=== PATIENT | female | born 1965 | race Caucasian/White ===

== ENCOUNTER 2018-10-29 07:52 | Emergency (ER) | payer MEDICARE, MEDICAID ==
[~2018-10-29] VITALS: Ht 170.2 cm; Wt 127.0 kg
[~2018-10-29 07:52] MED LIST: ACHD5005 PO; ALPR1TAB72 PO; BUTA1TAB46 PO; CYCL10TA9 PO; EXEN10PE4 SQ; FLUT1DIS28 IH; LISI1TAB10 PO; NAPR-243 PO; NF-ESOM40C PO; NF-XOP-HFA INH; PIOG45TA PO; SERT100T PO; ZOLP10TA5 PO
--- OUTSIDE RECORDS SUMMARY | 2018-10-29 07:59 | XMS REPORT ---
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 Phone YOON LARRY Unavailable PROBLEMS Type Condition ICD9-CM Code [id number] Code Onset Dates Condition Status SNOMED Code Problem Osteoarthritis of left knee M17.12 Apr, 0 206357759 Problem Type 2 diabetes mellitus without complication E11.9 May, 0 150319118 Problem Diffuse abdominal pain R10.84 Jan, 0 977772433 Problem Morbid obesity with BMI of 40.0-44.9, adult E66.01 Sep, 0 892622370 Problem RUBY (obstructive sleep apnea) G47.33 November, 0 92667075 Problem Chest pain R07.9 Jun, 0 79724530 Problem Fever R50.9 Jan, 0 185827605 Problem HTN (hypertension), benign 401.1 Mar, 0 62021610 Problem Nonspecific mesenteric adenitis 289.2 Jan, 0 955180059 Problem Morbid obesity with BMI of 40.0-44.9, adult 278.01 Sep, 0 956698221 Problem Difficult bowel movements 564.00 Dec, 0 75344500 Problem Rheumatoid arthritis involving multiple sites with positive rheumatoid factor 714.0 Oct, 0 58047428 Problem Nonspecific mesenteric adenitis I88.0 Jan, 0 497805769 Problem Lumbago M54.5 May, 0 321045822 Problem Anxiety F41.9 Jun, 0 69178275 Problem Adnexal mass 625.8 Jan, 0 559351886 Problem Adnexal mass N94.9 Jan, 0 311071920 Problem Urinary incontinence R32 Oct, 0 385156284 Problem Osteoarthritis of left knee 715.96 Apr, 0 021524123 Problem Rheumatoid arthritis involving multiple sites with positive rheumatoid factor M05.79 16 Oct, 2017 0 53849112 Problem RUBY (obstructive sleep apnea) 327.23 11 Nov, 2015 0 11578824 Problem Difficult bowel movements K59.00 Dec, 0 30024236 Problem Diffuse abdominal pain 789.00 Jan, 0 94042420 Problem Osteoarthrosis, unspecified whether generalized or localized, lower leg M17.10 15 May, 2007 0 565048515 Problem Urinary incontinence 788.30 15 Oct, 2013 0 517921163 Problem Type 2 diabetes mellitus without complication 250.00 15 May, 2007 0 930089984 Problem Chest pain 786.50 Jun, 0 62439261 Problem Anxiety 300.00 Jun, 0 54962913 Problem Fever 780.60 Jan, 0 529020966 Problem Exacerbation of asthma, unspecified asthma severity, unspecified whether persistent J45.901 Active 404746147 Problem Anxiety state, unspecified F41.1 0 997583481 Problem Urinary, incontinence, stress female N39.3 Active 12019351 Problem Esophageal reflux K21.9 0 160770000 Problem HTN (hypertension), benign I10 Mar, 0 17623456 Problem Osteoarthrosis, unspecified whether generalized or localized, lower leg 715.96 15 May, 2007 0 249551192 Problem Lumbago 724.2 15 May, 2007 0 918381504 Problem Esophageal reflux 530.81 0 167838756 Problem Anxiety state, unspecified 300.00 0 455497680 ALLERGIES Substance Reaction Event Type Date Status Penicillin V Potassium rash Drug Allergy Sep, Active Keflex rash Drug Allergy Sep, Active ceclor rash Non Drug Allergy Sep, Active Tetracycline HCl rash Drug Allergy Sep, Active Sulfacetamide Sodium rash Drug Allergy Sep, Active Singulair rash Drug Allergy Sep, Active ENCOUNTERS Encounter Location Date Diagnosis [address] [address] Sep, [address] [address] Sep, Urinary, incontinence, stress female N39.3 and Morbid obesity E66.[address] [address] Sep, Upper respiratory tract infection, unspecified type J06.9 ; Exacerbation of asthma, unspecified asthma severity, unspecified whether persistent J45.901 and Morbid obesity E66.01 [facility] [address], [place] [address] Aug, Fever, unspecified fever cause R50.9 ; Nausea R11.0 and Viral illness B34.[address] [address] Aug, [facility] [id number], [place] [address] Jul, Contusion of right knee, initial encounter S80.01XA ; Right anterior knee pain M25.561 and BMI 40.0-44.9, adult Z68.41 [facility] [id number] [place] [address] Jun, [place] [id number] [place] [phone] Jun, [place] [id number] [place] [address] Jun, [place] [address] [address] Jun, [place] [id number] [place] [address] Jun, [place] [id number] [place] [phone] May, [facility] [id number] [place] [address] Apr, [place] [id number] [place] [phone] Apr, [place] [id number] [place] [address] Apr, Anxiety state, unspecified F41.1 and 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 IMMUNIZATIONS No Known Immunizations SOCIAL HISTORY Never Assessed REASON FOR VISIT Nasal and chest congestion, runny nose, dry cough.[facility]cox PLAN OF CARE Activity Details Follow Up as needed or reg fu with pcp Reason: VITAL SIGNS Height 67 in 2018-09-09 Weight 278 lbs 2018-09-09 Temperature 97.8 degrees Fahrenheit 2018-09-09 Heart Rate 100 bpm 2018-09-09 Respiratory Rate 18 2018-09-09 BMI 43.54 kg/m2 2018-09-09 Blood pressure systolic 120 mmHg 2018-09-09 Blood pressure diastolic 70 mmHg 2018-09-09 MEDICATIONS Medication Instructions Dosage Frequency Start Date End Date Duration Status Spironolactone 25 MG Take 1 Tablet (25 mg) by mouth daily. 30 Active Ondansetron 4 MG Orally every 4 hrs 1 tablet on the tongue and allow to dissolve as needed 4h Aug, 5 days Active Hydrochlorothiazide 25 MG Orally Once a day 1 tablet in the morning 24h 30 day(s) Active PredniSONE 20 MG Orally 1 times a day 1 tablet Sep, 5 days Active Protonix 40 MG Orally Once a day 1 tablet 24h 30 day(s) Active Tramadol HCl 50 MG as directed Active Fluticasone Propionate 50 MCG/ACT Administer 2 Sprays in each nostril daily. 30 Active Estradiol 1 MG Orally Daily for Three Weeks, 1 Week off 1 tablet 30 day(s) Active Simvastatin 20 MG Orally Once a day 1 tablet in the evening 24h 30 day(s) Active Bydureon 2 MG as directed Active Xanax 0.5 MG Orally 3 times a day 1 tablet as needed. 8h Active Azithromycin 250 MG Orally Once a day 2 tablets on the first day, then 1 tablet daily for 4 days 24h Sep, 5 day(s) Active RESULTS No Results PROCEDURES Procedure Date Ordered Result Body Site [facility] VISIT ESTABLISHED PATIENT September 09, 2018 INSTRUCTIONS MEDICATIONS ADMINISTERED No Known Medications MEDICAL (GENERAL) HISTORY Type Description Date Medical History HTN Medical History GERD Medical History Diabetes Medical History Anxiety Medical History RA Medical History Fibromyalgia Medical History Primary insomnia Medical History Anxiety state, unspecified Medical History Nightmare disorder Surgical History EGD Surgical History cyst removed from abdomen 01/22 Surgical History Left knee scope X 2 Surgical History Gallbladder Surgical History right ankle surgery Surgical History TVH with BSO with [facility] Hospitalization History post surgery
--- OUTSIDE RECORDS SUMMARY | 2018-10-29 07:59 | XMS REPORT ---
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 PLAN OF CARE VITAL SIGNS MEDICATIONS Medication Instructions Dosage Frequency Start Date End Date Duration Status Estradiol Active Hydrochlorothiazide Active Potassium Active Protonix Active Bydureon Active Ibuprofen Active Tramadol HCl Active Xanax Active RESULTS No Results PROCEDURES Procedure Date Ordered Result Body Site [facility]IS[facility] NEW PT May 02, 2017 Psych diagnostic evaluation, new patient May 02, 2017 INSTRUCTIONS MEDICATIONS ADMINISTERED No Known Medications
--- OUTSIDE RECORDS SUMMARY | 2018-10-29 07:59 | XMS REPORT | Clinical Summary ---
Author Author Admin, AMANDA Organization [facility] Address Unknown Phone Unavailable Allergies, Adverse Reactions, Alerts Allergy Name Reaction Description Start Date Severity Status Provider WALNUTS Mild Active Rod Way MD SINGULAIR Moderate Active Rod Way MD SULFA Moderate Active Rod Way MD KEFLEX Severe Active Rod Way MD PCN Severe Active Rod Way MD Conditions or Problems Problem Name Problem Code Onset Date Status Entry Date Provider Comment Standard Description Annotate Incontinence Female Stress Active Rod Way MD Stress incontinence, female Medication List Medication Instructions Start Date Stop Date Generic Name NDC Status Provider Patient Instruction TRAMADOL HCL 50 MG ORAL TABLET once daily TRAMADOL HCL 28068147482 Active Rod Way MD Active PROTONIX 20 MG ORAL TABLET DELAYED RELEASE once daily PANTOPRAZOLE SODIUM 59355988596 Active Rod Way MD Active ESTRACE TABLET ESTRADIOL TABS 84508045861 Active Rod Way MD Active SIMVASTATIN 20 MG ORAL TABLET once daily SIMVASTATIN 71856281579 Active Rod Way MD Active HYDROCHLOROTHIAZIDE 25 MG ORAL TABLET once daily HYDROCHLOROTHIAZIDE 45390470918 Active Rod Way MD Active Vital Signs Date Name Value Unit Range Description blood pressure, diastolic 78 mm[Hg] BP browning blood pressure, systolic 143 mm[Hg] BP sys height E&M 65 [in_us] Bdy height pulse rate E&M 93 /min Heart rate temperature E&M 98.1 [degF] Body temperature weight E&M 287 [lb_av] Weight Measured Diagnostic Results Date Name Value Unit Range Description Office Visit: CN-bladder sling - Chemistry RBC, urine, dipstick negative protein, total urine random negative mg/dL Office Visit: CN-bladder sling - Urinalysis ketones, urine, by test strip negative bilirubin, urine negative glucose, urine, semiquantitative negative pH, urine, semiquantitative 6 specific gravity, urine 1.015 urine color yellow appearance, urine clear leukocyte esterase, urine, by dipstick negative nitrite, urine, semiquantitative negative urobilinogen, urine, semiquantitative (dipstick) negative protein, urine, semiquantitative (dipstick) negative Encounters Code Encounter Date Provider Facility CPT-95725 Level 3 New Patient 13:15:[address] MD [facility]
--- OUTSIDE RECORDS SUMMARY | 2018-10-29 07:59 | XMS REPORT | Clinical Summary ---
Author Author Admin, AMANDA Organization [employer] Address Unknown Phone Unavailable Allergies, Adverse Reactions, [...] MG ORAL TABLET once daily TRAMADOL HCL 02250316102 Active Rod Way MD Active PROTONIX 20 MG ORAL TABLET DELAYED RELEASE once daily PANTOPRAZOLE SODIUM 79953347905 Active Rod Way MD Active ESTRACE TABLET ESTRADIOL TABS 60632346424 Active Rod Way MD Active SIMVASTATIN 20 MG ORAL TABLET once daily SIMVASTATIN 70860473336 Active Rod Way MD Active HYDROCHLOROTHIAZIDE 25 MG ORAL TABLET once daily HYDROCHLOROTHIAZIDE 07451258888 Active Rod Way MD Active Vital Signs Date Name Value Unit Range Description blood pressure, diastolic, repeated by physician 92 BP browning blood pressure, diastolic 92 mm[Hg] BP browning blood pressure, systolic, repeated by physician 132 BP sys blood pressure, systolic 132 mm[Hg] BP sys height E&M 65 [in_us] Bdy height pulse rate E&M 100 /min Heart rate temperature E&M 98.3 [degF] Body temperature weight E&M 291 [lb_av] Weight Measured blood pressure, diastolic 78 mm[Hg] BP browning [...] negative Encounters Code Encounter Date Provider Facility CPT-45567 Level 3 New Patient 13:15:[address] MD [facility] Procedures Code Procedure Name Date Entry Date Standard Description CPT-00039 Postop F/U Visit 11:00:53 CDT
--- OUTSIDE RECORDS SUMMARY | 2018-10-29 07:59 | XMS REPORT | Clinical Summary ---
Author Author Admin, AMANDA Organization [employer] Address Unknown Phone Unavailable Allergies, Adverse Reactions, [...] MG ORAL TABLET once daily TRAMADOL HCL 33362869989 Active Rod Way MD Active PROTONIX 20 MG ORAL TABLET DELAYED RELEASE once daily PANTOPRAZOLE SODIUM 91319849440 Active Rod Way MD Active ESTRACE TABLET ESTRADIOL TABS 14631076958 Active Rod Way MD Active SIMVASTATIN 20 MG ORAL TABLET once daily SIMVASTATIN 28273694492 Active Rod Way MD Active HYDROCHLOROTHIAZIDE 25 MG ORAL TABLET once daily HYDROCHLOROTHIAZIDE 27734834189 Active Rod Way MD Active Vital Signs [...] negative Encounters Code Encounter Date Provider Facility CPT-50058 Level 3 New Patient 13:15:[address] MD [facility] Procedures Code Procedure Name Date Entry Date Standard Description CPT-11997 Postop F/U Visit 11:00:53 CDT
--- OUTSIDE RECORDS SUMMARY | 2018-10-29 07:59 | XMS REPORT | Clinical Summary ---
Author Author Admin, AMANDA Organization [facility] Address Unknown Phone Unavailable Allergies, Adverse Reactions, [...] MG ORAL TABLET once daily TRAMADOL HCL 05514044341 Active Rod Way MD Active PROTONIX 20 MG ORAL TABLET DELAYED RELEASE once daily PANTOPRAZOLE SODIUM 49104924856 Active Rod Way MD Active ESTRACE TABLET ESTRADIOL TABS 70385045809 Active Rod Way MD Active SIMVASTATIN 20 MG ORAL TABLET once daily SIMVASTATIN 02158898556 Active Rod Way MD Active HYDROCHLOROTHIAZIDE 25 MG ORAL TABLET once daily HYDROCHLOROTHIAZIDE 86997647800 Active Rod Way MD Active Vital Signs [...] negative Encounters Code Encounter Date Provider Facility CPT-29348 Level 3 New Patient 13:15:[address] MD [facility]
--- OUTSIDE RECORDS SUMMARY | 2018-10-29 08:00 | XMS REPORT | Continuity of Care Document ---
Author Organization Unknown Address Unknown Allergies There is no data. Medications There is no data. Problems There is no data. Procedures There is no data. Results Test Result Range [facility] - 10/09/18 16:06 GLUCOSE 272 mg/dL 65-99 UREA NITROGEN (BUN) 12 mg/dL 7-25 CREATININE 0.69 mg/dL 0.50-1.05 eGFR NON-AFR. COMORAN 101 mL/min/1.73m2 > OR=60 eGFR 117 mL/min/1.73m2 > OR=60 BUN/CREATININE RATIO NOT APPLICABLE (calc) 6-22 SODIUM 138 mmol/L 135-146 POTASSIUM 4.5 mmol/L 3.5-5.3 CHLORIDE 100 mmol/L 98-110 CARBON DIOXIDE 25 mmol/L 20-32 CALCIUM 8.9 mg/dL 8.6-10.4 PROTEIN, TOTAL 6.2 g/dL 6.1-8.1 ALBUMIN 3.7 g/dL 3.6-5.1 GLOBULIN 2.5 g/dL (calc) 1.9-3.7 ALBUMIN/GLOBULIN RATIO 1.5 (calc) 1.0-2.5 BILIRUBIN, TOTAL 0.4 mg/dL 0.2-1.2 ALKALINE PHOSPHATASE 53 U/L 33-130 AST 28 U/L 10-35 ALT 26 U/L 6-29 CULTURE, THROAT - 10/09/18 16:06 CULTURE, THROAT NRG Encounters ACCT No. Visit Date/Time Discharge Status Pt. Type Provider Facility Loc./Unit Complaint [id number] 09/11/2018 13:45:00 09/11/2018 23:59:59 [id number] 10/09/2018 15:40:00 Document Registration [id number] 07/03/2017 12:55:24 07/03/2017 23: 59:59 CLS Outpatient [id number] 07/03/2017 12:55:10 07/03/2017 23: 59:59 CLS Outpatient [id number] 05/21/2017 09:39:44 05/21/2017 09: 39:44 DIS Outpatient [id number] 05/21/2017 09:39:30 05/21/2017 09: 39:30 DIS Outpatient [id number] 05/20/2017 10:48:23 05/20/2017 10: 48:23 DIS Outpatient [id number] 05/16/2017 07:50:26 05/16/2017 23: 59:59 CLS Outpatient [id number] 05/16/2017 07:50:25 05/16/2017 23: 59:59 CLS Outpatient [id number] 05/16/2017 07:50:10 05/16/2017 07: 50:11 DIS Outpatient [id number] 10/21/2018 14:48:02 ACT Unknown
--- OUTSIDE RECORDS SUMMARY | 2018-10-29 08:00 | XMS REPORT | Clinical Summary ---
Author Author Admin, AMANDA Organization [employer] Address Unknown Phone Unavailable Allergies, Adverse Reactions, [...] MG ORAL TABLET once daily TRAMADOL HCL 36060056637 Active Rod Way MD Active PROTONIX 20 MG ORAL TABLET DELAYED RELEASE once daily PANTOPRAZOLE SODIUM 81290213826 Active Rod Way MD Active ESTRACE TABLET ESTRADIOL TABS 77891364608 Active Rod Way MD Active SIMVASTATIN 20 MG ORAL TABLET once daily SIMVASTATIN 32669908240 Active Rod Way MD Active HYDROCHLOROTHIAZIDE 25 MG ORAL TABLET once daily HYDROCHLOROTHIAZIDE 55793135671 Active Rod Way MD Active Vital Signs [...] negative Encounters Code Encounter Date Provider Facility CPT-91418 Level 3 New Patient 13:15:[address] MD [facility]
--- NOTE | 2018-10-29 08:25 | ED Fall/Injury ---
General Chief Complaint: Trauma-Non Activation Stated Complaint: FALL History of Present Illness Date Seen by Provider: Oct 29, 2018 Time Seen by Provider: 08:10 This is a 52-year-old female with a history arthritis, hypertension, here for a fall down 3 stairs. She says that she hurts "all over", worst in left anterior shoulder and right buttock. She does remember falling, she did not have abrupt onset of a headache, chest pain, shortness of breath, abdominal pain, palpitations prior to falling. No antiplatelet or anticoagulant medications. Allergies and Home Medications Allergies Coded Allergies: Cephalexin Monohydrate (Unverified Allergy, Intermediate, BLISTERS AROUND LIPS, 08/10/11) Penicillins (Unverified Allergy, Intermediate, BLISTERS AROUND LIPS, ) cefaclor (Unverified Allergy, Intermediate, BLISTERS AROUND LIPS, 08/10/11) tetracycline (Unverified Allergy, Intermediate, BLISTERS AROUND LIPS, ) Sulfa (Sulfonamide Antibiotics) (Verified Allergy, Unknown, 10/29/18) montelukast (Verified Allergy, Unknown, 10/29/18) Uncoded Allergies: CLEAR PLASTIC TAPE (Allergy, Intermediate, HIVES, 08/10/11) Home Medications Acetamin/Butalbital/Caffeine 1 Each Tablet, 1-2 EACH PO Q4HR PRN FOR HEADACHE Prescribed by: NADIYA GO on 08/10/11 1655 Alprazolam 1 Mg Tab.rapdis, 1 MG PO TID PRN, (Reported) Cyclobenzaprine Hcl 10 Mg Tablet, 1 EACH PO TID PRN, (Reported) Esomeprazole Mag Trihydrate 40 Mg Capsule.dr, 1 CAP PO DAILY, (Reported) Fluticasone/Salmeterol 1 Disk Inhp, 1 PUFF IH BID, (Reported) 1 PUFF Hctz/Lisinopril 1 Tab Tablet, 1 EACH PO DAILY, (Reported) Hydrocodone Bit/Acetaminophen 1 Each Tablet, 1 EACH PO QID PRN, (Reported) Naproxen 500 Mg Tablet, 1 EACH PO BID, (Reported) Pioglitazone Hcl 45 Mg Tablet, 45 MG PO DAILY, (Reported) Sertraline Hcl 100 Mg Tablet, 100 MG PO HS, (Reported) Zolpidem Tartrate 10 Mg Tablet, 10 MG PO HS, (Reported) Patient Home Medication List Home Medication List Reviewed: Yes Review of Systems Review of Systems Constitutional: no symptoms reported Eyes: No Symptoms Reported Ears, Nose, Mouth, Throat: no symptoms reported Respiratory: no symptoms reported Cardiovascular: no symptoms reported Gastrointestinal: no symptoms reported Genitourinary: no symptoms reported Musculoskeletal: see HPI Skin: no symptoms reported Psychiatric/Neurological: No Symptoms Reported Past Prohsze-Kjmndu-Djaibu Hx Past Med/Social Hx: Reviewed Nursing Past Med/Soc Hx Immunizations Up To Date Date of Influenza Vaccine: Apr 07, 2011 Physical Exam Vital Signs Vital Signs - First Documented 10/29/18 08:00 Temp 97.7 Pulse 94 Resp 18 B/P (MAP) 128/89 (102) Pulse Ox 97 Capillary Refill : Height, Weight, BMI Height: '" Weight: lbs. oz. kg; BMI Method: General Appearance: no apparent distress HEENT: other (no tenderness or other palpatory abnormalities on the head, no acute dental fractures or loose or missing teeth) Neck: other (mild diffuse posterior tenderness across the neck) Cardiovascular: normal peripheral pulses, regular rate, rhythm Respiratory: lungs clear Gastrointestinal: non tender, soft Back: normal inspection, other (there is diffuse tenderness along the entire back, no focal midline tenderness however, no step-offs) Extremities: other (there is some mild tenderness diffusely in all 4 extremities however there is tenderness that patient feels it is more severe along the anterior left deltoid and in soft tissue of right buttock) Neurologic/Psychiatric: electronic gluer II-XII nml as tested, no motor/sensory deficits, alert, normal mood/affect, oriented x 3; No abnormal cerebellar tests Skin: warm/dry Progress/Results/Core Measures Results/Orders My Orders Orders - NADIRA HELLER DO Ct Chest/Abdomen/Pelvis Wo (10/29/18 ) Ct Head/Cervical Spine Wo (10/29/18 08:22) Hydromorphone Injection (Dilaudid Inject (10/29/18 08:49) Shoulder 2 View Left (10/29/18 08:49) Vital Signs/I&O 10/29/18 10/29/18 08:00 10:04 Temp 97.7 Pulse 94 90 Resp 18 18 B/P (MAP) 128/89 (102) 128/60 (82) Pulse Ox 97 97 Progress Progress Note : Progress Note I spoke to patient about her results, she apparently has had the left adnexal cyst drained within the past year, she will follow-up with her doctor for repeat evaluation. She will also ask her doctor about obtaining a repeat chest CT in 6 months because of the pulmonary nodule. We will give a sling for her shoulder pain to be removed for range of motion as tolerated. Departure Impression Primary Impression: Fall Additional Impressions: Cervical strain Back contusion Contusion of left shoulder Lung nodule Adnexal mass Disposition: 01 HOME, SELF-CARE Condition: Stable Departure-Patient Inst. Referrals: YURI BALDERAS MD (PCP/Family) Primary Care Physician Patient Instructions: Contusion (DC), Pulmonary Nodule NADIRA HELLER DO Oct 29, 2018 08:25
[2018-10-29] MEDS ORDERED: HYDROmorphone 2 MG/ML VIAL (DILAUDID) IM STA (08:49)
--- NOTE | 2018-10-29 09:52 | Diagnostic Imaging Report ---
PROCEDURE: CT head and CT cervical spine without contrast. TECHNIQUE: Multiple contiguous axial images were obtained through the brain and cervical spine without the use of intravenous contrast. Sagittal and coronal reformations through the cervical spine were then performed. Auto Exposure Controls were utilized during the CT exam to meet ALARA standards for radiation dose reduction. INDICATION: Head and neck pain after fall downstairs. FINDINGS: The ventricles and sulci are within normal limits. There is no hydrocephalus. There is no midline shift. No intracranial mass, hemorrhage or extra-axial fluid collection. The calvarium is intact. Sinuses and mastoid air cells are clear There is straightening of the normal cervical lordosis. The vertebral body heights are well-maintained. No fracture or traumatic subluxation. The odontoid is intact and lateral masses are well aligned. Prevertebral soft tissues are within normal limits. The lung apices are clear IMPRESSION: No acute intracranial abnormality. No acute fracture or traumatic subluxation of cervical spine. Dictated by: Dictated on workstation # [id number]
--- NOTE | 2018-10-29 09:55 | Diagnostic Imaging Report ---
PROCEDURE: CT chest, abdomen, and pelvis without contrast. TECHNIQUE: Multiple contiguous axial images were obtained through the chest, abdomen, and pelvis without the use of intravenous contrast. Auto Exposure Controls were utilized during the CT exam to meet ALARA standards for radiation dose reduction. INDICATION: Fall down flight of stairs. FINDINGS: There is a 5 mm subpleural nodule in the right upper lobe. There are no other discrete pulmonary nodules, masses, or infiltrates. There is no pleural or pericardial fluid. There is no pneumothorax. The heart size is normal. There is no pathologically enlarged adenopathy in the chest. There is mild thoracic spondylosis. There are no displaced rib fractures. The liver is normal in size without focal lesions. The gallbladder is surgically absent. There is no biliary dilatation. The spleen is normal. The pancreas and adrenal glands are unremarkable. There are several tiny nonobstructing stones in the right kidney, all measuring less than 3 mm. The left kidney is normal in appearance. The aorta is nonaneurysmal. The bowel gas pattern is nonspecific. The bladder is normal. There is a 7.6 x 6 cm cystic mass in the left hemipelvis. There is no ascites. There are no focal inflammatory changes. There is no fracture or traumatic subluxation in the lumbar spine. IMPRESSION: No acute abnormality in the chest, abdomen, or pelvis. There is a 5 mm subpleural nodule in the right upper lobe. A 6-month followup is recommended to ensure stability. Several tiny nonobstructing stones in the right kidney. Cystic mass in left hemipelvis measuring up to 7.6 x 5.9 cm. This is presumably of ovarian origin. This is most suspect for epithelial neoplasm such as ovarian cystadenoma although this could simply reflect a simple cyst. This could be better evaluated with a pelvic ultrasound. Dictated by: Dictated on workstation # [id number]
[2018-10-29 10:04] VITALS: BP 128/60
--- NOTE | 2018-10-29 10:09 | Diagnostic Imaging Report ---
INDICATION: Pain. Two views were obtained. FINDINGS: The alignment is normal. There is arthrosis of the acromioclavicular joint. There is no fracture or dislocation. Left lung is clear. Soft tissues are unremarkable. IMPRESSION: Arthrosis of the acromioclavicular joint, otherwise unremarkable. Dictated by: Dictated on workstation # [id number]
[2018-10-29 10:30] VITALS: BP 121/69
== END 2018-10-29 10:34 | disposition home or self-care (01) ==
LOC: EDUNIT# 07:52 → ER FS 07:55
DX: S16.1XXA Strain of muscle, fascia and tendon at neck level, initial encounter (principal); S30.0XXA Contusion of lower back and pelvis, initial encounter; S40.012A Contusion of left shoulder, initial encounter; R19.09 Other intra-abdominal and pelvic swelling, mass and lump; R91.1 Solitary pulmonary nodule; I10 Essential (primary) hypertension; Z88.1 Allergy status to other antibiotic agents; Z88.0 Allergy status to penicillin; Z88.2 Allergy status to sulfonamides; Z88.8 Allergy status to other drugs, medicaments and biological substances; Z79.51 Long term (current) use of inhaled steroids; W10.8XXA Fall (on) (from) other stairs and steps, initial encounter
CPT/HCPCS: 70450; 71250; 72125; 73030; 74176; 96372

== ENCOUNTER → 2018-11-04 | Outpatient (CLI) | payer MEDICARE, MEDICAID ==
--- NOTE | 2018-11-04 13:44 | Diagnostic Imaging Report ---
INDICATION: Knee pain status post recent fall. COMPARISON: None. FINDINGS: Three views of the left knee joint demonstrate no acute fracture or dislocation. No focal osseous lesions are seen. Moderate tricompartmental osteoarthritic changes are noted. No significant joint effusion is seen. The surrounding soft tissue structures are unremarkable. There are no radiopaque foreign bodies. IMPRESSION: 1. No acute fractures or dislocations of the left knee joint. 2. Moderate tricompartmental osteoarthritic changes. Dictated by: Dictated on workstation # [id number]
== END ==
LOC: RAD FS 13:25
PROVIDERS: ATTEND Nurse Practitioner
DX: M17.12 Unilateral primary osteoarthritis, left knee (principal)
CPT/HCPCS: 73562

== ENCOUNTER 2018-11-13 20:38 | Outpatient (CLI) | payer MEDICARE, MEDICAID | END 2018-11-14 06:10 | disposition home or self-care (01) | LOC: SLEEP 20:38 | PROVIDERS: ATTEND Surgery | DX: G47.33 Obstructive sleep apnea (adult) (pediatric) (principal); E66.9 Obesity, unspecified | CPT/HCPCS: 95810 ==

== ENCOUNTER 2019-05-15 13:02 | Observation (INO) | payer MEDICARE, MEDICAID ==
[~2019-05-15] VITALS: Ht 165.1 cm; Wt 117.4 kg
[2019-05-15] MEDS ORDERED: NS IV 1000 ML 1,000 ML IV SCH (13:30)
[2019-05-15] MEDS ORDERED: KETOROLAC 15 MG/ML VIAL IVP ONE (13:30)
[2019-05-15] MEDS ORDERED: ASPIRIN 81 MG CHEW (CHILDREN'S ASA) PO ONE (13:30)
[2019-05-15] MEDS ORDERED: LORazepam INJ 2 MG/ML (ATIVAN) VIAL IVP ONE (13:30)
[2019-05-15 13:43] LABS: HEMATOCRIT 41 % (35-52); MEAN CORPUSCULAR HEMOGLOBIN 30 PG (25-34); MEAN CORPUSCULAR HGB CONC 34 G/DL (32-36); MEAN CORPUSCULAR VOLUME 87 FL (80-99); PLATELET COUNT 247 10^3/uL (130-400); RED CELL DISTRIBUTION WIDTH 12.7 % (10.0-14.5); WHITE BLOOD COUNT 8.3 10^3/uL (4.3-11.0)
[2019-05-15 13:44] LABS: BASOPHILS # (AUTO) 0.1 10^3/uL (0.0-0.1); BASOPHILS % (AUTO) 1 % (0-10); EOSINOPHILS # (AUTO) 0.3 10^3/uL (0.0-0.3); EOSINOPHILS % (AUTO) 3 % (0-10); LYMPHOCYTES # (AUTO) 3.1 X 10^3 (1.0-4.0); LYMPHOCYTES % (AUTO) 38 % (12-44); MEAN PLATELET VOLUME 9.5 FL (7.4-10.4); MONOCYTES # (AUTO) 0.5 X 10^3 (0.0-1.0); MONOCYTES % (AUTO) 6 % (0-12); NEUTROPHILS # (AUTO) 4.3 X 10^3 (1.8-7.8); NEUTROPHILS % (AUTO) 52 % (42-75)
--- NOTE | 2019-05-15 13:45 | Diagnostic Imaging Report ---
INDICATION: Chest pain and shortness of breath. Frontal chest obtained at 01:12 p.m. Heart and mediastinal silhouette are normal in appearance. The lungs are clear. There is no pneumothorax or pleural fluid. IMPRESSION: Negative chest. Dictated by: Dictated on workstation # [id number]
--- NOTE | 2019-05-15 13:46 | ED General ---
General Chief Complaint: Chest Pain Stated Complaint: CHEST PAIN History of Present Illness Date Seen by Provider: May 15, 2019 Time Seen by Provider: 13:42 Initial Comments Patient presenting to emergency department for evaluation of chest pain that has been going on since Saturday which is 5 days ago. She says it started while she was in an argument and feels like there is a vice on the left side of her chest and it radiates towards her left jaw and left arm and associated with shortness of breath but no nausea vomiting or diaphoresis. She says that stress makes the pain worse and that the exertion can make her pain worsens well. She has a history of hypertension and diabetes as well as family history of father having a stroke in his 50s and a mother with an brain aneurysm. She says she has had no prior cardiac risk stratification such as stress test or heart catheterization. She was seen in the primary care doctor's office and they sent her here for further evaluation. Allergies and Home Medications Allergies Coded Allergies: Cephalexin Monohydrate (Unverified Allergy, Intermediate, BLISTERS AROUND LIPS, 08/10/11) Penicillins (Unverified Allergy, Intermediate, BLISTERS AROUND LIPS, 08/10/11) cefaclor (Unverified Allergy, Intermediate, BLISTERS AROUND LIPS, 08/10/11) tetracycline (Unverified Allergy, Intermediate, BLISTERS AROUND LIPS, 08/10/11) Sulfa (Sulfonamide Antibiotics) (Verified Allergy, Unknown, 10/29/18) montelukast (Verified Allergy, Unknown, 10/29/18) walnut (Unverified Adverse Reaction, Intermediate, SOA, hives, 05/15/19) acetaminophen (Unverified Adverse Reaction, Mild, Itching, 05/15/19) meloxicam (Unverified Adverse Reaction, Mild, rash, 05/15/19) metformin (Unverified Adverse Reaction, Mild, diarrhea, 05/15/19) oxycodone (Unverified Adverse Reaction, Mild, Itching, 05/15/19) pregabalin (Unverified Adverse Reaction, Unknown, 05/15/19) Uncoded Allergies: CLEAR PLASTIC TAPE (Allergy, Intermediate, HIVES, 08/10/11) Hymenoptera Allergenic Extract (Adverse Reaction, Mild, hives, 05/15/19) Home Medications Acetamin/Butalbital/Caffeine 1 Each Tablet, 1-2 EACH PO Q4HR PRN FOR HEADACHE Prescribed by: NAIDYA GO on 08/10/11 4125 Cyclobenzaprine Hcl 10 Mg Tablet, 1 EACH PO TID PRN, (Reported) Fluticasone/Salmeterol 1 Disk Inhp, 1 PUFF IH BID, (Reported) 1 PUFF Sertraline Hcl 100 Mg Tablet, 100 MG PO HS, (Reported) Patient Home Medication List Home Medication List Reviewed: Yes Review of Systems Review of Systems Constitutional: no symptoms reported EENTM: no symptoms reported Respiratory: cough, dyspnea on exertion, short of breath Cardiovascular: chest pain Gastrointestinal: no symptoms reported Genitourinary: no symptoms reported Musculoskeletal: no symptoms reported Skin: no symptoms reported Psychiatric/Neurological: No Symptoms Reported All Other Systems Reviewed Negative Unless Noted: Yes Past Mzjvlgd-Avyydr-Cfpjta Hx Patient Social History 2nd Hand Smoke Exposure: No Recent Foreign Travel: No Contact w/Someone Who Travel: No Recent Hopitalizations: No Immunizations Up To Date Date of Influenza Vaccine: Apr 07, 2011 Seasonal Allergies Seasonal Allergies: No Past Medical History Surgeries: Yes (bilat knee; EGD; Septum surgery) Bladder Surgery, Gallbladder, Orthopedic Respiratory: No Cardiac: Yes Hypertension Neurological: No Gastrointestinal: Yes Gastroesophageal Reflux, Hiatal Hernia, Gall Bladder Disease Musculoskeletal: Yes Arthritis Endocrine: Yes Diabetes, Non-Insulin dep HEENT: No Cancer: No Psychosocial: Yes Anxiety Integumentary: No Physical Exam Vital Signs Vital Signs - First Documented 05/15/19 13:10 Temp 36.4 Pulse 105 Resp 15 B/P (MAP) 130/71 (90) Pulse Ox 96 O2 Delivery Room Air Capillary Refill : Height, Weight, BMI Height: 5'7.00" Weight: 280lbs. oz. 127.485096fs; BMI Method:Stated General Appearance: No Apparent Distress, WD/WN HEENT: PERRL/EOMI Neck: Supple Respiratory: Lungs Clear, No Respiratory Distress Cardiovascular: No Edema, Normal Peripheral Pulses, Tachycardia Gastrointestinal: Non Tender, Soft Back: Normal Inspection Extremity: Normal Capillary Refill Neurologic/Psychiatric: Alert, Oriented x3 Skin: Warm/Dry Progress/Results/Core Measures Suspected Sepsis SIRS Temperature: Pulse: Respiratory Rate: Laboratory Tests 05/15/19 13:20: White Blood Count 8.3 Blood Pressure / Mean: Laboratory Tests 05/15/19 13:20: Creatinine 0.65, Platelet Count 247, Total Bilirubin 0.3 Results/Orders Lab Results Laboratory Tests Test 05/15/19 13:20 Range/Units White Blood Count 8.3 4.3-11.0 10^3/uL Red Blood Count 4.68 4.35-5.85 10^6/uL Hemoglobin 14.0 11.5-16.0 G/DL Hematocrit 41 35-52 % Mean Corpuscular Volume 87 80-99 FL Mean Corpuscular Hemoglobin 30 25-34 PG Mean Corpuscular Hemoglobin Concent 34 32-36 G/DL Red Cell Distribution Width 12.7 10.0-14.5 % Platelet Count 247 130-400 10^3/uL Mean Platelet Volume 9.5 7.4-10.4 FL Neutrophils (%) (Auto) 52 42-75 % Lymphocytes (%) (Auto) 38 12-44 % Monocytes (%) (Auto) 6 0-12 % Eosinophils (%) (Auto) 3 0-10 % Basophils (%) (Auto) 1 0-10 % Neutrophils # (Auto) 4.3 1.8-7.8 X 10^3 Lymphocytes # (Auto) 3.1 1.0-4.0 X 10^3 Monocytes # (Auto) 0.5 0.0-1.0 X 10^3 Eosinophils # (Auto) 0.3 0.0-0.3 10^3/uL Basophils # (Auto) 0.1 0.0-0.1 10^3/uL D-Dimer 0.49 0.00-0.49 UG/ML Sodium Level 140 135-145 MMOL/L Potassium Level 3.9 3.6-5.0 MMOL/L Chloride Level 101 98-107 MMOL/L Carbon Dioxide Level 26 21-32 MMOL/L Anion Gap 13 5-14 MMOL/L Blood Urea Nitrogen 15 7-18 MG/DL Creatinine 0.65 0.60-1.30 MG/DL Estimat Glomerular Filtration Rate > 60 BUN/Creatinine Ratio 23 Glucose Level 217 H 70-105 MG/DL Calcium Level 9.7 8.5-10.1 MG/DL Corrected Calcium 9.7 8.5-10.1 MG/DL Magnesium Level 1.8 1.6-2.4 MG/DL Total Bilirubin 0.3 0.1-1.0 MG/DL Aspartate Amino Transf (AST/SGOT) 21 5-34 U/L Alanine Aminotransferase (ALT/SGPT) 27 0-55 U/L Alkaline Phosphatase 61 40-136 U/L Troponin I < 0.30 <0.30 NG/ML Pro-B-Type Natriuretic Peptide < 5.0 <75.0 PG/ML Total Protein 7.3 6.4-8.2 GM/DL Albumin 4.0 3.2-4.5 GM/DL My Orders Orders - DIANNA MARINELLI DO Cbc With Automated Diff (05/15/19 13:22) Comprehensive Metabolic Panel (05/15/19 13:22) Chest 1 View Ap/Pa Only (05/15/19 13:22) Troponin I Fs (05/15/19 13:22) Magnesium (05/15/19 13:22) Probnp Fs (05/15/19 13:22) Lipase (05/15/19 13:22) Ns Iv 1000 Ml (Sodium Chloride 0.9%) (05/15/19 13:30) Ketorolac Injection (Toradol Injection) (05/15/19 13:30) Lorazepam Injection (Ativan Injection) (05/15/19 13:30) Aspirin Chewable Tablet (Baby Aspirin Ch (05/15/19 13:30) Fibrin Degradation Products (05/15/19 13:51) Ekg Tracing (05/15/19 13:11) Metoprolol Succinate (Xl) Tab (Toprol Xl (05/15/19 15:30) Enoxaparin Injection (Lovenox Injection) (05/15/19 15:30) Medications Given in ED Current Medications Medications Dose Ordered Sig/Ariadna Route Start Time Stop Time Status Last Admin Dose Admin Aspirin 324 mg ONCE ONCE PO 05/15/19 13:30 05/15/19 13:31 DC 05/15/19 13:38 324 MG Ketorolac Tromethamine 15 mg ONCE ONCE IVP 05/15/19 13:30 05/15/19 13:31 DC 05/15/19 13:38 15 MG Lorazepam 1 mg ONCE ONCE IVP 05/15/19 13:30 05/15/19 13:31 DC 05/15/19 13:37 1 MG Vital Signs/I&O 11/8/19 11/8/19 13:10 13:10 Temp 36.4 Pulse 105 Resp 15 B/P (MAP) 130/71 (90) Pulse Ox 96 O2 Delivery Room Air Room Air Capillary Refill : Progress Note : Progress Note Patient with chest pain that has some typical features. Her EKG shows Q waves in inferior leads and she has sinus tachycardia but no other obvious ischemic changes. Will check labs treat symptoms with Toradol and Ativan aspirin IV fluids and reassess. Troponin is negative. I gave her Ativan and Toradol for her pain which she said transiently helped within her chest felt like a vice again. Her heart score is 4. I talked to patient about lower likelihood of this being cardiac pain but I cannot be 100% sure. She is not ok with risk of going home. Given her heart score and continued chest pain she will be transferred to [facility]. I spoke to Dr. Gregorio and he recommended toprol 25mg and lovenox 40. Will transfer in stable condition. Departure Impression Primary Impression: Chest pain on exertion Additional Impression: Dyspnea Disposition: ADMITTED INPATIENT Condition: Stable Transfer Transfer Reason: Exceeds level of care Time Spoke to Accepting Phy: 15:48 Transfer Time: 15:48 Transfer Facility: [facility] Method of Transfer: EMS Departure-Patient Inst. Referrals: YURI BALDERAS MD (PCP/Family) Primary Care Physician DIANNA MARINELLI DO May 15, 2019 13:46 POS
[2019-05-15 14:09] LABS: BUN/CREATININE RATIO 23; CARBON DIOXIDE 26 MMOL/L (21-32); CHLORIDE 101 MMOL/L (98-107); CREATININE SERUM 0.65 MG/DL (0.60-1.30); GFR ESTIMATED > 60; POTASSIUM 3.9 MMOL/L (3.6-5.0); SODIUM 140 MMOL/L (135-145)
[2019-05-15 14:10] LABS: ALANINE AMINOTRANSFERASE 27 U/L (0-55); ALKALINE PHOSPHATASE 61 U/L (40-136); BILIRUBIN,TOTAL 0.3 MG/DL (0.1-1.0); CALCIUM 9.7 MG/DL (8.5-10.1); GLUCOSE 217 MG/DL (70-105); MAGNESIUM 1.8 MG/DL (1.6-2.4); TOTAL PROTEIN 7.3 GM/DL (6.4-8.2)
[2019-05-15] MEDS ORDERED: SEMA1PEN SC (14:46)
[2019-05-15] MEDS ORDERED: ESTR1TAB24 PO (14:46)
[2019-05-15] MEDS ORDERED: TRAM50TA2 PO (14:46)
[2019-05-15] MEDS ORDERED: PANT40TA3 PO (14:46)
[2019-05-15] MEDS ORDERED: ALPR0.5T7 PO (14:46)
[2019-05-15] MEDS ORDERED: HYDR25TA4 PO (14:46)
[2019-05-15] MEDS ORDERED: ENOXAPARIN 40 MG/0.4 ML (LOVENOX) SYR SQ SCH (15:30)
--- NOTE | 2019-05-15 15:35 | NUR ---
Called church supervisor for bed assignment Medical Telemetry. Admit OBS Dr Christianson.
--- NOTE | 2019-05-15 16:08 | NUR ---
Called to hospital medical floor to ask if a room number is assigned. Patient, family, and Dr requesting update.
--- NOTE | 2019-05-15 16:12 | NUR ---
Received call from travel information center supervisor explaining the delay to bed assignment. Room number rec'd. Pt updated. updated.
--- NOTE | 2019-05-15 16:25 | NUR ---
Called dispatch for transfer to [facility].
--- NOTE | 2019-05-15 16:28 | NUR ---
EMS was paged to [facility] [employer] for transfer.
--- NOTE | 2019-05-15 16:40 | NUR ---
[facility] here.
[2019-05-15 16:42] LABS: LIPASE 19 U/L (8-78)
--- NOTE | 2019-05-15 16:51 | NUR ---
Departing ER at this time for [place] via [facility].
[2019-05-15 17:44] VITALS: BP 130/86
[2019-05-15] MEDS ORDERED: CATHETER FLUSH 10 ML SYR IV PRN (17:45)
[2019-05-15 19:27] VITALS: BP 123/68
[2019-05-15] MEDS: CATHETER FLUSH 10 ML SYR IV SCH (22:38)
[2019-05-15] MEDS ORDERED: ALPRAZolam 1 MG (XANAX) TAB PO PRN (23:15)
[2019-05-15] MEDS ORDERED: NITROGLYCERIN 0.4 MG SL TABS BTL 25'S SL PRN (23:15)
[2019-05-15 23:25] VITALS: BP 125/75
[2019-05-15] MEDS ORDERED: NITROGLYCERIN 0.4 MG SL TABS BTL 25'S SL ONE (23:33)
--- NOTE | 2019-05-15 23:50 | NUR ---
23:08 - Pt complained of active chest pain and numbness to her left arms and shoulder. Pt stated that pain is at 7. 23:10 - Notified Dr. Christianson about chest pain complain and received orders for Chest Pain order set; Nitroglycerin 0.4 mg tab sublingual; 0.5 Alprazolam once. 23:39 - Gave 1 dose Nitroglycerin. 23:45 - Pt stated that she no longer has chest pains. Pt stated that there is no numbness on left arms and shoulders. 23:49 - EKG was done. Normal results. 23:50 - Continue to monitor and follow Chest Pain Vital Signs protocol.
[2019-05-15 23:53] VITALS: BP 122/79
[2019-05-16] VITALS (13 sets, daily range): BP systolic 91–122; BP diastolic 57–83
[2019-05-16] MEDS: CATHETER FLUSH 10 ML SYR IV SCH ×3 (05:40→20:08)
[2019-05-16 06:02] LABS: BASOPHILS # (AUTO) 0.1 10^3/uL (0.0-0.1); BASOPHILS % (AUTO) 1 % (0-10); EOSINOPHILS # (AUTO) 0.3 10^3/uL (0.0-0.3); EOSINOPHILS % (AUTO) 5 % (0-10); HEMATOCRIT 35 % (35-52); HEMOGLOBIN 12.1 G/DL (11.5-16.0); LYMPHOCYTES # (AUTO) 2.8 X 10^3 (1.0-4.0); LYMPHOCYTES % (AUTO) 46 % (12-44); MEAN CORPUSCULAR HEMOGLOBIN 30 PG (25-34); MEAN CORPUSCULAR HGB CONC 34 G/DL (32-36); MEAN CORPUSCULAR VOLUME 87 FL (80-99); MEAN PLATELET VOLUME 9.2 FL (7.4-10.4); MONOCYTES # (AUTO) 0.4 X 10^3 (0.0-1.0); MONOCYTES % (AUTO) 7 % (0-12); NEUTROPHILS # (AUTO) 2.5 X 10^3 (1.8-7.8); NEUTROPHILS % (AUTO) 42 % (42-75); PLATELET COUNT 198 10^3/uL (130-400)
[2019-05-16 06:21] LABS: ALANINE AMINOTRANSFERASE 30 U/L (0-55); ALBUMIN 3.2 GM/DL (3.2-4.5); ALKALINE PHOSPHATASE 47 U/L (40-136); BILIRUBIN,TOTAL 0.3 MG/DL (0.1-1.0); BUN/CREATININE RATIO 22; CALCIUM 8.8 MG/DL (8.5-10.1); CARBON DIOXIDE 23 MMOL/L (21-32); CHLORIDE 105 MMOL/L (98-107); CREATININE SERUM 0.67 MG/DL (0.60-1.30); GFR ESTIMATED > 60; GLUCOSE 154 MG/DL (70-105); POTASSIUM 3.8 MMOL/L (3.6-5.0); SODIUM 138 MMOL/L (135-145); TOTAL PROTEIN 5.7 GM/DL (6.4-8.2)
[2019-05-16 06:30] LABS: CARDIAC PROFILE 2 < 0.028 NG/ML (<0.028)
[2019-05-16] MEDS: ALPRAZolam 0.5 MG (XANAX) TAB PO PRN (08:16)
--- NOTE | 2019-05-16 11:15 | NUR ---
DR. RODGERS NOTIFIED OF NEED FOR DVT PROPHYLAXIS AND NEED FOR HOME MEDS.
[2019-05-16] MEDS: ACETAMINOPHEN 325 MG TABLET PO PRN ×2 (11:50→18:30)
--- NOTE | 2019-05-16 11:50 | NUR ---
TYLENOL PO PER REQUEST FOR GENERAL DISCOMFORT.
--- NOTE | 2019-05-16 12:13 | History & Physical-Hospitalist ---
History of Present Illness HPI/Chief Complaint This is a 53-year-old white female who presented to the [facility] emergency room with complaints of a 5 day history of chest discomfort and left arm numbness. She has a history of hypertension diabetes and a strong family history of heart disease. She feels like her heart races and turns sideways and she gets very short of breath when she ambulates or gets up from sitting. She has a history of fibromyalgia. She's had a lot of stress in her life and had gotten an eye argument with her granddaughter with whom she lives. At the time my interview this morning she says she's continuing to have pain and feels like her heart is racing although she is been in sinus rhythm with a maximum heart rate of 81 on telemetry overnight. Her pulse ox with ambulation stays around 96 percent. Source: patient Exam Limitations: no limitations Date Seen 05/16/19 Time Seen by a Provider: 11:30 Attending Physician Estela Christianson MD PCP Yuri Balderas MD Referring Physician Date of Admission May 15, 2019 at 16:18 Home Medications & Allergies Home Medications Reviewed patient Home Medication Reconciliation performed by pharmacy medication reconciliations air and hydronic balancing technician and/or nursing. Patients Allergies have been reviewed. Allergies Allergies Coded Allergies Cephalexin Monohydrate (Unverified Allergy, Intermediate, BLISTERS AROUND LIPS, 08/10/11) Penicillins (Unverified Allergy, Intermediate, BLISTERS AROUND LIPS, 08/10/11) cefaclor (Unverified Allergy, Intermediate, BLISTERS AROUND LIPS, 08/10/11) tetracycline (Unverified Allergy, Intermediate, BLISTERS AROUND LIPS, 08/10/11) Sulfa (Sulfonamide Antibiotics) (Verified Allergy, Unknown, 10/29/18) montelukast (Verified Allergy, Unknown, 10/29/18) walnut (Unverified Adverse Reaction, Intermediate, SOA, hives, 05/15/19) acetaminophen (Unverified Adverse Reaction, Mild, Itching, 05/15/19) meloxicam (Unverified Adverse Reaction, Mild, rash, 05/15/19) metformin (Unverified Adverse Reaction, Mild, diarrhea, 05/15/19) oxycodone (Unverified Adverse Reaction, Mild, Itching, 05/15/19) pregabalin (Unverified Adverse Reaction, Unknown, 05/15/19) Uncoded Allergies CLEAR PLASTIC TAPE ( Allergy, Intermediate, HIVES, 08/10/11) Hymenoptera Allergenic Extract ( Adverse Reaction, Mild, hives, 05/15/19) Past Wmoevtd-Gbiapd-Iedisy Hx Past Med/Social Hx: Reviewed Nursing Past Med/Soc Hx Patient Social History Marrital Status: single Employed/Student: unemployed Alcohol Use: Occasionally Uses Recreational Drug Use: No Smoking Status: Never a Smoker 2nd Hand Smoke Exposure: No Recent Foreign Travel: No Contact w/other who traveled: No Recent Hopitalizations: No Recent Infectious Disease Expo: No Immunizations Up To Date Date of Pneumonia Vaccine: Jul 17, 2016 Date of Influenza Vaccine: Apr 17, 2019 Seasonal Allergies Seasonal Allergies: No Past Medical History Surgeries: Bladder Surgery, Gallbladder, Hysterectomy, Oophorectomy, Orthopedic Cardiac: Hypertension Female Reproductive Disorders: Ovarian Cyst Hysterectomy Genitourinary: Kidney Stones Gastrointestinal: Gastroesophageal Reflux, Hiatal Hernia, Gall Bladder Disease Musculoskeletal: Arthritis, Fibromyalgia, Rheumatoid Arthritis Endocrine: Diabetes, Non-Insulin dep Psychosocial: Anxiety History of Blood Disorders: No Family History Completed stroke 19 FATHER Diabetes mellitus 19 FATHER 19 MOTHER G8 SISTER FH: aneurysm 19 MOTHER Hypertension 19 FATHER 19 MOTHER G8 SISTER Review of Systems Constitutional: see HPI EENTM: no symptoms reported Respiratory: dyspnea on exertion, short of breath Cardiovascular: chest pain, palpitations Gastrointestinal: nausea Genitourinary: no symptoms reported Musculoskeletal: muscle pain Skin: no symptoms reported Psychiatric/Neurological: Anxiety Physical Exam Physical Exam Vital Signs Vital Signs - First Documented 05/15/19 05/15/19 13:10 16:51 Temp 36.4 Pulse 105 Resp 15 B/P (MAP) 130/71 (90) Pulse Ox 96 O2 Delivery Room Air O2 Flow Rate 2.00 Capillary Refill : Less Than 3 SecondsLess Than 3 Seconds Height, Weight, BMI Height: 5'7.00" Weight: 280lbs. oz. 127.318206vu; 42.92 BMI Method:Stated General Appearance: No Apparent Distress, WD/WN, Obese HEENT: PERRL/EOMI, TMs Normal, Normal ENT Inspection, Pharynx Normal Neck: Full Range of Motion, Normal Inspection, Non Tender, Supple Respiratory: Chest Non Tender, Lungs Clear, Normal Breath Sounds, No Accessory Muscle Use, No Respiratory Distress Cardiovascular: Regular Rate, Rhythm, No Edema, No Gallop, No JVD, No Murmur, Normal Peripheral Pulses Gastrointestinal: Soft, Tenderness Rectal: Deferred Back: Normal Inspection Extremity: Normal Capillary Refill, Normal Inspection, Normal Range of Motion, Non Tender, No Calf Tenderness Neurologic/Psychiatric: Alert, Oriented x3, No Motor/Sensory Deficits, Depressed Affect Skin: Normal Color, Warm/Dry Results Results/Procedures Labs Laboratory Tests 05/15/19 13:20 05/16/19 05:44 Patient resulted labs reviewed. Imaging: Reviewed Imaging Report Assessment/Plan Admission Diagnosis Chest pain with risk factors of family history hypertension and diabetes. Patient's cardiac enzymes have been negative EKG just shows a small Q in lead 3. We'll consult cardiology and defer to the option of outpatient stress testing. Palpitations with a normal telemetry. Shortness of breath with oxygen saturations that are above 95 percent possibly secondary to deconditioning. Obesity Fibromyalgia Type II diabetes Hypertension Further workup and discharge planning based on recommendations from cardiology Admission Status: Observation Clinical Quality Measures AMI/AHF: ASA po Prior to arrival: No DVT/VTE Risk/Contraindication: Risk Factor Score Per Nursin RFS Level Per Nursing on Admit: 4+=Very High Copy Copies To 1: YURI BALDERAS MD, KATHLEEN M MD May 16, 2019 12:13 POS
[2019-05-16] MEDS: ENOXAPARIN 40 MG/0.4 ML (LOVENOX) SYR SC SCH (13:20)
--- NOTE | 2019-05-16 14:13 | Consultation-Cardiology ---
HPI-Cardiology Cardiology Consultation: Date of Consultation 05/16/19 Time Seen by a Provider: 13:30 Date of Admission Attending Physician Estela Christianson MD Admitting Physician Billie Mcghee MD Consulting Physician OSMEL AVALOS MD, MA, FACP, FACC, FSCAI, CCDS HPI: Chief Complaint: CC: Chest discomfort HPI 53 yo woman with chest discomfort: onset 6 days ago, continuous, waxes and wanes, worse with deep insp, worse with exertion, associated with a feeling of shortness of breath, radiating to shoulders, varying from mild to moderately severe, not associated with palp or syncope, not experienced before. Notes chronic palpitations, nearly daily, consisting of a feeling of flip-flop, or a hard heart beat or suddenly a rapid heart beat that resolves gradually. She has chronic, slowly progressive, exertional shortness of breath. She does not report fever or chills. Has had a cough, mostly dry, for a week, intermittently. Notes gen malaise. Review of Systems-Cardiology Review of Systems Constitutional: As described under HPI Eyes: No vision change Ears/Nose/Throat: No ear discharge, No nasal drainage, No recent hearing loss Respiratory: As described under HPI Cardiovascular: As described under HPI Gastrointestinal: No diarrhea, No nausea, No vomiting Genitourinary: No dysuria, No hematuria, No urine frequency changes Musculoskeletal: back pain (chronic), joint pain (chronic, intermittent) Skin: No rash, No ulcerations Psychiatric/Neurological: No focal weakness, No syncope Hematologic: No bleeding abnormalities All Other Systems Reviewed Negative Unless Noted: Yes QBN-Tssbti-Evyeca Hx Patient Social History Marrital Status: single Employed/Student: unemployed Alcohol Use: Occasionally Uses Recreational Drug Use: No Smoking Status: Never a Smoker 2nd Hand Smoke Exposure: No Recent Foreign Travel: No Recent Infectious Disease Expo: No Hospitalization with Isolation: Denies Immunizations Up To Date Date of Pneumonia Vaccine: Jul 17, 2016 Date of Influenza Vaccine: Apr 17, 2019 Past Medical History PMH As described under Assessment. Family Medical History Family History: Completed stroke 19 FATHER Diabetes mellitus 19 FATHER 19 MOTHER G8 SISTER FH: aneurysm 19 MOTHER Hypertension 19 FATHER 19 MOTHER G8 SISTER Allergies and Home Medications Allergies Coded Allergies: Cephalexin Monohydrate (Unverified Allergy, Intermediate, BLISTERS AROUND LIPS, 08/10/11) Penicillins (Unverified Allergy, Intermediate, BLISTERS AROUND LIPS, 08/10/11) cefaclor (Unverified Allergy, Intermediate, BLISTERS AROUND LIPS, 08/10/11) tetracycline (Unverified Allergy, Intermediate, BLISTERS AROUND LIPS, 08/10/11) Sulfa (Sulfonamide Antibiotics) (Verified Allergy, Unknown, 10/29/18) montelukast (Verified Allergy, Unknown, 10/29/18) walnut (Unverified Adverse Reaction, Intermediate, SOA, hives, 05/15/19) acetaminophen (Unverified Adverse Reaction, Mild, Itching, 05/15/19) meloxicam (Unverified Adverse Reaction, Mild, rash, 05/15/19) metformin (Unverified Adverse Reaction, Mild, diarrhea, 05/15/19) oxycodone (Unverified Adverse Reaction, Mild, Itching, 05/15/19) pregabalin (Unverified Adverse Reaction, Unknown, 05/15/19) Uncoded Allergies: CLEAR PLASTIC TAPE (Allergy, Intermediate, HIVES, 08/10/11) Hymenoptera Allergenic Extract (Adverse Reaction, Mild, hives, 05/15/19) Home Medications Acetamin/Butalbital/Caffeine 1 Each Tablet, 1-2 EACH PO Q4HR PRN FOR HEADACHE Prescribed by: NADIYA GO on 08/10/11 1655 Cyclobenzaprine Hcl 10 Mg Tablet, 1 EACH PO TID PRN, (Reported) Fluticasone/Salmeterol 1 Disk Inhp, 1 PUFF IH BID, (Reported) 1 PUFF Sertraline Hcl 100 Mg Tablet, 100 MG PO HS, (Reported) Patient Home Medication List Home Medication List Reviewed: Yes Physical Exam-Cardiology Physical Exam Vital Signs/I&O 05/16/19 05/16/19 05/16/19 05/16/19 02:53 03:53 04:55 07:00 Temp 36.6 36.7 36.6 Pulse 80 78 89 80 Resp 16 16 16 B/P (MAP) 99/65 (76) 99/69 (79) 107/57 (74) Pulse Ox 90 92 96 O2 Delivery Room Air Room Air Room Air 05/16/19 05/16/19 05/16/19 05/16/19 07:59 08:00 12:00 13:00 Temp 36.8 36.8 Pulse 87 84 82 Resp 16 18 B/P (MAP) 113/74 (87) 117/72 (87) Pulse Ox 96 97 O2 Delivery Room Air Room Air Room Air 05/16/19 00:00 Intake Total 1720 ml Balance 1720 ml Capillary Refill : Less Than 3 SecondsLess Than 3 Seconds Constitutional: AAO x 3, well-developed, well-nourished, other (obese) HEENT: PERRL, EOMI; No xanthelasmas are seen Neck: carotid pulses are 2 + bilaterally, with good upstrokes Respiratory: No accessory muscle use; other (fair to good air entry, somewhat diminished at the bases) Cardiovascular: regular rate-rhythm, S1 and S2, systolic murmur (soft PADILLA at card base) Gastrointestinal: No tender; soft; No guarding, No rebound; audible bowel lawrence nds Extremities: swelling (mild, bilateral leg swelling); No clubbing, No cyanosis Neurologic/Psychiatric: oriented x 3, other (moves all limbs equally) Skin: No rash on exposed areas, No ulcerations on exposed areas Data Review Labs Laboratory Tests 05/15/19 17:55: Troponin I < 0.028 05/15/19 23:34: Troponin I < 0.028 05/16/19 05:44: Troponin I < 0.028, White Blood Count 6.0, Red Blood Count 4.05L, Hemoglobin 12.1, Hematocrit 35, Mean Corpuscular Volume 87, Mean Corpuscular Hemoglobin 30, Mean Corpuscular Hemoglobin Concent 34, Red Cell Distribution Width 13.0, Platelet Count 198, Mean Platelet Volume 9.2, Neutrophils (%) (Auto) 42, Lymphocytes (%) (Auto) 46H, Monocytes (%) (Auto) 7, Eosinophils (%) (Auto) 5, Basophils (%) (Auto) 1, Neutrophils # (Auto) 2.5, Lymphocytes # (Auto) 2.8, Monocytes # (Auto) 0.4, Eosinophils # (Auto) 0.3, Basophils # (Auto) 0.1, Sodium Level 138, Potassium Level 3.8, Chloride Level 105, Carbon Dioxide Level 23, Anion Gap 10, Blood Urea Nitrogen 15, Creatinine 0.67, Estimat Glomerular Filtration Rate > 60, BUN/Creatinine Ratio 22, Glucose Level 154H, Calcium Level 8.8, Corrected Calcium 9.4, Total Bilirubin 0.3, Aspartate Amino Transf (AST/ SGOT) 28, Alanine Aminotransferase (ALT/SGPT) 30, Alkaline Phosphatase 47, Total Protein 5.7L, Albumin 3.2 Laboratory Tests 05/15/19 13:20 05/16/19 05:44 A/P-Cardiology Assessment/Admission Diagnosis Non-specific chest discomfort w/o any evidence of ACS DM II Hypertension, by history Hyperlipidemia, by history Obesity Anxiety Fibromyalgia, by history Discussion and Recomendations * Echo to eval for structural heart disease / pericarditis * MPI to eval for cor ischemia, given nonspecific symptoms in the setting of multiple cor risk factors * Check lipids and TSH Clinical Quality Measures AMI/AHF: ASA po Prior to arrival: No DVT/VTE Risk/Contraindication: Risk Factor Score Per Nursin RFS Level Per Nursing on Admit: 4+=Very High OSMEL AVALOS MD FACP FAC CCDS May 16, 2019 14:13 POS
--- NOTE | 2019-05-16 18:31 | NUR ---
TYLENOL 2 PO PER REQUEST FOR GENERAL DISCOMFORT.
--- NOTE | 2019-05-16 20:50 | NUR ---
1999-pt states tylenol was not helpful for the generalized arthritis & fibromyalgia pain, pt states 02/14. pt requesting to have ultram 100mg BID restarted. 2019-this rn contacted dr. ace in regards to pt request to ultram. this rn received new order for ultram 50mg BID this rn discussed this order with the pt, she is agreeable to this order, states "something in better than this Tylenol"
[2019-05-17] MEDS: ENOXAPARIN 40 MG/0.4 ML (LOVENOX) SYR SC SCH ×2 (01:18→13:33)
[2019-05-17 04:56] VITALS: BP 108/74
[2019-05-17] MEDS: CATHETER FLUSH 10 ML SYR IV SCH ×3 (04:59→22:22)
[2019-05-17 08:00] VITALS: BP 105/74
--- NOTE | 2019-05-17 11:15 | NUR ---
XANAX 0.5MG PO FOR ANXIETY AND BENADRYL 25MG PO FOR ITCHING.
[2019-05-17] MEDS ORDERED: diphenhydrAMINE 25 MG TAB (BENADRYL) PO ONE ×2 (11:19→11:30)
[2019-05-17] MEDS: ALPRAZolam 0.5 MG (XANAX) TAB PO PRN ×2 (11:24→19:59)
[2019-05-17 11:54] VITALS: BP 124/84
--- NOTE | 2019-05-17 13:30 | NUR ---
ULTRAM 50MG PO FOR GENERALIZED PAIN.
--- NOTE | 2019-05-17 13:52 | Progress Note - Hospitalist ---
Subjective HPI/CC On Admission Date Seen by Provider: May 17, 2019 Time Seen by Provider: 13:00 This is a 53-year-old white female who presented to the [facility] emergency room with complaints of a 5 day history of chest discomfort and left arm numbness. She has a history of hypertension diabetes and a strong family history of heart disease. She feels like her heart races and turns sideways and she gets very short of breath when she ambulates or gets up from sitting. She has a history of fibromyalgia. She's had a lot of stress in her life and had gotten an eye argument with her granddaughter with whom she lives. At the time my interview this morning she says she's continuing to have pain and feels like her heart is racing although she is been in sinus rhythm with a maximum heart rate of 81 on telemetry overnight. Her pulse ox with ambulation stays around 96 percent. Subjective/Events-last exam Patient is lying down on her side eating. Denies having any chest pain. was wondering with the echocardiogram showed. Said that Dr. Hussein wanted to do a stress test tomorrow. Objective Exam Vital Signs Vital Signs Date Time Temp Pulse Resp B/P (MAP) Pulse Ox O2 Delivery O2 Flow Rate FiO2 05/17/19 13:00 91 05/17/19 11:54 37.0 16 124/84 (97) 95 Room Air 05/15/19 17:44 2.00 Capillary Refill : Less Than 3 SecondsLess Than 3 Seconds General Appearance: No Apparent Distress, WD/WN HEENT: Normal ENT Inspection Neck: Full Range of Motion, Non Tender, Supple Respiratory: Lungs Clear, Normal Breath Sounds, No Accessory Muscle Use, No Respiratory Distress Cardiovascular: Regular Rate, Rhythm, No Gallop, No Murmur, Normal Peripheral Pulses Gastrointestinal: Normal Bowel Sounds, Non Tender, Soft Rectal: Deferred Extremity: Normal Capillary Refill, Normal Inspection, Normal Range of Motion, Non Tender, No Calf Tenderness Neurologic/Psychiatric: Alert, Oriented x3, No Motor/Sensory Deficits, Normal Mood/Affect, ed physicians II-XII Norm as Tested Skin: Normal Color, Warm/Dry Results/Procedures Lab Patient resulted labs reviewed. Imaging: Reviewed Imaging Report Assessment/Plan Assessment and Plan Assess & Plan/Chief Complaint Chest pain with risk factors of family history hypertension and diabetes. Patient's cardiac enzymes have been negative EKG just shows a small Q in lead 3. Cardiology to read echo and schedule stress test Palpitations with a normal telemetry. Shortness of breath with oxygen saturations that are above 95 percent possibly secondary to deconditioning. Obesity Fibromyalgia Type II diabetes Hypertension Clinical Quality Measures AMI/AHF: ASA po Prior to arrival: No DVT/VTE Risk/Contraindication: Risk Factor Score Per Nursin RFS Level Per Nursing on Admit: 4+=Very High GEMA RODGERS MD May 17, 2019 13:52 POS
[2019-05-17] MEDS ORDERED: ALPRAZolam 0.5 MG (XANAX) TAB PO PRN (14:00)
[2019-05-17] MEDS ORDERED: ACET/BUTAL/CAFF (FIORICET) TAB PO PRN (14:00)
[2019-05-17 16:50] VITALS: BP_SYST 105; BP_SYST 111; BP_DIAS 70; BP_DIAS 71
--- NOTE | 2019-05-17 16:53 | Progress Note - Cardiology ---
Cardiology SOAP Progress Note Subjective: Same cp persists No palp or syncope Short of breath with exertion Objective: I&O/Vital Signs 05/17/19 05/17/19 05/17/19 05/17/19 04:56 07:00 08:00 08:40 Temp 36.6 36.2 Pulse 85 84 89 Resp 16 18 B/P (MAP) 108/74 (85) 105/74 (84) Pulse Ox 95 96 O2 Delivery Room Air Room Air Room Air 05/17/19 05/17/19 11:54 13:00 Temp 37.0 Pulse 84 91 Resp 16 B/P (MAP) 124/84 (97) Pulse Ox 95 O2 Delivery Room Air 05/17/19 00:00 Intake Total 1940 ml Balance 1940 ml Weight (Pounds): 280 Weight (Calculated Kilograms): 127.774205 Constitutional: AAO x 3, well-developed, well-nourished, other (reports pain but appear comfortable) Respiratory: No accessory muscle use; other (fair to good air entry, somewhat diminished at the bases) Cardiovascular: regular rate-rhythm, S1 and S2, systolic murmur (soft PADILLA at card base) Gastrointestional: No tender; soft; No guarding, No rebound; audible bowel sounds Extremities: swelling (mild, bilateral leg swelling); No clubbing, No cyanosis Neurologic/Psychiatric: oriented x 3, other (moves all limbs equally) Skin: No rash on exposed areas, No ulcerations on exposed areas Results/Procedures: Labs Laboratory Tests 05/17/19 05:33: Triglycerides Level 258H, Cholesterol Level 149, LDL Cholesterol Direct 109, VLDL Cholesterol 52H, HDL Cholesterol 30L, Thyroid Stimulating Hormone (TSH) 3.56 Laboratory Tests 05/16/19 05:44 A/P: Assessment: Non-specific chest discomfort w/o any evidence of ACS Echo of 05/17/19: LVEF 60-65%, no RWMA, mild MR, RVSP 20 mmHg DM II Hypertension, by history Hyperlipidemia: LDL-C 109, Trig 258 on 05/17/19 Obesity Anxiety Fibromyalgia, by history Plan: * I explained the results of echo to her * MPI to eval for cor ischemia, given nonspecific symptoms in the setting of multiple cor risk factors * Check lipids and TSH Clinical Quality Measures AMI/AHF: ASA po Prior to arrival: OSMEL Duran MD FACP FAC CCDS May 17, 2019 16:53 POS
[2019-05-17] MEDS ORDERED: REGADENOSON 0.4 MG/5 ML SYR (LEXISCAN) IV ONE (17:00)
--- NOTE | 2019-05-17 17:04 | NUR ---
DEEDEE FOR TOMORROW SCHEDULED WITH RAIN MOON AND FAXED TO CATH DEPT.
[2019-05-17 19:45] VITALS: BP 115/76
[2019-05-17] MEDS: SERTRALINE 100 MG (ZOLOFT) TAB PO SCH (20:17)
[2019-05-18] VITALS (7 sets, daily range): BP systolic 106–148; BP diastolic 76–94
[2019-05-18] MEDS: ENOXAPARIN 40 MG/0.4 ML (LOVENOX) SYR SC SCH ×2 (01:49→13:04)
[2019-05-18] MEDS: CATHETER FLUSH 10 ML SYR IV SCH ×2 (06:23→13:06)
[2019-05-18] MEDS ORDERED: REGADENOSON 0.4 MG/5 ML SYR (LEXISCAN) IV ONE (08:03)
[2019-05-18] MEDS ORDERED: PANTOPRAZOLE 40 MG (PROTONIX) TAB PO SCH (09:00)
[2019-05-18] MEDS ORDERED: TRIAMTERENE/HCTZ 75-50 (MAXZIDE,DYAZIDE) TABLET PO SCH (09:00)
--- NOTE | 2019-05-18 09:36 | Progress Note - Cardiology ---
Cardiology SOAP Progress Note Subjective: Continues to c/o chest discomfort, unchanged. No c/o dyspnea, palpitations, syncope or near syncope. Objective: I&O/Vital Signs 05/18/19 05/18/19 05/18/19 05/18/19 04:17 07:00 08:00 08:00 Temp 36.7 36.6 Pulse 91 114 87 Resp 16 20 B/P (MAP) 115/76 (89) 122/82 (95) Pulse Ox 95 97 O2 Delivery Room Air Room Air Room Air 05/18/19 05/18/19 08:09 08:12 Pulse 94 123 B/P (MAP) 124/87 (99) 148/94 (112) Pulse Ox 97 97 05/18/19 00:00 Intake Total 2990 ml Balance 2990 ml Weight (Pounds): 280 Weight (Calculated Kilograms): 127.491003 Constitutional: AAO x 3, well-developed, well-nourished, other (reports pain but appear comfortable) Respiratory: No accessory muscle use; other (fair to good air entry, somewhat diminished at the bases) Cardiovascular: regular rate-rhythm, S1 and S2, systolic murmur (soft PADILLA at card base) Gastrointestional: No tender; soft; No guarding, No rebound; audible bowel sounds Extremities: swelling (mild, bilateral leg swelling); No clubbing, No cyanosis Neurologic/Psychiatric: oriented x 3, other (moves all limbs equally) Skin: No rash on exposed areas, No ulcerations on exposed areas A/P: Assessment: Non-specific chest discomfort, non-cardiac (based on normal card enzymes and on lab work described below), etiology undetermined Echo of 05/17/19: LVEF 60-65%, no RWMA, mild MR, RVSP 20 mmHg MPI of 05/18/19: No ischemia or infarction. LVEF 62% DM II Hypertension, by history Hyperlipidemia: LDL-C 109, Trig 258 on 05/17/19 Obesity Anxiety Fibromyalgia, by history TSH WNL Plan: * MPI to eval for cor ischemia, given nonspecific symptoms in the setting of multiple cor risk factors - MPI results pending * Continue current medication regimen * Further recs will be based on results of MPI Physician Assessment Physician Assessment Chest pain same as it was at time of presentation 3 days ago. Has been going on continuously for over a week. Gets short of breath with mild to mod exertion Denies palp or syncope Lungs: fair to good air entry Cor: reg Ext: no c/c/e A&R * As documented in our note above that I updated (italics) and as noted below * Risk factor modification reviewed * Outpt cardiac f/u advised Clinical Quality Measures AMI/AHF: ASA po Prior to arrival: CARLOS White CLINICAL TECH May 18, 2019 09:36 OSMEL GARZA MD [facility] 13:19 POS
[2019-05-18] MEDS ORDERED: FEXO-46 PO (09:46)
[2019-05-18] MEDS ORDERED: IBUP-1780 PO (09:46)
[2019-05-18] MEDS ORDERED: SPIR25TA5 PO (09:47)
[2019-05-18] MEDS ORDERED: NF-XOP-HFA INH (09:50)
[2019-05-18] MEDS ORDERED: FLUT9.9S NS (09:52)
[2019-05-18] MEDS ORDERED: DIPH25TA31 PO (09:52)
--- NOTE | 2019-05-18 09:53 | NUR ---
SPOKE WITH PT AND WENT THRU THE EXT MED HISTORY TO COMPLETE THE MED REC. PT WAS ABLE TO TELL ME ALL HER MEDICATIONS WELL HOW/ WHEN SHE TAKES THEM. EVERYTHING MATCHED THE EXT MED HISTORY. ESTRACE 1MG: PT SAYS SHE ONLY TAKES 1 MG DAILY BUT THE RX SAYS " 1.5 MG ONCE DAILY". SHE TOLD ME HER DR IS AWARE SHE ONLY TAKES 1MG. PT INDICATES SHE USES XOPENEX HFA A RESCUE INHALER BUT SHE RECEIVED IT A SAMPLE FROM A HOSPITAL IN [place] AND DOES NOT HAVE A SCRIPT FOR IT. OTC MEDS: MILENA FONTENOT
--- NOTE | 2019-05-18 10:47 | STRESS TEST ---
DATE OF SERVICE: 05/18/2019 RESTING AND POST REGADENOSON TECHNETIUM-99M TETROFOSMIN SPECT CT IMAGING ORDERING PHYSICIAN: Dr. Gregorio. PRIMARY PHYSICIAN: Dr. Billie Mcghee. ATTENDING PHYSICIAN: Estela Christianson MD CLINICAL DIAGNOSIS: Chest discomfort. Baseline images were carried out after injection of 10.59 mCi of technetium-99m Tetrofosmin. This was followed by 0.4 mg regadenoson and 31.3 mCi of technetium-99m Tetrofosmin for stress imaging. The electrocardiogram showed sinus rhythm at baseline. It did not change significantly with the regadenoson infusion. The patient noted shortness of breath and nausea with the regadenoson infusion. She also had some coughing. The symptom resolved in a few minutes after the regadenoson injection. Review of images at rest and following stress does not indicate any significant perfusion defects consistent with significant myocardial ischemia or infarction. Gated images show normal global left ventricular systolic function with normal regional wall motion. Left ventricular ejection fraction is calculated to be 62%. CONCLUSIONS: 1. No evidence of any significant myocardial ischemia or infarction on this study. 2. Normal regional wall motion. 3. Normal global left ventricular systolic function with a calculated ejection fraction of 62%. Job ID: [id number] DocumentID: [id number] Dictated Date: 05/18/2019 09:40:43 Manager English Date: 05/18/2019 10:47:15 Dictated By: OSMEL GREGORIO MD, MA, FACP, FACC,
[2019-05-18] MEDS: SERTRALINE 100 MG (ZOLOFT) TAB PO SCH (12:57)
[2019-05-18] MEDS ORDERED: SERT100T8 PO (13:23)
--- NOTE | 2019-05-18 13:25 | Discharge Summary ---
Discharge Summary Hospital Course Hospital Course Date of Admission: May 15, 2019 at 16:18 Admission Diagnosis : Family Physician/Provider: Yuri Balderas MD Date of Discharge: 05/18/19 Discharge Diagnosis: Chest pain- negative troponin and normal stress test Hospital Course: Pt admitted with chest pain, Cardiology consulted, stress test negative for ischemia. Labs and Pending Lab Test: Home Meds Active Sertraline HCl 100 Mg Tablet 100 Mg PO HS Reported Diphenhydramine HCl 25 Mg Tablet 25-50 Mg PO Q6H PRN Flonase Allergy Relief (Fluticasone Propionate) 9.9 Ml [place].susp 2 [place] NS DAILY 2 SPRAYS PER NOSTRIL DAILY X 2 DAYS THEN 1 SPRAY DAILY Xopenex Hfa (Levalbuterol Tartrate) 15 Gm Hfa.aer.ad 1-2 Puff INH PRN PRN THIS IS A SAMPLE SHE RECIEVED AND DOES NOT HAVE A PRESCRIPTION. Spironolactone 25 Mg Tablet 25 Mg PO DAILY Ibuprofen 800 Mg Tablet 800 Mg PO TID Fexofenadine HCl 180 Mg Tablet 180 Mg PO DAILY Hydrochlorothiazide 25 Mg Tablet 25 Mg PO DAILY Estradiol Tablet (Estradiol) 1 Mg Tablet 1 Mg PO DAILY Tramadol HCl 50 Mg Tablet 100 Mg PO Q12H Pantoprazole Sodium 40 Mg Tablet.dr 40 Mg PO DAILY Alprazolam 0.5 Mg Tablet 0.5 Mg PO Q8H Ozempic (Semaglutide) 1 Mg/0.75 Ml Pen.injctr 1 Mg SC SATURDAY TAKES A ONCE WEEKLY INJECTION ON SATURDAY Assessment/Pt DC Instructions Follow up with Dr. Balderas on 05/21 at 11:20 am. Follow up with Cardiology as directed. Discharge Diet: ADA Diet Activity as Tolerated: Yes Consulations Consultations Cardiology Discharge Physical Examination Allergies: Coded Allergies: Cephalexin Monohydrate (Unverified Allergy, Intermediate, BLISTERS AROUND LIPS, 08/10/11) Penicillins (Unverified Allergy, Intermediate, BLISTERS AROUND LIPS, 08/10/11) cefaclor (Unverified Allergy, Intermediate, BLISTERS AROUND LIPS, 08/10/11) tetracycline (Unverified Allergy, Intermediate, BLISTERS AROUND LIPS, 08/10/11) Sulfa (Sulfonamide Antibiotics) (Verified Allergy, Unknown, 10/29/18) montelukast (Verified Allergy, Unknown, 10/29/18) walnut (Unverified Adverse Reaction, Intermediate, SOA, hives, 05/15/19) acetaminophen (Unverified Adverse Reaction, Mild, Itching, 05/15/19) meloxicam (Unverified Adverse Reaction, Mild, rash, 05/15/19) metformin (Unverified Adverse Reaction, Mild, diarrhea, 05/15/19) oxycodone (Unverified Adverse Reaction, Mild, Itching, 05/15/19) pregabalin (Unverified Adverse Reaction, Unknown, 05/15/19) Uncoded Allergies: CLEAR PLASTIC TAPE (Allergy, Intermediate, HIVES, 08/10/11) Hymenoptera Allergenic Extract (Adverse Reaction, Mild, hives, 05/15/19) General Appearance: No Apparent Distress, WD/WN Respiratory: Lungs Clear, Normal Breath Sounds Cardiovascular: Regular Rate, Rhythm, No Murmur Gastrointestinal: Normal Bowel Sounds, Non Tender, Soft Skin: Normal Color, Warm/Dry Neurologic/Psychiatric: Alert, No Motor/Sensory Deficits Copy Copies To 1: YURI BALDERAS MD Discharge Summary Date of Admission May 15, 2019 at 16:18 Date of Discharge Admission Diagnosis Chest pain with risk factors of family history hypertension and diabetes. Patient's cardiac enzymes have been negative EKG just shows a small Q in lead 3. We'll consult cardiology and defer to the option of outpatient stress testing. Palpitations with a normal telemetry. Shortness of breath with oxygen saturations that are above 95 percent possibly secondary to deconditioning. Obesity Fibromyalgia Type II diabetes Hypertension Further workup and discharge planning based on recommendations from cardiology Clinical Quality Measures AMI/AHF: ASA po Prior to arrival: No DVT/VTE Risk/Contraindication: Risk Factor Score Per Nursin RFS Level Per Nursing on Admit: 4+=Very High BASHIR CHAVES MD May 18, 2019 13:25 POS
[2019-05-22] MEDS ORDERED: SERT100T8 PO (11:11)
[2019-05-22] MEDS ORDERED: ATOR40TA70 PO (17:01)
== END 2019-05-18 13:20 | disposition home or self-care (01) ==
LOC: EDUNIT# 13:02 → ER FS 13:04 → UNDOADMOB 16:18 → 4TH 16:18 → UNDODISOB 05-18 14:26
PROVIDERS: ADMIT Internal Medicine; ATTEND Family Medicine
DX: R07.9 Chest pain, unspecified (principal); I08.1 Rheumatic disorders of both mitral and tricuspid valves; E11.9 Type 2 diabetes mellitus without complications; I10 Essential (primary) hypertension; K21.9 Gastro-esophageal reflux disease without esophagitis; M79.7 Fibromyalgia; F41.9 Anxiety disorder, unspecified; M06.9 Rheumatoid arthritis, unspecified; E78.5 Hyperlipidemia, unspecified; E66.9 Obesity, unspecified; Z68.41 Body mass index [BMI] 40.0-44.9, adult; Z79.1 Long term (current) use of non-steroidal anti-inflammatories (NSAID); Z79.52 Long term (current) use of systemic steroids; Z79.899 Other long term (current) drug therapy; Z88.1 Allergy status to other antibiotic agents; Z88.0 Allergy status to penicillin; Z88.2 Allergy status to sulfonamides; Z88.8 Allergy status to other drugs, medicaments and biological substances; Z88.6 Allergy status to analgesic agent; Z91.018 Allergy to other foods; Z91.048 Other nonmedicinal substance allergy status; Z83.3 Family history of diabetes mellitus; Z82.49 Family history of ischemic heart disease and other diseases of the circulatory system; Z90.721 Acquired absence of ovaries, unilateral; Z90.710 Acquired absence of both cervix and uterus
CPT/HCPCS: 36415; 71045; 78452; 80053; 80061; 83690; 83735; 83880; 84443; 84484; 85025; 85379; 93005; 93017; 93306; 96372; 96374; 96375

== ENCOUNTER → 2019-05-20 | Outpatient (CLI) | payer MEDICARE, MEDICAID ==
[~2019-05-20] MED LIST changes: +ALPR0.5T7 PO; +ATOR40TA70 PO; +DIPH25TA31 PO; +ESTR1TAB24 PO; +FEXO-46 PO; +FLUT9.9S NS; +HYDR25TA4 PO; +IBUP-1780 PO; +PANT40TA3 PO; +SEMA1PEN SC; +SERT100T8 PO; +SPIR25TA5 PO; +TRAM50TA2 PO
--- NOTE | 2019-05-20 14:33 | Diagnostic Imaging Report ---
INDICATION: Pain in the left shoulder. COMPARISON: 10/29/2018. FINDINGS: Two views of the left shoulder were obtained. There is no fracture, dislocation, or other acute bony abnormality identified. The soft tissues appear unremarkable. No radiopaque foreign bodies identified. The visualized portions of the left lung are clear. IMPRESSION: No acute fractures or dislocations of the left shoulder. Dictated by: Dictated on workstation # [id number]
== END ==
LOC: RAD FS 14:17
PROVIDERS: ATTEND Family Medicine
DX: M25.512 Pain in left shoulder (principal)
CPT/HCPCS: 73030

== ENCOUNTER → 2019-07-27 | Outpatient (CLI) | payer MEDICARE, OTHER, MEDICAID ==
[~2019-07-27] MED LIST changes: -TRAM50TA2 PO; +TRM50T PO
[2019-07-27 13:00] LABS: ALKALINE PHOSPHATASE 74 U/L (40-136); BILIRUBIN,TOTAL 0.3 MG/DL (0.1-1.0); BUN/CREATININE RATIO 14; CALCIUM 9.5 MG/DL (8.5-10.1); CARBON DIOXIDE 26 MMOL/L (21-32); CHLORIDE 100 MMOL/L (98-107); GFR ESTIMATED > 60; GLUCOSE 197 MG/DL (70-105); SODIUM 138 MMOL/L (135-145)
[2019-07-27 13:01] LABS: ALANINE AMINOTRANSFERASE 23 U/L (0-55); ALBUMIN 3.8 GM/DL (3.2-4.5); TOTAL PROTEIN 7.3 GM/DL (6.4-8.2)
--- NOTE | 2019-07-27 13:09 | Diagnostic Imaging Report ---
INDICATION: Pain in the left thumb. TIME OF EXAMINATION: 12:01 PM. TECHNIQUE: Multiple views of the left thumb were obtained. FINDINGS: The alignment is normal. The 1st metacarpal as well as the proximal distal phalanges of the thumb appear to be intact; however, a well-corticated osseous density is identified at the interphalangeal joint of the thumb on the volar side, only seen on the lateral view. This could represent an old avulsion. No new abnormality is seen. The soft tissues are unremarkable. IMPRESSION: No acute bony abnormality is detected. Dictated by: Dictated on workstation # [id number]
== END ==
LOC: RAD FS 11:54
PROVIDERS: ATTEND Family Medicine
DX: E11.9 Type 2 diabetes mellitus without complications (principal); R22.32 Localized swelling, mass and lump, left upper limb
CPT/HCPCS: 36415; 73140; 80053; 83036

== ENCOUNTER 2019-09-11 21:06 | Emergency (ER) | payer MEDICARE, OTHER, MEDICAID ==
[~2019-09-11] VITALS: Ht 170.1 cm; Wt 111.5 kg
[2019-09-11] MEDS ORDERED: ASPIRIN 81 MG CHEW (CHILDREN'S ASA) PO ONE (21:15)
--- NOTE | 2019-09-11 21:24 | ED Chest Pain ---
General Stated Complaint: CHEST PAIN Source: patient Exam Limitations: no limitations History of Present Illness Date Seen by Provider: Sep 11, 2019 Time Seen by Provider: 21:19 Initial Comments To ER per EMS from home with reports of left upper chest pain. No a few hours ago. She started yesterday with a cough, nasal congestion, mild sore throat. Today she developed some shortness of breath and chest pain. The chest pain is left upper, much worse with deep breathing or coughing. No fevers. She was admitted in May 2019 for similar presentation, had negative stress test. Timing/Duration: 1-3 hours Severity/Quality: moderate Location: other (left upper) Radiation: no radiation ASA po FORESTRY LABORER: No NTG SL FORESTRY LABORER: No Associated Symptoms: shortness of breath Allergies and Home Medications Allergies Coded Allergies: Cephalexin Monohydrate (Unverified Allergy, Intermediate, BLISTERS AROUND LIPS, 08/10/11) Penicillins (Unverified Allergy, Intermediate, BLISTERS AROUND LIPS, 08/10/11) cefaclor (Unverified Allergy, Intermediate, BLISTERS AROUND LIPS, 08/10/11) tetracycline (Unverified Allergy, Intermediate, BLISTERS AROUND LIPS, 08/10/11) Sulfa (Sulfonamide Antibiotics) (Verified Allergy, Unknown, 10/29/18) montelukast (Verified Allergy, Unknown, 10/29/18) walnut (Unverified Adverse Reaction, Intermediate, SOA, hives, 05/15/19) acetaminophen (Unverified Adverse Reaction, Mild, Itching, 05/15/19) meloxicam (Unverified Adverse Reaction, Mild, rash, 05/15/19) metformin (Unverified Adverse Reaction, Mild, diarrhea, 05/15/19) oxycodone (Unverified Adverse Reaction, Mild, Itching, 05/15/19) pregabalin (Unverified Adverse Reaction, Unknown, 05/15/19) Uncoded Allergies: CLEAR PLASTIC TAPE (Allergy, Intermediate, HIVES, 08/10/11) Hymenoptera Allergenic Extract (Adverse Reaction, Mild, hives, 05/15/19) Home Medications Alprazolam 0.5 Mg Tablet, 0.5 MG PO Q8H, (Reported) Atorvastatin Calcium 40 Mg Tablet, 40 MG PO DAILY Prescribed by: BASHIR CHAVES on 05/22/19 1701 Diphenhydramine HCl 25 Mg Tablet, 25-50 MG PO Q6H PRN for HIVES, (Reported) Estradiol 1 Mg Tablet, 1 MG PO DAILY, (Reported) Fexofenadine HCl 180 Mg Tablet, 180 MG PO DAILY, (Reported) Fluticasone Propionate 9.9 Ml [place].susp, 2 SPRAYS NS DAILY, (Reported) Hydrochlorothiazide 25 Mg Tablet, 25 MG PO DAILY, (Reported) Ibuprofen 800 Mg Tablet, 800 MG PO TID PRN for PAIN-MILD (1-4), (Reported) Levalbuterol Tartrate 15 Gm Hfa.aer.ad, 1-2 PUFF INH Q4H PRN for SHORTNESS OF BREATH, (Reported) THIS IS A SAMPLE SHE RECIEVED AND DOES NOT HAVE A PRESCRIPTION. Pantoprazole Sodium 40 Mg Tablet.dr, 40 MG PO DAILY, (Reported) Semaglutide 1 Mg/0.75 Ml Pen.injctr, 1 MG SC Fr, (Reported) Sertraline HCl 100 Mg Tablet, 100 MG PO HS, (Reported) Spironolactone 25 Mg Tablet, 25 MG PO DAILY, (Reported) Tramadol HCl 50 Mg Tablet, 100 MG PO Q12H, (Reported) TAKES 2 (50MG) TABLETS Patient Home Medication List Home Medication List Reviewed: Yes Review of Systems Review of Systems Constitutional: see HPI, chills; No fever EENTM: No Symptoms Reported, Throat Pain Respiratory: See HPI, Cough Cardiovascular: See HPI, Chest Pain Gastrointestinal: No Symptoms Reported Genitourinary: No Symptoms Reported Musculoskeletal: no symptoms reported Skin: no symptoms reported Psychiatric/Neurological: No Symptoms Reported Endocrine: No Symptoms Reported Past [id number]-[id number] Hx Patient Social History 2nd Hand Smoke Exposure: No Recent Foreign Travel: No Contact w/Someone Who Travel: No Recent Hopitalizations: No Immunizations Up To Date Date of Pneumonia Vaccine: Jul 17, 2016 Date of Influenza Vaccine: Apr 17, 2019 Seasonal Allergies Seasonal Allergies: No Past Medical History Surgeries: Yes (bilat knee arthroscopy; EGD; Septum surgery; Diag Lap; R ankle fx) Bladder Surgery, Gallbladder, Hysterectomy, Oophorectomy, Orthopedic Respiratory: Yes (RUBY) Asthma, Sleep Apnea Cardiac: Yes (Hx palpitations, Hx malignant hyperthermia) Hypertension Neurological: No Female Reproductive Disorders: Ovarian Cyst [employer] History: Hysterectomy Genitourinary: Yes (bladder tie up surgery x 2) Kidney Stones Gastrointestinal: Yes (diffuse abd pain hx) Gastroesophageal Reflux, Hiatal Hernia, Gall Bladder Disease Musculoskeletal: Yes (Osteoarthritis L knee, Lumbago, R.A. multiple sites, Hx TMJ) Arthritis, Fibromyalgia, Rheumatoid Arthritis Endocrine: Yes (DM Type II) Diabetes, Non-Insulin dep HEENT: No Cancer: No Psychosocial: Yes Anxiety Integumentary: No Blood Disorders: No Family Medical History Completed stroke 19 FATHER Diabetes mellitus 19 FATHER 19 MOTHER G8 SISTER FH: aneurysm 19 MOTHER Hypertension 19 FATHER 19 MOTHER G8 SISTER Physical Exam Vital Signs Vital Signs - First Documented 09/11/19 21:07 Temp 36.7 Pulse 91 Resp 20 B/P (MAP) 144/93 (110) Pulse Ox 97 O2 Delivery Room Air Capillary Refill : Height, Weight, BMI Height: 5'7.00" Weight: 280lbs. oz. 127.776576ph; 40.57 BMI Method:Stated General Appearance: No Apparent Distress, WD/WN HEENT: PERRL/EOMI, TMs Normal Neck: Full Range of Motion, Normal Inspection Respiratory: No Accessory Muscle Use, No Respiratory Distress Cardiovascular: Regular Rate, Rhythm Gastrointestinal: Non Tender, Soft Neurologic/Psychiatric: Alert, Oriented x3 Skin: Normal Color, Warm/Dry Progress/Results/Core Measures Results/Orders Lab Results Laboratory Tests Test 09/11/19 21:51 Range/Units White Blood Count 5.2 4.3-11.0 10^3/uL Red Blood Count 4.67 4.35-5.85 10^6/uL Hemoglobin 13.9 11.5-16.0 G/DL Hematocrit 40 35-52 % Mean Corpuscular Volume 86 80-99 FL Mean Corpuscular Hemoglobin 30 25-34 PG Mean Corpuscular Hemoglobin Concent 35 32-36 G/DL Red Cell Distribution Width 12.8 10.0-14.5 % Platelet Count 231 130-400 10^3/uL Mean Platelet Volume 9.8 7.4-10.4 FL Neutrophils (%) (Auto) 46 42-75 % Lymphocytes (%) (Auto) 40 12-44 % Monocytes (%) (Auto) 10 0-12 % Eosinophils (%) (Auto) 3 0-10 % Basophils (%) (Auto) 1 0-10 % Neutrophils # (Auto) 2.4 1.8-7.8 X 10^3 Lymphocytes # (Auto) 2.1 1.0-4.0 X 10^3 Monocytes # (Auto) 0.5 0.0-1.0 X 10^3 Eosinophils # (Auto) 0.2 0.0-0.3 10^3/uL Basophils # (Auto) 0.1 0.0-0.1 10^3/uL Prothrombin Time 13.6 12.2-14.7 SEC INR Comment 1.0 0.8-1.4 Activated Partial Thromboplast Time 29 24-35 SEC D-Dimer 0.43 0.00-0.49 UG/ML Sodium Level 138 135-145 MMOL/L Potassium Level 3.4 L 3.6-5.0 MMOL/L Chloride Level 104 98-107 MMOL/L Carbon Dioxide Level 22 21-32 MMOL/L Anion Gap 12 5-14 MMOL/L Blood Urea Nitrogen 11 7-18 MG/DL Creatinine 0.81 0.60-1.30 MG/DL Estimat Glomerular Filtration Rate > 60 BUN/Creatinine Ratio 14 Glucose Level 161 H 70-105 MG/DL Calcium Level 9.1 8.5-10.1 MG/DL Corrected Calcium 9.4 8.5-10.1 MG/DL Magnesium Level 1.5 L 1.6-2.4 MG/DL Total Bilirubin 0.4 0.1-1.0 MG/DL Aspartate Amino Transf (AST/SGOT) 25 5-34 U/L Alanine Aminotransferase (ALT/SGPT) 23 0-55 U/L Alkaline Phosphatase 65 40-136 U/L Myoglobin 30.6 10.0-92.0 NG/ML Troponin I < 0.028 <0.028 NG/ML B-Type Natriuretic Peptide < 10.0 <100.0 PG/ML Total Protein 6.6 6.4-8.2 GM/DL Albumin 3.6 3.2-4.5 GM/DL Micro Results Microbiology 09/11/19 Influenza Types A,B Antigen (LISANDRA) - Final, Complete My Orders Orders - DORIS XAVIER APRN Cbc With Automated Diff (09/11/19 21:14) Magnesium (09/11/19 21:14) Chest 1 View, Ap/Pa Only (09/11/19 21:14) Ekg Tracing (09/11/19 21:14) Comprehensive Metabolic Panel (09/11/19 21:14) Myoglobin Serum (09/11/19 21:14) Protime With Inr (09/11/19 21:14) Partial Thromboplastin Time (09/11/19 21:14) O2 (09/11/19 21:14) Monitor-Rhythm Ecg Trace Only (09/11/19 21:14) Lipid Panel (09/12/19 06:00) Ed Iv/Invasive Line Start (09/11/19 21:14) BNP (09/11/19 21:14) Aspirin Chewable Tablet (Baby Aspirin Ch (09/11/19 21:15) Ketorolac Injection (Toradol Injection) (09/11/19 21:30) Influenza A And B Antigens (09/11/19 21:26) Fibrin Degradation Products (09/11/19 21:51) Troponin I (09/11/19 21:51) Promethazine/ Codeine Syrup (Phenergan W (09/11/19 22:15) Ondansetron Injection (Zofran Injectio (09/11/19 22:30) Rx-Albuterol Inhaler (Rx-Proair) (09/11/19 22:32) Rx-Ondansetron Po (Rx-Zofran Po) (09/11/19 22:33) Medications Given in ED Current Medications Medications Dose Ordered Sig/Ariadna Route Start Time Stop Time Status Last Admin Dose Admin Ketorolac Tromethamine 15 mg ONCE ONCE IVP 09/11/19 21:30 09/11/19 21:31 DC 09/11/19 21:39 15 MG Promethazine HCl/ Codeine 5 ml ONCE ONCE PO 09/11/19 22:15 09/11/19 22:16 DC 09/11/19 22:29 5 ML Vital Signs/I&O 09/11/19 21:07 Temp 36.7 Pulse 91 Resp 20 B/P (MAP) 144/93 (110) Pulse Ox 97 O2 Delivery Room Air Departure Impression Primary Impression: Pleuritic chest pain Disposition: HOME, SELF-CARE Condition: Stable Departure-Patient Inst. Decision time for Depature: 21:24 Referrals: YURI BALDERAS MD (PCP/Family) Primary Care Physician Patient Instructions: Pleuritic Chest Pain (DC) Add. Discharge Instructions: 1. Return to ER for any concerns 2 . Follow up with your doctor next week. DORIS XAVIER APRN Sep 11, 2019 21:24
[2019-09-11] MEDS ORDERED: KETOROLAC 30 MG/ML VIAL IVP ONE (21:30)
--- NOTE | 2019-09-11 21:44 | Diagnostic Imaging Report ---
INDICATION: Shortness of breath COMPARISON STUDY: Chest from May the . FINDINGS: Frontal view of the chest demonstrates the lungs to be clear. The heart, mediastinum, pulmonary vascularity and visualized bony thorax are normal. IMPRESSION: Normal chest. Dictated by: Dictated on workstation # [id number]
[2019-09-11 22:04] LABS: BASOPHILS # (AUTO) 0.1 10^3/uL (0.0-0.1); BASOPHILS % (AUTO) 1 % (0-10); EOSINOPHILS # (AUTO) 0.2 10^3/uL (0.0-0.3); EOSINOPHILS % (AUTO) 3 % (0-10); HEMATOCRIT 40 % (35-52); HEMOGLOBIN 13.9 G/DL (11.5-16.0); LYMPHOCYTES # (AUTO) 2.1 X 10^3 (1.0-4.0); LYMPHOCYTES % (AUTO) 40 % (12-44); MEAN CORPUSCULAR HEMOGLOBIN 30 PG (25-34); MEAN CORPUSCULAR HGB CONC 35 G/DL (32-36); MEAN CORPUSCULAR VOLUME 86 FL (80-99); MEAN PLATELET VOLUME 9.8 FL (7.4-10.4); MONOCYTES # (AUTO) 0.5 X 10^3 (0.0-1.0); MONOCYTES % (AUTO) 10 % (0-12); NEUTROPHILS # (AUTO) 2.4 X 10^3 (1.8-7.8); NEUTROPHILS % (AUTO) 46 % (42-75); PLATELET COUNT 231 10^3/uL (130-400); RED CELL DISTRIBUTION WIDTH 12.8 % (10.0-14.5); WHITE BLOOD COUNT 5.2 10^3/uL (4.3-11.0)
[2019-09-11 22:15] LABS: FIBRIN DEGRADATION PRODUCTS 0.43 UG/ML (0.00-0.49); PROTHROMBIN TIME PATIENT 13.6 SEC (12.2-14.7)
[2019-09-11] MEDS ORDERED: PROMETHAZINE/ CODEINE SYRUP 5 ML UDC PO ONE (22:15)
[2019-09-11 22:21] LABS: ALANINE AMINOTRANSFERASE 23 U/L (0-55); ALBUMIN 3.6 GM/DL (3.2-4.5); ALKALINE PHOSPHATASE 65 U/L (40-136); BILIRUBIN,TOTAL 0.4 MG/DL (0.1-1.0); BUN/CREATININE RATIO 14; CALCIUM 9.1 MG/DL (8.5-10.1); CARBON DIOXIDE 22 MMOL/L (21-32); CHLORIDE 104 MMOL/L (98-107); CREATININE SERUM 0.81 MG/DL (0.60-1.30); GFR ESTIMATED > 60; GLUCOSE 161 MG/DL (70-105); MAGNESIUM 1.5 MG/DL (1.6-2.4); POTASSIUM 3.4 MMOL/L (3.6-5.0); SODIUM 138 MMOL/L (135-145); TOTAL PROTEIN 6.6 GM/DL (6.4-8.2)
[2019-09-11] MEDS ORDERED: ONDANSETRON 4 MG/2 ML (SDV) Z0FRAN IVP ONE (22:30)
[2019-09-11] MEDS ORDERED: RX-ALBUTEROL INHALER (PROAIR) 8.5 GM IH STA (22:32)
[2019-09-11] MEDS ORDERED: RX-ONDANSETRON 4 MG ODT (ZOFRAN) PPK #4 PO STA (22:33)
[2019-09-11 22:51] VITALS: BP 102/65
--- OUTSIDE RECORDS SUMMARY | 2019-09-15 19:52 | XMS REPORT | Continuity of Care Document ---
Author Organization Unknown Address Unknown Phone Unavailable Allergies Active Description Code Type Severity Reaction Onset Reported/Identified Relationship to Patient Clinical Status Yes Ceclor Drug Moderate [id number] Yes Keflex Drug Moderate [id number]~[id number] Yes penicillin Drug Mode rate [id number] Yes Singulair Drug Moderate 2242887108~[id number] Yes sulfa drug 16 Drug Mode rate [id number] Yes Tape Drug N/A [id number] Yes tetracycline Drug Mo derate [id number] Yes cefaclor [id number] Drug Allergy Moderate BLISTERS AROUND 08/10/2011 Yes Cephalexin Monohydrate [id number] Drug Allergy Moderate BLISTERS AROUND 09/2011 Yes CLEAR PLASTIC TAPE CLEAR PLASTIC TAPE Moderate HIVES 08/10/2011 Yes Penicillins [id number] Drug Aller gy Moderate BLISTERS AROUND 08/10/2011 Yes tetracycline [id number] Drug Allergy Moderate BLISTERS AROUND 2 Yes montelukast [id number] Drug Aller gy Unknown N/A 10/29/2018 Yes Sulfa (Sulfonamide Antibiotics) [id number] 0491 Drug Allergy Unknown N/A 019 Yes walnut [id number] Drug Allergy Moderate SOA, hives 05/15/2019 Yes acetaminophen [id number] Donny g Allergy Mild Itching 05/15/2019 Yes Hymenoptera Allergenic Extract Hymenoptera Allergenic Extract Mild hives 05/15/2019 Yes meloxicam [id number] Drug Allergy Mild rash 05/15/2019 Yes metformin [id number] Drug Allergy Mild diarrhea 05/15/2019 Yes oxycodone [id number] Drug Allergy Mild Itching 05/15/2019 Yes pregabalin [id number] Drug Allerg y Unknown N/A 05/15/2019 Medications There is no data. Problems Date Dx Coded Attending Type Code Diagnosis Diagnosed By 09/11/2018 DANIEL DO, CHANDROUTIE Ot G47.33 OBSTRUCTIVE SLEEP APNEA (ADULT) (PEDIATR 10/29/2018 DANIEL ISAI OHARA Ot G47.33 OBSTRUCTIVE SLEEP APNEA (ADULT) (PEDIATR 10/29/2018 NADIRA HELLER DO Ot I10 ESSENTIAL (PRIMARY) HYPERTENSION 10/29/2018 NADIRA HELLER DO T Ot M25.512 PAIN IN LEFT SHOULDER 10/29/2018 NADIRA HELLER DO T Ot R19. 09 OTHER INTRA-ABDOMINAL AND PELVIC SWELLIN 10/29/2018 NADIRA HELLER DO T Ot R91. 1 SOLITARY PULMONARY NODULE 10/29/2018 NADIRA HELLER DO T Ot S16.1XXA STRAIN OF MUSCLE, FASCIA AND TENDON AT N 10/29/2018 NADIRA HELLER DO Ot S30.0XXA CONTUSION OF LOWER BACK AND PELVIS, INIT 10/29/2018 NADIRA HELLER DO T Ot S40.012A CONTUSION OF LEFT SHOULDER, INITIAL ENCO 10/29/2018 NADIRA HELLER DO Ot W10.8XXA FALL (ON) (FROM) OTHER STAIRS AND STEPS, 10/29/2018 NADIRA HELLER DO T Ot Z79. 51 MCC (CURRENT) USE OF INHALED STERO 10/29/2018 NADIRA HELLER DO T Ot Z88. 0 ALLERGY STATUS TO PENICILLIN 10/29/2018 NADIRA HELLER DO T Ot Z88. 1 ALLERGY STATUS TO OTHER ANTIBIOTIC AGENT 10/29/2018 NADIRA HELLER DO T Ot Z88. 2 ALLERGY STATUS TO SULFONAMIDES STATUS 10/29/2018 NADIRA HELLER DO Ot Z88. 8 ALLERGY STATUS TO OTH DRUG/MEDS/BIOL SUB 10/31/2018 NADIRA HELLER DO T Ot I10 ESSENTIAL (PRIMARY) HYPERTENSION 10/31/2018 NADIRA HELLER DO Ot M25.512 PAIN IN LEFT SHOULDER 10/31/2018 NADIRA HELLER DO Ot R19. 09 OTHER INTRA-ABDOMINAL AND PELVIC SWELLIN 10/31/2018 NADIRA HELLER DO Ot R91. 1 SOLITARY PULMONARY NODULE 10/31/2018 NADIRA HELLER DO T Ot S16.1XXA STRAIN OF MUSCLE, FASCIA AND TENDON AT N 10/31/2018 NADIRA HELLER DO Ot S30.0XXA CONTUSION OF LOWER BACK AND PELVIS, INIT 10/31/2018 NADIRA HELLER DO T Ot S40.012A CONTUSION OF LEFT SHOULDER, INITIAL ENCO 10/31/2018 NADIRA HELLER DO Ot W10.8XXA FALL (ON) (FROM) OTHER STAIRS AND STEPS, 10/31/2018 NADIRA HELLER DO Ot Z79. 51 PAINTER ROUGH (CURRENT) USE OF INHALED STERO 10/31/2018 NADIRA HELLER DO Ot Z88. 0 ALLERGY STATUS TO PENICILLIN 10/31/2018 NADIRA HELLER DO T Ot Z88. 1 ALLERGY STATUS TO OTHER ANTIBIOTIC AGENT 10/31/2018 NADIRA HELLER DO T Ot Z88. 2 ALLERGY STATUS TO SULFONAMIDES STATUS 10/31/2018 NADIRA HELLER DO Ot Z88. 8 ALLERGY STATUS TO OTH DRUG/MEDS/BIOL SUB 11/05/2018 ROSANNA HOLLIDAY Ot M17.12 UNILATERAL PRIMARY OSTEOARTHRITIS, LEFT 11/13/2018 ISAI SANCHEZ DO Ot G47.33 OBSTRUCTIVE SLEEP APNEA (ADULT) (PEDIATR 11/14/2018 DANIEL ISAI OHARA Ot E66.9 OBESITY, UNSPECIFIED 11/14/2018 DANIEL ISAI OHARA Ot G47.33 OBSTRUCTIVE SLEEP APNEA (ADULT) (PEDIATR 11/14/2018 Rod Fisher MD N8 1.6 Rectocele 11/14/2018 ISAI SANCHEZ DO Ot E66.9 OBESITY, UNSPECIFIED 11/14/2018 [facility] ISAI OHARA Ot G47.33 OBSTRUCTIVE SLEEP APNEA (ADULT) (PEDIATR 11/14/2018 Rod Fisher MD E66.01 Obesity Class III (BMI >=40) 11/14/2018 Rod Fisher MD Z68.42 BMI 45-49.9 11/25/2018 ROSANNA HOLLIDAY Ot M17.12 UNILATERAL PRIMARY OSTEOARTHRITIS, LEFT 05/18/2019 BASHIR CHAVES MD Ot E11 .9 TYPE 2 DIABETES MELLITUS WITHOUT COMPLIC 05/18/2019 BASHIR CHAVES MD Ot E66 .9 OBESITY, UNSPECIFIED 05/18/2019 BASHIR CHAVES MD Ot E78 .5 HYPERLIPIDEMIA, UNSPECIFIED 05/18/2019 BASHIR CHAVES MD Ot F41 .9 ANXIETY DISORDER, UNSPECIFIED 05/18/2019 BASHIR CHAVES MD Ot 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899 OTHER PAINTER ROUGH (CURRENT) DRUG THERAPY 05/18/2019 BASHIR CHAVES MD, Ot Z82.49 FAMILY HX OF ISCHEM HEART DIS AND OTH DI 05/18/2019 BASHIR CHAVES MD, Ot Z83 .3 FAMILY HISTORY OF DIABETES MELLITUS 05/18/2019 BASHIR CHAVES MD, Ot Z88 .0 ALLERGY STATUS TO PENICILLIN 05/18/2019 BASHIR CHAVES MD, Ot Z88 .1 ALLERGY STATUS TO OTHER ANTIBIOTIC AGENT 05/18/2019 BASHIR CHAVES MD, Ot Z88 .2 ALLERGY STATUS TO SULFONAMIDES STATUS 05/18/2019 BASHIR CHAVES MD, Ot Z88 .6 ALLERGY STATUS TO ANALGESIC AGENT STATUS 05/18/2019 BASHIR CHAVES MD, Ot Z88 .8 ALLERGY STATUS TO OT DRUG/MEDS/BIOL SUB 05/18/2019 BASHIR CHAVES MD, Ot Z90.710 ACQUIRED ABSENCE OF BOTH CERVIX AND UTER 05/18/2019 BASHIR CHAVES MD, Ot Z90.721 ACQUIRED ABSENCE OF OVARIES, UNILATERAL 05/18/2019 BASHIR CHAVES MD, Ot Z91.018 ALLERGY TO OTHER FOODS 05/18/2019 ANDIE MD, BASHIR N Ot Z91.048 OTHER NONMEDICINAL SUBSTANCE ALLERGY STA 05/22/2019 ROSANNA HOLLIDAY CONOR Ot M17.12 UNILATERAL PRIMARY OSTEOARTHRITIS, LEFT 05/22/2019 ANDREY GAINES, UYRI Moore Ot M25.512 PAIN IN LEFT SHOULDER 05/22/2019 BASHIR CHAVES MD Ot I25.10 ATHSCL HEART DISEASE OF [place] CORONARY 05/22/2019 BASHIR CHAVES MD Ot Z79.899 OTHER MCC (CURRENT) DRUG THERAPY 05/22/2019 BASHIR CHAVES MD Ot Z82 .3 FAMILY HISTORY OF STROKE 05/22/2019 BASHIR CHAVES MD Ot Z82.49 FAMILY HX OF ISCHEM HEART DIS AND OTH DI 05/22/2019 BASHIR CHAVES MD Ot Z88 .0 ALLERGY STATUS TO PENICILLIN 05/22/2019 BASHIR CHAVES MD Ot Z88 .1 ALLERGY STATUS TO OTHER ANTIBIOTIC AGENT 05/22/2019 BASHIR CHAVES MD Ot Z88 .2 ALLERGY STATUS TO SULFONAMIDES STATUS 05/22/2019 BASHIR CHAVES MD Ot Z88 .8 ALLERGY STATUS TO OTH DRUG/MEDS/BIOL SUB 05/22/2019 BASHIR CHAVES MD Ot Z91.018 ALLERGY TO OTHER FOODS 05/27/2019 BASHIR CHAVES MD Ot I25.10 ATHSCL HEART DISEASE OF [place] CORONARY 05/27/2019 BASHIR CHAVES MD Ot Z79.899 OTHER MCC (CURRENT) DRUG THERAPY 05/27/2019 BASHIR CHAVES MD Ot Z82 .3 FAMILY HISTORY OF STROKE 05/27/2019 BASHIR CHAVES MD Ot Z82.49 FAMILY HX OF ISCHEM HEART DIS AND OTH DI 05/27/2019 BASHIR CHAVES MD Ot Z88 .0 ALLERGY STATUS TO PENICILLIN 05/27/2019 BASHIR CHAVES MD Ot Z88 .1 ALLERGY STATUS TO OTHER ANTIBIOTIC AGENT 05/27/2019 BASHIR CHAVES MD Ot Z88 .2 ALLERGY STATUS TO SULFONAMIDES STATUS 05/27/2019 BASHIR CHAVES MD Ot Z88 .8 ALLERGY STATUS TO OTH DRUG/MEDS/BIOL SUB 05/27/2019 BASHIR CHAVES MD Ot Z91.018 ALLERGY TO OTHER FOODS 06/03/2019 BASHIR CHAVES MD Ot I25.10 ATHSCL HEART DISEASE OF [place] CORONARY 06/03/2019 BASHIR CHAVES MD Ot Z79.899 OTHER MCC (CURRENT) DRUG THERAPY 06/03/2019 BASHIR CHAVES MD Ot Z82 .3 FAMILY HISTORY OF STROKE 06/03/2019 BASHIR CHAVES MD Ot Z82.49 FAMILY HX OF ISCHEM HEART DIS AND OTH DI 06/03/2019 BASHIR CHAVES MD Ot Z88 .0 ALLERGY STATUS TO PENICILLIN 06/03/2019 BASHIR CHAVES MD Ot Z88 .1 ALLERGY STATUS TO OTHER ANTIBIOTIC AGENT 06/03/2019 BASHIR CHAVES MD Ot Z88 .2 ALLERGY STATUS TO SULFONAMIDES STATUS 06/03/2019 BASHIR CHAVES MD Ot Z88 .8 ALLERGY STATUS TO OTH DRUG/MEDS/BIOL SUB 06/03/2019 BASHIR CHAVES MD Ot Z91.018 ALLERGY TO OTHER FOODS 06/10/2019 BASHIR CHAVES MD Ot I25.10 ATHSCL HEART DISEASE OF [place] CORONARY 06/10/2019 BASHIR CHAVES MD Ot Z79.899 OTHER MCC (CURRENT) DRUG THERAPY 06/10/2019 BASHIR CHAVES MD Ot Z82 .3 FAMILY HISTORY OF STROKE 06/10/2019 BASHIR CHAVES MD Ot Z82.49 FAMILY HX OF ISCHEM HEART DIS AND OTH DI 06/10/2019 BASHIR CHAVES MD Ot Z88 .0 ALLERGY STATUS TO PENICILLIN 06/10/2019 BASHIR CHAVES MD Ot Z88 .1 ALLERGY STATUS TO OTHER ANTIBIOTIC AGENT 06/10/2019 BASHIR CHAVES MD Ot Z88 .2 ALLERGY STATUS TO SULFONAMIDES STATUS 06/10/2019 BASHIR CHAVES MD Ot Z88 .8 ALLERGY STATUS TO OTH DRUG/MEDS/BIOL SUB 06/10/2019 BASHIR CHAVES MD Ot Z91.018 ALLERGY TO OTHER FOODS 06/17/2019 YURI BALDERAS MD Ot M25.512 PAIN IN LEFT SHOULDER 07/30/2019 YURI BALDERAS MD Ot E11 .9 TYPE 2 DIABETES MELLITUS WITHOUT COMPLIC 07/30/2019 ANDREY GAINES, YURI Moore Ot R22.32 LOCALIZED SWELLING, MASS AND LUMP, LEFT 08/14/2019 ANDREY GAINES, YURI Moore Ot E11 .9 TYPE 2 DIABETES MELLITUS WITHOUT COMPLIC 08/14/2019 ANDREY GAINES, YURI Moore Ot R22.32 LOCALIZED SWELLING, MASS AND LUMP, LEFT Procedures There is no data. Results Test Result Range [facility] - 10/09/18 16:06 GLUCOSE 272 mg/dL 65-99 UREA NITROGEN (BUN) 12 mg/dL 7-25 CREATININE 0.69 mg/dL 0.50-1.05 eGFR NON-AFR. [place] 101 mL/min/1.73m2 > OR = 60 eGFR 117 mL/min/1.73m2 > OR = 60 BUN/CREATININE RATIO NOT APPLICABLE (calc) 6-22 SODIUM 138 mmol/L 135-146 POTASSIUM 4.5 mmol/L 3.5-5.3 CHLORIDE 100 mmol/L 98-110 CARBON DIOXIDE 25 mmol/L 20-32 CALCIUM 8.9 mg/dL 8.6-10.4 PROTEIN, TOTAL 6.2 g/dL 6.1-8.1 ALBUMIN 3.7 g/dL 3.6-5.1 GLOBULIN 2.5 g/dL (calc) 1.9-3.7 ALBUMIN/GLOBULIN RATIO 1.5 (calc) 1.0-2. 5 BILIRUBIN, TOTAL 0.4 mg/dL 0.2-1.2 ALKALINE PHOSPHATASE 53 U/L 33-130 AST 28 U/L 10-35 ALT 26 U/L 6-29 CULTURE, THROAT - 10/09/18 16:06 CULTURE, THROAT NRG BNP - 11/14/18 14:39 B TYPE NATRIURETIC PEPTIDE (BNP) 9 pg/mL <100 [facility] - 01/05/19 16:40 GLUCOSE 243 mg/dL 65-99 UREA NITROGEN (BUN) 11 mg/dL 7-25 CREATININE 0.78 mg/dL 0.50-1.05 eGFR NON-AFR. [place] 87 mL/min/1.73m2 > OR = 60 eGFR 101 mL/min/1.73m2 > OR = 60 BUN/CREATININE RATIO NOT APPLICABLE (calc) 6-22 SODIUM 137 mmol/L 135-146 POTASSIUM 3.7 mmol/L 3.5-5.3 CHLORIDE 99 mmol/L 98-110 CARBON DIOXIDE 23 mmol/L 20-32 CALCIUM 9.2 mg/dL 8.6-10.4 PROTEIN, TOTAL 6.7 g/dL 6.1-8.1 ALBUMIN 3.9 g/dL 3.6-5.1 GLOBULIN 2.8 g/dL (calc) 1.9-3.7 ALBUMIN/GLOBULIN RATIO 1.4 (calc) 1.0-2. 5 BILIRUBIN, TOTAL 0.7 mg/dL 0.2-1.2 ALKALINE PHOSPHATASE 59 U/L 33-130 AST 45 U/L 10-35 ALT 35 U/L 6-29 VITAMIN B12 - 01/05/19 16:40 VITAMIN B12 >2000 pg/mL 200-1100 CBC - 04/16/19 10:32 WHITE BLOOD CELL COUNT 7.8 Thousand/uL 3 .8-10.8 RED BLOOD CELL COUNT 5.16 Million/uL 3.8 0-5.10 HEMOGLOBIN 15.3 g/dL 11.7-15.5 HEMATOCRIT 45.7 % 35.0-45.0 MCV 88.6 fL 80.0-100.0 MCH 29.7 pg 27.0-33.0 MCHC 33.5 g/dL 32.0-36.0 RDW 13.0 % 11.0-15.0 PLATELET COUNT 234 Thousand/uL 140-400 MPV 9.9 fL 7.5-12.5 ABSOLUTE NEUTROPHILS 4118 cells/uL 1500- 7800 ABSOLUTE LYMPHOCYTES 2995 cells/uL 850-3 900 ABSOLUTE MONOCYTES 421 cells/uL 200-950 ABSOLUTE EOSINOPHILS 203 cells/uL 15-500 ABSOLUTE BASOPHILS 62 cells/uL 0-200 NEUTROPHILS 52.8 % NRG LYMPHOCYTES 38.4 % NRG MONOCYTES 5.4 % NRG EOSINOPHILS 2.6 % NRG BASOPHILS 0.8 % NRG A1C - 04/16/19 10:32 HEMOGLOBIN A1c 7.8 % of total Hgb <5.7 Complete blood count (CBC) with automate d white blood cell (WBC) differential - 05/15/19 13:20 Blood leukocytes automated count (number/volume) 8.3 10*3/uL 4.3-11.0 Blood erythrocytes automated count (number/volume) 4.68 10*6/uL 4.35-5.85 Venous blood hemoglobin measurement (mass/volume) 14.0 g/dL 11.5-16.0 Blood hematocrit (volume fraction) 41 % 35-52 Automated erythrocyte mean corpuscular volume 87 [ foz_us] 80-99 Automated erythrocyte mean corpuscular h emoglobin (mass per erythrocyte) 30 pg 25-34 Automated erythrocyte mean corpuscular h emoglobin concentration measurement (mass/volume) 34 g/dL 32-36 Automated erythrocyte distribution width ratio 12. 7 % 10.0- 14.5 Automated blood platelet count (count/volume) 247 10*3/uL 130-400 Automated blood platelet mean volume measurement 9.5 [foz_us] 7.4-10.4 Automated blood neutrophils/100 leukocytes 52 % 42-75 Automated blood lymphocytes/100 leukocytes 38 % 12-44 Blood monocytes/100 leukocytes 6 % 0-12 Automated blood eosinophils/100 leukocytes 3 % 0-10 Automated blood basophils/100 leukocytes 1 % 0-10 Blood neutrophils automated count (number/volume) 4.3 10*3 1.8-7.8 Blood lymphocytes automated count (number/volume) 3.1 10*3 1.0-4.0 Blood monocytes automated count (number/volume) 0. 5 10*3 0.0-1.0 Automated eosinophil count 0.3 10*3/uL 0 .0-0.3 Automated blood basophil count (count/volume) 0.1 10*3/uL 0.0-0.1 Comprehensive metabolic panel - 05/15/19 13:20 Serum or plasma sodium measurement (moles/volume) 140 mmol/L 135-145 Serum or plasma potassium measurement (moles/volume) 3.9 mmol/L 3.6-5.0 Serum or plasma chloride measurement (moles/volume) 101 mmol/L 98-107 Carbon dioxide 26 mmol/L 21-32 Serum or plasma anion gap determination (moles/volume) 13 mmol/L 5-14 Serum or plasma urea nitrogen measurement (mass/volume ) 15 mg/dL 7-18 Serum or plasma creatinine measurement (mass/volume) 0.65 mg/dL 0.60-1.30 Serum or plasma urea nitrogen/creatinine mass ratio 23 NRG Serum or plasma creatinine measurement w ith calculation of estimated glomerular filtration rate > NRG Serum or plasma glucose measurement (mass/volume) 217 mg/dL 70-105 Serum or plasma calcium measurement (mass/volume) 9.7 mg/dL 8.5-10.1 Serum or plasma total bilirubin measurement (mass/volu me) 0.3 mg/dL 0.1-1.0 Serum or plasma alkaline phosphatase donta surement (enzymatic activity/volume) 61 U/L 40-136 Serum or plasma aspartate aminotransfera se measurement (enzymatic activity/volume) 21 U/L 5-34 Serum or plasma alanine aminotransferase measurement (enzymatic activity/volume) 27 U/L 0-55 Serum or plasma protein measurement (mass/volume) 7.3 g/dL 6.4-8.2 Serum or plasma albumin measurement (mass/volume) 4.0 g/dL 3.2-4.5 CALCIUM CORRECTED 9.7 mg/dL 8.5-10.1 Magnesium - 05/15/19 13:20 Magnesium 1.8 mg/dL 1.6-2.4 TROPONIN I FS - 05/15/19 13:20 TROPONIN I FS < 0.30 <0.30 PROBNP FS - 05/15/19 13:20 PROBNP FS < 5.0 <75.0 Fibrin D-dimer FEU measurement in platel et poor plasma (mass/volume) - 05/15/19 13:20 Fibrin D-dimer FEU measurement in platelet poor plasma (mass/volume) 0.49 ug/mL 0.00-0.49 Lipase - 05/15/19 13:20 Lipase 19 U/L 8-78 Serum or plasma troponin i.cardiac measu rement (mass/volume) - 05/15/19 17:55 Serum or plasma troponin i.cardiac measurement (mass/v olume) < ng/mL <0.028 Serum or plasma troponin i.cardiac measu rement (mass/volume) - 05/15/19 23:34 Serum or plasma troponin i.cardiac measurement (mass/v olume) < ng/mL <0.028 Complete blood count (CBC) with automate d white blood cell (WBC) differential - 05/16/19 05:44 Blood leukocytes automated count (number/volume) 6.0 10*3/uL 4.3-11.0 Blood erythrocytes automated count (number/volume) 4.05 10*6/uL 4.35-5.85 Venous blood hemoglobin measurement (mass/volume) 12.1 g/dL 11.5-16.0 Blood hematocrit (volume fraction) 35 % 35-52 Automated erythrocyte mean corpuscular volume 87 [ foz_us] 80-99 Automated erythrocyte mean corpuscular h emoglobin (mass per erythrocyte) 30 pg 25-34 Automated erythrocyte mean corpuscular h emoglobin concentration measurement (mass/volume) 34 g/dL 32-36 Automated erythrocyte distribution width ratio 13. 0 % 10.0- 14.5 Automated blood platelet count (count/volume) 198 10*3/uL 130-400 Automated blood platelet mean volume measurement 9.2 [foz_us] 7.4-10.4 Automated blood neutrophils/100 leukocytes 42 % 42-75 Automated blood lymphocytes/100 leukocytes 46 % 12-44 Blood monocytes/100 leukocytes 7 % 0-12 Automated blood eosinophils/100 leukocytes 5 % 0-10 Automated blood basophils/100 leukocytes 1 % 0-10 Blood neutrophils automated count (number/volume) 2.5 10*3 1.8-7.8 Blood lymphocytes automated count (number/volume) 2.8 10*3 1.0-4.0 Blood monocytes automated count (number/volume) 0. 4 10*3 0.0-1.0 Automated eosinophil count 0.3 10*3/uL 0 .0-0.3 Automated blood basophil count (count/volume) 0.1 10*3/uL 0.0-0.1 Comprehensive metabolic panel - 05/16/19 05:44 Serum or plasma sodium measurement (moles/volume) 138 mmol/L 135-145 Serum or plasma potassium measurement (moles/volume) 3.8 mmol/L 3.6-5.0 Serum or plasma chloride measurement (moles/volume) 105 mmol/L 98-107 Carbon dioxide 23 mmol/L 21-32 Serum or plasma anion gap determination (moles/volume) 10 mmol/L 5-14 Serum or plasma urea nitrogen measurement (mass/volume ) 15 mg/dL 7-18 Serum or plasma creatinine measurement (mass/volume) 0.67 mg/dL 0.60-1.30 Serum or plasma urea nitrogen/creatinine mass ratio 22 NRG Serum or plasma creatinine measurement w ith calculation of estimated glomerular filtration rate > NRG Serum or plasma glucose measurement (mass/volume) 154 mg/dL 70-105 Serum or plasma calcium measurement (mass/volume) 8.8 mg/dL 8.5-10.1 Serum or plasma total bilirubin measurement (mass/volu me) 0.3 mg/dL 0.1-1.0 Serum or plasma alkaline phosphatase donta surement (enzymatic activity/volume) 47 U/L 40-136 Serum or plasma aspartate aminotransfera se measurement (enzymatic activity/volume) 28 U/L 5-34 Serum or plasma alanine aminotransferase measurement (enzymatic activity/volume) 30 U/L 0-55 Serum or plasma protein measurement (mass/volume) 5.7 g/dL 6.4-8.2 Serum or plasma albumin measurement (mass/volume) 3.2 g/dL 3.2-4.5 CALCIUM CORRECTED 9.4 mg/dL 8.5-10.1 Serum or plasma troponin i.cardiac measu rement (mass/volume) - 05/16/19 05:44 Serum or plasma troponin i.cardiac measurement (mass/v olume) < ng/mL <0.028 Lipid 1996 panel - 05/17/19 05:33 Serum or plasma triglyceride measurement (mass/volume) 258 mg/dL <150 Serum or plasma cholesterol measurement (mass/volume) 149 mg/dL < 200 Serum or plasma cholesterol in HDL measurement (mass/v olume) 30 mg/dL 40-60 Cholesterol in LDL [mass/volume] in serum or plasma by direct assay 109 mg/dL 1-129 Serum or plasma cholesterol in VLDL measurement (mass/ volume) 52 mg/dL 5-40 THYROID STIMULATING HORMONE - 05/17/19 0 5:33 THYROID STIMULATING HORMONE 3.56 u[iU]/mL 0.35-4.94 Complete blood count (CBC) with automate d white blood cell (WBC) differential - 05/22/19 06:37 Blood leukocytes automated count (number/volume) 8.3 10*3/uL 4.3-11.0 Blood erythrocytes automated count (number/volume) 4.60 10*6/uL 4.35-5.85 Venous blood hemoglobin measurement (mass/volume) 13.8 g/dL 11.5-16.0 Blood hematocrit (volume fraction) 40 % 35-52 Automated erythrocyte mean corpuscular volume 87 [ foz_us] 80-99 Automated erythrocyte mean corpuscular h emoglobin (mass per erythrocyte) 30 pg 25-34 Automated erythrocyte mean corpuscular h emoglobin concentration measurement (mass/volume) 35 g/dL 32-36 Automated erythrocyte distribution width ratio 13. 1 % 10.0- 14.5 Automated blood platelet count (count/volume) 252 10*3/uL 130-400 Automated blood platelet mean volume measurement 9.6 [foz_us] 7.4-10.4 Automated blood neutrophils/100 leukocytes 47 % 42-75 Automated blood lymphocytes/100 leukocytes 42 % 12-44 Blood monocytes/100 leukocytes 6 % 0-12 Automated blood eosinophils/100 leukocytes 5 % 0-10 Automated blood basophils/100 leukocytes 1 % 0-10 Blood neutrophils automated count (number/volume) 3.9 10*3 1.8-7.8 Blood lymphocytes automated count (number/volume) 3.5 10*3 1.0-4.0 Blood monocytes automated count (number/volume) 0. 5 10*3 0.0-1.0 Automated eosinophil count 0.4 10*3/uL 0 .0-0.3 Automated blood basophil count (count/volume) 0.1 10*3/uL 0.0-0.1 PT panel in platelet poor plasma by coag ulation assay - 05/22/19 06:37 Prothrombin time (PT) in platelet poor plasma by coagu lation assay 13.5 s 12.2-14.7 INR in platelet poor plasma or blood by coagulation as say 1.0 0.8-1.4 Activated partial thromboplastin time (a PTT) in platelet poor plasma bycoagulation assay - 05/22/19 06:37 Activated partial thromboplastin time (a PTT) in platelet poor plasma bycoagulation assay 25 s 24-35 Comprehensive metabolic panel - 05/22/19 06:37 Serum or plasma sodium measurement (moles/volume) 138 mmol/L 135-145 Serum or plasma potassium measurement (moles/volume) 3.8 mmol/L 3.6-5.0 Serum or plasma chloride measurement (moles/volume) 103 mmol/L 98-107 Carbon dioxide 20 mmol/L 21-32 Serum or plasma anion gap determination (moles/volume) 15 mmol/L 5-14 Serum or plasma urea nitrogen measurement (mass/volume ) 12 mg/dL 7-18 Serum or plasma creatinine measurement (mass/volume) 0.93 mg/dL 0.60-1.30 Serum or plasma urea nitrogen/creatinine mass ratio 13 NRG Serum or plasma creatinine measurement w ith calculation of estimated glomerular filtration rate > NRG Serum or plasma glucose measurement (mass/volume) 192 mg/dL 70-105 Serum or plasma calcium measurement (mass/volume) 9.0 mg/dL 8.5-10.1 Serum or plasma total bilirubin measurement (mass/volu me) 0.5 mg/dL 0.1-1.0 Serum or plasma alkaline phosphatase donta surement (enzymatic activity/volume) 64 U/L 40-136 Serum or plasma aspartate aminotransfera se measurement (enzymatic activity/volume) 29 U/L 5-34 Serum or plasma alanine aminotransferase measurement (enzymatic activity/volume) 40 U/L 0-55 Serum or plasma protein measurement (mass/volume) 6.8 g/dL 6.4-8.2 Serum or plasma albumin measurement (mass/volume) 3.7 g/dL 3.2-4.5 CALCIUM CORRECTED 9.2 mg/dL 8.5-10.1 Magnesium - 05/22/19 06:37 Magnesium 1.7 mg/dL 1.6-2.4 Serum or plasma creatine kinase measurem ent (enzymatic activity/volume) - 05/22/19 06:37 Serum or plasma creatine kinase measurem ent (enzymatic activity/volume) 28 U/L 29-168 Serum or plasma creatine kinase MB measu rement (enzymatic activity/volume) - 05/22/19 06:37 Serum or plasma creatine kinase MB measu rement (enzymatic activity/volume) 0.5 ng/mL <6.6 Serum or plasma troponin i.cardiac measu rement (mass/volume) - 05/22/19 06:37 Serum or plasma troponin i.cardiac measurement (mass/v olume) < ng/mL <0.028 Myoglobin, serum - 05/22/19 06:37 Myoglobin, serum 23.6 ng/mL 10.0-92.0 Serum or plasma amylase measurement (enz ymatic activity/volume) - 05/22/19 06:37 Serum or plasma amylase measurement (enzymatic activit y/volume) 17 U/L 25-125 Lipase - 05/22/19 06:37 Lipase 7 U/L 8-78 Serum or plasma lithium measurement (mol es/volume) - 05/22/19 06:37 BNP PT < 10.0 <100.0 Fibrin D-dimer FEU measurement in platel et poor plasma (mass/volume) - 05/22/19 06:37 Fibrin D-dimer FEU measurement in platelet poor plasma (mass/volume) 0.48 ug/mL 0.00-0.49 Serum or plasma troponin i.cardiac measu rement (mass/volume) - 05/22/19 08:27 Serum or plasma troponin i.cardiac measurement (mass/v olume) < ng/mL <0.028 Capillary blood glucose measurement by g lucometer (mass/volume) - 05/22/19 11:10 Capillary blood glucose measurement by glucometer (mas s/volume) 171 mg/dL 70-110 Serum or plasma troponin i.cardiac measu rement (mass/volume) - 05/22/19 12:30 Serum or plasma troponin i.cardiac measurement (mass/v olume) < ng/mL <0.028 Capillary blood glucose measurement by g lucometer (mass/volume) - 05/22/19 16:10 Capillary blood glucose measurement by glucometer (mas s/volume) 142 mg/dL 70-110 Serum or plasma troponin i.cardiac measu rement (mass/volume) - 05/22/19 18:36 Serum or plasma troponin i.cardiac measurement (mass/v olume) < ng/mL <0.028 Influenza virus A and B antigen detectio n - 09/11/19 21:11 FLU RESULT NEGATIVE FOR INFLUENZA A AND B ANTIGENS BY [facility] Complete blood count (CBC) with automate d white blood cell (WBC) differential - 09/11/19 21:51 Blood leukocytes automated count (number/volume) 5.2 10*3/uL 4.3-11.0 Blood erythrocytes automated count (number/volume) 4.67 10*6/uL 4.35-5.85 Venous blood hemoglobin measurement (mass/volume) 13.9 g/dL 11.5-16.0 Blood hematocrit (volume fraction) 40 % 35-52 Automated erythrocyte mean corpuscular volume 86 [ foz_us] 80-99 Automated erythrocyte mean corpuscular h emoglobin (mass per erythrocyte) 30 pg 25-34 Automated erythrocyte mean corpuscular h emoglobin concentration measurement (mass/volume) 35 g/dL 32-36 Automated erythrocyte distribution width ratio 12. 8 % 10.0- 14.5 Automated blood platelet count (count/volume) 231 10*3/uL 130-400 Automated blood platelet mean volume measurement 9.8 [foz_us] 7.4-10.4 Automated blood neutrophils/100 leukocytes 46 % 42-75 Automated blood lymphocytes/100 leukocytes 40 % 12-44 Blood monocytes/100 leukocytes 10 % 0-12 Automated blood eosinophils/100 leukocytes 3 % 0-10 Automated blood basophils/100 leukocytes 1 % 0-10 Blood neutrophils automated count (number/volume) 2.4 10*3 1.8-7.8 Blood lymphocytes automated count (number/volume) 2.1 10*3 1.0-4.0 Blood monocytes automated count (number/volume) 0. 5 10*3 0.0-1.0 Automated eosinophil count 0.2 10*3/uL 0 .0-0.3 Automated blood basophil count (count/volume) 0.1 10*3/uL 0.0-0.1 Comprehensive metabolic panel - 09/11/19 21:51 Serum or plasma sodium measurement (moles/volume) 138 mmol/L 135-145 Serum or plasma potassium measurement (moles/volume) 3.4 mmol/L 3.6-5.0 Serum or plasma chloride measurement (moles/volume) 104 mmol/L 98-107 Carbon dioxide 22 mmol/L 21-32 Serum or plasma anion gap determination (moles/volume) 12 mmol/L 5-14 Serum or plasma urea nitrogen measurement (mass/volume ) 11 mg/dL 7-18 Serum or plasma creatinine measurement (mass/volume) 0.81 mg/dL 0.60-1.30 Serum or plasma urea nitrogen/creatinine mass ratio 14 NRG Serum or plasma creatinine measurement w ith calculation of estimated glomerular filtration rate > NRG Serum or plasma glucose measurement (mass/volume) 161 mg/dL 70-105 Serum or plasma calcium measurement (mass/volume) 9.1 mg/dL 8.5-10.1 Serum or plasma total bilirubin measurement (mass/volu me) 0.4 mg/dL 0.1-1.0 Serum or plasma alkaline phosphatase donta surement (enzymatic activity/volume) 65 U/L 40-136 Serum or plasma aspartate aminotransfera se measurement (enzymatic activity/volume) 25 U/L 5-34 Serum or plasma alanine aminotransferase measurement (enzymatic activity/volume) 23 U/L 0-55 Serum or plasma protein measurement (mass/volume) 6.6 g/dL 6.4-8.2 Serum or plasma albumin measurement (mass/volume) 3.6 g/dL 3.2-4.5 CALCIUM CORRECTED 9.4 mg/dL 8.5-10.1 Magnesium - 09/11/19 21:51 Magnesium 1.5 mg/dL 1.6-2.4 PT panel in platelet poor plasma by coag ulation assay - 09/11/19 21:51 Prothrombin time (PT) in platelet poor plasma by coagu lation assay 13.6 s 12.2-14.7 INR in platelet poor plasma or blood by coagulation as say 1.0 0.8-1.4 Activated partial thromboplastin time (a PTT) in platelet poor plasma bycoagulation assay - 09/11/19 21:51 Activated partial thromboplastin time (a PTT) in platelet poor plasma bycoagulation assay 29 s 24-35 Fibrin D-dimer FEU measurement in platel et poor plasma (mass/volume) - 09/11/19 21:51 Fibrin D-dimer FEU measurement in platelet poor plasma (mass/volume) 0.43 ug/mL 0.00-0.49 Serum or plasma troponin i.cardiac measu rement (mass/volume) - 09/11/19 21:51 Serum or plasma troponin i.cardiac measurement (mass/v olume) < ng/mL <0.028 Myoglobin, serum - 09/11/19 21:51 Myoglobin, serum 30.6 ng/mL 10.0-92.0 Serum or plasma lithium measurement (mol es/volume) - 09/11/19 21:51 BNP PT < 10.0 <100.0 Encounters ACCT No. Visit Date/Time Discharge Status Pt. Type Provider Facility Loc./Unit Complaint [id number] 05/20/2019 13:40:00 05/20/2019 23:59: 59 [facility] Outpatient YURI BALDERAS [facility] [id number] 04/16/2019 09:20:00 Document Registration [id number] 01/05/2019 15:45:00 Document Registration [id number] 11/14/2018 14:40:00 Document Registration [id number] 10/09/2018 15:40:00 Document Registration [email or web address] 12/20/2018 09:08:59 ACT Document Registration [id number] 09/23/2018 10:44:50 9 23:59:59 CLS Preadmit ADRY FISHER [facility] SAMIR Surgery ops [id number] 09/11/2019 21:07:00 22:57:00 DIS Emergency XAVIERDORIS APRN [facility] ER CHEST PAIN [id number] 07/27/2019 11:54:00 23:59:59 CLS Outpatient YURI BALDERAS MD [facility] RAD FS R22.32 E11.9 [id number] 05/22/2019 08:40:00 20:30:00 DIS Outpatient BASHIR CHAVES MD [facility] CP R/O ACS [id number] 05/20/2019 14:17:00 23:59:59 CLS Outpatient YURI BALDERAS MD [facility] RAD FS M25.512 [id number] 05/15/2019 16:18:00 14:26:00 DIS Inpatient BASHIR CHAVES MD [facility] 4TH INTRACTABLE CHEST PAIN [id number] 11/13/2018 20:38:00 06:10:00 DIS Outpatient DANIEL DOISAI [facility] SLEEP G47.33 RUBY [id number] 11/04/2018 13:25:00 23:59:59 CLS Outpatient ROSANNA HOLLIDAY [facility] RAD FS M25.562 [id number] 10/29/2018 07:55:00 23:59:59 CLS Emergency ARRON NADIRA [facility] ER FS FALL [id number] 07/03/2017 12:55:24 07/03/2017 23:59:59 CLS Outpatient [id number] 07/03/2017 12:55:10 07/03/2017 23:59:59 CLS Outpatient [id number] 05/21/2017 09:39:44 05/21/2017 09:39:44 DIS Outpatient [id number] 05/21/2017 09:39:30 05/21/2017 09:39:30 DIS Outpatient [id number] 05/20/2017 10:48:23 05/20/2017 10:48:23 DIS Outpatient [id number] 05/16/2017 07:50:26 05/16/2017 23:59:59 CLS Outpatient [id number] 05/16/2017 07:50:25 05/16/2017 23:59:59 CLS Outpatient [id number] 05/16/2017 07:50:10 05/16/2017 07:50:11 DIS Outpatient [id number] 12/19/2018 20:05:18 ACT Unknown Rod Fisher MD
== END 2019-09-11 22:57 | disposition home or self-care (01) ==
LOC: EDUNIT# 21:06 → ER 21:07
DX: R07.81 Pleurodynia (principal); J45.909 Unspecified asthma, uncomplicated; I10 Essential (primary) hypertension; E11.9 Type 2 diabetes mellitus without complications; F41.9 Anxiety disorder, unspecified; K21.9 Gastro-esophageal reflux disease without esophagitis; Z88.1 Allergy status to other antibiotic agents; Z88.0 Allergy status to penicillin; Z88.2 Allergy status to sulfonamides; Z88.6 Allergy status to analgesic agent; Z88.5 Allergy status to narcotic agent; Z79.52 Long term (current) use of systemic steroids; Z79.51 Long term (current) use of inhaled steroids
CPT/HCPCS: 36415; 71045; 80053; 83735; 83874; 83880; 84484; 85025; 85379; 85610; 85730; 87804; 93005; 93041

== ENCOUNTER 2019-10-16 15:06 | Emergency (ER) | payer MEDICARE, OTHER, MEDICAID ==
[~2019-10-16] VITALS: Ht 170.1 cm; Wt 110.5 kg
--- OUTSIDE RECORDS SUMMARY | 2019-10-16 15:13 | XMS REPORT | Continuity of Care Document ---
Author Organization Unknown Address Unknown Phone Unavailable Allergies Active Description Code Type Severity Reaction Onset Reported/Identified Relationship to Patient Clinical Status Yes Ceclor Drug Moderate 2306978188~716683773 Yes Keflex Drug Moderate 3028307694~509099998 Yes penicillin Drug Mode rate 0594053204~133383659 Yes Singulair Drug Moderate 8518242396~854767550 Yes sulfa drug 16 Drug Mode rate 2457425378~694268822 Yes Tape Drug N/A 1228299350 Yes tetracycline Drug Mo derate 1244240855~530268102 Yes cefaclor [id number] Drug Allergy Moderate BLISTERS AROUND 08/10/2011 Yes Cephalexin Monohydrate [id number] Drug Allergy Moderate BLISTERS AROUND 09/2011 Yes CLEAR PLASTIC TAPE CLEAR PLASTIC TAPE Moderate HIVES 08/10/2011 Yes Penicillins Z582712950 Drug Aller gy Moderate BLISTERS AROUND 08/10/2011 Yes tetracycline K994057336 Drug Allergy Moderate BLISTERS AROUND 2 Yes montelukast [id number] Drug Aller gy Unknown N/A 10/29/2018 Yes Sulfa (Sulfonamide Antibiotics) [id number] 0491 Drug Allergy Unknown N/A 019 Yes walnut [id number] Drug Allergy Moderate SOA, hives 05/15/2019 Yes acetaminophen [id number] Donny g Allergy Mild Itching 05/15/2019 Yes Hymenoptera Allergenic Extract Hymenoptera Allergenic Extract Mild hives 05/15/2019 Yes meloxicam H886765764 Drug Allergy Mild rash 05/15/2019 Yes metformin L764363701 Drug Allergy Mild diarrhea 05/15/2019 Yes oxycodone Q638516578 Drug Allergy Mild Itching 05/15/2019 Yes pregabalin [id number] Drug Allerg y Unknown N/A 05/15/2019 Medications [...] NADIRA HELLER DO T Ot Z79. 51 PRISON (CURRENT) USE OF INHALED STERO 10/29/2018 NADIRA [...] 10/31/2018 NADIRA HELLER DO Ot Z79. 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) DRUG THERAPY 05/18/2019 BASHIR CHAVES MD, [...] UNILATERAL PRIMARY OSTEOARTHRITIS, LEFT 05/22/2019 ANDREY GAINES, YURI Moore Ot M25.512 PAIN IN LEFT SHOULDER 05/22/2019 BASHIR CHAVES MD Ot I25.10 ATHSCL HEART DISEASE OF [place] CORONARY 05/22/2019 BASHIR CHAVES MD Ot Z79.899 OTHER PRISON (CURRENT) DRUG THERAPY 05/22/2019 BASHIR CHAVES MD [...] MD Ot I25.10 ATHSCL HEART DISEASE OF [place] CORONARY 05/27/2019 BASHIR CHAVES MD Ot Z79.899 OTHER PRISON (CURRENT) DRUG THERAPY 05/27/2019 BASHIR CHAVES MD [...] MD Ot I25.10 ATHSCL HEART DISEASE OF [place] CORONARY 06/03/2019 BASHIR CHAVES MD Ot Z79.899 OTHER PRISON (CURRENT) DRUG THERAPY 06/03/2019 BASHIR CHAVES MD [...] MD Ot I25.10 ATHSCL HEART DISEASE OF [place] CORONARY 06/10/2019 BASHIR CHAVES MD Ot Z79.899 OTHER PRISON (CURRENT) DRUG THERAPY 06/10/2019 BASHIR CHAVES MD [...] R22.32 LOCALIZED SWELLING, MASS AND LUMP, LEFT 09/11/2019 DORIS XAVIER APRN Ot E11 .9 TYPE 2 DIABETES MELLITUS WITHOUT COMPLIC 09/11/2019 DORIS XAVIER APRN Ot F41 .9 ANXIETY DISORDER, UNSPECIFIED 09/11/2019 DORIS XAVIER APRN Ot I10 ESSENTIAL (PRIMARY) HYPERTENSION 09/11/2019 DORIS XAVIER APRN Ot J45.909 UNSPECIFIED ASTHMA, UNCOMPLICATED 09/11/2019 DORIS XAVIER APRN Ot K21 .9 GASTRO-ESOPHAGEAL REFLUX DISEASE WITHOUT 09/11/2019 DORIS XAVIER APRN Ot R07.81 PLEURODYNIA 09/11/2019 DORIS XAVIER APRN Ot R07 .9 CHEST PAIN, UNSPECIFIED 09/11/2019 DORIS XAVIER APRN Ot Z79.51 GUN 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 (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) USE OF INHALED STERO 09/11/2019 DORIS XAVIER APRN Ot Z79.52 GUN STOCK MAKER (CURRENT) USE OF SYSTEMIC STER 09/11/2019 DORIS XAVIER APRN Ot Z88 .0 ALLERGY STATUS TO PENICILLIN 09/11/2019 DORIS XAVIER APRN Ot Z88 .1 ALLERGY STATUS TO OTHER ANTIBIOTIC AGENT 09/11/2019 DORIS XAVIER APRN Ot Z88 .2 ALLERGY STATUS TO SULFONAMIDES STATUS 09/11/2019 DORIS XAVIER APRN Ot Z88 .5 ALLERGY STATUS TO NARCOTIC AGENT STATUS 09/11/2019 DORIS XAVIER APRN Ot Z88 .6 ALLERGY STATUS TO ANALGESIC AGENT STATUS 09/17/2019 DORIS XAVIER APRN Ot E11 .9 TYPE 2 DIABETES MELLITUS WITHOUT COMPLIC 09/17/2019 DORIS XAVIER APRN Ot F41 .9 ANXIETY DISORDER, UNSPECIFIED 09/17/2019 DORIS XAVIER APRN Ot I10 ESSENTIAL (PRIMARY) HYPERTENSION 09/17/2019 DORIS XAVIER APRN Ot J45.909 UNSPECIFIED ASTHMA, UNCOMPLICATED 09/17/2019 DORIS XAVIER APRN Ot K21 .9 GASTRO-ESOPHAGEAL REFLUX DISEASE WITHOUT 09/17/2019 DORIS XAVIER APRN Ot R07.81 PLEURODYNIA 09/17/2019 DORIS XAVIER APRN Ot R07 .9 CHEST PAIN, UNSPECIFIED 09/17/2019 DORIS XAVIER APRN Ot Z79.51 GUN STOCK MAKER (CURRENT) USE OF INHALED STERO 09/17/2019 DORIS XAVIER APRN Ot Z79.52 GUN STOCK MAKER (CURRENT) USE OF SYSTEMIC STER 09/17/2019 DORIS XAVIER APRN Ot Z88 .0 ALLERGY STATUS TO PENICILLIN 09/17/2019 DORIS XAVIER APRN Ot Z88 .1 ALLERGY STATUS TO OTHER ANTIBIOTIC AGENT 09/17/2019 DORIS XAVIER APRN Ot Z88 .2 ALLERGY STATUS TO SULFONAMIDES STATUS 09/17/2019 DORIS XAVIER APRN Ot Z88 .5 ALLERGY STATUS TO NARCOTIC AGENT STATUS 09/17/2019 DORIS XAVIER APRN Ot Z88 .6 ALLERGY STATUS TO ANALGESIC AGENT STATUS 09/23/2019 DORIS XAVIER APRN Ot E11 .9 TYPE 2 DIABETES MELLITUS WITHOUT COMPLIC 09/23/2019 DORIS XAVIER APRN Ot F41 .9 ANXIETY DISORDER, UNSPECIFIED 09/23/2019 DORIS XAVIER APRN Ot I10 ESSENTIAL (PRIMARY) HYPERTENSION 09/23/2019 DORIS XAVIER APRN Ot J45.909 UNSPECIFIED ASTHMA, UNCOMPLICATED 09/23/2019 DORIS XAVIER APRN Ot K21 .9 GASTRO-ESOPHAGEAL REFLUX DISEASE WITHOUT 09/23/2019 DORIS XAVIER APRN Ot R07.81 PLEURODYNIA 09/23/2019 DORIS XAVIER APRN Ot R07 .9 CHEST PAIN, UNSPECIFIED 09/23/2019 DORIS XAVIER APRN Ot Z79.51 PRISON (CURRENT) USE OF INHALED STERO 09/23/2019 DORIS XAVIER APRN Ot Z79.52 GUN STOCK MAKER (CURRENT) USE OF SYSTEMIC STER 09/23/2019 DORIS XAVIER APRN Ot Z88 .0 ALLERGY STATUS TO PENICILLIN 09/23/2019 DORIS XAVIER APRN Ot Z88 .1 ALLERGY STATUS TO OTHER ANTIBIOTIC AGENT 09/23/2019 DORIS XAVIER APRN Ot Z88 .2 ALLERGY STATUS TO SULFONAMIDES STATUS 09/23/2019 DORIS XAVIER SCHEDULING ASSISTANT Ot Z88 .5 ALLERGY STATUS TO NARCOTIC AGENT STATUS 09/23/2019 DORIS XAVIER APRN Ot Z88 .6 ALLERGY STATUS TO ANALGESIC AGENT STATUS Procedures There is no data. Results Test Result Range [facility] - 10/09/18 16:06 GLUCOSE 272 mg/dL 65-99 UREA NITROGEN (BUN) 12 mg/dL 7-25 CREATININE 0.69 mg/dL 0.50-1.05 eGFR NON-AFR. SPANISH 101 mL/min/1.73m2 > OR = 60 eGFR [...] TYPE NATRIURETIC PEPTIDE (BNP) 9 pg/mL <100 [facility] - 01/05/19 16:40 GLUCOSE 243 mg/dL 65-99 UREA NITROGEN (BUN) 11 mg/dL 7-25 CREATININE 0.78 mg/dL 0.50-1.05 eGFR NON-AFR. SPANISH 87 mL/min/1.73m2 > OR = 60 eGFR [...] FOR INFLUENZA A AND B ANTIGENS BY [facility] Complete blood count (CBC) with [...] mg/dL 0.1-1.0 Serum or plasma alkaline phosphatase donat surement (enzymatic activity/volume) 65 U/L 40-136 Serum [...] Status Pt. Type Provider Facility Loc./Unit Complaint [id number] 09/17/2019 11:00:00 09/17/2019 23:59: 59 CLS Outpatient BALDERAS YURI [facility] [id number] 04/16/2019 09:20:00 Document Registration [id number] 01/05/2019 15:45:00 Document Registration [id number] 11/14/2018 14:40:00 Document Registration [id number] 10/09/2018 15:40:00 Document Registration [email or web address] 12/20/2018 09:08:59 ACT Document Registration [id number] 09/23/2018 10:44:50 9 23:59:59 CLS Preadmit ADRY FISHER [facility] SAMIR Surgery ops [id number] 09/11/2019 21:07:00 22:57:00 DIS Emergency DORIS XAVIER APRN [facility] ER CHEST PAIN [id number] 07/27/2019 11:54:00 23:59:59 CLS Outpatient YURI BALDERAS MD [facility] RAD FS R22.32 E11.9 [id number] 05/22/2019 08:40:00 20:30:00 DIS Outpatient BASHIR CHAVES MD [facility] CATH CP R/O ACS [id number] 05/20/2019 14:17:00 23:59:59 CLS Outpatient YURI BALDERAS MD [facility] RAD FS M25.512 [id number] 05/15/2019 16:18:00 14:26:00 DIS Inpatient BASHIR CHAVES MD [facility] 4TH INTRACTABLE CHEST PAIN [id number] 11/13/2018 20:38:00 06:10:00 DIS Outpatient ISAI SANCHEZ DO [facility] SLEEP G47.33 RUBY [id number] 11/04/2018 13:25:00 23:59:59 CLS Outpatient ROSANNA HOLLIDAY [facility] RAD FS M25.562 [id number] 10/29/2018 07:55:00 23:59:59 CLS Emergency NADIRA HELLER DO [facility] ER FS FALL [id number] 10/16/2019 15:08:[address] Emergency DIANNA MARINELLI DO [facility] ER FS FINGER LACERATION [id number] 07/03/2017 12:55:24 07/03/2017 23:59:59 CLS Outpatient [id number] 07/03/2017 12:55:10 07/03/2017 23:59:59 CLS Outpatient [id number] 05/21/2017 09:39:44 05/21/2017 09:39:44 DIS Outpatient [id number] 05/21/2017 09:39:30 05/21/2017 09:39:30 DIS Outpatient [id number] 05/20/2017 10:48:23 05/20/2017 10:48:23 DIS Outpatient [id number] 05/16/2017 07:50:26 05/16/2017 23:59:59 CLS Outpatient [id number] 05/16/2017 07:50:25 05/16/2017 23:59:59 CLS Outpatient [id number] 05/16/2017 07:50:10 05/16/2017 07:50:11 DIS Outpatient [id number] 12/19/2018 20:05:18 ACT Unknown Rod Fisher MD
--- NOTE | 2019-10-16 15:17 | ED General ---
General Stated Complaint: FINGER LACERATION History of Present Illness Date Seen by Provider: Oct 16, 2019 Time Seen by Provider: 15:16 Initial Comments Patient presenting to emergency department for evaluation of right middle finger puncture wound sustained his there was a nail sticking out of her wall and she ran into it. His on the lateral aspect of her DIP joint and she says she felt it went down to the bone. She has intact flexion and extension with intact sensation and cap refill. She says she is a diabetic. Her last tetanus was 2 years ago. Allergies and Home Medications Allergies Coded Allergies: Cephalexin Monohydrate (Unverified Allergy, Intermediate, BLISTERS AROUND LIPS, 08/10/11) Penicillins (Unverified Allergy, Intermediate, BLISTERS AROUND LIPS, 08/10/11) cefaclor (Unverified Allergy, Intermediate, BLISTERS AROUND LIPS, 08/10/11) tetracycline (Unverified Allergy, Intermediate, BLISTERS AROUND LIPS, 08/10/11) Sulfa (Sulfonamide Antibiotics) (Verified Allergy, Unknown, 10/29/18) montelukast (Verified Allergy, Unknown, 10/29/18) walnut (Unverified Adverse Reaction, Intermediate, SOA, hives, 05/15/19) acetaminophen (Unverified Adverse Reaction, Mild, Itching, 05/15/19) meloxicam (Unverified Adverse Reaction, Mild, rash, 05/15/19) metformin (Unverified Adverse Reaction, Mild, diarrhea, 05/15/19) oxycodone (Unverified Adverse Reaction, Mild, Itching, 05/15/19) pregabalin (Unverified Adverse Reaction, Unknown, 05/15/19) Uncoded Allergies: CLEAR PLASTIC TAPE (Allergy, Intermediate, HIVES, 08/10/11) Hymenoptera Allergenic Extract (Adverse Reaction, Mild, hives, 05/15/19) Home Medications Alprazolam 0.5 Mg Tablet, 0.5 MG PO Q8H, (Reported) Atorvastatin Calcium 40 Mg Tablet, 40 MG PO DAILY Prescribed by: BASHIR CHAVES on 05/22/19 1709 Diphenhydramine HCl 25 Mg Tablet, 25-50 MG PO Q6H PRN for HIVES, (Reported) Estradiol 1 Mg Tablet, 1 MG PO DAILY, (Reported) Fexofenadine HCl 180 Mg Tablet, 180 MG PO DAILY, (Reported) Fluticasone Propionate 9.9 Ml Ryde.susp, 2 SPRAYS NS DAILY, (Reported) Hydrochlorothiazide 25 Mg Tablet, 25 MG PO DAILY, (Reported) Ibuprofen 800 Mg Tablet, 800 MG PO TID PRN for PAIN-MILD (1-4), (Reported) Levalbuterol Tartrate 15 Gm Hfa.aer.ad, 1-2 PUFF INH Q4H PRN for SHORTNESS OF BREATH, (Reported) THIS IS A SAMPLE SHE RECIEVED AND DOES NOT HAVE A PRESCRIPTION. Pantoprazole Sodium 40 Mg Tablet.dr, 40 MG PO DAILY, (Reported) Semaglutide 1 Mg/0.75 Ml Pen.injctr, 1 MG SC Fr, (Reported) Sertraline HCl 100 Mg Tablet, 100 MG PO HS, (Reported) Spironolactone 25 Mg Tablet, 25 MG PO DAILY, (Reported) Tramadol HCl 50 Mg Tablet, 100 MG PO Q12H, (Reported) TAKES 2 (50MG) TABLETS Patient Home Medication List Home Medication List Reviewed: Yes Review of Systems Review of Systems Constitutional: no symptoms reported Musculoskeletal: joint pain Skin: see HPI Psychiatric/Neurological: No Symptoms Reported Past Fqxoubr-Muksro-Kpbwcs Hx Patient Social History 2nd Hand Smoke Exposure: No Recent Foreign Travel: No Contact w/Someone Who Travel: No Recent Hopitalizations: No Immunizations Up To Date Date of Pneumonia Vaccine: Jul 17, 2016 Date of Influenza Vaccine: Apr 17, 2019 Seasonal Allergies Seasonal Allergies: No Past Medical History Surgeries: Yes (bilat knee arthroscopy; EGD; Septum surgery; Diag Lap; R ankle fx) Bladder Surgery, Gallbladder, Hysterectomy, Oophorectomy, Orthopedic Respiratory: Yes (RUBY) Asthma, Sleep Apnea Cardiac: Yes (Hx palpitations, Hx malignant hyperthermia) Hypertension Neurological: No Female 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 multiple sites, Hx TMJ) Arthritis, Fibromyalgia, Rheumatoid Arthritis Endocrine: Yes (DM Type II) Diabetes, Non-Insulin dep HEENT: No Cancer: No Psychosocial: Yes Anxiety Integumentary: No Blood Disorders: No Family Medical History Completed stroke 19 FATHER Diabetes mellitus 19 FATHER 19 MOTHER G8 SISTER FH: aneurysm 19 MOTHER Hypertension 19 FATHER 19 MOTHER G8 SISTER Physical Exam Vital Signs Capillary Refill : Height, Weight, BMI Height: 5'7.00" Weight: 280lbs. oz. 127.908215xf; 38.00 BMI Method:Stated General Appearance: No Apparent Distress, WD/WN Respiratory: No Respiratory Distress Cardiovascular: Regular Rate, Rhythm Extremity: Normal Capillary Refill, Normal Range of Motion Neurologic/Psychiatric: No Motor/Sensory Deficits Skin: Other (puncture wound of lateral middle right finger. No active bleeding in no obvious foreign body or tendon visualized.) Progress/Results/Core Measures Suspected Sepsis SIRS Temperature: Pulse: Respiratory Rate: Blood Pressure / Mean: Results/Orders My Orders Orders - DIANNA MARINELLI DO Finger(S) (10/16/19 15:21) Hydrocodone/Apap 5/325 Tablet (Lortab 5 (10/16/19 15:30) Medications Given in ED Current Medications Medications Dose Ordered Sig/Ariadna Route Start Time Stop Time Status Last Admin Dose Admin Acetaminophen/ Hydrocodone Bitart 2 tab ONCE ONCE PO 10/16/19 15:30 10/16/19 15:31 DC 10/16/19 15:30 2 TAB Vital Signs/I&O Capillary Refill : Progress Note : Progress Note I advised patient that I do not attempt to close a puncture wound like this and she is a diabetic and leg closure allowing the wound to drain would be the best for her. She is allergic to multiple antibiotics however it appears that she does not have a clindamycin allergy. X-ray negative for foreign body and I thought that there may be a chip to her distal phalanges at the joint aspect that the radiologist read it as negative. Either way the patient will be treated conservatively with open wound drainage told to keep the wound as clean as possible and follow with primary care provider as soon as possible. She said she is falling with a hand surgeon for a separate issue on her left thumb in one week so I told her to keep this follow- up and come back to the ED sooner with worsening redness pain swelling fevers or other general concerns. Patient aware and agreeable with plan and verbalized understanding of the above instructions. Departure Impression Primary Impression: Puncture wound of finger of right hand Qualified Codes: S61.239A - Puncture wound without foreign body of u nspecified finger without damage to nail, initial encounter Disposition: HOME, SELF-CARE Condition: Stable Departure-Patient Inst. Referrals: YURI BALDERAS MD (PCP/Family) Primary Care Physician Patient Instructions: Wound Care (DC) Scripts Clindamycin HCl (Clindamycin HCl) 150 Mg Capsule 450 MG PO TID for 7 Days, #63 CAP Prov: DIANNA MARINELLI DO 10/16/19 DIANNA MARINELLI DO Oct 16, 2019 15:17
[2019-10-16] MEDS ORDERED: HYDROcodone/APAP 5 MG/325 MG (LORTAB) TAB PO ONE (15:30)
--- NOTE | 2019-10-16 15:48 | Diagnostic Imaging Report ---
INDICATION: Hand injury COMPARISON: None. FINDINGS: 3 views of the right hand were obtained and show no fractures, dislocations, or other acute bony abnormalities. Joint spaces are well maintained throughout. The soft tissues appear unremarkable. No radiopaque foreign bodies are identified. IMPRESSION: Unremarkable radiographic exam of the right hand. Dictated by: Dictated on workstation # [id number]
[2019-10-16] MEDS ORDERED: CLIN150C17 PO (15:53)
[2019-10-16 15:56] VITALS: BP 132/94
== END 2019-10-16 15:56 | disposition home or self-care (01) ==
LOC: EDUNIT# 15:06 → ER FS 15:08
DX: S61.232A Puncture wound without foreign body of right middle finger without damage to nail, initial encounter (principal); E11.9 Type 2 diabetes mellitus without complications; I10 Essential (primary) hypertension; J45.909 Unspecified asthma, uncomplicated; K21.9 Gastro-esophageal reflux disease without esophagitis; F41.9 Anxiety disorder, unspecified; Z88.1 Allergy status to other antibiotic agents; Z88.0 Allergy status to penicillin; Z88.2 Allergy status to sulfonamides; Z88.6 Allergy status to analgesic agent; Z88.8 Allergy status to other drugs, medicaments and biological substances; Z88.5 Allergy status to narcotic agent; Z79.52 Long term (current) use of systemic steroids; Z79.51 Long term (current) use of inhaled steroids; W45.0XXA Nail entering through skin, initial encounter
CPT/HCPCS: 73140

== ENCOUNTER → 2019-12-18 | Outpatient (CLI) | payer MEDICARE, MEDICAID ==
[~2019-12-18] MED LIST changes: +BARIUM for suspension 96% w/w (Vanilla Silq Medium Density) PO ONE; +BARIUM for suspension 98% w/w (Vanilla Silq High Density) PO ONE; +CLIN150C17 PO; +FAMO-119 PO
--- NOTE | 2019-12-18 12:52 | Diagnostic Imaging Report ---
INDICATION: Dysphasia. Patient ingested effervescent crystals as well as thin and thick barium and imaging of the esophagus was performed. A barium tablet was also administered. 1 minute and 27 seconds of fluoroscopic time was utilized. Preliminary radiograph of the chest is unremarkable. Esophagram images demonstrate the esophagus to be widely patent. No stricture is identified. No mass is identified. The esophagus has a smooth contour. The barium tablet passed into the stomach without difficulty. No gastroesophageal reflux was demonstrated. There is a very small sliding-type hiatal hernia. IMPRESSION: Unremarkable esophagram apart from small sliding-type hiatal hernia. No reflux, mass or stricture is detected. Dictated by: Dictated on workstation # [id number]
== END ==
LOC: RAD 10:38
PROVIDERS: ATTEND Surgery
DX: K44.9 Diaphragmatic hernia without obstruction or gangrene (principal); R47.02 Dysphasia
CPT/HCPCS: 74220

== ENCOUNTER 2019-12-21 05:36 | Outpatient (RCR) | payer MEDICARE, OTHER, MEDICAID ==
[~2019-12-21] VITALS: Ht 170 cm; Wt 109.0 kg
[~2019-12-21 05:36] MED LIST changes: -BARIUM for suspension 96% w/w (Vanilla Silq Medium Density) PO ONE; -BARIUM for suspension 98% w/w (Vanilla Silq High Density) PO ONE
== END 2019-12-21 15:10 | disposition home or self-care (01) ==
LOC: PREOP 05:36
PROVIDERS: ATTEND Surgery
DX: Z01.818 Encounter for other preprocedural examination (principal); Z11.59 Encounter for screening for other viral diseases
CPT/HCPCS: 87635

== ENCOUNTER 2019-12-23 11:43 | Day surgery (SDC) | payer MEDICARE, OTHER, MEDICAID ==
--- NOTE | 2019-12-18 11:46 | HISTORY AND PHYSICAL ---
DATE OF SERVICE: ATTENDING PHYSICIAN: Dr. Mcghee. PROCEDURE DATE: 12/23/2019. HISTORY OF PRESENT ILLNESS: The patient is a 54-year-old female who is known to us. She was seen approximately 6 weeks ago for dysphagia and reflux. She reports she has had gastroesophageal reflux disease for many years and has also had dysphagia for which she believes has been in the past two years; however, this has become progressively worse more recently. She does report that she has had issues with a constant sore throat and does have difficulty swallowing solids as well as sometimes liquids. She states that she has had issues with reflux for greater than 25 years and has been on multiple different acid reducers and is currently on Protonix. She does not report any hematemesis or any coffee ground emesis. On 11/04/2019, she did undergo an EGD with biopsy and balloon dilatation. Findings were reflux esophagitis stage II, mild distal esophageal stricture, small hiatal hernia approximately 2 cm in size, mild to moderate gastritis with no distal obstructions. Biopsies were negative for H. pylori as well as negative for Pizarro's esophagus and negative for eosinophilic esophagitis. She was seen back and continues to have episodes of heartburn and reflux as well as some dysphagia despite maximal medical therapy. It was decided that this was most likely related to her hiatal hernia and did proceed with esophageal manometry study to rule out any esophageal dysmotility. She was seen by Dr. Jara and did undergo esophageal manometry study, which did show lower esophageal sphincter length normal at 3.9 cm with no hiatal hernia seen. There was lower esophageal resting pressure hypertensive and a mean of 89.4 mmHg. In addition to the lower esophageal sphincter not relaxing properly with wet swallows as well as an elevated IRP at 2 and 4 seconds. There was esophageal body motility. There was also abnormal with 60% of wet swallows normal peristalsis and the remainder 40% had failed. This was classified as esophageal gastric junction outflow obstruction in conjunction with a mild to moderate peristaltic dysfunction. It was recommended to proceed with a barium swallow with a 12 mm tablet as well as EGD with endoscopic ultrasound to assess for GE junction intramural extramarital tumor followed by a large caliber dilatation. This was potentially representing an achalasia variant or evolving achalasia. PAST MEDICAL HISTORY: Anxiety, asthma, diabetes, fibromyalgia, gastroesophageal reflux disease, history of hiatal hernia, hypertension, insomnia, degenerative joint disease, history of nephrolithiasis and TMJ. PAST SURGICAL HISTORY: Cardiac arrhythmia in 2019, which did not show any occlusion. Hysterectomy, knee arthroscopy, laparoscopic cholecystectomy, bladder repair and repair of rectal fistula. MEDICATIONS: Dicyclomine 10 mg q.i.d., estradiol 1 mg daily, fexofenadine 60 mg daily, fluticasone 50 mcg daily, hydrochlorothiazide 25 mg daily, levalbuterol 25 mcg 2 puffs q.4 hours p.r.n., Lipitor 40 mg daily, Zofran 8 mg t.i.d. p.r.n., Ozempic 2 mg daily, Protonix 40 mg daily, spironolactone 25 mg daily, tramadol 100 mg b.i.d. and alprazolam 0.5 mg t.i.d. SOCIAL HISTORY: Negative for smoking, negative for alcohol. FAMILY HISTORY: Father, stroke at age 50. REVIEW OF SYSTEMS: Well-nourished female, in no acute distress. She is not experiencing any shortness of breath or difficulty breathing. No chest pain, palpitations or diaphoresis. No nausea, vomiting, but does report epigastric pressure sensation as well as regurgitation. No hematemesis. No coffee ground emesis. No red blood per rectum. No dark tarry stools. No fever or chills. No recent inadvertent weight loss. All other review of systems negative. PHYSICAL EXAMINATION: VITAL SIGNS: Stable. Current weight is 250 pounds, height 5 feet 7 inches. CHEST: Clear. Good breath sounds bilaterally. HEART: Regular, no murmurs. EXTREMITIES: No lower extremity edema. Negative Homans sign. HEENT: No scleral icterus. NECK: No cervical lymphadenopathy. ABDOMEN: Soft, nontender, nondistended. SKIN: Warm, dry and pink. NEUROLOGIC: Awake, alert and oriented x3. ASSESSMENT AND PLAN: A 54-year-old female with a history of gastroesophageal reflux disease with recurrent dysphagia which may be related to an achalasia. At this time, it was recommended to proceed with a barium swallow with a 12 mm tablet, which will proceed with scheduling. She was also recommended to proceed with an EGD with endoscopic ultrasound as well as a large caliber dilatation; however, at this time, the patient would like to proceed with the dilatation due to the recurrent dysphagia. We will at this time proceed with the barium swallow as well as the EGD with balloon dilatation. Job ID: [id number] DocumentID: [id number] Dictated Date: 12/18/2019 08:41:16 [employer] Date: 12/18/2019 09:37:30 Dictated By: CORINA NAIR APRN
[2019-12-23] VITALS (10 sets, daily range): BP systolic 131–180; BP diastolic 67–89
--- NOTE | 2019-12-23 12:05 | Progress Note-Pre Operative ---
Pre-Operative Progress Note H&P Reviewed The H&P was reviewed, patient examined and no changes noted. Date Seen by Provider: Dec 23, 2019 Time Seen by Provider: 12:00 Date H&P Reviewed: Dec 23, 2019 Time H&P Reviewed: 12:00 Pre-Operative Diagnosis: achalasia MYRIAM MURILLO MD Dec 23, 2019 12:05
--- NOTE | 2019-12-23 12:05 | Conscious Sedation/ASA ---
Conscious Sedation Pre-Proced Time 12:00 ASA Score 2 For ASA 3 and 4: Consider anesthesia and medical clearance. Also, for patients with a history of failed moderate sedation consider anesthesia. Airway Lungs Heart ASA score ASA 1: a normal healthy patient ASA 2: a patient with a mild systemic disease (mid diabetes, controlled hypertension, obesity ASA 3: a patient with a severe systemic disease that limits activity (angina, COPD, prior Myocardial infarction) ASA 4: a patient with an incapacitating disease that is a constant threat to life (CHF, renal failure) ASA 5: a moribund patient not expected to survive 24 hrs. (ruptured aneurysm) ASA 6: a declared brain- patient whose organs are being harvested. For emergent operations, add the letter E after the classification Mallampati Classification Grade 2 Sedation Plan Analgesia, Amnesia, Plan communicated to team members, Discussed options with patient/fam, Discussed risks with patient/fam The patient is an appropriate candidate to undergo the planned procedure, sedation, and anesthesia. The patient immediately re-assessed prior to indication. MYRIAM MURILLO MD Dec 23, 2019 12:05
[2019-12-23] MEDS ORDERED: NS IV 500 ML 500 ML ONE ×2 (12:06→15:38)
--- NOTE | 2019-12-23 12:07 | Discharge Inst-Surgical ---
D/C Lap Instructions-LIDIA Follow Up Activity as tolerated High Fiber Diet 25g or more per day Avoid Alcohol, Caffeine, Spicy [place] and Acid foods. Drink 64 fluid oz or more of fluids per day. Symptoms to Report: Fever over 101 degree F, Nausea/Vomiting If any problems/questions: Contact your physician or go to Emergency Room MYRIAM MURILLO MD Dec 23, 2019 12:07
[2019-12-23] MEDS ORDERED: HYDROcodone/APAP 5 MG/325 MG (LORTAB) TAB PO PRN (12:15)
[2019-12-23] MEDS ORDERED: ACETAMINOPHEN 325 MG TABLET PO PRN (12:15)
[2019-12-23] MEDS ORDERED: ONDANSETRON 4 MG/2 ML (SDV) Z0FRAN IVP PRN (12:15)
[2019-12-23] MEDS ORDERED: fentaNYL INJECTION 100 MCG/2 ML AMP IVP ONE (12:15)
[2019-12-23] MEDS ORDERED: morphine INJ 10 MG/ML 1ML (SYR OR VIAL) IVP PRN ×2 (12:15)
[2019-12-23] MEDS ORDERED: HURRICAINE EXT TUBE (BENZOCAINE) XX PRN (12:15)
[2019-12-23] MEDS: NS IV 500 ML 500 ML IV PRN ×2 (12:25→15:30)
--- OUTSIDE RECORDS SUMMARY | 2019-12-23 14:53 | XMS REPORT | Continuity of Care Document ---
Author Organization Unknown Address Unknown Phone Unavailable Allergies Active Description Code Type Severity Reaction Onset Reported/Identified Relationship to Patient Clinical Status Yes Ceclor Drug Moderate [id number] Yes Keflex Drug Moderate [id number] Yes penicillin Drug Mode rate [id number] Yes Singulair Drug Moderate [id number] Yes sulfa drug 16 Drug Mode rate [id number] Yes Tape Drug N/A [id number] Yes tetracycline Drug Mo derate [id number] Yes CECLOR UNKNOWN OTHER Yes CECLOR UNKNOWN UNKNOWN Yes GLUCOPHAGE SEVERE GI PROBLEMS - DIARRH Yes GLUCOPHAGE SEVERE SEVERE Yes KEFLEX MODERATE DERMATOLOGICAL - VISHNU Yes KEFLEX MODERATE MODERATE Yes NO KNOWN DRUG ALLERGIES UNKNOWN NO KNOWN DRUG ALLERG Yes PENICILLINS UNKNOWN OTHER Yes PENICILLINS UNKNOWN UNKNOWN Yes SINGULAIR MODERATE DERMATOLOGICAL - VISHNU Yes SINGULAIR MODERATE MODERATE Yes SULFA (SULFONAMIDE ANTIBIOTICS) SEVERE DERMATOLOGICAL - VISHNU Yes SULFA (SULFONAMIDE ANTIBIOTICS) SEVERE SEVERE Yes SULFA (SULFONAMIDE ANTIBIOTICS) MODERATE DERMATOLOGICAL - VISHNU Yes TAPE SEVERE OTHER Yes TAPE SEVERE SEVERE Yes TAPE MILD O THER Yes TETRACYCLINE MODERATE DERMATOLOGICAL - VISHNU Yes TETRACYCLINE MODERATE MODERATE Yes cefaclor [id number] Drug Allergy Moderate BLISTERS AROUND 08/10/2011 Yes Cephalexin Monohydrate [id number] Drug Allergy Moderate BLISTERS AROUND 09/2011 Yes CLEAR PLASTIC TAPE CLEAR PLASTIC TAPE Moderate HIVES 08/10/2011 Yes Penicillins [id number] Drug Aller gy Moderate BLISTERS AROUND 08/10/2011 Yes tetracycline [id number] Drug Allergy Moderate BLISTERS AROUND 2 Yes montelukast [id number] Drug Aller gy Unknown N/A 10/29/2018 Yes Sulfa (Sulfonamide Antibiotics) [id number] Drug Allergy Unknown N/A 019 Yes walnut [id number] Drug Allergy Moderate SOA, hives 05/15/2019 Yes acetaminophen [id number] Donny g Allergy Mild Itching 05/15/2019 Yes Hymenoptera Allergenic Extract Hymenoptera Allergenic Extract Mild hives 05/15/2019 Yes meloxicam [id number] Drug Allergy Mild rash 05/15/2019 Yes metformin [id number] Drug Allergy Mild diarrhea 05/15/2019 Yes oxycodone [id number] Drug Allergy Mild Itching 05/15/2019 Yes pregabalin [id number] Drug Allerg y Unknown N/A 05/15/2019 Yes oxycodone [id number] Drug Allergy Mild Itching, pt has 11/04/2019 Medications Medication Packaging Start Date St op Date Route Dosage Sig LACTATED RINGERS 1000CC IV BAG INJ ml 03/25/2017 03/25/2017 ONCE&1732 ONDANSETRON VIAL INJ 4 MG/2CC (ZOFRAN 2CC VIAL) MG 04/18/2017 04/18/2017 ONCE&1620 NORMAL SALINE 1000CC IV BAG INJ 0.9 % (NS 1000CC IV BAG) ml 04/18/2017 04/18/2017 ONCE&1621 NORMAL SALINE 1000CC IV BAG INJ 0.9 % (NS 1000CC IV BAG) ml 05/22/2017 06/06/2017 CONTINUOUSEVERY 0 Hour DIAZEPAM SYRINGE INJ 5 MG/CC (VALIUM SYRIN GE) MG 05/22/2017 05/29/2017 PRN Q6H MORPHINE SYRINGE INJ 2 MG/CC MG 05/23/2017 05/24/2017 PRN Daily LACTATED RINGERS 1000CC IV BAG INJ ml 02/11/2018 02/18/2018 CONTINUOUSEVERY 0 Hour METHYLPREDNISOLONE VIAL INJ 125 MG/2CC (SOLU-MEDROL VIAL) MG 06/11/2018 06/11/2018 ONCE&2127 DIPHENHYDRAMINE CAP 25 MG (BENADRYL) MG 06/11/2018 06/11/2018 PRN ONCE METHYLPREDNISOLONE VIAL INJ 125 MG/2CC (SOLU-MEDROL VIAL) MG 06/11/2018 06/11/2018 ONCE&2129 FAMOTIDINE TAB 20 MG (PEPCID) MG 06/11/2018 06/11/2018 ONCE&2130 GI COCKTAIL SINGLE DOSE LIQ (GRASSHOPPER) ML 07/17/2018 07/17/2018 ONCE&1517 Hyoscyamine oral disintegrating 0.125mg(Le vsin) MG 07/17/2018 07/17/2018 PRN ONCE NORMAL SALINE 1000CC IV BAG INJ 0.9 % (NS 1000CC IV BAG) ml 07/17/2018 07/17/2018 ONCE&1550 Problems Date Dx Coded Attending Type Code Diagnosis Diagnosed By 06/06/1509 MYRIAM MURILLO MD, Ot Z01.81 8 ENCOUNTER FOR OTHER PREPROCEDURAL EXAMIN 06/06/1509 MYRIAM MURILLO MD, Ot Z11.59 ENCOUNTER FOR SCREENING FOR OTHER VIRAL 03/15/2017 Doris Xavier 923.21 CONTUSION OF WRIST 03/15/2017 Doris Xavier S60.212A CONTUSION OF LEFT WRIST, INITIAL ENCOUNTER 03/25/2017 Jayy Bob 250.00 DIABETES MELLITUS WITHOUT MENTION OF COMPLICATION, TYPE II OR UNSPECIFIED TYPE, NOT STATED UNCONTROLLED 03/25/2017 Jayy Bob 401.9 UNSPECIFIED ESSENTIAL HYPERTENSION 03/25/2017 Jayy Bob 780.2 SYNCOPE AND COLLAPSE 03/25/2017 Jayy Bob 786.09 OTHER DYSPNEA AND RESPIRATORY ABNORMALITY 03/25/2017 Jayy Bob E11.9 TYPE 2 DIABETES MELLITUS WITHOUT COMPLICATIONS 03/25/2017 Jayy Bob I10 ESSENTIAL (PRIMARY) HYPERTENSION 03/25/2017 Jayy Bob R06.09 OTHER FORMS OF DYSPNEA 03/25/2017 Jayy Bob R55 SYNCOPE AND COLLAPSE 04/18/2017 Nat Grijalva 558.9 OTHER AND UNSPECIFIED NONINFECTIOUS GASTROENTERITIS AND COLITIS 04/18/2017 Nat Grijalva K52.9 NONINFECTIVE GASTROENTERITIS AND COLITIS, UNSPECIFIED 05/22/2017 Star Toussaint A 530.81 ESOPHAGEAL REFLUX 05/22/2017 Star Toussaint 535.50 UNSPECIFIED GASTRITIS AND GASTRODUODENIT IS, WITHOUT MENTION OF HEMORRHAGE 05/22/2017 Star Toussaint A K21.9 GASTRO-ESOPHAGEAL REFLUX DISEASE WITHOUT ESOPHAGITIS 05/22/2017 Star Toussaint W K29.60 OTHER GASTRITIS WITHOUT BLEEDING 02/12/2018 Star Toussaint A 530.81 ESOPHAGEAL REFLUX 02/12/2018 Star Toussaint W 535.50 UNSPECIFIED GASTRITIS AND GASTRODUODENIT IS, WITHOUT MENTION OF HEMORRHAGE 02/12/2018 Star Toussaint W 552.3 DIAPHRAGMATIC HERNIA WITH OBSTRUCTION 02/12/2018 Star Toussaint A K21.9 GASTRO-ESOPHAGEAL REFLUX DISEASE WITHOUT ESOPHAGITIS 02/12/2018 Star Toussaint W K29.60 OTHER GASTRITIS WITHOUT BLEEDING 02/12/2018 Star Toussaint K44.9 DIAPHRAGMATIC HERNIA WITHOUT OBSTRUCTION OR GANGRENE 06/11/2018 SUPA PERALTA 698.9 UNSPECIFIED PRURITIC DISORDER 06/11/2018 SUPA PERALTA 988.9 TOXIC EFFECT OF UNSPECIFIED NOXIOUS SUBSTANCE EATEN FOOD 06/11/2018 SUPA PERALTA L29.9 PRURITUS, UNSPECIFIED 06/11/2018 SUPA PERALTA T78.1 XXA OTH ADVERSE FOOD REACTIONS, NOT ELSEWHERE CLASSIFIED, INIT 07/17/2018 Doris Xavier 530.81 ESOPHAGEAL REFLUX 07/17/2018 Doris Xavier 558.9 OTHER AND UNSPECIFIED NONINFECTIOUS GASTROENTERITIS AND COLITIS 07/17/2018 Doris Xavier K21.9 GASTRO- ESOPHAGEAL REFLUX DISEASE WITHOUT ESOPHAGITIS 07/17/2018 Doris Xavier K52.9 NONINFECTIVE GASTROENTERITIS AND COLITIS, UNSPECIFIED 09/11/2018 STAR TOUSSAINT DO Ot G47.33 OBSTRUCTIVE SLEEP APNEA (ADULT) (PEDIATR 10/29/2018 STAR TOUSSAINT DO, Ot G47.33 OBSTRUCTIVE SLEEP APNEA (ADULT) (PEDIATR 10/29/2018 NADIRA HELLER DO Ot I10 ESSENTIAL (PRIMARY) HYPERTENSION 10/29/2018 NADIRA HELLER DO Ot M25.512 PAIN IN LEFT SHOULDER 10/29/2018 NADIRA HELLER DO Ot R19. 09 OTHER INTRA-ABDOMINAL AND PELVIC SWELLIN 10/29/2018 ARRON DO, NADIRA T Ot R91. 1 SOLITARY PULMONARY NODULE 10/29/2018 ARRON OHARA, NADIRA T Ot S16.1XXA STRAIN OF MUSCLE, FASCIA AND TENDON AT N 10/29/2018 RICHI HELLER DOED T Ot S30.0XXA CONTUSION OF LOWER BACK AND PELVIS, INIT 10/29/2018 RICHI HELLER DOED T Ot S40.012A CONTUSION OF LEFT SHOULDER, INITIAL ENCO 10/29/2018 ARRON OHARARICHIED T Ot W10.8XXA FALL (ON) (FROM) OTHER STAIRS AND STEPS, 10/29/2018 ARRON OHARARICHIED T Ot Z79. 51 BINDING BENCH WORKER (CURRENT) USE OF INHALED STERO 10/29/2018 RICHI HELLER DOED T Ot Z88. 0 ALLERGY STATUS TO PENICILLIN 10/29/2018 ARRON OHARA NADIRA T Ot Z88. 1 ALLERGY STATUS TO OTHER ANTIBIOTIC AGENT 10/29/2018 RICHI HELLER DOED T Ot Z88. 2 ALLERGY STATUS TO SULFONAMIDES STATUS 10/29/2018 RICHI HELLER DOED T Ot Z88. 8 ALLERGY STATUS TO OTH DRUG/MEDS/BIOL SUB 10/31/2018 ARRON OHARA NADIRA T Ot I10 ESSENTIAL (PRIMARY) HYPERTENSION 10/31/2018 ARRON OHARA NADIRA T Ot M25.512 PAIN IN LEFT SHOULDER 10/31/2018 ARRON NADIRA T Ot R19. 09 OTHER INTRA-ABDOMINAL AND PELVIC SWELLIN 10/31/2018 ARRON RICHIED T Ot R91. 1 SOLITARY PULMONARY NODULE 10/31/2018 ARRON OHARA NADIRA T Ot S16.1XXA STRAIN OF MUSCLE, FASCIA AND TENDON AT N 10/31/2018 ARRON RICHIED T Ot S30.0XXA CONTUSION OF LOWER BACK AND PELVIS, INIT 10/31/2018 ARRON NADIRA T Ot S40.012A CONTUSION OF LEFT SHOULDER, INITIAL ENCO 10/31/2018 ARRON RICHIED T Ot W10.8XXA FALL (ON) (FROM) OTHER STAIRS AND STEPS, 10/31/2018 ARRON OHARA NADIRA T Ot Z79. 51 BINDING BENCH WORKER (CURRENT) USE OF INHALED STERO 10/31/2018 ARRON OHARA NADIRA T Ot Z88. 0 ALLERGY STATUS TO PENICILLIN 10/31/2018 ARRON OHARA NADIRA T Ot Z88. 1 ALLERGY STATUS TO OTHER ANTIBIOTIC AGENT 10/31/2018 NADIRA HELLER DO T Ot Z88. 2 ALLERGY STATUS TO SULFONAMIDES STATUS 10/31/2018 RICHI HELLER DOED T Ot Z88. 8 ALLERGY STATUS TO OTH DRUG/MEDS/BIOL SUB 11/05/2018 ROSANNA HOLLIDAY Ot M17.12 UNILATERAL PRIMARY OSTEOARTHRITIS, LEFT 11/13/2018 [facility] [place] Ot G47.33 OBSTRUCTIVE SLEEP APNEA (ADULT) (PEDIATR 11/14/2018 [facility], [place] Ot E66.9 OBESITY, UNSPECIFIED 11/14/2018 [facility] [place] Ot G47.33 OBSTRUCTIVE SLEEP APNEA (ADULT) (PEDIATR 11/14/2018 Seamus GAINES, Rod Hargrove N8 1.6 Rectocele 11/14[facility] E66.9 OBESITY, UNSPECIFIED 11/14/2018 [facility] [place] Ot G47.33 OBSTRUCTIVE SLEEP APNEA (ADULT) (PEDIATR 11/14/[address] MD E66.01 Obesity Class III (BMI >=40) 11/14/[address] MD Z68.42 BMI 45-49.9 11/25/2018 ROSANNA HOLLIDAY Ot M17.12 UNILATERAL PRIMARY OSTEOARTHRITIS, LEFT 02/16/2019 Jayy Bob 466.0 ACUTE BRONCHITIS 02/16/2019 Jayy Bob E11.9 TYPE 2 DIABETES MELLITUS WITHOUT COMPLICATIONS 02/16/2019 Jayy Bob I10 ESSENTIAL (PRIMARY) HYPERTENSION 02/16/2019 Jayy Bob J20.9 ACUTE BRONCHITIS, UNSPECIFIED 02/16/2019 Jayy Bob K21.9 GASTRO-ESOPHAGEAL REFLUX DISEASE WITHOUT ESOPHAGITIS 02/16/2019 Jayy Bob K29.60 OTHER GASTRITIS WITHOUT BLEEDING 02/16/2019 Jayy Bob K44.9 DIAPHRAGMATIC HERNIA WITHOUT OBSTRUCTION OR GANGRENE 02/16/2019 Jayy Bob K52.9 NONINFECTIVE GASTROENTERITIS AND COLITIS, UNSPECIFIED 02/16/2019 Jayy Bob L29.9 PRURITUS, UNSPECIFIED 02/16/2019 Jayy Bob R06.09 OTHER FORMS OF DYSPNEA 02/16/2019 Jayy Bob R55 SYNCOPE AND COLLAPSE 02/16/2019 CariJayy kincaid W S60.212A CONTUSION OF LEFT WRIST, INITIAL ENCOUNTER 02/16/2019 Jayy Bob W T78.1XXA OTH ADVERSE FOOD REACTIONS, NOT ELSEWHERE CLASSIFIED, INIT 05/18/2019 BASHIR CHAVES MD, Ot E11 .9 TYPE 2 DIABETES MELLITUS WITHOUT COMPLIC 05/18/2019 BASHIR CHAVES MD, Ot E66 .9 OBESITY, UNSPECIFIED 05/18/2019 BASHIR CHAVES MD, Ot E78 .5 HYPERLIPIDEMIA, UNSPECIFIED 05/18/2019 BASHIR CHAVES MD, Ot F41 .9 ANXIETY DISORDER, UNSPECIFIED 05/18/2019 BASHIR CHAVES MD, Ot 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 05/18/2019 BASHIR CHAVES MD Ot I10 ESSENTIAL (PRIMARY) HYPERTENSION 05/18/2019 BASHIR CHAVES MD, Ot K21 .9 GASTRO-ESOPHAGEAL REFLUX DISEASE WITHOUT 05/18/2019 BASHIR CHAVES MD, Ot M06 .9 RHEUMATOID ARTHRITIS, UNSPECIFIED 05/18/2019 BASHIR CHAVES MD Ot M79 .7 FIBROMYALGIA 05/18/2019 BASHIR CHAVES MD Ot R07 .9 CHEST PAIN, UNSPECIFIED 05/18/2019 BASHIR CHAVES MD, Ot Z68.41 BODY MASS INDEX (BMI) 40.0-44.9, ADULT 05/18/2019 BASHIR CHAVES MD, Ot Z79 .1 RESIDENTIAL (CURRENT) USE OF NON-STEROIDAL 05/18/2019 BASHIR CHAVES MD Ot Z79.52 RESIDENTIAL (CURRENT) USE OF SYSTEMIC STER 05/18/2019 BASHIR CHAVES MD, Ot Z79.899 OTHER BINDING BENCH WORKER (CURRENT) DRUG THERAPY 05/18/2019 BASHIR CHAVES MD, [...] STATUS TO SULFONAMIDES STATUS 05/18/2019 BASHIR CHAVES MD Ot Z88 .6 ALLERGY STATUS TO ANALGESIC AGENT STATUS 05/18/2019 BASHIR CHAVES MD, Ot Z88 .8 ALLERGY STATUS TO OTH DRUG/MEDS/BIOL SUB 05/18/2019 BASHIR CHAVES MD Ot Z90.710 ACQUIRED ABSENCE OF BOTH CERVIX AND UTER 05/18/2019 BASHIR CHAVES MD Ot Z90.721 ACQUIRED ABSENCE OF OVARIES, UNILATERAL 05/18/2019 BASHIR CHAVES MD Ot Z91.018 ALLERGY TO OTHER FOODS 05/18/2019 BASHIR CHAVES MD Ot Z91.048 OTHER NONMEDICINAL SUBSTANCE ALLERGY STA 05/22/2019 ROSANNA HOLLIDAY Ot M17.12 UNILATERAL PRIMARY OSTEOARTHRITIS, LEFT 05/22/2019 ANDREY GAINES, YURI Moore Ot M25.512 PAIN IN LEFT SHOULDER 05/22/2019 BASHIR CHAVES MD Ot I25.10 ATHSCL HEART DISEASE OF [place] CORONARY 05/22/2019 BASHIR CHAVES MD Ot Z79.899 OTHER RESIDENTIAL (CURRENT) DRUG THERAPY 05/22/2019 BASHIR CHAVES MD [...] MD Ot I25.10 ATHSCL HEART DISEASE OF [place] CORONARY 05/27/2019 BASHIR CHAVES MD Ot Z79.899 OTHER BINDING BENCH WORKER (CURRENT) DRUG THERAPY 05/27/2019 BASHIR CHAVES MD [...] MD Ot I25.10 ATHSCL HEART DISEASE OF [place] CORONARY 06/03/2019 BASHIR CHAVES MD Ot Z79.899 OTHER RESIDENTIAL (CURRENT) DRUG THERAPY 06/03/2019 BASHIR CHAVES MD Ot Z82 .3 FAMILY HISTORY OF STROKE 06/03/2019 BASHIR CHAVES MD Ot Z82.49 FAMILY HX OF ISCHEM HEART DIS AND OTH DI 06/03/2019 BASHIR CHAVES MD Ot Z88 .0 ALLERGY STATUS TO PENICILLIN 06/03/2019 BASHIR CHAVES MD N Ot Z88 .1 ALLERGY STATUS TO OTHER ANTIBIOTIC AGENT 06/03/2019 BASHIR CHAVES MD Ot Z88 .2 ALLERGY STATUS TO SULFONAMIDES STATUS 06/03/2019 BASHIR CHAVES MD Ot Z88 .8 ALLERGY STATUS TO OTH DRUG/MEDS/BIOL SUB 06/03/2019 BASHIR CHAVES MD Ot Z91.018 ALLERGY TO OTHER FOODS 06/10/2019 BASHIR CHAVES MD Ot I25.10 ATHSCL HEART DISEASE OF [place] CORONARY 06/10/2019 BASHIR CHAVES MD Ot Z79.899 OTHER BINDING BENCH WORKER (CURRENT) DRUG THERAPY 06/10/2019 BASHIR CHAVES MD Ot Z82 .3 FAMILY HISTORY OF STROKE 06/10/2019 BASHIR CHAVES MD Ot Z82.49 FAMILY HX OF ISCHEM HEART DIS AND OTH DI 06/10/2019 BASHIR CHAVES MD, Ot Z88 .0 ALLERGY STATUS TO PENICILLIN 06/10/2019 BASHIR CHAVES MD, Ot Z88 .1 ALLERGY STATUS TO OTHER ANTIBIOTIC AGENT 06/10/2019 BASHIR CHAVES MD, Ot Z88 .2 ALLERGY STATUS TO SULFONAMIDES STATUS 06/10/2019 BASHIR CHAVES MD, Ot Z88 .8 ALLERGY STATUS TO OTH DRUG/MEDS/BIOL SUB 06/10/2019 BASHIR CHAVES MD, Ot Z91.018 ALLERGY TO OTHER FOODS 06/17/2019 YURI BALDERAS MD, Ot M25.512 PAIN IN LEFT SHOULDER 07/30/2019 YURI BALDERAS MD Ot E11 .9 TYPE 2 DIABETES MELLITUS WITHOUT COMPLIC 07/30/2019 YURI BALDERAS MD Ot R22.32 LOCALIZED SWELLING, MASS AND LUMP, LEFT 08/14/2019 YURI BALDERAS MD, Ot E11 .9 TYPE 2 DIABETES MELLITUS WITHOUT COMPLIC 08/14/2019 YURI BALDERAS MD, Ot R22.32 LOCALIZED SWELLING, MASS AND LUMP, LEFT 09/11/2019 DORIS XAVIER APRN Ot E11 .9 TYPE 2 DIABETES MELLITUS WITHOUT COMPLIC 09/11/2019 DORIS XAVIER APRN Ot F41 .9 ANXIETY DISORDER, UNSPECIFIED 09/11/2019 DORIS XAVIER APRN Ot I10 ESSENTIAL (PRIMARY) HYPERTENSION 09/11/2019 ODRIS XAVIER APRN Ot J45.909 UNSPECIFIED ASTHMA, UNCOMPLICATED 09/11/2019 DORIS XAVIER APRN Ot K21 .9 GASTRO-ESOPHAGEAL REFLUX DISEASE WITHOUT 09/11/2019 DORIS XAVIER APRN Ot R07.81 PLEURODYNIA 09/11/2019 DORIS XAVIER APRN Ot R07 .9 CHEST PAIN, UNSPECIFIED 09/11/2019 DORIS XAVIER APRN Ot Z79.51 BINDING BENCH WORKER (CURRENT) USE OF INHALED STERO 09/11/2019 DORIS XAVIER APRN Ot Z79.52 RESIDENTIAL (CURRENT) USE OF SYSTEMIC STER 09/11/2019 DORIS XAVIER APRN Ot Z88 .0 ALLERGY STATUS TO PENICILLIN 09/11/2019 DORIS XAVIER APRN Ot Z88 .1 ALLERGY STATUS TO OTHER ANTIBIOTIC AGENT 09/11/2019 XAVIER, PETER J TAB CARD PRESS OPERATOR Ot Z88 .2 ALLERGY STATUS TO SULFONAMIDES STATUS 09/11/2019 DORIS XAVIER TAB CARD PRESS OPERATOR Ot Z88 .5 ALLERGY STATUS TO NARCOTIC AGENT STATUS 09/11/2019 DUC, DORIS Velasco TAB CARD PRESS OPERATOR Ot Z88 .6 ALLERGY STATUS TO ANALGESIC AGENT STATUS 09/17/2019 DUC, DORIS Velasco APRN Ot E11 .9 TYPE 2 DIABETES MELLITUS WITHOUT COMPLIC 09/17/2019 DORIS XAVIER APRN Ot F41 .9 ANXIETY DISORDER, UNSPECIFIED 09/17/2019 DORIS XAVIER TAB CARD PRESS OPERATOR Ot I10 ESSENTIAL (PRIMARY) HYPERTENSION 09/17/2019 DORIS XAVIER APRN Ot J45.909 UNSPECIFIED ASTHMA, UNCOMPLICATED 09/17/2019 DORIS XAVIER APRN Ot K21 .9 GASTRO-ESOPHAGEAL REFLUX DISEASE WITHOUT 09/17/2019 DORIS XAVIER APRN Ot R07.81 PLEURODYNIA 09/17/2019 DORIS XAVIER APRN Ot R07 .9 CHEST PAIN, UNSPECIFIED 09/17/2019 DORIS XAVIER APRN Ot Z79.51 BINDING BENCH WORKER (CURRENT) USE OF INHALED STERO 09/17/2019 DORIS XAVIER APRN Ot Z79.52 RESIDENTIAL (CURRENT) USE OF SYSTEMIC STER 09/17/2019 DUC, DORIS Velsaco APRN Ot Z88 .0 ALLERGY STATUS TO PENICILLIN 09/17/2019 DORIS XAVIER APRN Ot Z88 .1 ALLERGY STATUS TO OTHER ANTIBIOTIC AGENT 09/17/2019 DORIS XAVIER APRN Ot Z88 .2 ALLERGY STATUS TO SULFONAMIDES STATUS 09/17/2019 DORIS XAVIER APRN Ot Z88 .5 ALLERGY STATUS TO NARCOTIC AGENT STATUS 09/17/2019 DORIS XAVIER TAB CARD PRESS OPERATOR Ot Z88 .6 ALLERGY STATUS TO ANALGESIC AGENT STATUS 09/23/2019 DUC, DORIS Velasco APRN Ot E11 .9 TYPE 2 DIABETES MELLITUS WITHOUT COMPLIC 09/23/2019 DORIS XAVIER APRN Ot F41 .9 ANXIETY DISORDER, UNSPECIFIED 09/23/2019 DORIS XAVIER TAB CARD PRESS OPERATOR Ot I10 ESSENTIAL (PRIMARY) HYPERTENSION 09/23/2019 DUC, DORIS Velasco APRN Ot J45.909 UNSPECIFIED ASTHMA, UNCOMPLICATED 09/23/2019 DORIS XAVIER APRN Ot K21 .9 GASTRO-ESOPHAGEAL REFLUX DISEASE WITHOUT 09/23/2019 DORIS XAVIER APRN Ot R07.81 PLEURODYNIA 09/23/2019 DORIS XAVIER APRN Ot R07 .9 CHEST PAIN, UNSPECIFIED 09/23/2019 DORIS XAVIER APRN Ot Z79.51 RESIDENTIAL (CURRENT) USE OF INHALED STERO 09/23/2019 DORIS XAVIER APRN Ot Z79.52 BINDING BENCH WORKER (CURRENT) USE OF SYSTEMIC STER 09/23/2019 DORIS XAVIER APRN Ot Z88 .0 ALLERGY STATUS TO PENICILLIN 09/23/2019 DORIS XAVIER APRN Ot Z88 .1 ALLERGY STATUS TO OTHER ANTIBIOTIC AGENT 09/23/2019 DORIS XAVIER APRN Ot Z88 .2 ALLERGY STATUS TO SULFONAMIDES STATUS 09/23/2019 DORIS XAVIER APRN Ot Z88 .5 ALLERGY STATUS TO NARCOTIC AGENT STATUS 09/23/2019 DORIS XAVIER APRN Ot Z88 .6 ALLERGY STATUS TO ANALGESIC AGENT STATUS 10/16/2019 DIANNA MARINELLI DO Ot E11 .9 TYPE 2 DIABETES MELLITUS WITHOUT COMPLIC 10/16/2019 DIANNA MARINELLI DO, Ot F41 .9 ANXIETY DISORDER, UNSPECIFIED 10/16/2019 DIANNA MARINELLI DO, Ot I10 ESSENTIAL (PRIMARY) HYPERTENSION 10/16/2019 DIANNA MARINELLI DO, Ot J45.909 UNSPECIFIED ASTHMA, UNCOMPLICATED 10/16/2019 DIANNA MARINELLI DO, Ot K21 .9 GASTRO-ESOPHAGEAL REFLUX DISEASE WITHOUT 10/16/2019 DIANNA MARINELLI DO, Ot 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 10/16/2019 DIANNA MARINELLI DO, Ot W45.0XXA NAIL ENTERING THROUGH SKIN, INITIAL ENCO 10/16/2019 DINANA MARINELLI DO, Ot Z79.51 BINDING BENCH WORKER (CURRENT) USE OF INHALED STERO 10/16/2019 DIANNA MARINELLI DO Ot Z79.52 BINDING BENCH WORKER (CURRENT) USE OF SYSTEMIC STER 10/16/2019 DIANNA MARINELLI DO, Ot Z88 .0 ALLERGY STATUS TO PENICILLIN 10/16/2019 DIANNA MARINELLI DO, Ot Z88 .1 ALLERGY STATUS TO OTHER ANTIBIOTIC AGENT 10/16/2019 DIANNA MARINELLI DO Ot Z88 .2 ALLERGY STATUS TO SULFONAMIDES STATUS 10/16/2019 DIANNA MARINELLI DO, Ot Z88 .5 ALLERGY STATUS TO NARCOTIC AGENT STATUS 10/16/2019 DIANNA MARINELLI DO Ot Z88 .6 ALLERGY STATUS TO ANALGESIC AGENT STATUS 10/16/2019 DIANNA MARINELLI DO Ot Z88 .8 ALLERGY STATUS TO OTH DRUG/MEDS/BIOL SUB 10/20/2019 DIANNA MARINELLI DO Ot E11 .9 TYPE 2 DIABETES MELLITUS WITHOUT COMPLIC 10/20/2019 DIANNA MARINELLI DO, Ot F41 .9 ANXIETY DISORDER, UNSPECIFIED 10/20/2019 DIANNA MARINELLI DO, Ot I10 ESSENTIAL (PRIMARY) HYPERTENSION 10/20/2019 DIANNA MARINELLI DO, Ot J45.909 UNSPECIFIED ASTHMA, UNCOMPLICATED 10/20/2019 DIANNA MARINELLI DO, Ot K21 .9 GASTRO-ESOPHAGEAL REFLUX DISEASE WITHOUT 10/20/2019 DIANNA MARINELLI DO, Ot 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 10/20/2019 DIANNA MARINELLI DO, Ot W45.0XXA NAIL ENTERING THROUGH SKIN, INITIAL ENCO 10/20/2019 DIANNA MARINELLI DO Ot Z79.51 RESIDENTIAL (CURRENT) USE OF INHALED STERO 10/20/2019 DIANNA MARINELLI DO, Ot Z79.52 RESIDENTIAL (CURRENT) USE OF SYSTEMIC STER 10/20/2019 DIANNA MARINELLI DO Ot Z88 .0 ALLERGY STATUS TO PENICILLIN 10/20/2019 DIANNA MARINELLI DO, Ot Z88 .1 ALLERGY STATUS TO OTHER ANTIBIOTIC AGENT 10/20/2019 DIANNA MARINELLI DO Ot Z88 .2 ALLERGY STATUS TO SULFONAMIDES STATUS 10/20/2019 DIANNA MARINELLI DO Ot Z88 .5 ALLERGY STATUS TO NARCOTIC AGENT STATUS 10/20/2019 DIANNA MARINELLI DO, Ot Z88 .6 ALLERGY STATUS TO ANALGESIC AGENT STATUS 10/20/2019 DIANNA MARINELLI DO Ot Z88 .8 ALLERGY STATUS TO OTH DRUG/MEDS/BIOL SUB 10/22/2019 DIANNA MARINELLI DO Ot E11 .9 TYPE 2 DIABETES MELLITUS WITHOUT COMPLIC 10/22/2019 DIANNA MARINELLI DO, Ot F41 .9 ANXIETY DISORDER, UNSPECIFIED 10/22/2019 DIANNA MARINELLI DO Ot I10 ESSENTIAL (PRIMARY) HYPERTENSION 10/22/2019 DIANNA MARINELLI DO, Ot J45.909 UNSPECIFIED ASTHMA, UNCOMPLICATED 10/22/2019 DIANNA MARINELLI DO, Ot K21 .9 GASTRO-ESOPHAGEAL REFLUX DISEASE WITHOUT 10/22/2019 DIANNA MARINELLI DO, Ot 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 10/22/2019 DIANNA MARINELLI DO, Ot W45.0XXA NAIL ENTERING THROUGH SKIN, INITIAL ENCO 10/22/2019 DIANNA MARINELLI DO, Ot Z79.51 BINDING BENCH WORKER (CURRENT) USE OF INHALED STERO 10/22/2019 DIANNA MARINELLI DO, Ot Z79.52 BINDING BENCH WORKER (CURRENT) USE OF SYSTEMIC STER 10/22/2019 DIANNA MARINELLI DO, Ot Z88 .0 ALLERGY STATUS TO PENICILLIN 10/22/2019 DIANNA MARINELLI DO, Ot Z88 .1 ALLERGY STATUS TO OTHER ANTIBIOTIC AGENT 10/22/2019 DIANNA MARINELLI DO, Ot Z88 .2 ALLERGY STATUS TO SULFONAMIDES STATUS 10/22/2019 DIANNA MARINELLI DO Ot Z88 .5 ALLERGY STATUS TO NARCOTIC AGENT STATUS 10/22/2019 DIANNA MARINELLI DO, Ot Z88 .6 ALLERGY STATUS TO ANALGESIC AGENT STATUS 10/22/2019 DIANNA MARINELLI DO, Ot Z88 .8 ALLERGY STATUS TO OTH DRUG/MEDS/BIOL SUB 11/04/2019 MYRIAM MURILLO MD Ot E11.9 TYPE 2 DIABETES MELLITUS WITHOUT COMPLIC 11/04/2019 MYRIAM MURILLO MD, Ot F41.9 ANXIETY DISORDER, UNSPECIFIED 11/04/2019 MYRIAM MURILLO MD, Ot G47.00 INSOMNIA, UNSPECIFIED 11/04/2019 MYRIAM MURILLO MD Ot I10 ESSENTIAL (PRIMARY) HYPERTENSION 11/04/2019 MYRIAM MURILLO MD, Ot J02.9 ACUTE PHARYNGITIS, UNSPECIFIED 11/04/2019 MYRIAM MURILLO MD, Ot J45.90 9 UNSPECIFIED ASTHMA, UNCOMPLICATED 11/04/2019 MYRIAM MURILLO MD, Ot K21.0 GASTRO-ESOPHAGEAL REFLUX DISEASE WITH ES 11/04/2019 MYRIAM MURILLO MD, Ot K22.2 ESOPHAGEAL OBSTRUCTION 11/04/2019 MYRIAM MURILLO MD, Ot K29.50 UNSPECIFIED CHRONIC GASTRITIS WITHOUT BL 11/04/2019 MYRIAM MURILLO MD, Ot K44.9 DIAPHRAGMATIC HERNIA WITHOUT OBSTRUCTION 11/04/2019 MYRIAM MURILLO MD, Ot M79.7 FIBROMYALGIA 11/04/2019 MYRIAM MURILLO MD, Ot Z79.84 B[employer]ING [employer]CH WORKER (CURRENT) USE OF ORAL HYPOGLYC 11/04/2019 MYRIAM MURILLO MD, Ot Z79.89 9 OTHER B[employer]ING B[employer]CH WORKER (CURRENT) DRUG THERAPY 11/04/2019 MYRIAM MURILLO MD, Ot Z82.3 FAMILY HISTORY OF STROKE 11/04/2019 MYRIAM MURILLO MD, Ot Z90.49 ACQUIRED ABSENCE OF OTHER SPECIFIED PART 11/04/2019 MYRIAM MURILLO MD, Ot Z90.71 0 ACQUIRED ABSENCE OF BOTH CERVIX AND UTER 11/09/2019 MYRIAM MURILLO MD, Ot E11.9 TYPE 2 DIABETES MELLITUS WITHOUT COMPLIC 11/09/2019 MYRIAM MURILLO MD, Ot F41.9 ANXIETY DISORDER, UNSPECIFIED 11/09/2019 MYRIAM MURILLO MD, Ot G47.00 INSOMNIA, UNSPECIFIED 11/09/2019 MYRIAM MURILLO MD, Ot I10 ESSENTIAL (PRIMARY) HYPERTENSION 11/09/2019 MYRIAM MURILLO MD, Ot J02.9 ACUTE PHARYNGITIS, UNSPECIFIED 11/09/2019 MYRIAM MURILLO MD, Ot J45.90 9 UNSPECIFIED ASTHMA, UNCOMPLICATED 11/09/2019 MYRIAM MURILLO MD, Ot K21.0 GASTRO-ESOPHAGEAL REFLUX DISEASE WITH ES 11/09/2019 MYRIAM MURILLO MD, Ot K22.2 ESOPHAGEAL OBSTRUCTION 11/09/2019 MYRIAM MURILLO MD, Ot K29.50 UNSPECIFIED CHRONIC GASTRITIS WITHOUT BL 11/09/2019 MYRIAM MURILLO MD, Ot K44.9 DIAPHRAGMATIC HERNIA WITHOUT OBSTRUCTION 11/09/2019 MYRIAM MURILLO MD, Ot M79.7 FIBROMYALGIA 11/09/2019 MYRIAM MURILLO MD, Ot Z79.84 RESIDENTIAL (CURRENT) USE OF ORAL HYPOGLYC 11/09/2019 MYRIAM MURILLO MD, Ot Z79.89 9 OTHER RESIDENTIAL (CURRENT) DRUG THERAPY 11/09/2019 MYRIAM MURILLO MD, Ot Z82.3 FAMILY HISTORY OF STROKE 11/09/2019 MYRIAM MURILLO MD, Ot Z90.49 ACQUIRED ABSENCE OF OTHER SPECIFIED PART 11/09/2019 MYRIAM MURILLO MD, Ot Z90.71 0 ACQUIRED ABSENCE OF BOTH CERVIX AND UTER 12/21/2019 MYRIAM MURILLO MD, Ot Z01.81 8 ENCOUNTER FOR OTHER PREPROCEDURAL EXAMIN 12/21/2019 MYRIAM MURILLO MD Ot Z11.59 ENCOUNTER FOR SCREENING FOR OTHER VIRAL 12/22/2019 ROSANNA HOLLIDAY Ot M17.12 UNILATERAL PRIMARY OSTEOARTHRITIS, LEFT 12/22/2019 YURI BALDERAS MD Ot M25.512 PAIN IN LEFT SHOULDER 12/22/2019 YURI BALDERAS MD Ot E11 .9 TYPE 2 DIABETES MELLITUS WITHOUT COMPLIC 12/22/2019 YURI BALDERAS MD Ot R22.32 LOCALIZED SWELLING, MASS AND LUMP, LEFT 12/23/2019 MYRIAM MURILLO MD, Ot K44.9 DIAPHRAGMATIC HERNIA WITHOUT OBSTRUCTION 12/23/2019 MYRIAM MURILLO MD, Ot R47.02 DYSPHASIA 12/23/2019 ROSANNA HOLLIDAY Ot M17.12 UNILATERAL PRIMARY OSTEOARTHRITIS, LEFT 12/23/2019 YURI BALDERAS MD, Ot M25.512 PAIN IN LEFT SHOULDER 12/23/2019 YURI BALDERAS MD Ot E11 .9 TYPE 2 DIABETES MELLITUS WITHOUT COMPLIC 12/23/2019 YURI BALDERAS MD Ot R22.32 LOCALIZED SWELLING, MASS AND LUMP, LEFT 12/23/2019 MYRIAM MURILLO MD Ot K44.9 DIAPHRAGMATIC HERNIA WITHOUT OBSTRUCTION 12/23/2019 MYRIAM MURILLO MD, Ot R47.02 DYSPHASIA Procedures There is no data. Results Test Result Range Urinalysis - 03/25/17 17:50 Icotest N/A Negative Urine Volume Urine Volume Sufficient (10mL) Urine Yeast Yeast Present Urine-Appearance Clear Clear Urine-Bacteria Trace Urine-Bilirubin Negative Negative Urine-Blood Negative Negative Urine-Color Yellow Colorless-Lt. Bent ow Urine-Epithelial Cells 0-5/HPF Urine-Glucose 2+ Negative Urine-Ketones Negative Negative Urine-Leukocytes Negative Negative Urine-Nitrite Negative Negative Urine-Other Urine Saved if Culture Need ed (48hrs from time of collection) Urine-pH 6.0 5-8.5 Urine-Protein Negative Negative Urine-RBC 0-2/HPF Urine-Specific [place] 1.020 1.000-1 .030 Urine-WBC 0-2/HPF Urobilinogen 0.2 0.2-1.0 Comprehensive Metabolic Panel - 03/25/17 18:30 Albumin 3.5 g/dL 3.6-5.1 ALP 48 U/L 35-130 ALT 11 U/L 6-45 Anion Gap 13 6-14 AST 14 U/L 2-40 BUN 15 mg/dL 5-25 Calcium 9.8 mg/dL 8.3-10.4 Chloride 105 mmol/L 95-114 CO2 27 mEq/L 22-33 Creat 0.72 mg/dL 0.50-1.50 eGFR 86 mL/min/1.73m2 >59 Globulin 3.4 g/dL 2.3-3.5 Glucose 126 mg/dL 70-110 Osmo 293 280-295 Potassium 3.9 mmol/L 3.5-5.3 Sodium 141 mmol/L 134-148 TBil < 0.2 mg/dL TP 6.9 g/dL 6.0-8.3 BNP - 03/25/17 21:02 BNP <10.00 pg/ml 0.00-100.00 Cardiac Panel - 03/25/17 21:34 CK 29 U/L 26-174 CK-MB 0.5 ng/ml 0.0-9.2 Myoglobin 23.0 ng/ml 1.6-106.0 Troponin <0.020 ng/mL 0.0-0.4 Lipase - 04/18/17 16:00 Lipase 8 U/L 7-59 Urinalysis - 04/18/17 16:01 Icotest N/A Negative Urine Volume Urine Volume Sufficient (10mL) Urine Yeast No Yeast present Urine-Appearance Clear Clear Urine-Bacteria Trace Urine-Bilirubin Negative Negative Urine-Blood Negative Negative Urine-Color Yellow Colorless-Lt. Bent ow Urine-Epithelial Cells 0-5/HPF Urine-Glucose Negative Negative Urine-Ketones Negative Negative Urine-Leukocytes Negative Negative Urine-Nitrite Negative Negative Urine-Other Urine Saved if Culture Need ed (48hrs from time of collection) Urine-pH 5.5 5-8.5 Urine-Protein Negative Negative Urine-RBC Negative Urine-Specific [place] 1.025 1.000-1 .030 Urine-WBC Negative Urobilinogen 0.2 E.U./dL 0.2-1.0 Comprehensive Metabolic Panel - 05/16/17 11:22 Albumin 3.7 g/dL 3.6-5.1 ALP 61 U/L 35-130 ALT 12 U/L 6-45 Anion Gap 12 6-14 AST 9 U/L 2-40 BUN 20 mg/dL 5-25 Calcium 9.5 mg/dL 8.3-10.4 Chloride 104 mmol/L 95-114 CO2 29 mEq/L 22-33 Creat 0.72 mg/dL 0.50-1.50 eGFR 86 mL/min/1.73m2 >59 Globulin 3.0 g/dL 2.3-3.5 Glucose 137 mg/dL 70-110 Osmo 296 280-295 Potassium 3.9 mmol/L 3.5-5.3 Sodium 141 mmol/L 134-148 TBil 0.3 mg/dL 0.2-1.2 TP 6.7 g/dL 6.0-8.3 Surgical Pathology - 05/22/17 08:36 Surg Path Sent to [facility] EKG - 05/22/17 09:31 EKG Complete Protime - 02/06/18 14:35 INR 1.0 1.0-4.0 Protime 11.5 Sec 9.9-12.8 EKG - 02/06/18 14:36 EKG Complete Surgical Pathology - 02/12/18 08:24 Surg Path Sent to [facility] Lipase - 07/17/18 15:50 Lipase 20 U/L 7-59 Sed Rate - 07/24/18 14:33 Sed Rate 5 mm/hr 9-15 CMP - 10/09/18 16:06 GLUCOSE 272 mg/dL 65-99 UREA NITROGEN (BUN) 12 mg/dL 7-25 CREATININE 0.69 mg/dL 0.50-1.05 eGFR NON-AFR. [place] 101 mL/min/1.73m2 > OR = 60 eGFR [...] AST 28 U/L 10-35 ALT 26 U/L 01-03 CULTURE, THROAT - 10/09/18 16:06 CULTURE, THROAT NRG BNP - 11/14/18 14:39 B TYPE NATRIURETIC PEPTIDE (BNP) 9 pg/mL <100 CMP - 01/05/19 16:40 GLUCOSE 243 mg/dL 65-99 UREA NITROGEN (BUN) 11 mg/dL 7-25 CREATININE 0.78 mg/dL 0.50-1.05 eGFR NON-AFR. [place] 87 mL/min/1.73m2 > OR = 60 eGFR [...] AST 45 U/L 10-35 ALT 35 U/L 6- VITAMIN B12 - 01/05/19 16:40 VITAMIN B12 [...] FOR INFLUENZA A AND B ANTIGENS BY IA NRG Complete blood count (CBC) with automate d [...] 09/11/19 21:51 BNP PT < 10.0 <100.0 TESTOSTERONE, TOTAL (WOMEN, CHILDREN, HY POGONADAL MALES) - 12/03/19 10:30 TESTOSTERONE, TOTAL, LC/MS/MS 7 ng/dL 2-45 FREE TESTOSTERONE 0.4 pg/mL 0.1-6.4 Coronavirus SARS-CoV-2 SO 2018 - 0 08:25 Coronavirus Ab [Units/volume] in Serum Negative Negative Encounters ACCT No. Visit Date/Time Discharge Status Pt. Type Provider Facility Loc./Unit Complaint [id number] 12/03/2019 10:15:00 12/03/2019 23:59: 59 CLS Outpatient YURI BALDERAS [facility] [id number] 12/03/2019 10:15:00 Document Registration [id number] 04/16/2019 09:20:00 Document Registration [id number] 01/05/2019 15:45:00 Document Registration [id number] 11/14/2018 14:40:00 Document Registration [id number] 10/09/2018 15:40:00 Document Registration [id number] 12/20/2018 09:08:59 ACT Document Registration [id number] 09/23/2018 10:44:50 9 23:59:[address] [facility] SAMIR Surgery ops [id number] 12/21/2019 05:36:00 15:10:00 DIS Outpatient MYRIAM MURILLO MD [facility] PREOP EGD [id number] 12/18/2019 10:38:00 23:59:59 CLS Outpatient MYRIAM MURILLO MD [facility] RAD DYSPAHGIA [id number] 11/04/2019 10:18:00 13:45:00 DIS Outpatient MYRIAM MURILLO MD [facility] ENDO DYSPHAGIA [id number] 10/16/2019 15:08:00 15:56:00 DIS Emergency DIANNA MARINELLI DO [facility] ER FS FINGER LACERATION [id number] 09/11/2019 21:07:00 22:57:00 DIS Emergency XAVIERDORIS APRN [facility] ER CHEST PAIN [id number] 07/27/2019 11:54:00 23:59:59 CLS Outpatient YURI BALDERAS MD [facility] RAD FS R22.32 E11.9 [id number] 05/22/2019 08:40:00 20:30:00 DIS Outpatient BASHIR CHAVES MD [facility] CP R/O ACS [id number] 05/20/2019 14:17:00 23:59:59 CLS Outpatient YURI BALDERAS MD [facility] RAD FS M25.512 [id number] 05/15/2019 16:18:00 14:26:00 DIS Inpatient BASHIR CHAVES MD [facility] 4TH INTRACTABLE CHEST PAIN [id number] 11/13/2018 20:38:00 06:10:00 DIS Outpatient STAR TOUSSAINT DO [facility] SLEEP G47.33 RUBY [id number] 11/04/2018 13:25:00 23:59:59 CLS Outpatient ROSANNA HOLLIDAY [facility] RAD FS M25.562 [id number] 10/29/2018 07:55:00 23:59:59 CLS Emergency NADIRA HELLER DO [facility] ER FS FALL [id number] 12/23/2019 11:43:[address] Outpatient MYRIAM MURILLO MD [facility] [place] ENDO DYSPHAGIA [id number] 02/16/2019 14:18:00 02/16/2019 15:37: 00 DIS Outpatient Lisbeth [facility] ER [id number] 09/25/2018 10:27:00 09/25/2018 23:59: 00 DIS Outpatient Radadiya, Sandro B [id number] 07/24/2018 14:13:00 07/24/2018 23:59: 00 DIS Outpatient Sandro Fernández [id number] 07/24/2018 13:22:00 07/24/2018 23:59: 00 DIS Outpatient Sandro Fernández [id number] 07/17/2018 15:09:00 07/17/2018 16:45: 00 DIS Outpatient [facility] C enter ER [id number] 06/11/2018 20:43:00 06/11/2018 22:20: 00 DIS Outpatient SUPA PERALTA [facility] ER [id number] 02/12/2018 06:46:00 02/12/2018 09:15: 00 DIS Outpatient Star Toussaint [id number] 02/06/2018 15:19:00 02/06/2018 23:59: 00 DIS Outpatient UNLISTEDGUILLERMO [id number] 02/06/2018 13:17:00 02/06/2018 23:59: 00 DIS Outpatient Star Toussaint [id number] 05/22/2017 07:43:00 05/22/2017 10:23: 00 DIS Outpatient Star Toussaint [id number] 05/16/2017 10:58:00 05/16/2017 23:59: 00 DIS Outpatient Star Toussaint [id number] 05/07/2017 14:16:00 05/07/2017 23:59: 00 DIS Outpatient CHERRIE CEDENO [id number] 04/18/2017 15:29:00 04/18/2017 17:25: 00 DIS Outpatient Nat Grijalva [facility] ER [id number] 03/25/2017 16:09:00 03/25/2017 23:05: 00 DIS Outpatient Jayy Bob [facility] ER [id number] 03/15/2017 00:52:00 03/15/2017 01:30: 00 DIS Outpatient Doris [facility] [place] [id number] 03/25/2017 17:33:25 Document Registration [id number] 07/03/2017 12:55:24 07/03/2017 23:59:59 CLS Outpatient [id number] 07/03/2017 12:55:10 07/03/2017 23:59:59 CLS Outpatient [id number] 05/21/2017 09:39:44 05/21/2017 09:39:44 DIS Outpatient [id number] 05/21/2017 09:39:30 05/21/2017 09:39:30 DIS Outpatient [id number] 05/20/2017 10:48:23 05/20/2017 10:48:23 DIS Outpatient [id number] 05/16/2017 07:50:26 05/16/2017 23:59:59 CLS Outpatient [id number] 05/16/2017 07:50:25 05/16/2017 23:59:59 CLS Outpatient [id number] 05/16/2017 07:50:10 05/16/2017 07:50:11 DIS Outpatient [id number] 12/19/2018 20:05:[address] MD
[2019-12-23] MEDS ORDERED: LIDOCAINE JELLY 2% 6 ML SYRINGE ONE (15:49)
[2019-12-23] MEDS ORDERED: fentaNYL INJECTION 100 MCG/2 ML AMP ONE (15:50)
[2019-12-23] MEDS ORDERED: MIDAZOLAM 5 MG/5 ML (VERSED) VIAL ONE ×2 (15:50)
[2019-12-23] MEDS: MIDAZOLAM 5 MG/5 ML (VERSED) VIAL IV PRN ×2 (15:55→16:05)
--- NOTE | 2019-12-23 16:36 | Progress Note-Post Operative ---
Post-Operative Progess Note Surgeon (s)/Care Advocate (s) Surgeon MYRIAM MURILLO MD Care Advocate: none Pre-Operative Diagnosis achalasia Post-Operative Diagnosis same, small HH(2cm) Procedure & Operative Findings Date of Procedure 12/23/19 Procedure Performed/Findings EGD with bx and balloon dilatation. Anesthesia Type cs Estimated Blood Loss Estimated blood loss (mL): minimal Specimens/Packing Specimens Removed ge jxn MYRIAM MURILLO MD Dec 23, 2019 16:36
--- NOTE | 2019-12-23 20:56 | OPERATIVE REPORT ---
DATE OF SERVICE: 12/23/2019 ATTENDING PRIMARY CARE PHYSICIAN: Dr. Billie Mcghee. PREOPERATIVE DIAGNOSES: Achalasia, reflux esophagitis, history of hiatal hernia and dysphagia. POSTOPERATIVE DIAGNOSES: Achalasia, reflux esophagitis, history of hiatal hernia and dysphagia. PROCEDURE: EGD with biopsy and balloon dilatation. SURGEON: Myriam Murillo MD ANESTHESIA: Conscious sedation. ESTIMATED BLOOD LOSS: Minimal. FINDINGS: Achalasia, reflux esophagitis, history of hiatal hernia and dysphagia. DISPOSITION: The patient tolerated the procedure well. INDICATIONS: The patient is a 54-year-old female who we had seen 6 weeks ago for dysphagia and reflux. She states that she has dysphagia with solids as well as sometimes liquids and has had reflux issues for greater than 25 years as well. She underwent an EGD on 11/04/2019, as well as a balloon dilatation. Findings were reflux esophagitis stage II as well as a small hiatal hernia approximately 2 cm in size as well as a mild to moderate gastritis. Biopsies were negative for H. pylori as well as negative for Pizarro's esophagus. She was seen back and continued to have heartburn, and reflux as well as dysphagia despite maximal medical therapy. We referred her to gastroenterology for an esophageal manometry study, which showed a normal lower esophageal sphincter length of 3.9 cm. There is also a resting lower esophageal sphincter pressure of 89.4 mmHg and also would not relax properly with swallows. This was consistent with achalasia. DESCRIPTION OF PROCEDURE: The patient was brought to the endoscopy suite, laid in left lateral decubitus position with head slightly elevated. After adequate IV pain and stated medications and conscious sedation anesthesia, the mouthpiece was applied. The endoscope was placed in the mouth, visualizing the pharynx and hypopharyngeal region. Vocal cords, epiglottis and vallecula identified and appeared to be normal. The endoscope was then gently intubated, esophageal opening and esophagus insufflated. The endoscope was then advanced through the first, second and third portion of esophagus at the level of the GE junction, a reflux esophagitis stage II identified. There also did appear to be hypertonic lower esophageal sphincter. A biopsy was taken of the GE junction with forceps with visualization of good hemostasis. The endoscope was then advanced in the stomach and endoscope retroflexed, visualizing the same hiatal hernia approximately 2 cm in size. There was a mild gastritis with no ulcerations or any polyps. The endoscope was then advanced to the pylorus and the first and second portion of duodenum, which appeared normal with no distal obstructions. We then proceeded with dilatation of the lower esophageal sphincter. The balloon was placed in the stomach and pulled back to the area of the lower esophageal sphincter and dilated to 20 mm with moderate resistance and left this in place for approximately 60 seconds. The balloon was then desufflated and removed with visualization of good hemostasis as well as no mucosal tears. The endoscope was then slowly withdrawn while taking a second look and suctioning of residual air with no additional findings. The patient tolerated the procedure well. We will have her follow up in approximately 4 to 6 weeks for another dilatation with a larger balloon in hopes of breaking the hypertonic muscle sphincter fibers and allow for better ability for deglutition. We will also proceed with a trial of calcium channel tawanda. Job ID: [id number] DocumentID: [id number] Dictated Date: 12/23/2019 16:19:56 Fan Engine Engineer Date: 12/23/2019 20:55:39 Dictated By: MYRIAM MURILLO MD
== END 2019-12-23 17:00 | disposition home or self-care (01) ==
LOC: ENDO 11:43
PROVIDERS: ATTEND Surgery
DX: K21.0 Gastro-esophageal reflux disease with esophagitis (principal); K22.0 Achalasia of cardia; K29.50 Unspecified chronic gastritis without bleeding; K44.9 Diaphragmatic hernia without obstruction or gangrene; F41.9 Anxiety disorder, unspecified; J45.909 Unspecified asthma, uncomplicated; M79.10 Myalgia, unspecified site; I10 Essential (primary) hypertension; G47.00 Insomnia, unspecified; M19.90 Unspecified osteoarthritis, unspecified site; Z79.899 Other long term (current) drug therapy
CPT/HCPCS: 88305

== ENCOUNTER 2020-01-03 23:07 | Emergency (ER) | payer MEDICARE, OTHER, MEDICAID ==
[~2020-01-03] VITALS: Ht 170 cm; Wt 105.0 kg
[2020-01-03] MEDS ORDERED: NS IV 1000 ML 1,000 ML IV SCH (23:12)
--- OUTSIDE RECORDS SUMMARY | 2020-01-03 23:14 | XMS REPORT | Continuity of Care Document ---
Author Organization Unknown Address Unknown Phone Unavailable Allergies Active Description Code Type Severity Reaction Onset Reported/Identified Relationship to Patient Clinical Status Yes Ceclor Drug Moderate 0498274671~[id number] Yes Keflex Drug Moderate 1347760900~471361591 Yes penicillin Drug Mode rate 1015084977~217840610 Yes Singulair Drug Moderate 6231651522~144050946 Yes sulfa drug 16 Drug Mode rate 8508987625~031521820 Yes Tape Drug N/A 3445309923 Yes tetracycline Drug Mo derate 9486354039~350540149 Yes CECLOR UNKNOWN OTHER Yes CECLOR UNKNOWN [...] VISHNU Yes TETRACYCLINE MODERATE MODERATE Yes cefaclor [id number] Drug Allergy Moderate BLISTERS AROUND 08/10/2011 Yes Cephalexin Monohydrate [id number] Drug Allergy Moderate BLISTERS AROUND 09/2011 Yes CLEAR PLASTIC TAPE CLEAR PLASTIC TAPE Moderate HIVES 08/10/2011 Yes Penicillins [id number] Drug Aller gy Moderate BLISTERS AROUND 08/10/2011 Yes tetracycline [id number] Drug Allergy Moderate BLISTERS AROUND 2 Yes montelukast [id number] Drug Aller gy Unknown N/A 10/29/2018 Yes Sulfa (Sulfonamide Antibiotics) X45841 0491 Drug Allergy Unknown N/A 019 Yes walnut [id number] Drug Allergy Moderate SOA, hives 05/15/2019 Yes acetaminophen [id number] Donny g Allergy Mild Itching 05/15/2019 Yes Hymenoptera Allergenic Extract Hymenoptera Allergenic Extract Mild hives 05/15/2019 Yes meloxicam [id number] Drug Allergy Mild rash 05/15/2019 Yes metformin M951244541 Drug Allergy Mild diarrhea 05/15/2019 Yes oxycodone M481477236 Drug Allergy Mild Itching 05/15/2019 Yes pregabalin X052690298 Drug Allerg y Unknown N/A 05/15/2019 Yes oxycodone K230257844 Drug Allergy Mild Itching, pt has 11/04/2019 [...] Jayy Bob 780.2 SYNCOPE AND COLLAPSE 03/25/2017 aJyy Bob 786.09 OTHER DYSPNEA AND RESPIRATORY ABNORMALITY [...] 10/29/2018 ARRON OHARARICHIED T Ot Z79. 51 CHIEF II DISPATCHER (CURRENT) USE OF INHALED STERO 10/29/2018 RICHI [...] ARRON OHARA NADIRA T Ot Z79. 51 CHIEF II DISPATCHER (CURRENT) USE OF INHALED STERO 10/31/2018 ARRON [...] Ot M17.12 UNILATERAL PRIMARY OSTEOARTHRITIS, LEFT 11/13/2018 [facility] , [place] Ot G47.33 OBSTRUCTIVE SLEEP APNEA (ADULT) (PEDIATR 11/14/2018 [facility], [place] Ot E66.9 OBESITY, UNSPECIFIED 11/14/2018 [facility], [place] Ot G47.33 OBSTRUCTIVE SLEEP APNEA (ADULT) (PEDIATR 11/14/2018 Seamus GAINES, Rod Hargrove N8 1.6 Rectocele 11/14[facility] E66.9 OBESITY, UNSPECIFIED 11/14/2018 [facility], [place] Ot G47.33 OBSTRUCTIVE SLEEP APNEA (ADULT) [...] 05/18/2019 BASHIR CHAVES MD, Ot Z79 .1 HALFWAY (CURRENT) USE OF NON-STEROIDAL 05/18/2019 BASHIR CHAVES MD Ot Z79.52 HALFWAY (CURRENT) USE OF SYSTEMIC STER 05/18/2019 BASHIR CHAVES MD, Ot Z79.899 OTHER CHIEF II DISPATCHER (CURRENT) DRUG THERAPY 05/18/2019 BASHIR CHAVES MD, [...] MD Ot I25.10 ATHSCL HEART DISEASE OF [place] CORONARY 05/22/2019 BASHIR CHAVES MD Ot Z79.899 OTHER HALFWAY (CURRENT) DRUG THERAPY 05/22/2019 BASHIR CHAVES MD [...] MD Ot I25.10 ATHSCL HEART DISEASE OF [place] CORONARY 05/27/2019 BASHIR CHAVES MD Ot Z79.899 OTHER CHIEF II DISPATCHER (CURRENT) DRUG THERAPY 05/27/2019 BASHIR CHAVES MD [...] MD Ot I25.10 ATHSCL HEART DISEASE OF [place] CORONARY 06/03/2019 BASHIR CHAVES MD Ot Z79.899 OTHER HALFWAY (CURRENT) DRUG THERAPY 06/03/2019 BASHIR CHAVES MD [...] MD Ot I25.10 ATHSCL HEART DISEASE OF [place] CORONARY 06/10/2019 BASHIR CHAVES MD Ot Z79.899 OTHER CHIEF II DISPATCHER (CURRENT) DRUG THERAPY 06/10/2019 BASHIR CHAVES MD [...] UNSPECIFIED 09/11/2019 DORIS XAVIER APRN Ot Z79.51 CHIEF II DISPATCHER (CURRENT) USE OF INHALED STERO 09/11/2019 DORIS XAVIER APRN Ot Z79.52 HALFWAY (CURRENT) USE OF SYSTEMIC STER 09/11/2019 DORIS XAVIER APRN Ot Z88 .0 ALLERGY STATUS TO PENICILLIN 09/11/2019 DORIS XAVIER APRN Ot Z88 .1 ALLERGY STATUS TO OTHER ANTIBIOTIC AGENT 09/11/2019 XAVIER, PETER J BOOK SALESMAN Ot Z88 .2 ALLERGY STATUS TO SULFONAMIDES STATUS 09/11/2019 DORIS XAVIER BOOK SALESMAN Ot Z88 .5 ALLERGY STATUS TO NARCOTIC AGENT STATUS 09/11/2019 DUC, DORIS Velasco BOOK SALESMAN Ot Z88 .6 ALLERGY STATUS TO ANALGESIC AGENT STATUS 09/17/2019 DUC, DORIS Velasco APRN Ot E11 .9 TYPE 2 DIABETES MELLITUS WITHOUT COMPLIC 09/17/2019 DORIS XAVIER APRN Ot F41 .9 ANXIETY DISORDER, UNSPECIFIED 09/17/2019 DORIS XAVIER BOOK SALESMAN Ot I10 ESSENTIAL (PRIMARY) HYPERTENSION 09/17/2019 DORIS XAVIER APRN Ot J45.909 UNSPECIFIED ASTHMA, UNCOMPLICATED 09/17/2019 DORIS XAVIER APRN Ot K21 .9 GASTRO-ESOPHAGEAL REFLUX DISEASE WITHOUT 09/17/2019 DORIS XAVIER APRN Ot R07.81 PLEURODYNIA 09/17/2019 DORIS XAVIER APRN Ot R07 .9 CHEST PAIN, UNSPECIFIED 09/17/2019 DORIS XAVIER APRN Ot Z79.51 CHIEF II DISPATCHER (CURRENT) USE OF INHALED STERO 09/17/2019 DORIS XAVIER APRN Ot Z79.52 HALFWAY (CURRENT) USE OF SYSTEMIC STER 09/17/2019 DUC, DORIS Velasco APRN Ot Z88 .0 ALLERGY STATUS TO PENICILLIN 09/17/2019 DORIS XAVIER APRN Ot Z88 .1 ALLERGY STATUS TO OTHER ANTIBIOTIC AGENT 09/17/2019 DORIS XAVIER APRN Ot Z88 .2 ALLERGY STATUS TO SULFONAMIDES STATUS 09/17/2019 DORIS XAVEIR APRN Ot Z88 .5 ALLERGY STATUS TO NARCOTIC AGENT STATUS 09/17/2019 DORIS XAVIER BOOK SALESMAN Ot Z88 .6 ALLERGY STATUS TO ANALGESIC AGENT STATUS 09/23/2019 DUC, DORIS Velasco APRN Ot E11 .9 TYPE 2 DIABETES MELLITUS WITHOUT COMPLIC 09/23/2019 DORIS XAVIER APRN Ot F41 .9 ANXIETY DISORDER, UNSPECIFIED 09/23/2019 DORIS XAVIER BOOK SALESMAN Ot I10 ESSENTIAL (PRIMARY) HYPERTENSION 09/23/2019 DUC, DORIS Velasco APRN Ot J45.909 UNSPECIFIED ASTHMA, UNCOMPLICATED 09/23/2019 DORIS XAVIER APRN Ot K21 .9 GASTRO-ESOPHAGEAL REFLUX DISEASE WITHOUT 09/23/2019 DORIS XAVIER APRN Ot R07.81 PLEURODYNIA 09/23/2019 DORIS XAVIER APRN Ot R07 .9 CHEST PAIN, UNSPECIFIED 09/23/2019 DORIS XAVIER APRN Ot Z79.51 HALFWAY (CURRENT) USE OF INHALED STERO 09/23/2019 DORIS XAVIER APRN Ot Z79.52 CHIEF II DISPATCHER (CURRENT) USE OF SYSTEMIC STER 09/23/2019 DORIS [...] NAIL ENTERING THROUGH SKIN, INITIAL ENCO 10/16/2019 DIANNA MARINELLI DO, Ot Z79.51 CHIEF II DISPATCHER (CURRENT) USE OF INHALED STERO 10/16/2019 DIANNA MARINELLI DO Ot Z79.52 CHIEF II DISPATCHER (CURRENT) USE OF SYSTEMIC STER 10/16/2019 DIANNA [...] DO, Ot I10 ESSENTIAL (PRIMARY) HYPERTENSION 10/20/2019 DAINNA MARINELLI DO, Ot J45.909 UNSPECIFIED ASTHMA, UNCOMPLICATED 10/20/2019 DIANNA MARINELLI DO, Ot K21 .9 GASTRO-ESOPHAGEAL REFLUX DISEASE WITHOUT 10/20/2019 DIANNA MARINELLI DO, Ot 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 10/20/2019 DIANNA MARINELLI DO, Ot W45.0XXA NAIL ENTERING THROUGH SKIN, INITIAL ENCO 10/20/2019 DIANNA MARINELLI DO Ot Z79.51 HALFWAY (CURRENT) USE OF INHALED STERO 10/20/2019 DIANNA MARINELLI DO, Ot Z79.52 HALFWAY (CURRENT) USE OF SYSTEMIC STER 10/20/2019 DIANNA [...] ENCO 10/22/2019 DIANNA MARINELLI DO, Ot Z79.51 CHIEF II DISPATCHER (CURRENT) USE OF INHALED STERO 10/22/2019 DIANNA MARINELLI DO, Ot Z79.52 CHIEF II DISPATCHER (CURRENT) USE OF SYSTEMIC STER 10/22/2019 DIANNA [...] FIBROMYALGIA 11/04/2019 MYRIAM MURILLO MD, Ot Z79.84 CHIEF II DISPATCHER (CURRENT) USE OF ORAL HYPOGLYC 11/04/2019 MYRIAM MURILLO MD, Ot Z79.89 9 OTHER CHIEF II DISPATCHER (CURRENT) DRUG THERAPY 11/04/2019 MYRIAM MURILLO MD, [...] FIBROMYALGIA 11/09/2019 MYRIAM MURILLO MD, Ot Z79.84 HALFWAY (CURRENT) USE OF ORAL HYPOGLYC 11/09/2019 MYRIAM MURILLO MD, Ot Z79.89 9 OTHER HALFWAY (CURRENT) DRUG THERAPY 11/09/2019 MYRIAM MURILLO MD, Ot Z82.3 FAMILY HISTORY OF STROKE 11/09/2019 MYRIAM MURILLO MD, Ot Z90.49 ACQUIRED ABSENCE OF OTHER SPECIFIED PART 11/09/2019 MYRIAM MURILLO MD, Ot Z90.71 0 ACQUIRED ABSENCE OF BOTH CERVIX AND UTER 12/21/2019 MYRIAM MURILLO MD, Ot Z01.81 8 ENCOUNTER FOR OTHER PREPROCEDURAL EXAMIN 12/21/2019 MYRIAM MURILLO MD, Ot Z11.59 ENCOUNTER FOR SCREENING FOR OTHER VIRAL 12/22/2019 ROSANNA HOLLIDAY Ot M17.12 UNILATERAL PRIMARY OSTEOARTHRITIS, LEFT 12/22/2019 ANDREY GAINES, YURI Moore Ot M25.512 PAIN IN LEFT SHOULDER 12/22/2019 YURI BALDERAS MD Ot E11 .9 TYPE 2 DIABETES MELLITUS WITHOUT COMPLIC 12/22/2019 YURI BALDERAS MD Ot R22.32 LOCALIZED SWELLING, MASS AND LUMP, LEFT 12/23/2019 MYRIAM MURILLO MD, Ot K44.9 DIAPHRAGMATIC HERNIA WITHOUT OBSTRUCTION 12/23/2019 MYRIAM MURILLO MD, Ot R47.02 DYSPHASIA 12/23/2019 ROSANNA HOLLIDAY Ot M17.12 UNILATERAL PRIMARY OSTEOARTHRITIS, LEFT 12/23/2019 ANDREY GAINES, YURI Moore Ot M25.512 PAIN IN LEFT SHOULDER 12/23/2019 YURI BALDERAS MD Ot E11 .9 TYPE 2 DIABETES MELLITUS WITHOUT COMPLIC 12/23/2019 YURI BALDERAS MD Ot R22.32 LOCALIZED SWELLING, MASS AND LUMP, LEFT 12/23/2019 MYRIAM MURILLO MD, Ot K44.9 DIAPHRAGMATIC HERNIA WITHOUT OBSTRUCTION 12/23/2019 MYRIAM MURILLO MD, Ot R47.02 DYSPHASIA 12/23/2019 MYRIAM MURILLO MD Ot F41.9 ANXIETY DISORDER, UNSPECIFIED 12/23/2019 MYRIAM MURILLO MD Ot G47.00 INSOMNIA, UNSPECIFIED 12/23/2019 MYRIAM MURILLO MD Ot I10 ESSENTIAL (PRIMARY) HYPERTENSION 12/23/2019 MYRIAM MURILLO MD Ot J45.90 9 UNSPECIFIED ASTHMA, UNCOMPLICATED 12/23/2019 MYRIAM MURILLO MD Ot K21.0 GASTRO-ESOPHAGEAL REFLUX DISEASE WITH ES 12/23/2019 MYRIAM MURILLO MD, Ot K22.0 ACHALASIA OF CARDIA 12/23/2019 MYRIAM MURILLO MD Ot K29.50 UNSPECIFIED CHRONIC GASTRITIS WITHOUT BL 12/23/2019 MYRIAM MURILLO MD, Ot K44.9 DIAPHRAGMATIC HERNIA WITHOUT OBSTRUCTION 12/23/2019 MYRIAM MURILLO MD, Ot M19.90 UNSPECIFIED OSTEOARTHRITIS, UNSPECIFIED 12/23/2019 MYRIAM MURILLO MD, Ot M79.10 MYALGIA, UNSPECIFIED SITE 12/23/2019 MYRIAM MURILLO MD, Ot Z79.89 9 OTHER HALFWAY (CURRENT) DRUG THERAPY 12/29/2019 MYRIAM MURILLO MD Ot F41.9 ANXIETY DISORDER, UNSPECIFIED 12/29/2019 MYRIAM MURILLO MD Ot G47.00 INSOMNIA, UNSPECIFIED 12/29/2019 MYRIAM MURILLO MD Ot I10 ESSENTIAL (PRIMARY) HYPERTENSION 12/29/2019 MYRIAM MURILLO MD Ot J45.90 9 UNSPECIFIED ASTHMA, UNCOMPLICATED 12/29/2019 MYRIAM MURILLO MD Ot K21.0 GASTRO-ESOPHAGEAL REFLUX DISEASE WITH ES 12/29/2019 MYRIAM MURILLO MD, Ot K22.0 ACHALASIA OF CARDIA 12/29/2019 MYRIAM MURILLO MD, Ot K29.50 UNSPECIFIED CHRONIC GASTRITIS WITHOUT BL 12/29/2019 MYRIAM MURILLO MD, Ot K44.9 DIAPHRAGMATIC HERNIA WITHOUT OBSTRUCTION 12/29/2019 MYRIAM MURILLO MD Ot M19.90 UNSPECIFIED OSTEOARTHRITIS, UNSPECIFIED 12/29/2019 MYRIAM MURILLO MD, Ot M79.10 MYALGIA, UNSPECIFIED SITE 12/29/2019 MYRIAM MURILLO MD, Ot Z79.89 9 OTHER CHIEF II DISPATCHER (CURRENT) DRUG THERAPY 01/03/2020 ROSANNA HOLLIDAY Ot M17.12 UNILATERAL PRIMARY OSTEOARTHRITIS, LEFT 01/03/2020 YURI BALDERAS MD Ot M25.512 PAIN IN LEFT SHOULDER 01/03/2020 YURI BALDERAS MD Ot E11 .9 TYPE 2 DIABETES MELLITUS WITHOUT COMPLIC 01/03/2020 YURI BALDERAS MD Ot R22.32 LOCALIZED SWELLING, MASS AND LUMP, LEFT 01/03/2020 MYRIAM MURILLO MD, Ot K44.9 DIAPHRAGMATIC HERNIA WITHOUT OBSTRUCTION 01/03/2020 MYRIAM MURILLO MD, Ot R47.02 DYSPHASIA Procedures There is no data. Results Test Result Range Urinalysis - 03/25/17 17:50 Icotest N/A Negative Urine Volume Urine Volume Sufficient (10mL) Urine Yeast Yeast Present Urine-Appearance Clear Clear Urine-Bacteria Trace Urine-Bilirubin Negative Negative Urine-Blood Negative Negative Urine-Color Yellow Colorless-Lt. [place] ow Urine-Epithelial Cells 0-5/HPF Urine-Glucose 2+ Negative Urine-Ketones Negative Negative Urine-Leukocytes Negative Negative Urine-Nitrite Negative Negative Urine-Other Urine Saved if Culture Need ed (48hrs from time of collection) Urine-pH 6.0 5-8.5 Urine-Protein Negative Negative Urine-RBC 0-2/HPF Urine-Specific [place] 1.020 1.000-1 .030 Urine-WBC 0-2/HPF Urobilinogen 0.2 [...] Negative Urine-Blood Negative Negative Urine-Color Yellow Colorless-[place] ow Urine-Epithelial Cells 0-5/HPF Urine-Glucose Negative Negative Urine-Ketones Negative Negative Urine-Leukocytes Negative Negative Urine-Nitrite Negative Negative Urine-Other Urine Saved if Culture Need ed (48hrs from time of collection) Urine-pH 5.5 5-8.5 Urine-Protein Negative Negative Urine-RBC Negative Urine-Specific [place] 1.025 1.000-1 .030 Urine-WBC Negative Urobilinogen 0.2 [...] - 05/22/17 08:36 Surg Path Sent to [place] [facility] EKG - 05/22/17 09:31 EKG Complete Protime - 02/06/18 14:35 INR 1.0 1.0-4.0 Protime 11.5 Sec 9.9-12.8 EKG - 02/06/18 14:36 EKG Complete Surgical Pathology - 02/12/18 08:24 Surg Path Sent to [place] [facility] Lipase - 07/17/18 15:50 Lipase 20 U/L 7-59 Sed Rate - 07/24/18 14:33 Sed Rate 5 mm/hr 9-15 CMP - 10/09/18 16:06 GLUCOSE 272 mg/dL 65-99 UREA NITROGEN (BUN) 12 mg/dL 7-25 CREATININE 0.69 mg/dL 0.50-1.05 eGFR NON-AFR. ARGENTINE 101 mL/min/1.73m2 > OR = 60 eGFR [...] 7-25 CREATININE 0.78 mg/dL 0.50-1.05 eGFR NON-AFR. ARGENTINE 87 mL/min/1.73m2 > OR = 60 eGFR [...] FOR INFLUENZA A AND B ANTIGENS BY [facility] Complete blood count (CBC) [...] Status Pt. Type Provider Facility Loc./Unit Complaint [id number] 12/03/2019 10:15:00 12/03/2019 23:59: 59 CLS Outpatient BALDERAS [facility] [id number] 12/03/2019 10:15:00 Document Registration [id number] 04/16/2019 09:20:00 Document Registration [id number] 01/05/2019 15:45:00 Document Registration [id number] 11/14/2018 14:40:00 Document Registration [id number] 10/09/2018 15:40:00 Document Registration [id number] 12/20/2018 09:08:59 ACT Document Registration [id number] 09/23/2018 10:44:50 9 23:59:[address] [facility] SAMIR Surgery ops [id number] 12/23/2019 11:43:00 020 17:00:00 DIS Outpatient MYRIAM MURILLO MD [facility] ENDO DYSPHAGIA [id number] 12/21/2019 05:36:00 15:10:00 DIS Outpatient MYRIAM MURILLO MD [facility] PREOP EGD [id number] 12/18/2019 10:38:00 23:59:59 CLS Outpatient MYRIAM MURILLO MD [facility] RAD DYSPAHGIA [id number] 11/04/2019 10:18:00 13:45:00 DIS Outpatient MYRIAM MURILLO MD [facility] ENDO DYSPHAGIA [id number] 10/16/2019 15:08:00 15:56:00 DIS Emergency DIANNA MARINELLI DO [facility] ER FS FINGER LACERATION [id number] 09/11/2019 21:07:00 22:57:00 DIS Emergency DORIS XAVIER APRN [facility] ER CHEST PAIN [id number] 07/27/2019 11:54:00 23:59:59 CLS Outpatient YURI BALDERAS MD [facility] RAD FS R22.32 E11.9 [id number] 05/22/2019 08:40:00 20:30:00 DIS Outpatient BASHIR CHAVES MD [facility] CATH CP R/O ACS [id number] 05/20/2019 14:17:00 23:59:59 CLS Outpatient YURI BALDERAS MD [facility] RAD FS M25.512 [id number] 05/15/2019 16:18:00 14:26:00 DIS Inpatient BASHIR CHAVES MD [facility] 4TH INTRACTABLE CHEST PAIN [id number] 11/13/2018 20:38:00 06:10:00 DIS Outpatient STAR TOUSSAINT DO [facility] SLEEP G47.33 RUBY [id number] 11/04/2018 13:25:00 019 23:59:59 CLS Outpatient ROSANNA HOLLIDAY [facility] RAD FS M25.562 [id number] 10/29/2018 07:55:00 019 23:59:59 CLS Emergency NADIRA HELLER DO [facility] ER FS FALL [id number] 01/03/2020 23:08:[address] Emergency NADIYA GO DO [facility] ER DIZZINESS [id number] 02/16/2019 14:18:00 02/16/2019 15:37: 00 DIS Outpatient Lisbeth [facility] ER [id number] 09/25/2018 10:27:00 09/25/2018 23:59: 00 DIS Outpatient Sandro Fernández [id number] 07/24/2018 14:13:00 07/24/2018 23:59: 00 DIS Outpatient Sandro Fernández B [id number] 07/24/2018 13:22:00 07/24/2018 23:59: 00 DIS Outpatient Sandro Fernández B [id number] 07/17/2018 15:09:00 07/17/2018 16:45: 00 DIS Outpatient Doris Xavier [facility] enter ER [id number] 06/11/2018 20:43:00 06/11/2018 22:20: 00 DIS Outpatient FABIAN SUPA [facility] ER [id number] 02/12/2018 06:46:00 02/12/2018 09:15: 00 DIS Outpatient Star Toussaint [id number] 02/06/2018 15:19:00 02/06/2018 23:59: 00 DIS Outpatient UNLISTED, ROSHANISTED [id number] 02/06/2018 13:17:00 02/06/2018 23:59: 00 DIS Outpatient Star Toussaint [id number] 05/22/2017 07:43:00 05/22/2017 10:23: 00 DIS Outpatient Star Toussaint [id number] 05/16/2017 10:58:00 05/16/2017 23:59: 00 DIS Outpatient Star Toussaint [id number] 05/07/2017 14:16:00 05/07/2017 23:59: 00 DIS Outpatient CHERRIE CEDENO [id number] 04/18/2017 15:29:00 04/18/2017 17:25: 00 DIS Outpatient Nat Grijalva [facility] ER [id number] 03/25/2017 16:09:00 03/25/2017 23:05: 00 DIS Outpatient Jayy Bob [facility] ER [id number] 03/15/2017 00:52:00 03/15/2017 01:30: 00 DIS Outpatient [place] [facility] [place] [id number] 03/25/2017 17:33:25 Document Registration [id number] 07/03/2017 12:55:24 07/03/2017 23:59:59 CLS Outpatient [id number] 07/03/2017 12:55:10 07/03/2017 23:59:59 CLS Outpatient [id number] 05/21/2017 09:39:44 05/21/2017 09:39:44 DIS Outpatient [id number] 05/21/2017 09:39:30 05/21/2017 09:39:30 DIS Outpatient [id number] 05/20/2017 10:48:23 05/20/2017 10:48:23 DIS Outpatient [id number] 05/16/2017 07:50:26 05/16/2017 23:59:59 CLS Outpatient [id number] 05/16/2017 07:50:25 05/16/2017 23:59:59 CLS Outpatient [id number] 05/16/2017 07:50:10 05/16/2017 07:50:11 DIS Outpatient [id number] 12/19/2018 20:05:[address] MD
[2020-01-03] MEDS ORDERED: TRAM50TA3 (23:22)
[2020-01-03] MEDS ORDERED: DILT30TA (23:22)
[2020-01-03 23:24] LABS: BASOPHILS % (AUTO) 1 % (0-10); EOSINOPHILS # (AUTO) 0.2 10^3/uL (0.0-0.3); EOSINOPHILS % (AUTO) 3 % (0-10); HEMATOCRIT 40 % (35-52); HEMOGLOBIN 14.3 G/DL (11.5-16.0); LYMPHOCYTES # (AUTO) 3.8 X 10^3 (1.0-4.0); LYMPHOCYTES % (AUTO) 43 % (12-44); MEAN CORPUSCULAR HEMOGLOBIN 30 PG (25-34); MEAN CORPUSCULAR HGB CONC 35 G/DL (32-36); MEAN CORPUSCULAR VOLUME 86 FL (80-99); MEAN PLATELET VOLUME 9.4 FL (7.4-10.4); MONOCYTES # (AUTO) 0.6 X 10^3 (0.0-1.0); MONOCYTES % (AUTO) 7 % (0-12); NEUTROPHILS # (AUTO) 4.2 X 10^3 (1.8-7.8); NEUTROPHILS % (AUTO) 47 % (42-75); PLATELET COUNT 229 10^3/uL (130-400); RED CELL DISTRIBUTION WIDTH 13.1 % (10.0-14.5); WHITE BLOOD COUNT 8.8 10^3/uL (4.3-11.0)
[2020-01-03 23:35] LABS: ALBUMIN 3.8 GM/DL (3.2-4.5); CHLORIDE 102 MMOL/L (98-107); POTASSIUM 3.5 MMOL/L (3.6-5.0); SODIUM 138 MMOL/L (135-145)
[2020-01-03 23:36] LABS: CALCIUM 9.5 MG/DL (8.5-10.1)
[2020-01-03 23:37] LABS: GLUCOSE 209 MG/DL (70-105); TOTAL PROTEIN 6.9 GM/DL (6.4-8.2)
[2020-01-03 23:38] LABS: CARBON DIOXIDE 22 MMOL/L (21-32); PROTHROMBIN TIME PATIENT 13.3 SEC (12.2-14.7)
[2020-01-03 23:39] LABS: BILIRUBIN,TOTAL 0.5 MG/DL (0.1-1.0)
[2020-01-03 23:41] LABS: ALKALINE PHOSPHATASE 57 U/L (40-136); CREATININE SERUM 0.98 MG/DL (0.60-1.30); GFR ESTIMATED 59
[2020-01-03 23:42] LABS: BUN/CREATININE RATIO 12
[2020-01-03 23:43] LABS: MAGNESIUM 1.5 MG/DL (1.6-2.4)
[2020-01-03 23:44] LABS: ALANINE AMINOTRANSFERASE 20 U/L (0-55); CREATINE KINASE 39 U/L (29-168)
[2020-01-03 23:52] LABS: CREATINE KINASE MB 0.5 NG/ML (<6.6)
[2020-01-04 00:04] LABS: TSH (THYROID ANALYZER) 3.75 UIU/ML (0.35-4.94)
[2020-01-04] MEDS ORDERED: MAGNESIUM OXIDE (MAG-OX)400 MG TAB PO ONE (00:15)
[2020-01-04] MEDS ORDERED: SCOPOLAMINE 1.5 MG (TRANSDERM-SCOP) PATCH TD ONE (00:15)
[2020-01-04] MEDS ORDERED: MECLIZINE 25 MG (ANTIVERT) TAB PO ONE (00:15)
[2020-01-04] MEDS ORDERED: MECL-149 PO (00:23)
--- NOTE | 2020-01-04 00:23 | ED General ---
General Chief Complaint: Dizziness/Syncope Stated Complaint: DIZZINESS Nursing Triage Note: brought in by [facility] c/o dizziness/panic attack/blurred vision. Nursing Sepsis Screen: No Definite Risk Source of Information: Patient History of Present Illness Date Seen by Provider: Jan 03, 2020 Time Seen by Provider: 23:05 Initial Comments PT ARRIVES VIA POV FROM HOME EMS REPORT THAT PT WALKED OUT TO THE AMBULANCE ON HER OWN WITHOUT DIFFICULTY STATES SHE HAD A DIZZY SPELL AND HOUR AGO. STATES IT IS BETTER BUT NOT GONE STATES SHE HAS BEEN AT THE [facility] TODAY ( VERY HOT AND HUMID OUTSIDE) GOT HOME AND HAD DINNER AROUND 1999, WENT TO WALK AND STARTED GETTING DIZZY AND HAD BLURRY/DECREASED VISION NO HEADACHE NO NAUSEA/VOMITING/DIARRHEA/ABDOMINAL PAIN NO CHEST PAIN STATES SHE WAS SHORT OF BREATH EARLIER WHEN SHE WAS AT THE [facility] AND IN HEAT AND HUMIDITY, NOT NOW--HAS HISTORY OF ASTHMA BUT DID NOT USE INHALER NO SWELLING NO PALPITATIONS NO SYNCOPE NO PARESTHESIAS OR MOTOR DEFICITS PT IS INSULIN DEPENDENT DIABETIC, BUT HAS NOT CHECKED HER GLUCOSE ALL DAY STATES SHE ATE A POPSICLE PRIOR TO ARRIVAL AND FELT A LITTLE BETTER PT HAS EATEN AND DRANK NORMALLY ALL DAY STATES SHE IS VOIDING NORMAL AMOUNT, AND NO URINARY SYMPTOMS STATES SHE HAD BEEN FINE FOR MOST OF THE DAY NO FEVER OR RECENT ILLNESS NO SICK CONTACTS OR KNOWN EXPOSURE TO COVID-19 PCP: DR. Che BALDERAS--HAS NOT SEEN RECENTLY Allergies and Home Medications Allergies Coded Allergies: Cephalexin Monohydrate (Unverified Allergy, Intermediate, BLISTERS AROUND LIPS, 08/10/11) Penicillins (Unverified Allergy, Intermediate, BLISTERS AROUND LIPS, 08/10/11) cefaclor (Unverified Allergy, Intermediate, BLISTERS AROUND LIPS, 08/10/11) tetracycline (Unverified Allergy, Intermediate, BLISTERS AROUND LIPS, 08/10/11) Sulfa (Sulfonamide Antibiotics) (Verified Allergy, Unknown, 10/29/18) montelukast (Verified Allergy, Unknown, 10/29/18) walnut (Unverified Adverse Reaction, Intermediate, SOA, hives, 05/15/19) acetaminophen (Unverified Adverse Reaction, Mild, Itching, 05/15/19) meloxicam (Unverified Adverse Reaction, Mild, rash, 05/15/19) metformin (Unverified Adverse Reaction, Mild, diarrhea, 05/15/19) oxycodone (Unverified Adverse Reaction, Mild, Itching, pt has rec Lortab & Morphine in the past, 11/04/19) pregabalin (Unverified Adverse Reaction, Unknown, 05/15/19) Uncoded Allergies: CLEAR PLASTIC TAPE (Allergy, Intermediate, HIVES, 08/10/11) Hymenoptera Allergenic Extract (Adverse Reaction, Mild, hives, 05/15/19) Home Medications Alprazolam 0.5 Mg Tablet, 0.5 MG PO Q8H, (Reported) Atorvastatin Calcium 40 Mg Tablet, 40 MG PO DAILY Prescribed by: BASHIR CHAVES on 05/22/19 1701 Diphenhydramine HCl 25 Mg Tablet, 25-50 MG PO Q6H PRN for HIVES, (Reported) Estradiol 1 Mg Tablet, 1 MG PO DAILY, (Reported) Famotidine 20 Mg Tablet, 20 MG PO BID, (Reported) Fexofenadine HCl 180 Mg Tablet, 180 MG PO BID, (Reported) Fluticasone Propionate 9.9 Ml [place].susp, 2 SPRAYS NS DAILY, (Reported) Hydrochlorothiazide 25 Mg Tablet, 25 MG PO DAILY, (Reported) Levalbuterol Tartrate 15 Gm Hfa.aer.ad, 1-2 PUFF INH Q4H PRN for SHORTNESS OF BREATH, (Reported) THIS IS A SAMPLE SHE RECIEVED AND DOES NOT HAVE A PRESCRIPTION. Meclizine HCl 25 Mg Tablet, 50 MG PO Q6 PRN for DIZZINESS Prescribed by: NADIYA GO on 01/04/20 0023 Pantoprazole Sodium 40 Mg Tablet.dr, 40 MG PO BID, (Reported) Semaglutide 1 Mg/0.75 Ml Pen.injctr, 1 MG SC Fr, (Reported) Spironolactone 25 Mg Tablet, 25 MG PO DAILY, (Reported) Tramadol HCl 50 Mg Tablet, 100 MG PO Q12H, (Reported) TAKES 2 (50MG) TABLETS Patient Home Medication List Home Medication List Reviewed: Yes Review of Systems Review of Systems Constitutional: see HPI; No chills, No diaphoresis; dizziness; No fever EENTM: see HPI, blurred vision Respiratory: see HPI; No cough; short of breath Cardiovascular: no symptoms reported; No chest pain, No edema, No palpitations, No syncope Gastrointestinal: no symptoms reported; No abdominal pain, No diarrhea, No loss of appetite, No nausea, No vomiting Genitourinary: no symptoms reported Musculoskeletal: no symptoms reported Skin: no symptoms reported Psychiatric/Neurological: No Symptoms Reported; Denies Headache, Denies Numbness, Denies Paresthesia, Denies Seizure, Denies Tingling, Denies Weakness Hematologic/Lymphatic: No Symptoms Reported Immunological/Allergic: no symptoms reported Past Taplrdi-Tyjkaf-Duemdm Hx Past Med/Social Hx: Reviewed and Corrections made Patient Social History Alcohol Use: Denies Use Recreational Drug Use: No Smoking Status: Never a Smoker 2nd Hand Smoke Exposure: No Contact w/Someone Who Travel: No Recent Infectious Disease Expo: No Recent Hopitalizations: No Physical Abuse: No Sexual Abuse: No Mistreated: No Fear: No Immunizations Up To Date Tetanus Booster (TDap): Unknown Date of Pneumonia Vaccine: Jul 17, 2016 Date of Influenza Vaccine: Apr 17, 2019 Seasonal Allergies Seasonal Allergies: No Past Medical History Surgeries: Yes (bilat knee arthroscopy; EGD; Septum surgery; Diag Lap; R ankle fx) Bladder Surgery, Gallbladder, Hysterectomy, Oophorectomy, Orthopedic, Rectal Respiratory: Yes (RUBY) Asthma, Sleep Apnea Cardiac: Yes (Hx palpitations, Hx malignant hyperthermia) Chronic Edema/Swelling, Hypertension Neurological: No Female Reproductive Disorders: 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 multiple sites, Hx TMJ) Arthritis, Fibromyalgia, Rheumatoid Arthritis, Chronic Back Pain Endocrine: Yes (DM Type II) Diabetes, Insulin dep HEENT: No Cancer: No Psychosocial: Yes Anxiety Integumentary: No Blood Disorders: No Adverse Reaction/Blood Tranf: No Family Medical History Completed stroke 19 FATHER Diabetes mellitus 19 FATHER 19 MOTHER G8 SISTER FH: aneurysm 19 MOTHER Hypertension 19 FATHER 19 MOTHER G8 SISTER PSH: -OVARIAN CYST REMOVAL X 2/DIAGNOSTIC LAPAROSCOPIES -CYSTOCOELE/RECTOCOELE REPAIR X 2 -EGD X 2 -HYST/BSO -RIGHT ANKLE FX/REPAIR -BILATERAL KNEE SCOPES -NASAL SEPTUM REPAIR Physical Exam Vital Signs Vital Signs - First Documented 01/03/20 23:07 Temp 36.2 Pulse 95 Resp 18 B/P (MAP) 117/88 (98) Pulse Ox 96 O2 Delivery Room Air Capillary Refill : Less Than 3 Seconds Height, Weight, BMI Height: 5'7.00" Weight: 280lbs. oz. 127.783213iy; 36.00 BMI Method:Stated General Appearance: No Apparent Distress, WD/WN, Other (AMBULATES WITHOUT DIFFICULTY. PT MOVES QUICKLY WITHOUT DIFFICULTY, ROLLS OVER ON ER CART WITHOUT DIFFICULTY. SITTING UP AND THEN LAYING ON LEFT SIDE, TEXTING/PLAYING ON PHONE THROUGHOUT ER STAY) HEENT: PERRL/EOMI, TMs Normal, Normal ENT Inspection, Pharynx Normal Neck: Full Range of Motion, Normal Inspection, Non Tender, Supple; No Carotid Bruit, No JVD Respiratory: Normal Breath Sounds, No Accessory Muscle Use, No Respiratory Distress Cardiovascular: Regular Rate, Rhythm, No Edema, No Gallop, No JVD, No Murmur, Normal Peripheral Pulses Gastrointestinal: Normal Bowel Sounds, No Organomegaly, No Pulsatile Mass, Non Tender, Soft Back: Normal Inspection, No CVA Tenderness, No Vertebral Tenderness Extremity: Normal Capillary Refill, Normal Inspection, Normal Range of Motion, Non Tender, No Calf Tenderness, No Pedal Edema Neurologic/Psychiatric: Alert, Oriented x3, No Motor/Sensory Deficits, Normal Mood/Affect, production helper II-XII Norm as Tested; No Abnormal Cerebellar Tests Skin: Normal Color, Warm/Dry Progress/Results/Core Measures Suspected Sepsis Recent Fever Within 48 Hours: No Infection Criteria Present: None New/Unexplained Altered Menta: No Sepsis Screen: No Definite Risk SIRS Temperature: Pulse: 95 Respiratory Rate: 18 Blood Pressure 117 /88 Mean: 98 Results/Orders Lab Results My Orders Vital Signs/I&O Capillary Refill : Less Than 3 Seconds Blood Pressure Mean: 98 Point of Care Testing Finger Stick Blood Glucose: 194 Progress Note : Progress Note UNEVENTFUL ER STAY SYMPTOMS IMPROVED AT DISMISSAL ECG Initial ECG Impression Date: Jan 03, 2020 Initial ECG Impression Time: 23:33 Initial ECG Rate: 88 Initial ECG Rhythm: Normal Sinus Initial ECG Impression: Normal Diagnostic Imaging Comments CXR--NO ACUTE PROCESS, PENDING RADIOLOGIST REVIEW CT HEAD--NO ACUTE PROCESS, PER [facility] VIA FAX AT 0001 Reviewed: Reviewed by Me Departure Impression Primary Impression: Dizziness Additional Impressions: Hypomagnesemia POSSIBLE HEAT RELATED ILLNESS Disposition: 01 HOME, SELF-CARE Condition: Improved Departure-Patient Inst. Referrals: YURI BALDERAS MD (PCP/Family) Primary Care Physician Patient Instructions: Dizziness, Nonvertigo, (DC), Heat Exhaustion and Heat Stroke (DC), Low Magnesium Level (DC) Add. Discharge Instructions: LOTS OF CLEAR LIQUIDS--WATER, BROTH, JELLO, GATORADE. DRINK ENOUGH FLUIDS SO YOU ARE URINATING EVERY 2-3 HOURS WHILE AWAKE KEEP COOL AND AVOID THE HEAT FOR THE NEXT FEW DAYS LEAVE SCOPOLAMINE PATCH IN PLACE FOR 3 DAYS, THEN YOU MAY REMOVED FOLLOW UP WITH YOUR DR IN 1-2 DAYS FOR FURTHER CARE All discharge instructions reviewed with patient and/or family. Voiced understanding. Scripts Meclizine HCl (Meclizine HCl) 25 Mg Tablet 50 MG PO Q6 PRN for DIZZINESS, #15 TAB Prov: NADIYA GO DO 01/04/20 NADIYA GO DO Jan 04, 2020 00:23
[2020-01-04 00:27] LABS: BILIRUBIN,URINE NEGATIVE (NEGATIVE); CLARITY,URINE CLEAR; COLOR,URINE YELLOW; GLUCOSE, URINE (UA) NEGATIVE (NEGATIVE); KETONES,URINE NEGATIVE (NEGATIVE); LEUKOCYTE ESTERASE ,URINE NEGATIVE (NEGATIVE); NITRITE,URINE NEGATIVE (NEGATIVE); PH,URINE 5.5 (5-9); PROTEIN,URINE NEGATIVE (NEGATIVE)
[2020-01-04 00:35] LABS: BACTERIA,URINE TRACE /HPF
[2020-01-04 00:36] LABS: AMPHETAMINE SCREEN, URINE NEGATIVE (NEGATIVE); BARBITURATE SCREEN URINE NEGATIVE (NEGATIVE); BENZODIAZEPINES SCREEN URINE NEGATIVE (NEGATIVE); CANNABINOID SCREEN, URINE NEGATIVE (NEGATIVE); COCAINE SCREEN URINE NEGATIVE (NEGATIVE); METHADONE STAT NEGATIVE (NEGATIVE); METHAMPHETAMINE SCREEN URINE S NEGATIVE (NEGATIVE); OPIATE SCREEN URINE NEGATIVE (NEGATIVE); OXYCODONE STAT NEGATIVE (NEGATIVE); PROPOXYPHENE STAT NEGATIVE (NEGATIVE); TRICYCLIC ANTIDEPRESSANTS SCRE NEGATIVE (NEGATIVE)
[2020-01-04 01:13] VITALS: BP 115/79
--- NOTE | 2020-01-04 06:17 | Diagnostic Imaging Report ---
EXAMINATION: CT head without contrast. TECHNIQUE: Multiple contiguous axial images were obtained through the brain without the use of intravenous contrast. All CT scans use one or more of the following dose optimizing techniques: automated exposure control, MA and/or KvP adjustment based on a patient size and exam type, or iterative reconstruction. HISTORY: Dizziness. Concern for stroke. COMPARISON: 08/16/2011. FINDINGS: No large acute territorial ischemia, mass, or hemorrhage. No midline shift or mass effect. The ventricles, cortical sulci, and basilar cisterns are patent and unremarkable. The orbits are normal. Paranasal sinuses are normal. Mastoid air cells are clear. No soft tissue abnormality is seen. No osseus lesions or fractures are seen. IMPRESSION: 1. No large acute territorial ischemia, mass, or hemorrhage. Agree with overnight report. Dictated by: Dictated on workstation # [id number]
--- NOTE | 2020-01-04 06:17 | Diagnostic Imaging Report ---
EXAMINATION: Chest 1 view HISTORY: Dizziness. COMPARISON: Chest radiograph on 09/11/2019. FINDINGS: The lung volumes are normal. No focal consolidation is seen. No large pleural effusion or pneumothorax is seen. The cardiomediastinal silhouette is normal in size and contour. No acute osseous abnormality is seen. IMPRESSION: 1. No acute pleuroparenchymal process. Dictated by: Dictated on workstation # [id number]
== END 2020-01-04 01:16 | disposition home or self-care (01) ==
LOC: EDUNIT# 23:07 → ER 23:08
DX: R42 Dizziness and giddiness (principal); E83.42 Hypomagnesemia; E11.9 Type 2 diabetes mellitus without complications; J45.909 Unspecified asthma, uncomplicated; G47.33 Obstructive sleep apnea (adult) (pediatric); I10 Essential (primary) hypertension; K21.9 Gastro-esophageal reflux disease without esophagitis; M17.12 Unilateral primary osteoarthritis, left knee; M06.9 Rheumatoid arthritis, unspecified; M79.10 Myalgia, unspecified site; F41.9 Anxiety disorder, unspecified; Z79.899 Other long term (current) drug therapy; Z79.4 Long term (current) use of insulin; Z88.0 Allergy status to penicillin; Z88.2 Allergy status to sulfonamides; Z88.1 Allergy status to other antibiotic agents; Z88.8 Allergy status to other drugs, medicaments and biological substances
CPT/HCPCS: 70450; 71045; 80053; 80306; 81000; 82550; 82553; 82962; 83735; 83874; 84443; 84484; 85025; 85610; 85730; 93005; 93041; 96360; 99284; G0480; 36415; 80320

== ENCOUNTER 2020-01-25 05:30 | Outpatient (RCR) | payer MEDICARE, OTHER, MEDICAID ==
[~2020-01-25] VITALS: Ht 170.2 cm; Wt 105.0 kg
[~2020-01-25 05:30] MED LIST changes: +DILT30TA; +MECL-149 PO; +TRAM50TA3
== END 2020-01-25 11:01 | disposition home or self-care (01) ==
LOC: PREOP 05:30
PROVIDERS: ATTEND Surgery
DX: Z01.812 Encounter for preprocedural laboratory examination (principal); K21.9 Gastro-esophageal reflux disease without esophagitis; Z20.828 Contact with and (suspected) exposure to other viral communicable diseases
CPT/HCPCS: 87635

== ENCOUNTER 2020-01-27 08:21 | Day surgery (SDC) | payer MEDICARE, OTHER, MEDICAID ==
--- NOTE | 2020-01-13 22:20 | HISTORY AND PHYSICAL ---
DATE OF SERVICE: ATTENDING PHYSICIAN: Dr. Billie Mcghee. PROCEDURE DATE: 01/27/2020. HISTORY OF PRESENT ILLNESS: The patient is a 54-year-old female, who has been seen for episodes of dysphagia and reflux. She had stated that her dysphagia was with solids as well as some type of liquids, has had reflux issues for greater than 25 years as well. She did undergo an EGD on 11/04/2019 as well as balloon dilatation. She was found to have a reflux esophagitis stage II as well as a small hiatal hernia approximately 2 cm in size as well as mild to moderate gastritis. Biopsies were negative for H. pylori as well as negative for Pizarro's esophagus. She was then seen back and continued to have heartburn and reflux as well as dysphagia despite maximal medical therapy. She was referred to gastroenterology for an esophageal manometry study, which did show a lower esophageal sphincter length of 3.9 cm. There was also a resting lower esophageal sphincter pressure of 89.4 mmHg and this also would not relax appropriately with swallows and was consistent with an achalasia. It was recommended to proceed with a barium swallow at the 12 mm tablet as well as an EGD with dilatation. She did undergo a barium swallow esophagram, which was unremarkable except for a small sliding hiatal hernia. She then underwent another EGD with dilatation where she was again found to have reflux esophagitis, achalasia, history of hiatal hernia and dysphagia. At that time, she was able to be dilated to 20 mm. However, there was moderate resistance. It was recommended to proceed again in 4 to 6 weeks for another dilatation with a larger diameter balloon. At this time, we will proceed with scheduling the patient for the EGD with balloon dilatation. PAST MEDICAL HISTORY: Anxiety, asthma, diabetes, fibromyalgia, gastroesophageal reflux disease, hypertension, insomnia, degenerative joint disease, nephrolithiasis, hiatal hernia, TMJ. PAST SURGICAL HISTORY: Total hysterectomy, laparoscopic cholecystectomy in 1993, left knee arthroscopy 1993 and 2003, cardiac catheterization in 2018, bladder repair 2018, repair of rectal fistula 2017, nasal surgery in 1986. ALLERGIES: KEFLEX, CECLOR, ADHESIVE, TETRACYCLINE, PENICILLIN, SINGULAR, SULFA. MEDICATIONS: Famotidine 20 mg, tramadol 50 mg, spironolactone 25 mg, Xopenex 45 mcg, Xanax 0.5 mg, fluticasone 50 mcg, Ozempic, dicyclomine 10 mg, estradiol 1 mg, fexofenadine 60 mg, hydrochlorothiazide 25 mg, Lipitor 40 mg, Zofran 8 mg, Protonix 40 mg. SOCIAL HISTORY: Negative for smoke. Rare for alcohol. FAMILY HISTORY: Mother, diabetes, hypertension, DVT. Sister, diabetes. Father, hypertension, stroke. VITAL SIGNS: Stable. Current weight is 242 pounds at 5 feet 7 inches. REVIEW OF SYSTEMS: This is a well-nourished female in no acute distress. She is not experiencing any shortness of breath or difficulty breathing. No chest pain, palpitations or diaphoresis. She does report occasional episodes of nausea, but no vomiting. She does report of choking episodes as well as a sore throat. She also reports epigastric burning sensation. No diarrhea or constipation. No red blood per rectum. No dark tarry stools. No fever or chills. No recent inadvertent weight loss. All other review of systems negative. PHYSICAL EXAMINATION: CHEST: Clear. Good breath sounds bilaterally. HEART: Regular, no murmurs. EXTREMITIES: No lower extremity edema. Negative Homans sign. HEENT: No scleral icterus. NECK: No cervical lymphadenopathy. ABDOMEN: Soft, nontender, nondistended. No palpable masses. No organomegaly. SKIN: Warm, dry and pink. NEUROLOGIC: Awake, alert and oriented x3. ASSESSMENT AND PLAN: A 54-year-old female with a history of gastroesophageal reflux disease, who currently still having episodes of dysphagia is most likely secondary to an achalasia and also had a hiatal hernia. She has been undergoing EGD with dilatations. There has been moderate resistance met with each dilatation and this will need to undergo continued EGD with balloon dilatations, which we will proceed with scheduling. The patient verbalized understanding of instructions. Job ID: [id number] DocumentID: [id number] Dictated Date: 01/12/2020 08:48:24 Mortgage Broker Date: 01/12/2020 09:12:38 Dictated By: CORINA NAIR APRN
[2020-01-27] VITALS (13 sets, daily range): BP systolic 115–175; BP diastolic 63–96
[~2020-01-27] VITALS: Ht 170.2 cm; Wt 105.0 kg
--- OUTSIDE RECORDS SUMMARY | 2020-01-27 08:29 | XMS REPORT | Continuity of Care Document ---
Author Organization Unknown Address Unknown Phone Unavailable Allergies Active Description Code Type Severity Reaction Onset Reported/Identified Relationship to Patient Clinical Status Yes Ceclor Drug Moderate 4519460730~[id number] Yes Keflex Drug Moderate [id number] Yes penicillin Drug Mode rate [id number] Yes Singulair Drug Moderate [id number] Yes sulfa drug 16 Drug Mode rate [id number] Yes Tape Drug N/A [id number] Yes tetracycline Drug Mo derate [id number] Yes CECLOR UNKNOWN OTHER Yes CECLOR UNKNOWN [...] VISHNU Yes TETRACYCLINE MODERATE MODERATE Yes cefaclor [id number] Drug Allergy Moderate BLISTERS AROUND 08/10/2011 Yes Cephalexin Monohydrate [id number] Drug Allergy Moderate BLISTERS AROUND 09/2011 Yes CLEAR PLASTIC TAPE CLEAR PLASTIC TAPE Moderate HIVES 08/10/2011 Yes Penicillins [id number] Drug Aller gy Moderate BLISTERS AROUND 08/10/2011 Yes tetracycline [id number] Drug Allergy Moderate BLISTERS AROUND 2 Yes montelukast [id number] Drug Aller gy Unknown N/A 10/29/2018 Yes Sulfa (Sulfonamide Antibiotics) [id number] Drug Allergy Unknown N/A 019 Yes walnut [id number] Drug Allergy Moderate SOA, hives 05/15/2019 Yes acetaminophen [id number] Donny g Allergy Mild Itching 05/15/2019 Yes Hymenoptera Allergenic Extract Hymenoptera Allergenic Extract Mild hives 05/15/2019 Yes meloxicam [id number] Drug Allergy Mild rash 05/15/2019 Yes metformin [id number] Drug Allergy Mild diarrhea 05/15/2019 Yes oxycodone [id number] Drug Allergy Mild Itching 05/15/2019 Yes pregabalin [id number] Drug Allerg y Unknown N/A 05/15/2019 Yes oxycodone [id number] Drug Allergy Mild Itching, pt has 11/04/2019 [...] 10/29/2018 ARRON OHARARICHIED T Ot Z79. 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 51 CLE[employer]ER [employer] WORKER (CURRENT) USE OF INHALED STERO 10/31/2018 [...] Ot M17.12 UNILATERAL PRIMARY OSTEOARTHRITIS, LEFT 11/13/2018 [facility] [place] Ot G47.33 OBSTRUCTIVE SLEEP APNEA (ADULT) (PEDIATR 11/14/2018 [facility], [place] Ot E66.9 OBESITY, UNSPECIFIED 11/14/2018 [facility], [place] Ot G47.33 OBSTRUCTIVE SLEEP APNEA (ADULT) (PEDIATR 11/14/2018 Seamus GAINES, Rod Hargrove N8 1.6 [facility] E[facility].9 OBESITY, UNSPECIFIED 11/14/2018 [facility] [place] Ot G47.33 OBSTRUCTIVE SLEEP APNEA [...] 05/18/2019 BASHIR CHAVES MD, Ot Z79 .1 [facility] (CURRENT) USE OF NON-STEROIDAL 05/18/2019 BASHIR CHAVES MD Ot Z79.52 [facility] (CURRENT) USE OF SYSTEMIC STER 05/18/2019 BASHIR CHAVES MD, Ot Z79.899 OTHER CLE[employer]ER T[employer]CH UP WORKER (CURRENT) DRUG THERAPY 05/18/2019 BASHIR CHAVES [...] MD Ot I25.10 ATHSCL HEART DISEASE OF [place] CORONARY 05/22/2019 BASHIR CHAVES MD Ot Z79.899 OTHER [facility] (CURRENT) DRUG THERAPY 05/22/2019 BASHIR CHAVES MD [...] MD Ot I25.10 ATHSCL HEART DISEASE OF [place] CORONARY 05/27/2019 BASHIR CHAVES MD Ot Z79.899 OTHER CLEANER T[employer] UP WORKER (CURRENT) DRUG THERAPY 05/27/2019 BASHIR CHAVES [...] MD Ot I25.10 ATHSCL HEART DISEASE OF [place] CORONARY 06/03/2019 BASHIR CHAVES MD Ot Z79.899 OTHER [facility] (CURRENT) DRUG THERAPY 06/03/2019 BASHIR CHAVES MD [...] MD Ot I25.10 ATHSCL HEART DISEASE OF [place] CORONARY 06/10/2019 BASHIR CHAVES MD Ot Z79.899 OTHER CLEANER TOUCH UP WORKER (CURRENT) DRUG THERAPY 06/10/2019 BASHIR CHAVES [...] UNSPECIFIED 09/11/2019 DORIS XAVIER APRN Ot Z79.51 CLE[employer] WORKER (CURRENT) USE OF INHALED STERO 09/11/2019 DORIS XAVIER APRN Ot Z79.52 [facility] (CURRENT) USE OF SYSTEMIC STER 09/11/2019 DORIS XAVIER APRN Ot Z88 .0 ALLERGY STATUS TO PENICILLIN 09/11/2019 DORIS XAVIER APRN Ot Z88 .1 ALLERGY STATUS TO OTHER ANTIBIOTIC AGENT 09/11/2019 XAVIER, PETER J OFFSET MACHINE OPERATOR Ot Z88 .2 ALLERGY STATUS TO SULFONAMIDES STATUS 09/11/2019 DORIS XAVIER OFFSET MACHINE OPERATOR Ot Z88 .5 ALLERGY STATUS TO NARCOTIC AGENT STATUS 09/11/2019 DUC, DORIS Velasco OFFSET MACHINE OPERATOR Ot Z88 .6 ALLERGY STATUS TO ANALGESIC AGENT STATUS 09/17/2019 DUC, DORIS Velasco APRN Ot E11 .9 TYPE 2 DIABETES MELLITUS WITHOUT COMPLIC 09/17/2019 DORIS XAVIER APRN Ot F41 .9 ANXIETY DISORDER, UNSPECIFIED 09/17/2019 DORIS XAVIER OFFSET MACHINE OPERATOR Ot I10 ESSENTIAL (PRIMARY) HYPERTENSION 09/17/2019 DORIS XAVIER APRN Ot J45.909 UNSPECIFIED ASTHMA, UNCOMPLICATED 09/17/2019 DORIS XAVIER APRN Ot K21 .9 GASTRO-ESOPHAGEAL REFLUX DISEASE WITHOUT 09/17/2019 DORIS XAVIER APRN Ot R07.81 PLEURODYNIA 09/17/2019 DORIS XAVIER APRN Ot R07 .9 CHEST PAIN, UNSPECIFIED 09/17/2019 DORIS XAVIER APRN Ot Z79.51 CLE[employer]ER T[employer] UP WORKER (CURRENT) USE OF INHALED STERO 09/17/2019 DORIS XAVIER APRN Ot Z79.52 [facility] (CURRENT) USE OF SYSTEMIC STER 09/17/2019 DUC, DORIS Velasco APRN Ot Z88 .0 ALLERGY STATUS TO PENICILLIN 09/17/2019 DORIS XAVIER APRN Ot Z88 .1 ALLERGY STATUS TO OTHER ANTIBIOTIC AGENT 09/17/2019 DORIS XAVIER APRN Ot Z88 .2 ALLERGY STATUS TO SULFONAMIDES STATUS 09/17/2019 DORIS XAVIER APRN Ot Z88 .5 ALLERGY STATUS TO NARCOTIC AGENT STATUS 09/17/2019 DORIS XAVIER OFFSET MACHINE OPERATOR Ot Z88 .6 ALLERGY STATUS TO ANALGESIC AGENT STATUS 09/23/2019 DUC, DORIS Velasco APRN Ot E11 .9 TYPE 2 DIABETES MELLITUS WITHOUT COMPLIC 09/23/2019 DORIS XAVIER APRN Ot F41 .9 ANXIETY DISORDER, UNSPECIFIED 09/23/2019 DORIS XAVIER OFFSET MACHINE OPERATOR Ot I10 ESSENTIAL (PRIMARY) HYPERTENSION 09/23/2019 DUC, DORIS Velasco APRN Ot J45.909 UNSPECIFIED ASTHMA, UNCOMPLICATED 09/23/2019 DORIS XAVIER APRN Ot K21 .9 GASTRO-ESOPHAGEAL REFLUX DISEASE WITHOUT 09/23/2019 DORIS XAVIER APRN Ot R07.81 PLEURODYNIA 09/23/2019 DORIS XAVIER APRN Ot R07 .9 CHEST PAIN, UNSPECIFIED 09/23/2019 DORIS XAVIER APRN Ot Z79.51 [facility] (CURRENT) USE OF INHALED STERO 09/23/2019 DORIS XAVIER APRN Ot Z79.52 CLE[employer]ER T[employer] WORKER (CURRENT) USE OF SYSTEMIC STER 09/23/2019 [...] ENCO 10/16/2019 DIANNA MARINELLI DO, Ot Z79.51 CLE[employer]ER T[employer] UP WORKER (CURRENT) USE OF INHALED STERO 10/16/2019 DIANNA MARINELLI DO Ot Z79.52 CLEANER T[employer]CH UP WORKER (CURRENT) USE OF SYSTEMIC STER 10/16/2019 [...] ENCO 10/20/2019 DIANNA MARINELLI DO Ot Z79.51 [facility] (CURRENT) USE OF INHALED STERO 10/20/2019 DIANNA MARINELLI DO, Ot Z79.52 [facility] (CURRENT) USE OF SYSTEMIC STER 10/20/2019 DIANNA [...] ENCO 10/22/2019 DIANNA MARINELLI DO, Ot Z79.51 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 UP 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 (CURRENT) USE OF INHALED STERO 10/22/2019 DIANNA MARINELLI DO, Ot Z79.52 CLE[employer]ER T[employer]CH UP WORKER (CURRENT) USE OF SYSTEMIC STER 10/22/2019 [...] FIBROMYALGIA 11/04/2019 MYRIAM MURILLO MD, Ot Z79.84 CLE[employer]ER T[employer]CH UP WORKER (CURRENT) USE OF ORAL HYPOGLYC 11/04/2019 MYRIAM MURILLO MD, Ot Z79.89 9 OTHER CLEANER TOUCH UP WORKER (CURRENT) DRUG THERAPY 11/04/2019 MYRIAM MURILLO [...] FIBROMYALGIA 11/09/2019 MYRIAM MURILLO MD, Ot Z79.84 [facility] (CURRENT) USE OF ORAL HYPOGLYC 11/09/2019 MYRIAM MURILLO MD, Ot Z79.89 9 OTHER [facility] (CURRENT) DRUG THERAPY 11/09/2019 MYRIAM MURILLO MD, [...] Ot K22.0 ACHALASIA OF CARDIA 12/23/2019 MYRIAM MURILOL MD Ot K29.50 UNSPECIFIED CHRONIC GASTRITIS WITHOUT BL 12/23/2019 MYRIAM MURILLO MD, Ot K44.9 DIAPHRAGMATIC HERNIA WITHOUT OBSTRUCTION 12/23/2019 MYRIAM MURILLO MD, Ot M19.90 UNSPECIFIED OSTEOARTHRITIS, UNSPECIFIED 12/23/2019 MYRIAM MURILLO MD Ot M79.10 MYALGIA, UNSPECIFIED SITE 12/23/2019 MYRIAM MURILLO MD Ot Z79.89 9 OTHER [facility] (CURRENT) DRUG THERAPY 12/29/2019 MYRIAM MURILLO MD Ot F41.9 ANXIETY DISORDER, UNSPECIFIED 12/29/2019 MYRIAM MURILLO MD Ot G47.00 INSOMNIA, UNSPECIFIED 12/29/2019 MYRIAM MURILLO MD Ot I10 ESSENTIAL (PRIMARY) HYPERTENSION 12/29/2019 MYRIAM MURILLO MD Ot J45.90 9 UNSPECIFIED ASTHMA, UNCOMPLICATED 12/29/2019 MYRIAM MURILLO MD Ot K21.0 GASTRO-ESOPHAGEAL REFLUX DISEASE WITH ES 12/29/2019 MYRIAM MURILLO MD, Ot K22.0 ACHALASIA OF CARDIA 12/29/2019 MYRIAM MURILLO MD Ot K29.50 UNSPECIFIED CHRONIC GASTRITIS WITHOUT BL 12/29/2019 MYRIAM MURILLO MD, Ot K44.9 DIAPHRAGMATIC HERNIA WITHOUT OBSTRUCTION 12/29/2019 MYRIAM MURILLO MD Ot M19.90 UNSPECIFIED OSTEOARTHRITIS, UNSPECIFIED 12/29/2019 MYRIAM MURILLO MD Ot M79.10 MYALGIA, UNSPECIFIED SITE 12/29/2019 MYRIAM MURILLO MD, Ot Z79.89 9 OTHER CLEANER TOUCH UP WORKER (CURRENT) DRUG THERAPY 01/03/2020 ROSANNA HOLLIDAY Ot M17.12 UNILATERAL PRIMARY OSTEOARTHRITIS, LEFT 01/03/2020 YURI BALDERAS MD Ot M25.512 PAIN IN LEFT SHOULDER 01/03/2020 YURI BALDERAS MD Ot E11 .9 TYPE 2 DIABETES MELLITUS WITHOUT COMPLIC 01/03/2020 YURI BALDEARS MD Ot R22.32 LOCALIZED SWELLING, MASS AND LUMP, LEFT 01/03/2020 MYRIAM MURILLO MD Ot K44.9 DIAPHRAGMATIC HERNIA WITHOUT OBSTRUCTION 01/03/2020 MYRIAM MURILLO MD Ot R47.02 DYSPHASIA 01/04/2020 ROSANNA HOLLIDAY Ot M17.12 UNILATERAL PRIMARY OSTEOARTHRITIS, LEFT 01/04/2020 YUIR BALDERAS MD Ot M25.512 PAIN IN LEFT SHOULDER 01/04/2020 YURI BALDERAS MD Ot E11 .9 TYPE 2 DIABETES MELLITUS WITHOUT COMPLIC 01/04/2020 ANDREY GAINES, YURI Moore Ot R22.32 LOCALIZED SWELLING, MASS AND LUMP, LEFT 01/04/2020 MYRIAM MURILLO MD, Ot K44.9 DIAPHRAGMATIC HERNIA WITHOUT OBSTRUCTION 01/04/2020 MYRIAM MURILLO MD, Ot R47.02 DYSPHASIA 01/04/2020 ABBI DO, NADIYA K Ot E11.9 TYPE 2 DIABETES MELLITUS WITHOUT COMPLIC 01/04/2020 ABBI DO, NADIYA K Ot E83.42 HYPOMAGNESEMIA 01/04/2020 ABBI DO, NADIYA K Ot F41.9 ANXIETY DISORDER, UNSPECIFIED 01/04/2020 ABBI DO, NADIYA K Ot G47.33 OBSTRUCTIVE SLEEP APNEA (ADULT) (PEDIATR 01/04/2020 ABBI DO, NADIYA K Ot I10 ESSENTIAL (PRIMARY) HYPERTENSION 01/04/2020 ABBI DO, NADIYA K Ot J45.909 UNSPECIFIED ASTHMA, UNCOMPLICATED 01/04/2020 ABBI DO, NADIYA K Ot K21.9 GASTRO-ESOPHAGEAL REFLUX DISEASE WITHOUT 01/04/2020 ABBI DO, NADIYA K Ot M06.9 RHEUMATOID ARTHRITIS, UNSPECIFIED 01/04/2020 ABBI DO, NADIYA K Ot M17.12 UNILATERAL PRIMARY OSTEOARTHRITIS, LEFT 01/04/2020 ABBI DO, NADIYA K Ot M79.10 MYALGIA, UNSPECIFIED SITE 01/04/2020 ABBI DO, NADIYA K Ot R42 DIZZINESS AND GIDDINESS 01/04/2020 ABBI DO, NADIYA K Ot Z79.4 CLEANER TOUCH UP WORKER (CURRENT) USE OF INSULIN 01/04/2020 ABBI DO, NADIYA K Ot Z79.899 OTHER [facility] (CURRENT) DRUG THERAPY 01/04/2020 ABBI DO, NADIYA K Ot Z88.0 ALLERGY STATUS TO PENICILLIN 01/04/2020 ABBI DO, NADIYA K Ot Z88.1 ALLERGY STATUS TO OTHER ANTIBIOTIC AGENT 01/04/2020 ABBI DO, NADIYA K Ot Z88.2 ALLERGY STATUS TO SULFONAMIDES STATUS 01/04/2020 ABBI DO, NADIYA K Ot Z88.8 ALLERGY STATUS TO OTH DRUG/MEDS/BIOL SUB 01/04/2020 ROSANNA HOLLIDAY Ot M17.12 UNILATERAL PRIMARY OSTEOARTHRITIS, LEFT 01/04/2020 ADNREY GAINES, YURI M Ot M25.512 PAIN IN LEFT SHOULDER 01/04/2020 ANDREY GAINES, YURI Moore Ot E11 .9 TYPE 2 DIABETES MELLITUS WITHOUT COMPLIC 01/04/2020 ANDREY GAINES, YURI Teresa Ot R22.32 LOCALIZED SWELLING, MASS AND LUMP, LEFT 01/04/2020 LIDIA GAINES, MYRIAM Dumont K44.9 DIAPHRAGMATIC HERNIA WITHOUT OBSTRUCTION 01/04/2020 MYRIAM MURILLO MD, Ot R47.02 DYSPHASIA 01/12/2020 ABBI DO, NADIYA K Ot E11.9 TYPE 2 DIABETES MELLITUS WITHOUT COMPLIC 01/12/2020 ABBI DO, NADIYA K Ot E83.42 HYPOMAGNESEMIA 01/12/2020 ABBI DO, NADIYA K Ot F41.9 ANXIETY DISORDER, UNSPECIFIED 01/12/2020 ABBI DO, NADIYA K Ot G47.33 OBSTRUCTIVE SLEEP APNEA (ADULT) (PEDIATR 01/12/2020 ABBI DO, NADIYA K Ot I10 ESSENTIAL (PRIMARY) HYPERTENSION 01/12/2020 ABBI DO, NADIYA K Ot J45.909 UNSPECIFIED ASTHMA, UNCOMPLICATED 01/12/2020 ABBI DO, NADIYA K Ot K21.9 GASTRO-ESOPHAGEAL REFLUX DISEASE WITHOUT 01/12/2020 ABBI DO, NADIYA K Ot M06.9 RHEUMATOID ARTHRITIS, UNSPECIFIED 01/12/2020 ABBI DO, NADIYA K Ot M17.12 UNILATERAL PRIMARY OSTEOARTHRITIS, LEFT 01/12/2020 ABIB DO, NADIYA K Ot M79.10 MYALGIA, UNSPECIFIED SITE 01/12/2020 ABBI DO NADIYA K Ot R42 DIZZINESS AND GIDDINESS 01/12/2020 ABBI DO, NADIYA K Ot Z79.4 [facility] (CURRENT) USE OF INSULIN 01/12/2020 ABBI DO, NADIYA K Ot Z79.899 OTHER [facility] (CURRENT) DRUG THERAPY 01/12/2020 ABBI DO, NADIYA K Ot Z88.0 ALLERGY STATUS TO PENICILLIN 01/12/2020 ABBI DO NADIYA K Ot Z88.1 ALLERGY STATUS TO OTHER ANTIBIOTIC AGENT 01/12/2020 ABBI DO NADIYA K Ot Z88.2 ALLERGY STATUS TO SULFONAMIDES STATUS 01/12/2020 ABBI DO NADIYA K Ot Z88.8 ALLERGY STATUS TO OTH DRUG/MEDS/BIOL SUB 01/14/2020 ABBI DO, NADIYA K Ot E11.9 TYPE 2 DIABETES MELLITUS WITHOUT COMPLIC 01/14/2020 ABBI DO, NADIYA K Ot E83.42 HYPOMAGNESEMIA 01/14/2020 ABBI DO, NADIYA K Ot F41.9 ANXIETY DISORDER, UNSPECIFIED 01/14/2020 ABBI DO, NADIYA K Ot G47.33 OBSTRUCTIVE SLEEP APNEA (ADULT) (PEDIATR 01/14/2020 ABBI DO, NADIYA K Ot I10 ESSENTIAL (PRIMARY) HYPERTENSION 01/14/2020 ABBI DO, NADIYA K Ot J45.909 UNSPECIFIED ASTHMA, UNCOMPLICATED 01/14/2020 ABBI DO, NADIYA K Ot K21.9 GASTRO-ESOPHAGEAL REFLUX DISEASE WITHOUT 01/14/2020 ABBI DO, NADIYA K Ot M06.9 RHEUMATOID ARTHRITIS, UNSPECIFIED 01/14/2020 ABBI DO, NADIYA K Ot M17.12 UNILATERAL PRIMARY OSTEOARTHRITIS, LEFT 01/14/2020 ABBI DO, NADIYA K Ot M79.10 MYALGIA, UNSPECIFIED SITE 01/14/2020 ABBI DO, NADIYA K Ot R42 DIZZINESS AND GIDDINESS 01/14/2020 ABBI DO, NADIYA K Ot Z79.4 CLEANER TOUCH UP WORKER (CURRENT) USE OF INSULIN 01/14/2020 ABBI DO, NADIYA K Ot Z79.899 OTHER CLEANER TOUCH UP WORKER (CURRENT) DRUG THERAPY 01/14/2020 ABBI DO, NADIYA K Ot Z88.0 ALLERGY STATUS TO PENICILLIN 01/14/2020 HARLAN DO, NADIYA K Ot Z88.1 ALLERGY STATUS TO OTHER ANTIBIOTIC AGENT 01/14/2020 HARLAN DO, NADIYA K Ot Z88.2 ALLERGY STATUS TO SULFONAMIDES STATUS 01/14/2020 ABBI DO, NADIYA K Ot Z88.8 ALLERGY STATUS TO OTH DRUG/MEDS/BIOL SUB 01/18/2020 MYRIAM MURILLO MD Ot K44.9 DIAPHRAGMATIC HERNIA WITHOUT OBSTRUCTION 01/18/2020 MYRIAM MURILOL MD Ot R47.02 DYSPHASIA 01/20/2020 ROSANNA HOLLIDAY Ot M17.12 UNILATERAL PRIMARY OSTEOARTHRITIS, LEFT 01/20/2020 ANDREY GAINES, YURI Moore Ot M25.512 PAIN IN LEFT SHOULDER 01/20/2020 YURI BALDERAS MD Ot E11 .9 TYPE 2 DIABETES MELLITUS WITHOUT COMPLIC 01/20/2020 YURI BALDERAS MD Ot R22.32 LOCALIZED SWELLING, MASS AND LUMP, LEFT 01/20/2020 MYRIAM MURILLO MD, Ot K44.9 DIAPHRAGMATIC HERNIA WITHOUT OBSTRUCTION 01/20/2020 MYRIAM MURILLO MD, Ot R47.02 DYSPHASIA Procedures There is no data. Results Test Result Range Urinalysis - 03/25/17 17:50 Icotest N/A Negative Urine Volume Urine Volume Sufficient (10mL) Urine Yeast Yeast Present Urine-Appearance Clear Clear Urine-Bacteria Trace Urine-Bilirubin Negative Negative Urine-Blood Negative Negative Urine-Color Yellow Colorless-[place] ow Urine-Epithelial Cells 0-5/HPF Urine-Glucose 2+ Negative Urine-Ketones Negative Negative Urine-Leukocytes Negative Negative Urine-Nitrite Negative Negative Urine-Other Urine Saved if Culture Need ed (48hrs from time of collection) Urine-pH 6.0 5-8.5 Urine-Protein Negative Negative Urine-RBC 0-2/HPF Urine-Specific [place] 1.020 1.000-1 .030 Urine-WBC 0-2/HPF Urobilinogen 0.2 [...] Negative Urine-Blood Negative Negative Urine-Color Yellow Colorless-[place] ow Urine-Epithelial Cells 0-5/HPF Urine-Glucose Negative Negative Urine-Ketones Negative Negative Urine-Leukocytes Negative Negative Urine-Nitrite Negative Negative Urine-Other Urine Saved if Culture Need ed (48hrs from time of collection) Urine-pH 5.5 5-8.5 Urine-Protein Negative Negative Urine-RBC Negative Urine-Specific [place] 1.025 1.000-1 .030 Urine-WBC Negative Urobilinogen 0.2 [...] - 05/22/17 08:36 Surg Path Sent to [facility] EKG - 05/22/17 09:31 EKG Complete Protime - 02/06/18 14:35 INR 1.0 1.0-4.0 Protime 11.5 Sec 9.9-12.8 EKG - 02/06/18 14:36 EKG Complete Surgical Pathology - 02/12/18 08:24 Surg Path Sent to [facility] Lipase - 07/17/18 15:50 Lipase 20 U/L 7-59 Sed Rate - 07/24/18 14:33 Sed Rate 5 mm/hr 9-15 CMP - 10/09/18 16:06 GLUCOSE 272 mg/dL 65-99 UREA NITROGEN (BUN) 12 mg/dL 7-25 CREATININE 0.69 mg/dL 0.50-1.05 eGFR NON-AFR. [place] 101 mL/min/1.73m2 > OR = 60 eGFR [...] 7-25 CREATININE 0.78 mg/dL 0.50-1.05 eGFR NON-AFR. [place] 87 mL/min/1.73m2 > OR = 60 eGFR [...] FOR INFLUENZA A AND B ANTIGENS BY [facility] Complete blood count (CBC) with [...] Coronavirus Ab [Units/volume] in Serum Negative Negative Complete blood count (CBC) with automate d white blood cell (WBC) differential - 01/03/20 21:15 Blood leukocytes automated count (number/volume) 8.8 10*3/uL 4.3-11.0 Blood erythrocytes automated count (number/volume) 4.71 10*6/uL 4.35-5.85 Venous blood hemoglobin measurement (mass/volume) 14.3 g/dL 11.5-16.0 Blood hematocrit (volume fraction) 40 % 35-52 Automated erythrocyte mean corpuscular volume 86 [ foz_us] 80-99 Automated erythrocyte mean corpuscular h emoglobin (mass per erythrocyte) 30 pg 25-34 Automated erythrocyte mean corpuscular h emoglobin concentration measurement (mass/volume) 35 g/dL 32-36 Automated erythrocyte distribution width ratio 13. 1 % 10.0- 14.5 Automated blood platelet count (count/volume) 229 10*3/uL 130-400 Automated blood platelet mean volume measurement 9.4 [foz_us] 7.4-10.4 Automated blood neutrophils/100 leukocytes 47 % 42-75 Automated blood lymphocytes/100 leukocytes 43 % 12-44 Blood monocytes/100 leukocytes 7 % 0-12 Automated blood eosinophils/100 leukocytes 3 % 0-10 Automated blood basophils/100 leukocytes 1 % 0-10 Blood neutrophils automated count (number/volume) 4.2 10*3 1.8-7.8 Blood lymphocytes automated count (number/volume) 3.8 10*3 1.0-4.0 Blood monocytes automated count (number/volume) 0. 6 10*3 0.0-1.0 Automated eosinophil count 0.2 10*3/uL 0 .0-0.3 Automated blood basophil count (count/volume) 0.0 10*3/uL 0.0-0.1 Comprehensive metabolic panel - 01/03/20 21:15 Serum or plasma sodium measurement (moles/volume) 138 mmol/L 135-145 Serum or plasma potassium measurement (moles/volume) 3.5 mmol/L 3.6-5.0 Serum or plasma chloride measurement (moles/volume) 102 mmol/L 98-107 Carbon dioxide 22 mmol/L 21-32 Serum or plasma anion gap determination (moles/volume) 14 mmol/L 5-14 Serum or plasma urea nitrogen measurement (mass/volume ) 12 mg/dL 7-18 Serum or plasma creatinine measurement (mass/volume) 0.98 mg/dL 0.60-1.30 Serum or plasma urea nitrogen/creatinine mass ratio 12 NRG Serum or plasma creatinine measurement w ith calculation of estimated glomerular filtration rate 59 NRG Serum or plasma glucose measurement (mass/volume) 209 mg/dL 70-105 Serum or plasma calcium measurement (mass/volume) 9.5 mg/dL 8.5-10.1 Serum or plasma total bilirubin measurement (mass/volu me) 0.5 mg/dL 0.1-1.0 Serum or plasma alkaline phosphatase donta surement (enzymatic activity/volume) 57 U/L 40-136 Serum or plasma aspartate aminotransfera se measurement (enzymatic activity/volume) 22 U/L 5-34 Serum or plasma alanine aminotransferase measurement (enzymatic activity/volume) 20 U/L 0-55 Serum or plasma protein measurement (mass/volume) 6.9 g/dL 6.4-8.2 Serum or plasma albumin measurement (mass/volume) 3.8 g/dL 3.2-4.5 CALCIUM CORRECTED 9.7 mg/dL 8.5-10.1 Magnesium - 01/03/20 21:15 Magnesium 1.5 mg/dL 1.6-2.4 Serum or plasma creatine kinase measurem ent (enzymatic activity/volume) - 01/03/20 21:15 Serum or plasma creatine kinase measurem ent (enzymatic activity/volume) 39 U/L 29-168 PT panel in platelet poor plasma by coag ulation assay - 01/03/20 21:15 Prothrombin time (PT) in platelet poor plasma by coagu lation assay 13.3 s 12.2-14.7 INR in platelet poor plasma or blood by coagulation as say 1.0 0.8-1.4 Activated partial thromboplastin time (a PTT) in platelet poor plasma bycoagulation assay - 01/03/20 21:15 Activated partial thromboplastin time (a PTT) in platelet poor plasma bycoagulation assay 28 s 24-35 Serum or plasma creatine kinase MB measu rement (enzymatic activity/volume) - 01/03/20 21:15 Serum or plasma creatine kinase MB measu rement (enzymatic activity/volume) 0.5 ng/mL <6.6 Serum or plasma troponin i.cardiac measu rement (mass/volume) - 01/03/20 21:15 Serum or plasma troponin i.cardiac measurement (mass/v olume) < ng/mL <0.028 Myoglobin, serum - 01/03/20 21:15 Myoglobin, serum 26.0 ng/mL 10.0-92.0 Serum or plasma thyrotropin measurement by detection limit <=0.05 miu/l (units/volume) - 01/03/20 21:15 Serum or plasma thyrotropin measurement by detection limit <=0.05 miu/l (units/volume) 3.75 u[iU]/mL 0.35-4.94 Serum or plasma ethanol measurement (mas s/volume) - 01/03/20 21:15 Serum or plasma ethanol measurement (mass/volume) < mg/dL <10 Capillary blood glucose measurement by g lucometer (mass/volume) - 01/03/20 23:37 Capillary blood glucose measurement by glucometer (mas s/volume) 194 mg/dL 70-110 Complete urinalysis with reflex to cultu re - 01/04/20 00:10 Urine color determination YELLOW NRG Urine clarity determination CLEAR NR G Urine pH measurement by test strip 5.5 5-9 Specific gravity of urine by test strip 1.025 1.016-1.022 Urine protein assay by test strip, semi-quantitative NEGATIVE NEGATIVE Urine glucose detection by automated test strip NE GATIVE NEGATIVE Erythrocytes detection in urine sediment by light micr oscopy NEGATIVE NEGATIVE Urine ketones detection by automated test strip NE GATIVE NEGATIVE Urine nitrite detection by test strip NEGATIVE NEGATIVE Urine total bilirubin detection by test strip NEGA TIVE NEGATIVE Urine urobilinogen measurement by automated test strip (mass/volume) 0.2 mg/dL < = 1.0 Urine leukocyte esterase detection by dipstick NEG ATIVE NEGATIVE Automated urine sediment erythrocyte cou nt by microscopy (number/high power field) NONE NRG Automated urine sediment leukocyte count by microscopy (number/high power field) NONE NRG Bacteria detection in urine sediment by light microsco py TRACE NRG Squamous epithelial cells detection in u rine sediment by light microscopy 2-5 NRG Crystals detection in urine sediment by light microsco py NONE NRG Casts detection in urine sediment by light microscopy PRESENT NRG Mucus detection in urine sediment by light microscopy SMALL NRG Complete urinalysis with reflex to culture NO NRG Hyaline casts detection in urine sediment by light christopher roscopy 2-5 NRG Urine drug screening test - 01/04/20 00: 10 Urine phencyclidine detection by screening method NEGATIVE NEGATIVE Urine benzodiazepines detection by screening method NEGATIVE NEGATIVE Urine cocaine detection NEGATIVE NEGATI VE Urine amphetamines detection by screening method N EGATIVE NEGATIVE Urine methamphetamine detection by screening method NEGATIVE NEGATIVE Urine cannabinoids detection by screening method N EGATIVE NEGATIVE Urine opiates detection by screening method NEGATI VE NEGATIVE Urine barbiturates detection NEGATIVE N EGATIVE Screening urine tricyclic antidepressants detection NEGATIVE NEGATIVE Urine methadone detection by screening method NEGA TIVE NEGATIVE Urine oxycodone detection NEGATIVE NEGA TIVE Urine propoxyphene detection NEGATIVE N EGATIVE Encounters ACCT No. Visit Date/Time Discharge Status Pt. Type Provider Facility Loc./Unit Complaint [id number] 12/03/2019 10:15:00 12/03/2019 23:59: 59 CLS Outpatient YURI BALDERAS [facility] [id number] 12/03/2019 10:15:00 Document Registration [id number] 04/16/2019 09:20:00 Document Registration [id number] 01/05/2019 15:45:00 Document Registration [id number] 11/14/2018 14:40:00 Document Registration [id number] 10/09/2018 15:40:00 Document Registration [email or web address] 12/20/2018 09:08:59 ACT Document Registration [id number] 09/23/2018 10:44:50 9 23:59:[address] [facility] Surgery ops [id number] 01/25/2020 05:30:00 11:01:00 DIS Outpatient MYRIAM MURILLO MD [facility] PREOP DYSPHAGIA,REFLUX [id number] 01/03/2020 23:08:00 01:16:00 DIS Emergency NADIYA GO DO [facility] ER DIZZINESS [id number] 12/23/2019 11:43:00 17:00:00 DIS Outpatient MYRIAM MURILLO MD [facility] ENDO DYSPHAGIA [id number] 12/21/2019 05:36:00 15:10:00 DIS Outpatient MYRIAM MURILLO MD [facility] PREOP EGD [id number] 12/18/2019 10:38:00 23:59:59 CLS Outpatient MYRIAM MURILLO MD [facility] RAD DYSPAHGIA [id number] 11/04/2019 10:18:00 13:45:00 DIS Outpatient MYRIAM MURILLO MD [facility] ENDO DYSPHAGIA [id number] 10/16/2019 15:08:00 15:56:00 DIS Emergency DIANNA MARINELLI DO M [facility] ER FS FINGER LACERATION [id number] 09/11/2019 21:07:00 22:57:00 DIS Emergency XAVIERDORIS APRN [facility] ER CHEST PAIN [id number] 07/27/2019 11:54:00 23:59:59 CLS Outpatient YURI BALDERAS MD [facility] RAD FS R22.32 E11.9 [id number] 05/22/2019 08:40:00 20:30:00 DIS Outpatient BASHIR CAHVES MD [facility] CATH CP R/O ACS [id number] 05/20/2019 14:17:00 23:59:59 CLS Outpatient YURI BALDERAS MD [facility] RAD FS M25.512 [id number] 05/15/2019 16:18:00 14:26:00 DIS Inpatient BASHIR CHAVES MD [facility] 4TH INTRACTABLE CHEST PAIN [id number] 11/13/2018 20:38:00 06:10:00 DIS Outpatient STAR TOUSSAINT DO [facility] SLEEP G47.33 RUBY [id number] 11/04/2018 13:25:00 23:59:59 CLS Outpatient ROSANNA OHLLIDAY [facility] RAD FS M25.562 [id number] 10/29/2018 07:55:00 23:59:59 CLS Emergency NADIRA HELLER DO [facility] ER FS FALL [id number] 01/27/2020 09:30:00 P EN PreadMYRIAM Cisneros MD [facility] ENDO DYSPHAGIA,REFLUX. [id number] 02/16/2019 14:18:00 02/16/2019 15:37: 00 DIS Outpatient Lisbeth [facility] ER [id number] 09/25/2018 10:27:00 09/25/2018 23:59: 00 DIS Outpatient Sandro Fernández [id number] 07/24/2018 14:13:00 07/24/2018 23:59: 00 DIS Outpatient Sandro Fernández [id number] 07/24/2018 13:22:00 07/24/2018 23:59: 00 DIS Outpatient Sandro Fernández B [id number] 07/17/2018 15:09:00 07/17/2018 16:45: 00 DIS Outpatient Doris Xavier [facility] C enter ER [id number] 06/11/2018 20:43:00 06/11/2018 22:20: 00 DIS Outpatient SUPA PERALTA [facility] ER [id number] 02/12/2018 06:46:00 02/12/2018 09:15: 00 DIS Outpatient Star Toussaint [id number] 02/06/2018 15:19:00 02/06/2018 23:59: 00 DIS Outpatient UNLISTEDGUILLERMO [id number] 02/06/2018 13:17:00 02/06/2018 23:59: 00 DIS Outpatient Star Toussaint [id number] 05/22/2017 07:43:00 05/22/2017 10:23: 00 DIS Outpatient Star Toussaint [id number] 05/16/2017 10:58:00 05/16/2017 23:59: 00 DIS Outpatient Star Toussaint [id number] 05/07/2017 14:16:00 05/07/2017 23:59: 00 DIS Outpatient CHERRIE CEDENO [id number] 04/18/2017 15:29:00 04/18/2017 17:25: 00 DIS Outpatient Rudi [facility] ER [id number] 03/25/2017 16:09:00 03/25/2017 23:05: 00 DIS Outpatient Lisbeth [facility] ER [id number] 03/15/2017 00:52:00 03/15/2017 01:30: 00 DIS Outpatient Doris Xavier [facility] [place] [id number] 03/25/2017 17:33:25 Document Registration [id number] 07/03/2017 12:55:24 07/03/2017 23:59:59 CLS Outpatient [id number] 07/03/2017 12:55:10 07/03/2017 23:59:59 CLS Outpatient [id number] 05/21/2017 09:39:44 05/21/2017 09:39:44 DIS Outpatient [id number] 05/21/2017 09:39:30 05/21/2017 09:39:30 DIS Outpatient [id number] 05/20/2017 10:48:23 05/20/2017 10:48:23 DIS Outpatient [id number] 05/16/2017 07:50:26 05/16/2017 23:59:59 CLS Outpatient [id number] 05/16/2017 07:50:25 05/16/2017 23:59:59 CLS Outpatient [id number] 05/16/2017 07:50:10 05/16/2017 07:50:11 DIS Outpatient [id number] 12/19/2018 20:05:[address] MD
[2020-01-27] MEDS ORDERED: NS IV 500 ML 500 ML IV PRN (08:34)
[2020-01-27] MEDS ORDERED: NS IV 500 ML 500 ML ONE (08:39)
[2020-01-27] MEDS ORDERED: fentaNYL INJECTION 100 MCG/2 ML AMP IVP ONE (08:45)
[2020-01-27] MEDS ORDERED: HURRICAINE EXT TUBE (BENZOCAINE) XX PRN (08:45)
[2020-01-27] MEDS ORDERED: LIDOCAINE JELLY 2% 6 ML SYRINGE MM PRN (08:45)
[2020-01-27] MEDS ORDERED: LIDOCAINE JELLY 2% 6 ML SYRINGE ONE (09:38)
[2020-01-27] MEDS ORDERED: HURRICAINE EXT TUBE (BENZOCAINE) ONE (09:39)
[2020-01-27] MEDS ORDERED: MIDAZOLAM 5 MG/5 ML (VERSED) VIAL ONE ×3 (09:39→09:58)
[2020-01-27] MEDS ORDERED: fentaNYL INJECTION 100 MCG/2 ML AMP ONE (09:39)
[2020-01-27] MEDS: MIDAZOLAM 5 MG/5 ML (VERSED) VIAL IV PRN ×7 (09:46→10:04)
--- NOTE | 2020-01-27 09:48 | Conscious Sedation/ASA ---
Conscious Sedation Pre-Proced Time 09:00 ASA Score 2 For ASA 3 and 4: Consider anesthesia and medical clearance. Also, for patients with a history of failed moderate sedation consider anesthesia. Airway Lungs Heart ASA score ASA 1: a normal healthy patient ASA 2: a patient with a mild systemic disease (mid diabetes, controlled hypertension, obesity ASA 3: a patient with a severe systemic disease that limits activity (angina, COPD, prior Myocardial infarction) ASA 4: a patient with an incapacitating disease that is a constant threat to life (CHF, renal failure) ASA 5: a moribund patient not expected to survive 24 hrs. (ruptured aneurysm) ASA 6: a declared brain- patient whose organs are being harvested. For emergent operations, add the letter E after the classification Mallampati Classification Grade 2 Sedation Plan Analgesia, Amnesia, Plan communicated to team members, Discussed options with patient/fam, Discussed risks with patient/fam The patient is an appropriate candidate to undergo the planned procedure, sedation, and anesthesia. The patient immediately re-assessed prior to indication. MYRIAM MURILLO MD Jan 27, 2020 09:48
--- NOTE | 2020-01-27 09:49 | Progress Note-Pre Operative ---
Pre-Operative Progress Note H&P Reviewed The H&P was reviewed, patient examined and no changes noted. Date Seen by Provider: Jan 27, 2020 Time Seen by Provider: 09:00 Date H&P Reviewed: Jan 27, 2020 Time H&P Reviewed: 09:00 Pre-Operative Diagnosis: achalasia MYRIAM MURILLO MD Jan 27, 2020 09:49
--- NOTE | 2020-01-27 09:50 | Discharge Inst-Surgical ---
D/C Lap Instructions-LIDIA Follow Up Appt 6 weeks Activity as tolerated High Fiber Diet 25g or more per day Avoid Alcohol, Caffeine, Spicy [place] and Acid foods. Drink 64 fluid oz or more of fluids per day. Symptoms to Report: Fever over 101 degree F, Nausea/Vomiting If any problems/questions: Contact your physician or go to Emergency Room MYRIAM MURILLO MD Jan 27, 2020 09:50
[2020-01-27] MEDS ORDERED: ONDANSETRON 4 MG/2 ML (SDV) Z0FRAN IVP PRN (10:00)
[2020-01-27] MEDS ORDERED: morphine INJ 10 MG/ML 1ML (SYR OR VIAL) IVP PRN ×2 (10:00)
--- NOTE | 2020-01-27 10:31 | Progress Note-Post Operative ---
Post-Operative Progess Note Surgeon (s)/Objects Conservator (s) Surgeon MYRIAM MURILLO MD Objects Conservator: none Pre-Operative Diagnosis achalasia Post-Operative Diagnosis same Procedure & Operative Findings Date of Procedure 01/27/20 Procedure Performed/Findings EGD with balloon dilatation with achalasia balloon. Anesthesia Type cs Estimated Blood Loss Estimated blood loss (mL): minimal Specimens/Packing Specimens Removed none MYRIAM MURILLO MD Jan 27, 2020 10:31
--- NOTE | 2020-01-27 15:14 | OPERATIVE REPORT ---
DATE OF SERVICE: 01/27/2020 ATTENDING PRIMARY CARE PHYSICIAN: Dr. Billie Mcghee. PREOPERATIVE DIAGNOSIS: Symptomatic achalasia. POSTOPERATIVE DIAGNOSIS: Symptomatic achalasia. PROCEDURE: EGD with balloon dilatation for achalasia balloon to 30 mm luminal diameter. SURGEON: Myriam Murillo MD ANESTHESIA: Conscious sedation. ESTIMATED BLOOD LOSS: Minimal. FINDINGS: A hypertonic lower esophageal sphincter. DISPOSITION: The patient tolerated the procedure well. INDICATIONS: The patient is a 54-year-old female with dysphagia and gastroesophageal reflux disease. She states that she has had reflux issues for greater than 25 years. She has undergone EGD as well as dilatation with the last one done on 11/04/2019. Biopsies were negative for H. pylori as well as Pizarro's esophagus. She was dilated to 20 mm in diameter; however, she continued to have dysphagia. We then referred her to gastroenterology for a manometry study, which did show a resting lower esophageal sphincter pressure of 89.4 mmHg and would not relax with swallows consistent with achalasia. We will proceed with a dilatation with a specific achalasia balloon, which was dilated to 30 mm in luminal diameter. DESCRIPTION OF PROCEDURE: The patient was brought to the endoscopy suite, laid in left lateral decubitus position with head slightly elevated. After adequate IV pain and stated medications and conscious sedation anesthesia, the mouthpiece was applied. Endoscope along with achalasia balloon, which was looped with a wire loop on the endoscope was directly advanced into the esophageal opening. The balloon as well as the scope was then advanced to the first, second and third portion of esophagus at the level of the GE junction. Again, a hypertonic gastroesophageal junction identified. We were then able to advance into the stomach. The balloon was then released from the wire snare and the endoscope was then retroflexed visualizing again a small hiatal hernia as well as a mild gastritis. No formal ulcerations, polyps, or any neoplasms. We then proceeded with balloon dilatation of the lower esophageal sphincter. The balloon was placed to the area of the lower esophageal sphincter and the endoscope just above directly visualize this. We first proceeded 1 atmosphere of pressure followed by 2 and then to 3 atmospheres of pressure or 30 mm in luminal diameter with moderate resistance and left this in place for 60 seconds. The balloon was then desufflated and removed. Good hemostasis was observed as well as no mucosal tears. The endoscope was slowly withdrawn while taking a second look and suctioning of residual air with no additional findings. The patient tolerated the procedure well. We will have her follow up in approximately six weeks to see if she continues to need further balloon dilatation; however, if this is ineffective, we may refer her to a equip maint eng, who specializes in achalasia for possible botulinum toxin injection versus thoracic surgery for a possible Heller myotomy. Job ID: [id number] DocumentID: [id number] Dictated Date: 01/27/2020 10:26:16 Textile Technical Officer Date: 01/27/2020 15:13:57 Dictated By: MYRIAM MURILLO MD MTDD
== END 2020-01-27 11:10 | disposition home or self-care (01) ==
LOC: ENDO 08:21
PROVIDERS: ATTEND Surgery
DX: K22.0 Achalasia of cardia (principal); K44.9 Diaphragmatic hernia without obstruction or gangrene; K29.70 Gastritis, unspecified, without bleeding; K21.0 Gastro-esophageal reflux disease with esophagitis; F41.9 Anxiety disorder, unspecified; J45.909 Unspecified asthma, uncomplicated; E11.9 Type 2 diabetes mellitus without complications; I10 Essential (primary) hypertension; G47.00 Insomnia, unspecified; Z91.048 Other nonmedicinal substance allergy status; Z79.899 Other long term (current) drug therapy; Z88.1 Allergy status to other antibiotic agents; Z88.0 Allergy status to penicillin; Z88.2 Allergy status to sulfonamides; Z90.89 Acquired absence of other organs; Z90.49 Acquired absence of other specified parts of digestive tract; Z82.3 Family history of stroke

== ENCOUNTER 2020-02-09 05:32 | Outpatient (RCR) | payer MEDICARE, OTHER, MEDICAID ==
[~2020-02-09] VITALS: Ht 170.2 cm; Wt 105.0 kg
== END 2020-02-09 08:29 | disposition home or self-care (01) ==
LOC: PREOP 05:32
PROVIDERS: ATTEND Surgery
DX: Z01.812 Encounter for preprocedural laboratory examination (principal); Z20.828 Contact with and (suspected) exposure to other viral communicable diseases; R13.10 Dysphagia, unspecified; Z88.0 Allergy status to penicillin; Z88.1 Allergy status to other antibiotic agents; Z88.2 Allergy status to sulfonamides
CPT/HCPCS: 87635

== ENCOUNTER 2020-02-12 09:44 | Day surgery (SDC) | payer MEDICARE, OTHER, MEDICAID ==
[2020-02-12] VITALS (18 sets, daily range): BP systolic 103–175; BP diastolic 56–90
[~2020-02-12] VITALS: Ht 170.2 cm; Wt 105.0 kg
--- OUTSIDE RECORDS SUMMARY | 2020-02-12 09:54 | XMS REPORT | Continuity of Care Document ---
Author Organization Unknown Address Unknown Phone Unavailable Allergies Active Description Code Type Severity Reaction Onset Reported/Identified Relationship to Patient Clinical Status Yes Ceclor Drug Moderate 8599255460~[id number] Yes Keflex Drug Moderate [id number]~117752167 Yes penicillin Drug Mode rate [id number]~[id number] Yes Singulair Drug Moderate 3895597874~377956142 Yes sulfa drug 16 Drug Mode rate [id number] Yes Tape Drug N/A [id number] Yes tetracycline Drug Mo derate 5600352038~[id number] Yes CECLOR UNKNOWN OTHER Yes CECLOR UNKNOWN [...] VISHNU Yes TETRACYCLINE MODERATE MODERATE Yes cefaclor [id number] Drug Allergy Moderate BLISTERS AROUND 08/10/2011 Yes Cephalexin Monohydrate [id number] Drug Allergy Moderate BLISTERS AROUND 09/2011 Yes CLEAR PLASTIC TAPE CLEAR PLASTIC TAPE Moderate HIVES 08/10/2011 Yes Penicillins [id number] Drug Aller gy Moderate BLISTERS AROUND 08/10/2011 Yes tetracycline [id number] Drug Allergy Moderate BLISTERS AROUND 2 Yes montelukast [id number] Drug Aller gy Unknown N/A 10/29/2018 Yes Sulfa (Sulfonamide Antibiotics) [id number] Drug Allergy Unknown N/A 019 Yes walnut [id number] Drug Allergy Moderate SOA, hives 05/15/2019 Yes acetaminophen [id number] Donny g Allergy Mild Itching 05/15/2019 Yes Hymenoptera Allergenic Extract Hymenoptera Allergenic Extract Mild hives 05/15/2019 Yes meloxicam [id number] Drug Allergy Mild rash 05/15/2019 Yes metformin [id number] Drug Allergy Mild diarrhea 05/15/2019 Yes oxycodone [id number] Drug Allergy Mild Itching 05/15/2019 Yes pregabalin [id number] Drug Allerg y Unknown N/A 05/15/2019 Yes oxycodone [id number] Drug Allergy Mild Itching, pt has 11/04/2019 [...] Coded Attending Type Code Diagnosis Diagnosed By 06/06/1100 MYRIAM MURILLO MD, Ot K21.9 GASTRO-ESOPHAGEAL REFLUX DISEASE WITHOUT 06/06/1100 MYRIAM MURILLO MD Ot Z01.81 2 ENCOUNTER FOR PREPROCEDURAL LABORATORY E 06/06/1100 MYRIAM MURILLO MD, Ot Z20.82 8 CONTACT W AND EXPOSURE TO OTH VIRAL COMM 06/06/1509 MYRIAM MURILLO MD Ot Z01.81 8 ENCOUNTER FOR OTHER PREPROCEDURAL EXAMIN 06/06/1509 MYRIAM MURILLO MD Ot Z11.59 ENCOUNTER FOR [...] AND UNSPECIFIED NONINFECTIOUS GASTROENTERITIS AND COLITIS 04/18/2017 Rudi Nat A K52.9 NONINFECTIVE GASTROENTERITIS AND COLITIS, UNSPECIFIED 05/22/2017 Star Toussaint A 530.81 ESOPHAGEAL REFLUX 05/22/2017 Star Toussaint W 535.50 UNSPECIFIED GASTRITIS AND [...] OTHER GASTRITIS WITHOUT BLEEDING 02/12/2018 Star Toussaint W K44.9 DIAPHRAGMATIC HERNIA WITHOUT OBSTRUCTION OR GANGRENE 06/11/2018 SUPA PERALTA 698.9 UNSPECIFIED PRURITIC DISORDER 06/11/2018 SUPA PERALTA 988.9 TOXIC EFFECT OF UNSPECIFIED NOXIOUS SUBSTANCE EATEN FOOD 06/11/2018 SUPA PERALTA L29.9 PRURITUS, UNSPECIFIED 06/11/2018 SUPA PERALTA T78.1 XXA [facility] ADVERSE FOOD REACTIONS, NOT ELSEWHERE CLASSIFIED, INIT [...] G47.33 OBSTRUCTIVE SLEEP APNEA (ADULT) (PEDIATR 10/29/2018 RICHI HELLER DOED T Ot I10 ESSENTIAL (PRIMARY) HYPERTENSION 10/29/2018 NADIRA HELLER DO T Ot M25.512 PAIN IN LEFT SHOULDER 10/29/2018 NADIRA HELLER DO T Ot R19. 09 OTHER INTRA-ABDOMINAL AND PELVIC SWELLIN 10/29/2018 RICHI HELLER DOED T Ot R91. 1 SOLITARY PULMONARY NODULE 10/29/2018 NADIRA HELLER DO Ot S16.1XXA STRAIN OF MUSCLE, FASCIA AND TENDON AT N 10/29/2018 RICHI HELLER DOED T Ot S30.0XXA CONTUSION OF LOWER BACK AND PELVIS, INIT 10/29/2018 NADIRA HELLER DO T Ot S40.012A CONTUSION OF LEFT SHOULDER, INITIAL ENCO 10/29/2018 NADIRA HELLER DO T Ot W10.8XXA FALL (ON) (FROM) OTHER STAIRS AND STEPS, 10/29/2018 NADIRA HELLER DO T Ot Z79. 51 RESIDENTIAL (CURRENT) USE OF INHALED STERO 10/29/2018 NADIRA HELLER DO T Ot Z88. 0 ALLERGY STATUS TO PENICILLIN 10/29/2018 RICHI HELLER DOED T Ot Z88. 1 ALLERGY STATUS TO OTHER ANTIBIOTIC AGENT 10/29/2018 NADIRA HELLER DO T Ot Z88. 2 ALLERGY STATUS TO SULFONAMIDES STATUS 10/29/2018 NADIRA HELLER DO T Ot Z88. 8 ALLERGY STATUS TO OTH DRUG/MEDS/BIOL SUB 10/31/2018 ARRON OHARA NADIRA T Ot I10 ESSENTIAL (PRIMARY) HYPERTENSION 10/31/2018 NADIRA HELLER DO T Ot M25.512 PAIN IN LEFT SHOULDER 10/31/2018 NADIRA HELLER DO T Ot R19. 09 OTHER INTRA-ABDOMINAL AND PELVIC SWELLIN 10/31/2018 NADIRA HELLER DO T Ot R91. 1 SOLITARY PULMONARY NODULE 10/31/2018 NADIRA HELLER DO T Ot S16.1XXA STRAIN OF MUSCLE, FASCIA AND TENDON AT N 10/31/2018 NADIRA HELLER DO T Ot S30.0XXA CONTUSION OF LOWER BACK AND PELVIS, INIT 10/31/2018 RICHI HELLER DOED T Ot S40.012A CONTUSION OF LEFT SHOULDER, INITIAL ENCO 10/31/2018 NADIRA HELLER DO T Ot W10.8XXA FALL (ON) (FROM) OTHER STAIRS AND STEPS, 10/31/2018 NADIRA HELLER DO Ot Z79. 51 CENTER MGR (CURRENT) USE OF INHALED STERO 10/31/2018 NADIRA HELLER DO T Ot Z88. 0 ALLERGY STATUS TO PENICILLIN 10/31/2018 NADIRA HELLER DO T Ot Z88. 1 ALLERGY STATUS TO OTHER ANTIBIOTIC AGENT 10/31/2018 NADIRA HELLER DO Ot Z88. 2 ALLERGY STATUS TO SULFONAMIDES STATUS 10/31/2018 NADIRA HELLER DO Ot Z88. 8 ALLERGY STATUS TO OTH DRUG/MEDS/BIOL SUB 11/05/2018 ROSANNA HOLLIDAY Ot M17.12 UNILATERAL PRIMARY OSTEOARTHRITIS, LEFT 11/13/2018 NORBERTSTAR THURSTON DO Ot G47.33 OBSTRUCTIVE SLEEP APNEA (ADULT) (PEDIATR 11/14/2018 [facility] Ot E66.9 OBESITY, UNSPECIFIED 11/14/2018 [facility] Ot G47.33 OBSTRUCTIVE SLEEP APNEA (ADULT) (PEDIATR 11/14/2018 Seamus GAINES, Rod Hargrove N8 1.6 Rectocele 11/14/2018 [facility] Ot E66.9 OBESITY, UNSPECIFIED 11/14/2018 [facility] Ot G47.33 OBSTRUCTIVE SLEEP APNEA (ADULT) [...] Jayy Bob R55 SYNCOPE AND COLLAPSE 02/16/2019 Jayy Bob S60.212A CONTUSION OF LEFT WRIST, INITIAL ENCOUNTER 02/16/2019 Jayy Bob T78.1XXA OTH ADVERSE FOOD REACTIONS, NOT ELSEWHERE [...] 05/18/2019 BASHIR CHAVES MD, Ot Z79 .1 CENTER MGR (CURRENT) USE OF NON-STEROIDAL 05/18/2019 BASHIR CHAVES MD Ot Z79.52 CENTER MGR (CURRENT) USE OF SYSTEMIC STER 05/18/2019 BASHIR CHAVES MD, Ot Z79.899 OTHER CENTER MGR (CURRENT) DRUG THERAPY 05/18/2019 BASHIR CHAVES MD, Ot Z82.49 FAMILY HX OF ISCHE[place] HEART DIS AND OTH DI 05/18/2019 BASHIR CHAVES MD Ot Z83 .3 FAMILY HISTORY OF DIABETES MELLITUS 05/18/2019 BASHIR CHAVES MD Ot Z88 .0 ALLERGY STATUS TO PENICILLIN 05/18/2019 BASHIR CHAVES MD Ot Z88 .1 ALLERGY STATUS TO OTHER ANTIBIOTIC AGENT 05/18/2019 BASHIR CHAVES MD Ot Z88 .2 ALLERGY STATUS TO SULFONAMIDES STATUS 05/18/2019 BASHIR CHAVES MD Ot Z88 .6 ALLERGY STATUS TO ANALGESIC AGENT STATUS 05/18/2019 BASHIR CHAVES MD Ot Z88 .8 ALLERGY [...] MD Ot I25.10 ATHSCL HEART DISEASE OF [place] CORONARY 05/22/2019 BASHIR CHAVES MD Ot Z79.899 OTHER CENTER MGR (CURRENT) DRUG THERAPY 05/22/2019 BASHIR CHAVES MD, Ot Z82 .3 FAMILY HISTORY OF STROKE [...] MD Ot I25.10 ATHSCL HEART DISEASE OF [place] CORONARY 05/27/2019 BASHIR CHAVES MD Ot Z79.899 OTHER CENTER MGR (CURRENT) DRUG THERAPY 05/27/2019 BSAHIR HCAVES MD Ot Z82 .3 FAMILY HISTORY OF STROKE 05/27/2019 BASHIR CHAVES MD Ot Z82.49 FAMILY HX OF ISCHEM HEART DIS AND OTH DI 05/27/2019 BASHIR CHAVES MD Ot Z88 .0 ALLERGY STATUS TO PENICILLIN 05/27/2019 BASHIR CHAVES MD N Ot Z88 .1 ALLERGY STATUS TO OTHER ANTIBIOTIC AGENT 05/27/2019 BASHIR CHAVES MD N Ot Z88 .2 ALLERGY STATUS TO SULFONAMIDES STATUS 05/27/2019 BASHIR CHAVES MD Ot Z88 .8 ALLERGY STATUS TO OTH DRUG/MEDS/BIOL SUB 05/27/2019 BASHIR CHAVES MD Ot Z91.018 ALLERGY TO OTHER FOODS 06/03/2019 BASHIR CHAVES MD Ot I25.10 ATHSCL HEART DISEASE OF [place] CORONARY 06/03/2019 BASHIR CHAVES MD Ot Z79.899 [...] OTHER ANTIBIOTIC AGENT 06/03/2019 BASHIR CHAVES MD N Ot Z88 .2 ALLERGY STATUS TO SULFONAMIDES STATUS 06/03/2019 BASHIR CHAVES MD N Ot Z88 .8 ALLERGY STATUS TO OTH DRUG/MEDS/BIOL SUB 06/03/2019 BASHIR CHAVES MD Ot Z91.018 ALLERGY TO OTHER FOODS 06/10/2019 BASHIR CHAVES MD Ot I25.10 ATHSCL HEART DISEASE OF [place] CORONARY 06/10/2019 ANDIEBASHIR MARIE MD, Ot Z79.899 OTHER RESIDENTIAL (CURRENT) DRUG THERAPY 06/10/2019 BASHIR CHAVES MD, Ot Z82 .3 FAMILY HISTORY OF STROKE 06/10/2019 BASHIR CHAVES MD, Ot Z82.49 FAMILY HX OF ISCHEM HEART DIS AND OTH DI 06/10/2019 BASHIR CHAVES MD, Ot Z88 .0 ALLERGY STATUS TO PENICILLIN 06/10/2019 BASHIR CHAVES MD, Ot Z88 .1 ALLERGY STATUS TO OTHER ANTIBIOTIC AGENT 06/10/2019 BASHIR CHAVES MD, Ot Z88 .2 ALLERGY STATUS TO SULFONAMIDES STATUS 06/10/2019 BASHIR CHAVES MD, Ot Z88 .8 ALLERGY STATUS TO OT DRUG/MEDS/BIOL SUB 06/10/2019 BASHIR CHAVES MD, Ot Z91.018 ALLERGY TO OTHER FOODS 06/17/2019 YURI BALDERAS MD Ot M25.512 PAIN IN LEFT SHOULDER 07/30/2019 YURI BALDERAS MD Ot E11 .9 TYPE 2 DIABETES MELLITUS WITHOUT COMPLIC 07/30/2019 YURI BALDERAS MD Ot R22.32 LOCALIZED SWELLING, MASS AND LUMP, LEFT 08/14/2019 YURI BALDERAS MD Ot E11 .9 TYPE 2 DIABETES MELLITUS WITHOUT COMPLIC 08/14/2019 YURI BALDERAS MD Ot R22.32 LOCALIZED SWELLING, [...] UNSPECIFIED 09/11/2019 DORIS XAVIER APRN Ot Z79.51 RESIDENTIAL (CURRENT) USE OF INHALED STERO 09/11/2019 DORIS XAVIER APRN Ot Z79.52 CENTER MGR (CURRENT) USE OF SYSTEMIC STER 09/11/2019 DORIS XAVIER APRN Ot Z88 .0 ALLERGY STATUS TO PENICILLIN 09/11/2019 DORIS XAVIER INHALATION THERAPY AIDES TEACHER Ot Z88 .1 ALLERGY STATUS TO OTHER ANTIBIOTIC AGENT 09/11/2019 DORIS XAVIER APRN Ot Z88 .2 ALLERGY STATUS TO SULFONAMIDES STATUS 09/11/2019 DORIS XAVIER APRN Ot Z88 .5 ALLERGY STATUS TO NARCOTIC AGENT STATUS 09/11/2019 DORIS XAVIER INHALATION THERAPY AIDES TEACHER Ot Z88 .6 ALLERGY STATUS TO ANALGESIC [...] UNSPECIFIED 09/17/2019 DORIS XAVIER APRN Ot Z79.51 CENTER MGR (CURRENT) USE OF INHALED STERO 09/17/2019 DORIS XAVIER APRN Ot Z79.52 RESIDENTIAL (CURRENT) USE OF SYSTEMIC STER 09/17/2019 DORIS XAVIER APRN Ot Z88 .0 ALLERGY STATUS TO PENICILLIN 09/17/2019 DORIS XAVIER INHALATION THERAPY AIDES TEACHER Ot Z88 .1 ALLERGY STATUS TO OTHER ANTIBIOTIC AGENT 09/17/2019 DORIS XAVIER INHALATION THERAPY AIDES TEACHER Ot Z88 .2 ALLERGY STATUS TO SULFONAMIDES STATUS 09/17/2019 DORIS XAVIER INHALATION THERAPY AIDES TEACHER Ot Z88 .5 ALLERGY STATUS TO NARCOTIC AGENT STATUS 09/17/2019 DORIS XAVIER INHALATION THERAPY AIDES TEACHER Ot Z88 .6 ALLERGY STATUS TO ANALGESIC AGENT STATUS 09/23/2019 DORIS XAVIER INHALATION THERAPY AIDES TEACHER Ot E11 .9 TYPE 2 DIABETES MELLITUS WITHOUT COMPLIC 09/23/2019 DORIS XAVIER APRN Ot F41 .9 ANXIETY DISORDER, UNSPECIFIED 09/23/2019 DORIS XAVIER APRN Ot I10 ESSENTIAL (PRIMARY) HYPERTENSION 09/23/2019 DORIS XAVIER APRN Ot J45.909 UNSPECIFIED ASTHMA, UNCOMPLICATED 09/23/2019 ODRIS XAVIER APRN Ot K21 .9 GASTRO-ESOPHAGEAL REFLUX DISEASE WITHOUT 09/23/2019 DORIS XAVIER APRN Ot R07.81 PLEURODYNIA 09/23/2019 DORIS XAVIER APRN Ot R07 .9 CHEST PAIN, UNSPECIFIED 09/23/2019 DORIS XAVIER APRN Ot Z79.51 CENTER MGR (CURRENT) USE OF INHALED STERO 09/23/2019 DORIS XAVIER APRN Ot Z79.52 CENTER MGR (CURRENT) USE OF SYSTEMIC STER 09/23/2019 DORIS [...] .9 ANXIETY DISORDER, UNSPECIFIED 10/16/2019 DIANNA MARINELLI DO Ot I10 ESSENTIAL (PRIMARY) HYPERTENSION 10/16/2019 DIANNA MARINELLI DO, Ot J45.909 UNSPECIFIED ASTHMA, UNCOMPLICATED 10/16/2019 DIANNA MARINELLI DO, Ot K21 .9 GASTRO-ESOPHAGEAL REFLUX DISEASE WITHOUT 10/16/2019 DIANNA MARINELLI DO, Ot 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 10/16/2019 DIANNA MARINELLI DO, Ot W45.0XXA NAIL ENTERING THROUGH SKIN, INITIAL ENCO 10/16/2019 IDANNA MARINELLI DO, Ot Z79.51 CENTER MGR (CURRENT) USE OF INHALED STERO 10/16/2019 DIANNA MARINELLI DO Ot Z79.52 RESIDENTIAL (CURRENT) USE OF SYSTEMIC STER 10/16/2019 DIANNA MARINELLI DO, Ot Z88 .0 ALLERGY STATUS TO PENICILLIN 10/16/2019 DIANNA MARINELLI DO Ot Z88 .1 ALLERGY STATUS TO OTHER ANTIBIOTIC AGENT 10/16/2019 DIANNA MARINELLI DO Ot Z88 .2 ALLERGY STATUS TO SULFONAMIDES STATUS 10/16/2019 DIANNA MARINELLI DO Ot Z88 .5 ALLERGY [...] .9 ANXIETY DISORDER, UNSPECIFIED 10/20/2019 DIANNA MARINELLI DO Ot I10 ESSENTIAL (PRIMARY) HYPERTENSION 10/20/2019 DIANNA MARINELLI DO, Ot J45.909 UNSPECIFIED ASTHMA, UNCOMPLICATED 10/20/2019 DIANNA MARINELLI DO, Ot K21 .9 GASTRO-ESOPHAGEAL REFLUX DISEASE WITHOUT 10/20/2019 DIANNA MARINELLI DO, Ot 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 10/20/2019 DIANNA MARINELLI DO, Ot W45.0XXA NAIL ENTERING THROUGH SKIN, INITIAL ENCO 10/20/2019 DIANNA MARINELLI DO Ot Z79.51 CENTER MGR (CURRENT) USE OF INHALED STERO 10/20/2019 DIANNA MARINELLI DO Ot Z79.52 RESIDENTIAL (CURRENT) USE OF SYSTEMIC STER 10/20/2019 DIANNA MARINELLI DO, Ot Z88 .0 ALLERGY STATUS TO PENICILLIN 10/20/2019 DIANNA MARINELLI DO, Ot Z88 .1 ALLERGY STATUS TO OTHER ANTIBIOTIC AGENT 10/20/2019 DIANNA MARINELLI DO Ot Z88 .2 ALLERGY STATUS TO SULFONAMIDES STATUS 10/20/2019 DIANNA MARINELLI DO Ot Z88 .5 ALLERGY STATUS TO NARCOTIC AGENT STATUS 10/20/2019 DIANNA MARINELLI DO Ot Z88 .6 ALLERGY [...] ENCO 10/22/2019 DIANNA MARINELLI DO, Ot Z79.51 RESIDENTIAL (CURRENT) USE OF INHALED STERO 10/22/2019 DIANNA MARINELLI DO, Ot Z79.52 RESIDENTIAL (CURRENT) USE OF SYSTEMIC STER 10/22/2019 DIANNA MARINELLI DO, Ot Z88 .0 ALLERGY STATUS TO PENICILLIN 10/22/2019 DIANNA MARINELLI DO, Ot Z88 .1 ALLERGY STATUS TO OTHER ANTIBIOTIC AGENT 10/22/2019 DIANNA MARINELLI DO, Ot Z88 .2 ALLERGY STATUS TO SULFONAMIDES STATUS 10/22/2019 DIANNA MARINELLI DO, Ot Z88 .5 ALLERGY [...] Ot G47.00 INSOMNIA, UNSPECIFIED 11/04/2019 MYRIAM MURILLO MD, Ot I10 ESSENTIAL (PRIMARY) HYPERTENSION 11/04/2019 MYRIAM [...] FIBROMYALGIA 11/04/2019 MYRIAM MURILLO MD, Ot Z79.84 CENTER MGR (CURRENT) USE OF ORAL HYPOGLYC 11/04/2019 MYRIAM MURILLO MD, Ot Z79.89 9 OTHER CENTER MGR (CURRENT) DRUG THERAPY 11/04/2019 MYRIAM MURILLO MD, [...] FIBROMYALGIA 11/09/2019 MYRIAM MURILLO MD, Ot Z79.84 CENTER MGR (CURRENT) USE OF ORAL HYPOGLYC 11/09/2019 MYRIAM MURILLO MD, Ot Z79.89 9 OTHER RESIDENTIAL (CURRENT) DRUG THERAPY 11/09/2019 MYRIAM MURILLO MD, Ot Z82.3 FAMILY HISTORY OF STROKE 11/09/2019 MYRIAM MRUILLO MD, Ot Z90.49 ACQUIRED ABSENCE OF OTHER SPECIFIED PART 11/09/2019 MYRIAM MURILLO MD, Ot Z90.71 0 ACQUIRED ABSENCE OF BOTH CERVIX AND UTER 12/21/2019 MYRIAM MURILLO MD, Ot Z01.81 8 ENCOUNTER FOR OTHER PREPROCEDURAL EXAMIN 12/21/2019 MYRIAM MURILLO MD, Ot Z11.59 ENCOUNTER FOR SCREENING FOR OTHER VIRAL 12/22/2019 ROSANNA HOLLIDAY Ot M17.12 UNILATERAL PRIMARY OSTEOARTHRITIS, LEFT 12/22/2019 YURI BALDERAS MD, Ot M25.512 PAIN IN LEFT SHOULDER 12/22/2019 YURI BALDERAS MD Ot E11 .9 TYPE 2 DIABETES MELLITUS WITHOUT COMPLIC 12/22/2019 YURI BALDERAS MD Ot R22.32 LOCALIZED SWELLING, MASS AND LUMP, LEFT 12/23/2019 MYRIAM MURILLO MD, Ot K44.9 DIAPHRAGMATIC HERNIA WITHOUT OBSTRUCTION 12/23/2019 MYRIAM MURILLO MD, Ot R47.02 DYSPHASIA 12/23/2019 ROSANNA HOLLIDAY Ot M17.12 UNILATERAL PRIMARY OSTEOARTHRITIS, LEFT 12/23/2019 YURI BALDERAS MD Ot M25.512 PAIN IN LEFT SHOULDER 12/23/2019 YURI BALDERAS MD Ot E11 .9 TYPE 2 DIABETES MELLITUS WITHOUT COMPLIC 12/23/2019 YURI BALDERAS MD Ot R22.32 LOCALIZED SWELLING, MASS AND LUMP, LEFT 12/23/2019 MYRIAM MURILLO MD, Ot K44.9 DIAPHRAGMATIC HERNIA WITHOUT OBSTRUCTION 12/23/2019 MYRIAM MURILLO MD, Ot R47.02 DYSPHASIA 12/23/2019 MYRIAM MURILLO MD, Ot F41.9 ANXIETY DISORDER, UNSPECIFIED 12/23/2019 MYRIAM MURILLO MD, Ot G47.00 INSOMNIA, UNSPECIFIED 12/23/2019 MYRIAM MURILLO MD, Ot I10 ESSENTIAL (PRIMARY) HYPERTENSION 12/23/2019 MYRIAM MURILLO MD, Ot J45.90 9 UNSPECIFIED ASTHMA, UNCOMPLICATED 12/23/2019 MYRIAM MURILLO MD, Ot K21.0 GASTRO-ESOPHAGEAL REFLUX DISEASE WITH ES 12/23/2019 KIDO MD, TAKAAKI Ot K22.0 ACHALASIA OF CARDIA 12/23/2019 MYRIAM MURILLO MD Ot K29.50 UNSPECIFIED CHRONIC GASTRITIS WITHOUT BL 12/23/2019 MYRIAM MURILLO MD, Ot K44.9 DIAPHRAGMATIC HERNIA WITHOUT OBSTRUCTION 12/23/2019 MYRIAM MURILLO MD Ot M19.90 UNSPECIFIED OSTEOARTHRITIS, UNSPECIFIED 12/23/2019 MYRIAM MURILLO MD Ot M79.10 MYALGIA, UNSPECIFIED SITE 12/23/2019 MYRIAM MURILLO MD, Ot Z79.89 9 OTHER CENTER MGR (CURRENT) DRUG THERAPY 12/29/2019 MYRIAM MURILLO MD, Ot F41.9 ANXIETY DISORDER, UNSPECIFIED 12/29/2019 MYRIAM MURILLO MD, Ot G47.00 INSOMNIA, UNSPECIFIED 12/29/2019 MYRIAM MURILLO MD Ot I10 ESSENTIAL (PRIMARY) HYPERTENSION 12/29/2019 MYRIAM MURILLO MD, Ot J45.90 9 UNSPECIFIED ASTHMA, UNCOMPLICATED 12/29/2019 MYRIAM MURILLO MD Ot K21.0 GASTRO-ESOPHAGEAL REFLUX DISEASE WITH ES 12/29/2019 MYRIAM MURILLO MD Ot K22.0 ACHALASIA OF CARDIA 12/29/2019 MYRIAM MURILLO MD Ot K29.50 UNSPECIFIED CHRONIC GASTRITIS WITHOUT BL 12/29/2019 MYRIAM MURILLO MD, Ot K44.9 DIAPHRAGMATIC HERNIA WITHOUT OBSTRUCTION 12/29/2019 MYRIAM MURILLO MD, Ot M19.90 UNSPECIFIED OSTEOARTHRITIS, UNSPECIFIED 12/29/2019 MYRIAM MURILLO MD, Ot M79.10 MYALGIA, UNSPECIFIED SITE 12/29/2019 MYRIAM MURILLO MD, Ot Z79.89 9 OTHER RESIDENTIAL (CURRENT) DRUG THERAPY 01/03/2020 ROSANNA HOLLIDAY Ot [...] 01/03/2020 MYRIAM MURILLO MD, Ot R47.02 DYSPHASIA 01/04/2020 ROSANNA HOLLIDAY Rod PERDOMO Ot M17.12 UNILATERAL PRIMARY OSTEOARTHRITIS, LEFT 01/04/2020 ANDREY GAINES, YURI Moore Ot M25.512 PAIN IN LEFT SHOULDER 01/04/2020 ANDREY GAINES, YURI Moore Ot E11 .9 TYPE 2 DIABETES MELLITUS WITHOUT COMPLIC 01/04/2020 ANDREY GAINES, YURI Moore Ot R22.32 LOCALIZED SWELLING, MASS AND LUMP, LEFT 01/04/2020 MYRIAM MURILLO MD Ot K44.9 DIAPHRAGMATIC HERNIA WITHOUT OBSTRUCTION 01/04/2020 [...] 01/04/2020 ABBI DO, NADIYA K Ot Z79.4 RESIDENTIAL (CURRENT) USE OF INSULIN 01/04/2020 ABBI DO, NADIYA K Ot Z79.899 OTHER CENTER MGR (CURRENT) DRUG THERAPY 01/04/2020 ABBI DO, NADIYA K Ot Z88.0 ALLERGY STATUS TO PENICILLIN 01/04/2020 ABBI DO, NADIYA K Ot Z88.1 ALLERGY STATUS TO OTHER ANTIBIOTIC AGENT 01/04/2020 ABBI DO, NADIYA K Ot Z88.2 ALLERGY STATUS TO SULFONAMIDES STATUS 01/04/2020 ABBI DO, NADIYA K Ot Z88.8 ALLERGY STATUS TO OTH DRUG/MEDS/BIOL SUB 01/04/2020 ROSANNA HOLLIDAY Ot M17.12 UNILATERAL PRIMARY OSTEOARTHRITIS, LEFT 01/04/2020 ANDREY GAINES, YURI Moore Ot M25.512 PAIN IN LEFT SHOULDER 01/04/2020 ANDREY GAINES, YURI Moore Ot E11 .9 TYPE 2 DIABETES MELLITUS WITHOUT COMPLIC 01/04/2020 ANDREY GAINES, YURI Moore Ot R22.32 LOCALIZED SWELLING, MASS AND LUMP, LEFT 01/04/2020 LIDIA GAINES, MYRIAM Ot K44.9 DIAPHRAGMATIC HERNIA WITHOUT OBSTRUCTION 01/04/2020 LIDIA GAINES, MYRIAM Dumont R47.02 DYSPHASIA 01/12/2020 ABBI DO, NADIYA Eligio Ot E11.9 TYPE 2 DIABETES MELLITUS WITHOUT [...] Ot M17.12 UNILATERAL PRIMARY OSTEOARTHRITIS, LEFT 01/12/2020 ABBI DO, NADIYA K Ot M79.10 MYALGIA, UNSPECIFIED SITE 01/12/2020 ABBI DO NADIYA K Ot R42 DIZZINESS AND GIDDINESS 01/12/2020 ABBI DO NADIYA K Ot Z79.4 RESIDENTIAL (CURRENT) USE OF INSULIN 01/12/2020 ABBI DO NADIYA K Ot Z79.899 OTHER RESIDENTIAL (CURRENT) DRUG THERAPY 01/12/2020 ABBI DO, NADIYA K Ot Z88.0 ALLERGY STATUS TO PENICILLIN 01/12/2020 ABBI DO, NADIYA K Ot Z88.1 ALLERGY STATUS TO OTHER ANTIBIOTIC AGENT 01/12/2020 ABBI DO, NADIYA K Ot Z88.2 ALLERGY STATUS TO SULFONAMIDES STATUS 01/12/2020 ABBI DO, NADIYA K Ot Z88.8 ALLERGY [...] 01/14/2020 ABBI DO, NADIYA K Ot Z79.4 CENTER MGR (CURRENT) USE OF INSULIN 01/14/2020 ABBI DO, NADIYA K Ot Z79.899 OTHER CENTER MGR (CURRENT) DRUG THERAPY 01/14/2020 ABBI DO, NADIYA K Ot Z88.0 ALLERGY STATUS TO PENICILLIN 01/14/2020 ABBI DO, NADIYA K Ot Z88.1 ALLERGY STATUS TO OTHER ANTIBIOTIC AGENT 01/14/2020 ABBI DO, NADIYA K Ot Z88.2 ALLERGY STATUS TO SULFONAMIDES STATUS 01/14/2020 ABBI DO, NADIYA K Ot Z88.8 ALLERGY STATUS TO OTH DRUG/MEDS/BIOL SUB 01/18/2020 MYRIAM MURILLO MD Ot K44.9 DIAPHRAGMATIC HERNIA WITHOUT OBSTRUCTION 01/18/2020 MYRIAM MURILLO MD, Ot R47.02 DYSPHASIA 01/20/2020 ROSANNA HOLLIDAY Ot M17.12 UNILATERAL PRIMARY OSTEOARTHRITIS, LEFT 01/20/2020 YURI BALDERAS MD Ot M25.512 PAIN IN LEFT SHOULDER 01/20/2020 YURI BALDERAS MD, Ot E11 .9 TYPE 2 DIABETES MELLITUS WITHOUT COMPLIC 01/20/2020 YURI BALDERAS MD Ot R22.32 LOCALIZED SWELLING, MASS AND LUMP, LEFT 01/20/2020 MYRIAM MURILLO MD, Ot K44.9 DIAPHRAGMATIC HERNIA WITHOUT OBSTRUCTION 01/20/2020 MYRIAM MURILLO MD, Ot R47.02 DYSPHASIA 01/25/2020 MYRIAM MURILLO MD, Ot K21.9 GASTRO-ESOPHAGEAL REFLUX DISEASE WITHOUT 01/25/2020 MYRIAM MURILLO MD, Ot Z01.81 2 ENCOUNTER FOR PREPROCEDURAL LABORATORY E 01/25/2020 MYRIAM MURILLO MD, Ot Z20.82 8 CONTACT W AND EXPOSURE TO OTH VIRAL COMM 01/27/2020 ROSANNA HOLLIDAY Ot M17.12 UNILATERAL PRIMARY OSTEOARTHRITIS, LEFT 01/27/2020 ANDREY GAINES, YURI Moore Ot M25.512 PAIN IN LEFT SHOULDER 01/27/2020 YURI BALDERAS MD, Ot E11 .9 TYPE 2 DIABETES MELLITUS WITHOUT COMPLIC 01/27/2020 YURI BALDERAS MD, Ot R22.32 LOCALIZED SWELLING, MASS AND LUMP, LEFT 01/27/2020 MYRIAM MURILLO MD, Ot K44.9 DIAPHRAGMATIC HERNIA WITHOUT OBSTRUCTION 01/27/2020 MYRIAM MURILLO MD, Ot R47.02 DYSPHASIA 01/27/2020 MYRIAM MURILLO MD, Ot E11.9 TYPE 2 DIABETES MELLITUS WITHOUT COMPLIC 01/27/2020 MYRIAM MURILLO MD, Ot F41.9 ANXIETY DISORDER, UNSPECIFIED 01/27/2020 MYRIAM MURILLO MD, Ot G47.00 INSOMNIA, UNSPECIFIED 01/27/2020 MYRIAM MURILLO MD Ot I10 ESSENTIAL (PRIMARY) HYPERTENSION 01/27/2020 MYRIAM MURILLO MD, Ot J45.90 9 UNSPECIFIED ASTHMA, UNCOMPLICATED 01/27/2020 MYRIAM MURILLO MD, Ot K21.0 GASTRO-ESOPHAGEAL REFLUX DISEASE WITH ES 01/27/2020 MYRIAM MURILLO MD, Ot K22.0 ACHALASIA OF CARDIA 01/27/2020 MYRIAM MURILLO MD Ot K29.70 GASTRITIS, UNSPECIFIED, WITHOUT BLEEDING 01/27/2020 MYRIAM MURILLO MD, Ot K44.9 DIAPHRAGMATIC HERNIA WITHOUT OBSTRUCTION 01/27/2020 MYRIAM MURILLO MD, Ot Z79.89 9 OTHER RESIDENTIAL (CURRENT) DRUG THERAPY 01/27/2020 MYRIAM MURILLO MD, Ot Z82.3 FAMILY HISTORY OF STROKE 01/27/2020 MYRIAM MURILLO MD, Ot Z88.0 ALLERGY STATUS TO PENICILLIN 01/27/2020 MYRIAM MURILLO MD Ot Z88.1 ALLERGY STATUS TO OTHER ANTIBIOTIC AGENT 01/27/2020 MYRIAM MURILLO MD, Ot Z88.2 ALLERGY STATUS TO SULFONAMIDES STATUS 01/27/2020 MYRIAM MURILLO MD Ot Z90.49 ACQUIRED ABSENCE OF OTHER SPECIFIED PART 01/27/2020 MYRIAM MURILLO MD, Ot Z90.89 ACQUIRED ABSENCE OF OTHER ORGANS 01/27/2020 MYRIAM MURILLO MD Ot Z91.04 8 OTHER NONMEDICINAL SUBSTANCE ALLERGY STA 01/29/2020 MYRIAM MURILLO MD Ot E11.9 TYPE 2 DIABETES MELLITUS WITHOUT COMPLIC 01/29/2020 MYRIAM MURILLO MD Ot F41.9 ANXIETY DISORDER, UNSPECIFIED 01/29/2020 MYRIAM MURILLO MD, Ot G47.00 INSOMNIA, UNSPECIFIED 01/29/2020 MYRIAM MURILLO MD Ot I10 ESSENTIAL (PRIMARY) HYPERTENSION 01/29/2020 MYRIAM MURILLO MD Ot J45.90 9 UNSPECIFIED ASTHMA, UNCOMPLICATED 01/29/2020 MYRIAM MURILLO MD Ot K21.0 GASTRO-ESOPHAGEAL REFLUX DISEASE WITH ES 01/29/2020 MYRIAM MURILLO MD Ot K22.0 ACHALASIA OF CARDIA 01/29/2020 MYRIAM MURILLO MD, Ot K29.70 GASTRITIS, UNSPECIFIED, WITHOUT BLEEDING 01/29/2020 MYRIAM MURILLO MD, Ot K44.9 DIAPHRAGMATIC HERNIA WITHOUT OBSTRUCTION 01/29/2020 MYRIAM MURILLO MD, Ot Z79.89 9 OTHER CENTER MGR (CURRENT) DRUG THERAPY 01/29/2020 MYRIAM MURILLO MD Ot Z82.3 FAMILY HISTORY OF STROKE 01/29/2020 MYRIAM MURILLO MD, Ot Z88.0 ALLERGY STATUS TO PENICILLIN 01/29/2020 MYRIAM MURILLO MD, Ot Z88.1 ALLERGY STATUS TO OTHER ANTIBIOTIC AGENT 01/29/2020 MYRIAM MURILLO MD, Ot Z88.2 ALLERGY STATUS TO SULFONAMIDES STATUS 01/29/2020 MYRIAM MURILLO MD, Ot Z90.49 ACQUIRED ABSENCE OF OTHER SPECIFIED PART 01/29/2020 MYRIAM MURILLO MD, Ot Z90.89 ACQUIRED ABSENCE OF OTHER ORGANS 01/29/2020 MYRIAM MURILLO MD, Ot Z91.04 8 OTHER NONMEDICINAL SUBSTANCE ALLERGY STA 02/08/2020 KING ROSANNA Rod PERDOMO Ot M17.12 UNILATERAL PRIMARY OSTEOARTHRITIS, LEFT 02/08/2020 YURI BALDERAS MD, Ot M25.512 PAIN IN LEFT SHOULDER 02/08/2020 YURI BALDERAS MD, Ot E11 .9 TYPE 2 DIABETES MELLITUS WITHOUT COMPLIC 02/08/2020 YURI BALDERAS MD, Ot R22.32 LOCALIZED SWELLING, MASS AND LUMP, LEFT 02/08/2020 MYRIAM MURILLO MD, Ot K44.9 DIAPHRAGMATIC HERNIA WITHOUT OBSTRUCTION 02/08/2020 MYRIAM MURILLO MD, Ot R47.02 DYSPHASIA Procedures There is no data. Results Test Result Range Urinalysis - 03/25/17 17:50 Icotest N/A Negative Urine Volume Urine Volume Sufficient (10mL) Urine Yeast Yeast Present Urine-Appearance Clear Clear Urine-Bacteria Trace Urine-Bilirubin Negative Negative Urine-Blood Negative Negative Urine-Color Yellow Colorless-Lt. [place] ow Urine-Epithelial Cells 0-5/HPF Urine-Glucose 2+ Negative Urine-Ketones Negative Negative Urine-Leukocytes Negative Negative Urine-Nitrite Negative Negative Urine-Other Urine Saved if Culture Need ed (48hrs from time of collection) Urine-pH 6.0 5-8.5 Urine-Protein Negative Negative Urine-RBC 0-2/HPF Urine-Specific [place] 1.020 1.000-1 .030 Urine-WBC 0-2/HPF Urobilinogen 0.2 [...] Negative Urine-Blood Negative Negative Urine-Color Yellow Colorless-Lt. [place] ow Urine-Epithelial Cells 0-5/HPF Urine-Glucose Negative Negative Urine-Ketones Negative Negative Urine-Leukocytes Negative Negative Urine-Nitrite Negative Negative Urine-Other Urine Saved if Culture Need ed (48hrs from time of collection) Urine-pH 5.5 5-8.5 Urine-Protein Negative Negative Urine-RBC Negative Urine-Specific [place] 1.025 1.000-1 .030 Urine-WBC Negative Urobilinogen 0.2 [...] - 05/22/17 08:36 Surg Path Sent to [place] [facility] EKG - 05/22/17 09:31 EKG Complete Protime - 02/06/18 14:35 INR 1.0 1.0-4.0 Protime 11.5 Sec 9.9-12.8 EKG - 02/06/18 14:36 EKG Complete Surgical Pathology - 02/12/18 08:24 Surg Path Sent to [place] [facility] Lipase - 07/17/18 15:50 Lipase 20 [...] FOR INFLUENZA A AND B ANTIGENS BY [facility] Complete blood count (CBC) with automate d [...] TESTOSTERONE 0.4 pg/mL 0.1-6.4 Coronavirus SARS-CoV-2 SO 2019 - 0 08:25 Coronavirus Ab [Units/volume] in [...] TIVE Urine propoxyphene detection NEGATIVE N EGATIVE Coronavirus SARS-CoV-2 SO 2018 0 07:50 Coronavirus Ab [Units/volume] in Serum Negative Negative Coronavirus SARS-CoV-2 SO 2018 0 08:15 Coronavirus Ab [Units/volume] in Serum NOT DETECTE D Not Detecte Encounters ACCT No. Visit Date/Time Discharge Status Pt. Type Provider Facility Loc./Unit Complaint [id number] 12/03/2019 10:15:00 12/03/2019 23:59: 59 CLS Outpatient BALDERASYURI [facility] [id number] 12/03/2019 10:15:00 Document Registration [id number] 04/16/2019 09:20:00 Document Registration [id number] 01/05/2019 15:45:00 Document Registration [id number] 11/14/2018 14:40:00 Document Registration [id number] 10/09/2018 15:40:00 Document Registration [email or web address] 12/20/2018 09:08:59 ACT Document Registration [id number] 09/23/2018 10:44:50 9 23:59:[address] [facility] SAMIR Surgery ops [id number] 02/09/2020 05:32:00 08:29:00 DIS Outpatient MYRIAM MURILLO MD [facility] PREOP EGD [id number] 01/27/2020 08:21:00 11:10:00 DIS Outpatient MYRIAM MURILLO MD [facility] ENDO DYSPHAGIA,REFLUX. [id number] 01/25/2020 05:30:00 11:01:00 DIS Outpatient MYRIAM MURILLO MD [facility] PREOP DYSPHAGIA,REFLUX [id number] 01/03/2020 23:08:00 01:16:00 DIS Emergency NADIYA GO DO [facility] ER DIZZINESS [id number] 12/23/2019 11:43:00 17:00:00 DIS Outpatient MYRIAM MURILLO MD [facility] ENDO DYSPHAGIA [id number] 12/21/2019 05:36:00 15:10:00 DIS Outpatient MYRIAM MURILLO MD [facility] PREOP EGD [id number] 12/18/2019 10:38:00 23:59:59 CLS Outpatient MYRIAM MURILLO MD [facility] RAD DYSPAHGIA [id number] 11/04/2019 10:18:00 13:45:00 DIS Outpatient MYRIAM MURILLO MD [facility] ENDO DYSPHAGIA [id number] 10/16/2019 15:08:00 15:56:00 DIS Emergency DIANNA MARINELLI DO [facility] ER FS FINGER LACERATION [id number] 09/11/2019 21:07:00 22:57:00 DIS Emergency DORIS XAVIER APRN [facility] ER CHEST PAIN [id number] 07/27/2019 11:54:00 23:59:59 CLS Outpatient YURI BALDERAS MD [facility] RAD FS R22.32 E11.9 [id number] 05/22/2019 08:40:00 20:30:00 DIS Outpatient BASHIR CHAVES MD [facility] CATH CP R/O ACS [id number] 05/20/2019 14:17:00 23:59:59 CLS Outpatient YURI BALDERAS MD [facility] RAD FS M25.512 [id number] 05/15/2019 16:18:00 14:26:00 DIS Inpatient BASHIR CHAVES MD [facility] 4TH INTRACTABLE CHEST PAIN [id number] 11/13/2018 20:38:00 06:10:00 DIS Outpatient STAR TOUSSAINT DO Via [facility] SLEEP G47.33 RUBY [id number] 11/04/2018 13:25:00 23:59:59 CLS Outpatient ROSANNA HOLLIDAY [facility] RAD FS M25.562 [id number] 10/29/2018 07:55:00 23:59:59 CLS Emergency ARRON NADIRA OHARA [facility] ER FS FALL [id number] 02/11/2020 09:30:00 P DANIELLE MURILLO MD, MYRIAM [facility] ENDO [place] [id number] 02/16/2019 14:18:00 02/16/2019 15:37: [address] [facility] ER [id number] 09/25/2018 10:27:00 09/25/2018 23:59: 00 DIS Outpatient Sandro Fernández [id number] 07/24/2018 14:13:00 07/24/2018 23:59: 00 DIS Outpatient Sandro Fernández [id number] 07/24/2018 13:22:00 07/24/2018 23:59: 00 DIS Outpatient Sandro Fernández [id number] 07/17/2018 15:09:00 07/17/2018 16:45: 00 DIS Outpatient Doris Xavier Ver[facility] C enter ER [id number] 06/11/2018 20:43:00 06/11/2018 22:20: 00 DIS Outpatient SUPA PERALTA [facility] ER [id number] 02/12/2018 06:46:00 02/12/2018 09:15: 00 DIS Outpatient Star Toussaint [id number] 02/06/2018 15:19:00 02/06/2018 23:59: 00 DIS Outpatient UNLISTED ROSHANMARYA [id number] 02/06/2018 13:17:00 02/06/2018 23:59: 00 DIS Outpatient NorbertPedro briggscarrol [id number] 05/22/2017 07:43:00 05/22/2017 10:23: 00 DIS Outpatient Star Toussaint [id number] 05/16/2017 10:58:00 05/16/2017 23:59: 00 DIS Outpatient Norbert, Star [id number] 05/07/2017 14:16:00 05/07/2017 23:59: 00 DIS Outpatient CHERRIE CEDENO [id number] 04/18/2017 15:29:00 04/18/2017 17:25: 00 DIS Outpatient Rudi [facility] ER [id number] 03/25/2017 16:09:00 03/25/2017 23:05: 00 [id number] 03/15/2017 00:52:00 03/15/2017 01:30: 00 DIS Outpatient Doris Xavier Verón[facility] [place] [id number] 03/25/2017 17:33:25 Document Registration [id number] 07/03/2017 12:55:24 07/03/2017 23:59:59 CLS Outpatient [id number] 07/03/2017 12:55:10 07/03/2017 23:59:59 CLS Outpatient [id number] 05/21/2017 09:39:44 05/21/2017 09:39:44 DIS Outpatient [id number] 05/21/2017 09:39:30 05/21/2017 09:39:30 DIS Outpatient [id number] 05/20/2017 10:48:23 05/20/2017 10:48:23 DIS Outpatient [id number] 05/16/2017 07:50:26 05/16/2017 23:59:59 CLS Outpatient [id number] 05/16/2017 07:50:25 05/16/2017 23:59:59 CLS Outpatient [id number] 05/16/2017 07:50:10 05/16/2017 07:50:11 DIS Outpatient [id number] 12/19/2018 20:05:[address] MD
[2020-02-12] MEDS ORDERED: NS IV 500 ML 500 ML ONE (09:59)
[2020-02-12] MEDS ORDERED: NS IV 500 ML 500 ML IV PRN (10:03)
[2020-02-12] MEDS ORDERED: fentaNYL INJECTION 100 MCG/2 ML AMP IVP ONE ×2 (10:15→14:30)
[2020-02-12] MEDS ORDERED: LIDOCAINE JELLY 2% 6 ML SYRINGE MM PRN (10:15)
--- NOTE | 2020-02-12 10:50 | Conscious Sedation/ASA ---
Conscious Sedation Pre-Proced Time 10:45 ASA Score 2 For ASA 3 and 4: Consider anesthesia and medical clearance. Also, for patients with a history of failed moderate sedation consider anesthesia. Airway Lungs Heart ASA score ASA 1: a normal healthy patient ASA 2: a patient with a mild systemic disease (mid diabetes, controlled hypertension, obesity ASA 3: a patient with a severe systemic disease that limits activity (angina, COPD, prior Myocardial infarction) ASA 4: a patient with an incapacitating disease that is a constant threat to life (CHF, renal failure) ASA 5: a moribund patient not expected to survive 24 hrs. (ruptured aneurysm) ASA 6: a declared brain- patient whose organs are being harvested. For emergent operations, add the letter E after the classification Mallampati Classification Grade 2 Sedation Plan Analgesia, Amnesia, Plan communicated to team members, Discussed options with patient/fam, Discussed risks with patient/fam The patient is an appropriate candidate to undergo the planned procedure, sedation, and anesthesia. The patient immediately re-assessed prior to indication. MYRIAM MURILLO MD Feb 12, 2020 10:50
--- NOTE | 2020-02-12 10:51 | Progress Note-Pre Operative ---
Pre-Operative Progress Note H&P Reviewed The H&P was reviewed, patient examined and no changes noted. Date Seen by Provider: Feb 12, 2020 Time Seen by Provider: 10:45 Date H&P Reviewed: Feb 12, 2020 Time H&P Reviewed: 10:45 Pre-Operative Diagnosis: achalasia MYRIAM MURILLO MD Feb 12, 2020 10:51
--- NOTE | 2020-02-12 10:53 | Discharge Inst-Surgical ---
D/C Lap Instructions-LIDIA Follow Up Activity as tolerated High Fiber Diet 25g or more per day Avoid Alcohol, Caffeine, Spicy [place] and Acid foods. Drink 64 fluid oz or more of fluids per day. Symptoms to Report: Fever over 101 degree F, Nausea/Vomiting If any problems/questions: Contact your physician or go to Emergency Room MYRIAM MURILLO MD Feb 12, 2020 10:52
[2020-02-12] MEDS ORDERED: ONDANSETRON 4 MG/2 ML (SDV) Z0FRAN IVP PRN (11:00)
[2020-02-12] MEDS ORDERED: morphine INJ 10 MG/ML 1ML (SYR OR VIAL) IVP PRN ×2 (11:00)
[2020-02-12] MEDS ORDERED: fentaNYL INJECTION 100 MCG/2 ML AMP ONE ×3 (11:30→13:26)
[2020-02-12] MEDS ORDERED: MIDAZOLAM 5 MG/5 ML (VERSED) VIAL ONE ×3 (11:30→12:10)
[2020-02-12] MEDS ORDERED: LIDOCAINE JELLY 2% 6 ML SYRINGE ONE (11:30)
[2020-02-12] MEDS: MIDAZOLAM 5 MG/5 ML (VERSED) VIAL IV PRN ×10 (11:35→12:17)
--- NOTE | 2020-02-12 12:37 | Progress Note-Post Operative ---
Post-Operative Progess Note Surgeon (s)/Ceramic Designer (s) Surgeon MYRIAM MURILLO MD Ceramic Designer: none Pre-Operative Diagnosis achalasia Post-Operative Diagnosis same Procedure & Operative Findings Date of Procedure 02/12/20 Procedure Performed/Findings EGD with achalasia balloon dilatation. Anesthesia Type cs Estimated Blood Loss Estimated blood loss (mL): minimal Specimens/Packing Specimens Removed none MYRIAM MURILLO MD Feb 12, 2020 12:37
[2020-02-12] MEDS ORDERED: HYDROmorphone 2 MG/ML VIAL (DILAUDID) IV ONE (13:30)
[2020-02-12] MEDS ORDERED: fentaNYL INJECTION 100 MCG/2 ML AMP IVP PRN (13:32)
--- NOTE | 2020-02-12 13:35 | NUR ---
PT GIVEN 100MCG FENTANYL PER ORDER OF DR MURILLO FOR PAIN, SENT HOME WITH RX FOR PAIN MEDICATION.
--- NOTE | 2020-02-12 13:55 | NUR ---
AT TIME OF D/C PT VERBALIZED PAIN IS LESS THAN BEFORE GETTING PAIN MEDICATION. PT DID HAVE A SNOW CONE.
--- NOTE | 2020-02-12 22:22 | OPERATIVE REPORT ---
DATE OF SERVICE: 02/12/2020 ATTENDING PRIMARY CARE PHYSICIAN: Dr. Billie Mcghee. PREOPERATIVE DIAGNOSIS: Symptomatic achalasia. POSTOPERATIVE DIAGNOSIS: Symptomatic achalasia. PROCEDURE: EGD with balloon dilatation with an achalasia balloon. SURGEON: Myriam Murillo MD. ANESTHESIA: Conscious sedation. ESTIMATED BLOOD LOSS: Minimal. FINDINGS: Hypertonic lower esophageal sphincter tone. We were able to dilate to 35 mm in luminal diameter. DISPOSITION: The patient tolerated the procedure well. INDICATIONS: The patient is a 54-year-old female with a long-standing history of dysphagia and gastroesophageal reflux disease for greater than 25 years. She underwent an EGD as well as dilatation with a standard balloon on 11/04/2019, however, she had recurrent dysphagia. She was then referred over to gastroenterology where a manometry study was performed, which did show a resting lower esophageal sphincter pressure of 89.4 mmHg and would not relax with swallows and consistent with achalasia. She underwent a dilatation with a specific achalasia balloon to 30 mm in diameter and was also started on Cardizem as a smooth muscle relaxant. She has had recurrent dysphagia. DESCRIPTION OF PROCEDURE: The patient was brought to the endoscopy suite, laid in the left lateral decubitus position with head slightly elevated. After adequate IV pain and sedative medications and conscious sedation anesthesia, the mouthpiece was applied. The endoscope was placed in the mouth, visualizing the pharynx and hypopharyngeal region. Vocal cords, epiglottis and vallecula identified and appeared to be normal. The achalasia balloon was then directed under direct visualization using the endoscope and the achalasia balloon connected to wire snare and intubated in the esophageal opening and placed into the stomach. The achalasia balloon was then pulled back to the area of the lower esophageal sphincter and insufflated with air until we reached 2.5 atmospheres of pressure approximately 35 mm in luminal diameter and left this in place for 60 seconds. The balloon was then desufflated and removed with visualization of good hemostasis as well as no mucosal tears. The endoscope was then slowly withdrawn while taking a second look and suctioning of residual air with no additional findings. The patient tolerated the procedure well. We will await and see if her symptoms return. If so, we feel that she is going to need further therapy, which may include a botulinum toxin injection for which we will refer her to a kick plate installer; however, if she continues to fail more conservative therapy, she may need a Heller myotomy. Job ID: [id number] DocumentID: [id number] Dictated Date: 02/12/2020 12:27:05 Crisis Intervention Specialist Date: 02/12/2020 22:21:16 Dictated By: MYRIAM MURILLO MD
[2020-02-15] MEDS: HURRICAINE EXT TUBE (BENZOCAINE) XX PRN ×2 (11:28→11:45)
== END 2020-02-12 13:55 | disposition home or self-care (01) ==
LOC: ENDO 09:44
PROVIDERS: ATTEND Surgery
DX: K22.0 Achalasia of cardia (principal); K21.9 Gastro-esophageal reflux disease without esophagitis; F41.9 Anxiety disorder, unspecified; J45.909 Unspecified asthma, uncomplicated; E11.9 Type 2 diabetes mellitus without complications; I10 Essential (primary) hypertension; G47.00 Insomnia, unspecified; Z79.899 Other long term (current) drug therapy; Z79.51 Long term (current) use of inhaled steroids; Z79.84 Long term (current) use of oral hypoglycemic drugs; Z88.0 Allergy status to penicillin; Z88.1 Allergy status to other antibiotic agents; Z91.048 Other nonmedicinal substance allergy status; Z88.2 Allergy status to sulfonamides; Z88.8 Allergy status to other drugs, medicaments and biological substances; Z90.710 Acquired absence of both cervix and uterus; Z90.49 Acquired absence of other specified parts of digestive tract; Z90.722 Acquired absence of ovaries, bilateral
CPT/HCPCS: 82962

== ENCOUNTER → 2020-02-16 | Outpatient (CLI) | payer MEDICARE, OTHER, MEDICAID ==
--- NOTE | 2020-02-16 14:42 | Diagnostic Imaging Report ---
INDICATION: Back pain. Time of exam 1:53 PM Alignment is normal. Vertebral body heights are maintained. No acute compression fracture is identified. Pedicles and paraspinous line are intact. There is some mild generalized thoracic spondylosis. IMPRESSION: No acute bony abnormality is detected. Dictated by: Dictated on workstation # [id number]
[2020-02-16 15:18] LABS: BILIRUBIN,TOTAL 0.6 MG/DL (0.1-1.0); CALCIUM 9.9 MG/DL (8.5-10.1); CREATININE SERUM 1.06 MG/DL (0.60-1.30); POTASSIUM 3.7 MMOL/L (3.6-5.0); TOTAL PROTEIN 7.6 GM/DL (6.4-8.2)
== END ==
LOC: LAB FS 13:46
PROVIDERS: ATTEND Family Medicine
DX: M54.6 Pain in thoracic spine (principal); E11.9 Type 2 diabetes mellitus without complications
CPT/HCPCS: 36415; 72070; 80053; 80061; 82043; 83036

== ENCOUNTER → 2020-04-15 | Outpatient (CLI) | payer MEDICARE, OTHER, MEDICAID ==
[~2020-04-15] MED LIST changes: -PANT40TA3 PO; +PANT40TA52 PO
--- NOTE | 2020-04-15 15:32 | Diagnostic Imaging Report ---
EXAM: MRI thoracic spine w/o con INDICATION: Back pain. COMPARISON: Thoracic spine radiographs 02/16/2020. FINDINGS: Normal alignment. Vertebral body heights preserved. Scattered benign hemangiomas. Bone marrow signal is unremarkable. There are several tiny disc protrusions in the mid to lower thoracic spine which result in no substantial spinal canal stenosis. No neural foraminal narrowing. No abnormal signal in the thoracic spinal cord. The visualized paravertebral soft tissues are unremarkable. IMPRESSION: Mild spondylotic changes result in no high-grade neural impingement. No acute osseous findings. Dictated by: Dictated on workstation # [id number]
== END ==
LOC: RAD 13:20
PROVIDERS: ATTEND Nurse Practitioner
DX: M47.814 Spondylosis without myelopathy or radiculopathy, thoracic region (principal)
CPT/HCPCS: 72146

== ENCOUNTER → 2020-06-30 | Outpatient (CLI) | payer MEDICARE, OTHER, MEDICAID ==
[2020-06-30 10:28] LABS: ALANINE AMINOTRANSFERASE 19 U/L (0-55); ALKALINE PHOSPHATASE 92 U/L (40-136); BILIRUBIN,TOTAL 0.3 MG/DL (0.1-1.0); BUN/CREATININE RATIO 30; CALCIUM 10.2 MG/DL (8.5-10.1); CARBON DIOXIDE 25 MMOL/L (21-32); CHLORIDE 102 MMOL/L (98-107); CREATININE SERUM 0.64 MG/DL (0.60-1.30); GFR ESTIMATED > 60; GLUCOSE 251 MG/DL (70-105); POTASSIUM 4.3 MMOL/L (3.6-5.0); SODIUM 137 MMOL/L (135-145); TOTAL PROTEIN 7.1 GM/DL (6.4-8.2)
[2020-06-30 10:29] LABS: ALBUMIN 3.8 GM/DL (3.2-4.5)
[2020-06-30 15:00] LABS: CHOLESTEROL 157 MG/DL (< 200); HDL CHOLESTEROL 51 MG/DL (40-60); TRIGLYCERIDES 146 MG/DL (<150); VLDL CHOLESTEROL 29 MG/DL (5-40)
[2020-07-04 14:00] LABS: HEPATITIS C ANTIBODY C Non-Reactive (Non-Reactive)
== END ==
LOC: LAB FS 08:58
PROVIDERS: ATTEND Family Medicine
DX: Z11.59 Encounter for screening for other viral diseases (principal); E11.9 Type 2 diabetes mellitus without complications
CPT/HCPCS: 36415; 80053; 80061; 82043; 83036; 86803

== ENCOUNTER 2020-09-26 12:06 | Outpatient (RCR) | payer MEDICARE, OTHER, MEDICAID ==
[~2020-09-26] VITALS: Ht 170.2 cm; Wt 109.9 kg
[~2020-09-26 12:06] MED LIST changes: -CLIN150C17 PO; +CLIN150C18 PO; +SERT-414 PO; -SERT100T8 PO
[2020-09-26] MEDS ORDERED: NFBIOT1000 PO (13:03)
[2020-09-26] MEDS ORDERED: CYAN250014 PO (13:03)
[2020-09-26] MEDS ORDERED: CALC-823 PO (13:03)
[2020-09-26] MEDS ORDERED: MULT-974 PO (13:03)
== END 2020-09-26 13:15 | disposition home or self-care (01) ==
LOC: PREOP 12:06
PROVIDERS: ATTEND Surgery
DX: Z01.818 Encounter for other preprocedural examination (principal)

== ENCOUNTER 2020-09-28 10:58 | Day surgery (SDC) | payer MEDICARE, OTHER, MEDICAID ==
[~2020-09-28] VITALS: Ht 170.2 cm; Wt 109.9 kg
[~2020-09-28 10:58] MED LIST changes: +CALC-823 PO; +CYAN250014 PO; +MULT-974 PO; +NFBIOT1000 PO
[2020-09-28] MEDS ORDERED: LACTATED RINGERS 1,000 ML IV ONE (11:08)
[2020-09-28] MEDS ORDERED: LACTATED RINGERS 1,000 ML IV STA (11:08)
[2020-09-28] MEDS ORDERED: LIDOCAINE JELLY 2% 6 ML SYRINGE MM PRN (11:15)
[2020-09-28] MEDS ORDERED: HURRICAINE EXT TUBE (BENZOCAINE) XX PRN (11:15)
[2020-09-28] MEDS ORDERED: MIDAZOLAM 2 MG/2 ML (VERSED) VIAL ONE (11:31)
[2020-09-28] MEDS ORDERED: PROPOFOL INJECTION 50 ML IV ONE ×2 (11:31→12:48)
[2020-09-28 11:35] VITALS: BP 140/78
[2020-09-28] MEDS ORDERED: LIDOCAINE JELLY 2% 6 ML SYRINGE ONE (12:21)
[2020-09-28] MEDS ORDERED: HURRICAINE EXT TUBE (BENZOCAINE) ONE (12:21)
--- NOTE | 2020-09-28 12:26 | Progress Note-Pre Operative ---
Pre-Operative Progress Note H&P Reviewed The H&P was reviewed, patient examined and no changes noted. Date Seen by Provider: Sep 28, 2020 Time Seen by Provider: 12:00 Date H&P Reviewed: Sep 28, 2020 Time H&P Reviewed: 12:00 Pre-Operative Diagnosis: sx achalasia MYRIAM MURILLO MD Sep 28, 2020 12:26
--- NOTE | 2020-09-28 12:28 | Discharge Inst-Surgical ---
D/C Lap Instructions-LIDIA Follow Up PRN Activity as tolerated High Fiber Diet 25g or more per day Avoid Alcohol, Caffeine, Spicy [place] and Acid foods. Drink 64 fluid oz or more of fluids per day. Symptoms to Report: Fever over 101 degree F, Nausea/Vomiting If any problems/questions: Contact your physician or go to Emergency Room MYRIAM MURILLO MD Sep 28, 2020 12:28
[2020-09-28] MEDS ORDERED: ONDANSETRON 4 MG/2 ML (SDV) Z0FRAN IVP PRN (12:30)
[2020-09-28] MEDS ORDERED: morphine INJ 10 MG/ML 1ML (SYR OR VIAL) IVP PRN ×2 (12:30)
[2020-09-28 13:12] VITALS: BP 129/65
[2020-09-28 13:15] VITALS: BP 135/78
[2020-09-28 13:45] VITALS: BP 132/76
--- NOTE | 2020-09-28 13:47 | Anesthesia-General Post-Op ---
MAC Patient Condition Mental Status/LOC: Same as Preop Cardiovascular: Satisfactory Nausea/Vomiting: Absent Respiratory: Satisfactory Pain: Controlled Complications: Absent Post Op Complications Complications None Follow Up Care/Instructions Patient Instructions None needed. Anesthesiology Discharge Order Discharge Order Patient is doing well, no complaints, stable vital signs, no apparent adverse anesthesia problems. No complications reported per nursing. JAZMIN CASANOVA CRNA Sep 28, 2020 13:47
[2020-09-28 14:00] VITALS: BP 132/76
--- NOTE | 2020-09-28 18:42 | OPERATIVE REPORT ---
DATE OF SERVICE: 09/28/2020 ATTENDING PRIMARY CARE PHYSICIAN: Dr. Billie Mcghee. PREOPERATIVE DIAGNOSIS: Symptomatic achalasia. POSTOPERATIVE DIAGNOSIS: Symptomatic achalasia. PROCEDURE: EGD with biopsy and balloon dilatation to 35 mm diameter. SURGEON: Myriam Murillo MD ANESTHESIA: Monitored anesthesia care. ESTIMATED BLOOD LOSS: Minimal. FINDINGS: Reflux esophagitis stage II, small hiatal hernia approximately 1.5 cm in size. No distal obstructions. DISPOSITION: The patient tolerated the procedure well. INDICATIONS: The patient is a 54-year-old female with longstanding history of dysphagia and gastroesophageal reflux disease for greater than 25 years. She underwent an EGD with dilatation with a standard balloon on 11/04/2019, however, has had recurrent dysphagia. She was then referred to gastroenterology where a manometry study was performed, which did show resting lower esophageal sphincter of 89.4 mmHg and would not relax with swallows and consistent with achalasia. She then underwent dilatation with a specific achalasia balloon to 35 mm in diameter and was also started on Cardizem. The last time we did a dilatation on her was back in 02/2020. She has had recurrent dysphagia. DESCRIPTION OF PROCEDURE: The patient was brought to the endoscopy suite, laid in left lateral decubitus position with head slightly elevated. After adequate IV pain and sedative medications and monitored anesthesia care, the mouthpiece was applied. The endoscope was placed in the mouth, visualizing the pharynx and hypopharyngeal region. Vocal cords, epiglottis and vallecula identified and appeared to be normal. Endoscope was then intubated esophageal opening and esophagus insufflated. The endoscope was then advanced to the first, second and third portion of esophagus at the level of the GE junction, a hypertonic lower esophageal sphincter was once again identified. There was a reflux esophagitis stage II, no ulcers or strictures. A biopsy was taken of the GE junction with forceps with visualization of good hemostasis. The endoscope was then advanced in the stomach and endoscope retroflexed, visualizing a small hiatal hernia approximately 1.5 to 2 cm in size. There was a mild to moderate gastritis. A biopsy was taken of the antrum to rule out H. pylori with visualization of good hemostasis. Endoscope was then advanced to the pylorus and the first and second portion of the duodenum, which appeared normal with no distal obstructions. The endoscope was then taken out and the achalasia balloon was then placed on the end of the scope using a snare and directed into the esophagus and into the stomach. The balloon was then pulled back to the area of the lower esophageal sphincter and the balloon insufflated slowly until we reached the fullness of the balloon at 35 mm in diameter or approximately 60 mL of air. This was left in place for 2 minutes. The balloon was then desufflated and removed with visualization of good hemostasis as well as no mucosal tears. Endoscope was then slowly withdrawn while taking a second look and suctioning of residual air with no additional findings. The patient tolerated the procedure well. We will have her continue with medical management for the achalasia and have her return once she does become symptomatic again for repeat dilatation. Job ID: [id number] DocumentID: [id number] Dictated Date: 09/28/2020 13:13:11 Dukey Rider Date: 09/28/2020 18:41:26 Dictated By: MYRIAM MURILLO MD
== END 2020-09-28 14:00 | disposition home or self-care (01) ==
LOC: ENDO 10:58
PROVIDERS: ATTEND Surgery
DX: K22.0 Achalasia of cardia (principal); K29.50 Unspecified chronic gastritis without bleeding; K21.00 Gastro-esophageal reflux disease with esophagitis, without bleeding; K44.9 Diaphragmatic hernia without obstruction or gangrene; I10 Essential (primary) hypertension; J45.909 Unspecified asthma, uncomplicated; G47.33 Obstructive sleep apnea (adult) (pediatric); K21.9 Gastro-esophageal reflux disease without esophagitis; E11.9 Type 2 diabetes mellitus without complications; F41.9 Anxiety disorder, unspecified; G47.00 Insomnia, unspecified; Z79.899 Other long term (current) drug therapy; Z88.0 Allergy status to penicillin; Z88.2 Allergy status to sulfonamides; Z88.8 Allergy status to other drugs, medicaments and biological substances; Z88.1 Allergy status to other antibiotic agents; Z91.048 Other nonmedicinal substance allergy status; Z87.442 Personal history of urinary calculi
CPT/HCPCS: 88305

== ENCOUNTER → 2020-10-24 | Outpatient (CLI) | payer MEDICARE, OTHER, MEDICAID ==
[2020-10-24 12:10] LABS: ALANINE AMINOTRANSFERASE 29 U/L (0-55); ALBUMIN 3.7 GM/DL (3.2-4.5); ALKALINE PHOSPHATASE 60 U/L (40-136); BILIRUBIN,TOTAL 0.5 MG/DL (0.1-1.0); BUN/CREATININE RATIO 10; CALCIUM 9.5 MG/DL (8.5-10.1); CARBON DIOXIDE 25 MMOL/L (21-32); CHLORIDE 103 MMOL/L (98-107); CHOLESTEROL 176 MG/DL (< 200); CREATININE SERUM 0.81 MG/DL (0.60-1.30); GFR ESTIMATED > 60; GLUCOSE 143 MG/DL (70-105); HDL CHOLESTEROL 44 MG/DL (40-60); POTASSIUM 4.1 MMOL/L (3.6-5.0); SODIUM 139 MMOL/L (135-145); TOTAL PROTEIN 6.9 GM/DL (6.4-8.2); TRIGLYCERIDES 104 MG/DL (<150); VLDL CHOLESTEROL 21 MG/DL (5-40)
== END ==
LOC: LAB 11:11
PROVIDERS: ATTEND Family Medicine
DX: E78.5 Hyperlipidemia, unspecified (principal); E11.9 Type 2 diabetes mellitus without complications
CPT/HCPCS: 36415; 80053; 80061; 83036

== ENCOUNTER → 2021-06-05 | Outpatient (CLI) | payer MEDICARE, OTHER ==
[~2021-06-05] MED LIST changes: -CLIN150C18 PO; +CLIN150C20 PO
--- NOTE | 2021-06-05 14:46 | Diagnostic Imaging Report ---
PROCEDURE: Pelvic complete, transabdominal and transvaginal sonogram. Limited pelvic doppler. TECHNIQUE: Multiple real-time grayscale images were obtained of the pelvis in various projections transabdominally and transvaginally. Limited pelvic duplex images were obtained. HISTORY: CYST OF OVARY COMPARISON: CT 10/29/2018 FINDINGS: Uterus: The uterus is surgically absent. Adnexa: The ovaries are surgically absent. No adnexal mass is present. Other: There is no free fluid within the pelvis. IMPRESSION: 1. Surgical changes from prior hysterectomy. No adnexal mass. Dictated by: Dictated on workstation # [id number]
--- NOTE | 2021-06-06 09:08 | Diagnostic Imaging Report ---
EXAMINATION: Digital mammogram bilateral screening with CAD. INDICATION: Screening. COMPARISON: This study was compared to the prior exam of 09/17/2019. PERSONAL HISTORY: At this time, there are no current complaints. FINDINGS: There are scattered fibroglandular densities in both breasts which could obscure a lesion. Overall, there does not appear to have been any significant change when compared to the prior exam. No primary or secondary sign of malignancy is noted. IMPRESSION: There is no radiographic evidence for malignancy. ACR BI-RADS Category 1: Negative. Result letter will be mailed to the patient. Note: At least 10% of breast cancer is not imaged by mammography. Dictated on workstation # [id number]
== END ==
LOC: RAD 13:00
PROVIDERS: ATTEND Family Medicine
DX: Z12.31 Encounter for screening mammogram for malignant neoplasm of breast (principal); N83.209 Unspecified ovarian cyst, unspecified side; Z90.710 Acquired absence of both cervix and uterus
CPT/HCPCS: 76830; 76856; 77063; 77067

== ENCOUNTER → 2021-07-05 | Outpatient (CLI) | payer MEDICARE, OTHER | LOC: LABNPT 15:31 | PROVIDERS: ATTEND Family Medicine | DX: U07.1 COVID-19 (principal) | CPT/HCPCS: 87636 ==

== ENCOUNTER 2021-07-08 08:06 | Emergency (ER) | payer MEDICARE, OTHER ==
[~2021-07-08] VITALS: Ht 170 cm; Wt 99.7 kg
[2021-07-08] MEDS ORDERED: NS IV 1000 ML 1,000 ML IV SCH (08:30)
[2021-07-08] MEDS ORDERED: KETOROLAC 30 MG/ML VIAL IVP ONE (08:30)
[2021-07-08] MEDS ORDERED: ONDANSETRON 4 MG/2 ML (SDV) Z0FRAN IVP ONE (08:30)
--- NOTE | 2021-07-08 08:34 | ED Respiratory ---
General Chief Complaint: COVID19 Suspect/Confirmed Stated Complaint: COVID +/FLU B +/ SOA/COUGH/CHEST PAIN Source: patient Exam Limitations: no limitations History of Present Illness Date Seen by Provider: Jul 08, 2021 Time Seen by Provider: 08:26 Initial Comments Patient is a 55-year-old female with a history of diabetes and obesity who presents to the emergency department today with a chief complaint of body aches, nausea, shortness of breath, productive cough. Patient states onset of symptoms Saturday of this week, 5 days ago. She states she went to her primary care physician's office Dr. Balderas and had a test for Covid and influenza on Saturday, was called on Saturday with positive influenza B and Covid results. Patient states she is not really been taking anything at home for her symptoms. She endorses decreased appetite. She has feelings of generalized malaise and weakness. Today woke up much more short of breath than she had prior. She is not checking her oxygen levels at home. She is scheduled for [facility] infusion on Saturday. She also complains of diarrhea. No burning with urination. No swelling in her legs, no history of blood clot. She is not Covid vaccinated. All other review of systems reviewed and negative except as stated Timing/Duration: week, getting worse Severity: moderate Prior Episodes/Possible Cause: illness exposure Modifying Factors: Worse With Activity, Worse With Coughing; Improves With Rest Associated Symptoms: chest pain/soreness, cough, headache, lightheadedness, muscle aches, nasal congestion, nasal drainage, shortness of breath, sore throat Allergies and Home Medications Allergies Coded Allergies: Cephalexin Monohydrate (Unverified Allergy, Intermediate, BLISTERS AROUND LIPS, 08/10/11) Penicillins (Unverified Allergy, Intermediate, BLISTERS AROUND LIPS, 08/10/11) cefaclor (Unverified Allergy, Intermediate, BLISTERS AROUND LIPS, 08/10/11) tetracycline (Unverified Allergy, Intermediate, BLISTERS AROUND LIPS, 08/10/11) Sulfa (Sulfonamide Antibiotics) (Verified Allergy, Unknown, 10/29/18) montelukast (Verified Allergy, Unknown, 10/29/18) walnut (Unverified Adverse Reaction, Intermediate, SOA, hives, 05/15/19) acetaminophen (Unverified Adverse Reaction, Mild, Itching, 05/15/19) meloxicam (Unverified Adverse Reaction, Mild, rash, 05/15/19) metformin (Unverified Adverse Reaction, Mild, diarrhea, 05/15/19) oxycodone (Unverified Adverse Reaction, Mild, Itching, pt has rec Lortab & Morphine in the past, 11/04/19) pregabalin (Unverified Adverse Reaction, Unknown, 05/15/19) Uncoded Allergies: CLEAR PLASTIC TAPE (Allergy, Intermediate, HIVES, 08/10/11) Hymenoptera Allergenic Extract (Adverse Reaction, Mild, hives, 05/15/19) Patient Home Medication List Home Medication List Reviewed: Yes Biotin (Biotin) 1,000 Mcg Tablet, 1,000 MCG PO DAILY, (Reported) Entered as Reported by: BECKY ESPINOZA on 09/26/20 1303 Calcium Carbonate (Calcium) 500 Mg Tablet, 500 MG PO DAILY, (Reported) Entered as Reported by: BECKY ESPINOZA on 09/26/20 1303 Cyanocobalamin (Vitamin B-12) (Vitamin B12) 2,500 Mcg Tab.chew, 2,500 MCG PO, (Reported) Entered as Reported by: BECKY ESPINOZA on 09/26/20 1303 Estradiol (Estradiol Tablet) 1 Mg Tablet, 1 MG PO DAILY, (Reported) Entered as Reported by: PEYTON HUTCHINSON on 05/15/19 1446 Fexofenadine HCl (Fexofenadine HCl) 180 Mg Tablet, 180 MG PO BID, (Reported) Entered as Reported by: APRIL SANABRIA on 05/18/19 0946 Hydrochlorothiazide (Hydrochlorothiazide) 25 Mg Tablet, 25 MG PO DAILY, (Reported) Entered as Reported by: PEYTON HUTCHINSON on 05/15/19 1446 Levalbuterol Tartrate (Xopenex Hfa) 15 Gm Hfa.aer.ad, 1-2 PUFF INH Q4H PRN for SHORTNESS OF BREATH, (Reported) Entered as Reported by: APRIL SANABRIA on 05/18/19 0950 Multivitamin (Multi-Vitamin Daily) 1 Each Tablet, 1 EACH PO DAILY, (Reported) Entered as Reported by: BECKY ESPINOZA on 09/26/20 1303 Ondansetron (Ondansetron Odt) 4 Mg Tab.rapdis, 4 MG PO Q8H PRN for nausea Prescribed by: ROBB JONES on 07/08/21 1200 Pantoprazole Sodium (Pantoprazole Sodium) 40 Mg Tablet.dr, 40 MG PO BID, (Reported) Entered as Reported by: PEYTON HUTCHINSON on 05/15/19 1446 Semaglutide (Ozempic) 1 Mg/0.75 Ml Pen.injctr, 1 MG SC Fr, (Reported) Entered as Reported by: PEYTON HUTCHINSON on 05/15/19 1446 Spironolactone (Spironolactone) 25 Mg Tablet, 25 MG PO DAILY, (Reported) Entered as Reported by: APRIL SANABRIA on 05/18/19 0947 Tramadol HCl (Tramadol HCl) 50 Mg Tablet, 100 MG PO Q12H, (Reported) Entered as Reported by: PEYTON HUTCHINSON on 05/15/19 1446 Review of Systems Review of Systems Constitutional: see HPI, malaise, weakness EENTM: nose congestion, throat pain Respiratory: cough, dyspnea on exertion, short of breath Cardiovascular: chest pain Gastrointestinal: loss of appetite, nausea Genitourinary: no symptoms reported : No Musculoskeletal: muscle cramps Skin: no symptoms reported Psychiatric/Neurological: No Symptoms Reported All Other Systems Reviewed Negative Unless Noted: Yes Past Qxzcslr-Kaahfl-Naaxcv Hx Immunizations Up To Date Tetanus Booster (TDap): Unknown Seasonal Allergies Seasonal Allergies: No Past Medical History Surgeries: Yes (bilat knee arthroscopy; EGD; Septum surgery; Diag Lap; R ankle fx) Bladder Surgery, Gallbladder, Hysterectomy, Oophorectomy, Orthopedic, Rectal Respiratory: Yes (RUBY) Asthma, Sleep Apnea Cardiac: Yes (Hx palpitations, Hx malignant hyperthermia) Chronic Edema/Swelling, Hypertension Neurological: No Female Reproductive Disorders: Ovarian Cyst [employer] History: Hysterectomy Genitourinary: Yes (bladder tie up surgery x 2) Bladder Infection, Kidney Stones Gastrointestinal: Yes (dyspagia) Gastroesophageal Reflux, Hiatal Hernia, Gall Bladder Disease Musculoskeletal: Yes (Osteoarthritis L knee, Lumbago, R.A. multiple sites, Hx TMJ) Arthritis, Fibromyalgia, Rheumatoid Arthritis, Chronic Back Pain Endocrine: Yes (DM Type II) Diabetes, Insulin dep HEENT: No Cancer: No Psychosocial: Yes Anxiety Integumentary: No Blood Disorders: No Adverse Reaction/Blood Tranf: No Family Medical History Completed stroke 19 FATHER Diabetes mellitus 19 FATHER 19 MOTHER G8 SISTER FH: aneurysm 19 MOTHER Hypertension 19 FATHER 19 MOTHER G8 SISTER PSH: -OVARIAN CYST REMOVAL X 2/DIAGNOSTIC LAPAROSCOPIES -CYSTOCOELE/RECTOCOELE REPAIR X 2 -EGD X 2 -HYST/BSO -RIGHT ANKLE FX/REPAIR -BILATERAL KNEE SCOPES -NASAL SEPTUM REPAIR Physical Exam Vital Signs - First Documented 07/08/21 08:15 Temp 37.1 Pulse 120 Resp 16 B/P (MAP) 148/91 (110) Pulse Ox 98 O2 Delivery Room Air Capillary Refill : Height: 5'7.00" Weight: 280lbs. oz. 127.163378fr; 37.93 BMI Method:Stated General Appearance: WD/WN, mild distress, other (appears ill) Eyes: Bilateral Eye Normal Inspection HEENT: PERRL/EOMI, normal ENT inspection, TMs normal, other (dry oral mucosa) Neck: supple Respiratory: lungs clear, normal breath sounds, no respiratory distress, no accessory muscle use, other (slight tachypnea) Cardiovascular: regular rate, rhythm, tachycardia Gastrointestinal: normal bowel sounds, non tender, soft Extremities: non-tender, normal inspection, no pedal edema, no calf tenderness Neurologic/Psychiatric: alert, normal mood/affect, oriented x 3 Skin: normal color, warm/dry Focused Exam Lactate Level 07/08/21 08:25: Lactic Acid Level 1.28 Lactic Acid Level Laboratory Tests Test 07/08/21 08:25 Lactic Acid Level 1.28 MMOL/L (0.50-2.00) Progress/Results/Core Measures Suspected Sepsis SIRS Temperature: Pulse: Respiratory Rate: Laboratory Tests 07/08/21 08:25: White Blood Count 3.6L Blood Pressure / Mean: 07/08/21 08:25: Lactic Acid Level 1.28 Laboratory Tests 07/08/21 08:25: Creatinine 0.71, INR Comment 0.9, Platelet Count 191, Total Bilirubin 0.2 Results/Orders Lab Results Laboratory Tests Test 07/08/21 08:25 Range/Units White Blood Count 3.6 L 4.3-11.0 10^3/uL Red Blood Count 4.82 3.80-5.11 10^6/uL Hemoglobin 13.7 11.5-16.0 g/dL Hematocrit 43 35-52 % Mean Corpuscular Volume 88 80-99 fL Mean Corpuscular Hemoglobin 28 25-34 pg Mean Corpuscular Hemoglobin Concent 32 32-36 g/dL Red Cell Distribution Width 13.6 10.0-14.5 % Platelet Count 191 130-400 10^3/uL Mean Platelet Volume 9.5 9.0-12.2 fL Immature Granulocyte % (Auto) 0 % Neutrophils (%) (Auto) 30 L 42-75 % Lymphocytes (%) (Auto) 59 H 12-44 % Monocytes (%) (Auto) 7 0-12 % Eosinophils (%) (Auto) 3 0-10 % Basophils (%) (Auto) 1 0-10 % Neutrophils # (Auto) 1.1 L 1.8-7.8 10^3/uL Lymphocytes # (Auto) 2.1 1.0-4.0 10^3/uL Monocytes # (Auto) 0.3 0.0-1.0 10^3/uL Eosinophils # (Auto) 0.1 0.0-0.3 10^3/uL Basophils # (Auto) 0.0 0.0-0.1 10^3/uL Immature Granulocyte # (Auto) 0.0 0.0-0.1 10^3/uL Prothrombin Time 12.2 12.2-14.7 SEC INR Comment 0.9 0.8-1.4 Activated Partial Thromboplast Time 29 24-35 SEC Sodium Level 141 135-145 MMOL/L Potassium Level 3.9 3.6-5.0 MMOL/L Chloride Level 108 H 98-107 MMOL/L Carbon Dioxide Level 24 21-32 MMOL/L Anion Gap 9 5-14 MMOL/L Blood Urea Nitrogen 10 7-18 MG/DL Creatinine 0.71 0.60-1.30 MG/DL Estimat Glomerular Filtration Rate 86 BUN/Creatinine Ratio 14 Glucose Level 137 H 70-105 MG/DL Lactic Acid Level 1.28 0.50-2.00 MMOL/L Calcium Level 8.4 L 8.5-10.1 MG/DL Corrected Calcium 9.0 8.5-10.1 MG/DL Total Bilirubin 0.2 0.1-1.0 MG/DL Aspartate Amino Transf (AST/SGOT) 18 5-34 U/L Alanine Aminotransferase (ALT/SGPT) 21 0-55 U/L Alkaline Phosphatase 70 40-136 U/L Total Protein 6.6 6.4-8.2 GM/DL Albumin 3.3 3.2-4.5 GM/DL My Orders Orders - ROBB JONES MD Ns Iv 1000 Ml (Sodium Chloride 0.9%) (07/08/21 08:30) Ondansetron Injection (Zofran Injectio (07/08/21 08:30) Ketorolac Injection (Toradol Injection) (07/08/21 08:30) Cbc With Automated Diff (07/08/21 08:31) Comprehensive Metabolic Panel (07/08/21 08:31) Blood Culture (07/08/21 08:31) Sputum Culture (07/08/21 08:31) Protime With Inr (07/08/21 08:31) Partial Thromboplastin Time (07/08/21 08:31) Chest 1 View, Ap/Pa Only (07/08/21 08:31) Ed Iv/Invasive Line Start (07/08/21 08:31) Ed Iv/Invasive Line Start (07/08/21 08:31) Vital Signs Adult Sepsis Patie Q15M (07/08/21 08:31) O2 (07/08/21 08:31) Remove Rings In Anticipation O (07/08/21 08:31) Lactic Acid Analyzer (07/08/21 08:31) Epinephrine 1 Mg Injection (Adrenalin I (07/08/21 10:15) Diphenhydramine Injection (Benadryl Inje (07/08/21 10:15) Sotrovimab (Sotrovimab) (07/08/21 10:15) Acetaminophen Tablet (Tylenol Tablet) (07/08/21 10:15) Ondansetron Injection (Zofran Injectio (07/08/21 10:15) Hyoscyamine Sl Tablet (Levsin Sl Tablet) (07/08/21 10:30) Hyoscyamine Sl Tablet (Levsin Sl Tablet) (07/08/21 10:28) Medications Given in ED Vital Signs/I&O 07/08/21 07/08/21 07/08/21 08:15 11:08 12:10 Temp 37.1 Pulse 120 77 78 Resp 16 16 16 B/P (MAP) 148/91 (110) 124/88 122/84 Pulse Ox 98 99 98 O2 Delivery Room Air Room Air Room Air Capillary Refill : Progress Note : Time: 12:02 Progress Note Patient received monoclonal antibody infusion while here in the emergency department. She tolerated this well. She received sotromivab. No side effects were noted. Her vital signs remained stable. She did have some nausea and some abdominal cramping during the infusion. She was treated with some Levsin. She had previously gotten Zofran, fluids and Toradol. I have given her good return precautions. She verbalized understanding. All questions were sought and answered. Patient stable for discharge. Diagnostic Imaging Diagonstic Imaging: Xray Plain Films/CT/US/NM/MRI: chest Comments [facility], [facility]. [place], [place] NAME: QUYEN HCANG [employer] REC#: [id number] PT STATUS: REG ER : 1965 PHYSICIAN: ROBB JONES MD ADMIT DATE: 07/08/21/ER Draft Date of Exam:07/08/21 CHEST 1 VIEW, AP/PA ONLY Portable erect AP chest at 9:09 AM INDICATION: Short of breath, COVID positive. FINDINGS: The heart size is within normal limits although the heart does seem somewhat more prominent than noted on the prior exam of 01/03/2020. In the interval since the prior study, a vague area of slightly increased density has developed in the right infrahilar region. This could be secondary to superimposition of the bronchovascular markings in this area. However, the possibility that there is an element of pneumonia/atelectasis in this region should also be considered. The lungs are otherwise clear. There is no pleural effusion identified. The mediastinum is not widened. The osseous structures are intact. IMPRESSION: 1. There is a question of a small focus of pneumonia/atelectasis in the medial aspect of the right lung base. Clinical follow-up is recommended. 2. There is no acute cardiopulmonary abnormality noted otherwise. Dictated on workstation # [id number] Dict: 07/08/21 0908 Trans: 07/08/21 0915 AC [id number] Interpreted by: PHILIPPE SALINAS MD Electronically signed by: Departure Impression Primary Impression: COVID-19 Additional Impression: Influenza B Disposition: 01 HOME, SELF-CARE Condition: Stable Departure-Patient Inst. Decision time for Depature: 11:58 Referrals: YURI BALDERAS MD (PCP/Family) Primary Care Physician Patient Instructions: COVID-19 ED Add. Discharge Instructions: Drink lots of fluids to stay well-hydrated. Take nwhe-zfr-nhenstc ibuprofen 3 tablets which is 600 mg every 6 hours with food for body aches and any temperature over 100.4. You can also take extra strength Tylenol 2 tablets every 6 hours for fever as well. You can take vitamins at home such as zinc, multivitamin, vitamin C to help support your immune system. Zofran, 4 mg which is a nausea medication every 8 hours for nausea. You should get an oxygen monitor from the pharmacy and monitor your oxygen levels at home periodically. If they are declining and dropped below 90 you need to come back to the emergency room for reevaluation. Follow-up with your primary care provider in about a week. Also please return to the emergency room for any other new concerning or emergent complaints. Scripts Ondansetron (Ondansetron Odt) 4 Mg Tab.rapdis 4 MG PO Q8H PRN for nausea, #20 TAB Prov: ROBB JONES MD 07/08/21 ROBB JONES MD Jul 08, 2021 08:34
[2021-07-08 08:48] LABS: BASOPHILS % (AUTO) 1 % (0-10); EOSINOPHILS # (AUTO) 0.1 10^3/uL (0.0-0.3); EOSINOPHILS % (AUTO) 3 % (0-10); HEMATOCRIT 43 % (35-52); HEMOGLOBIN 13.7 g/dL (11.5-16.0); LYMPHOCYTES # (AUTO) 2.1 10^3/uL (1.0-4.0); LYMPHOCYTES % (AUTO) 59 % (12-44); MEAN CORPUSCULAR HEMOGLOBIN 28 pg (25-34); MEAN CORPUSCULAR HGB CONC 32 g/dL (32-36); MEAN CORPUSCULAR VOLUME 88 fL (80-99); MEAN PLATELET VOLUME 9.5 fL (9.0-12.2); MONOCYTES # (AUTO) 0.3 10^3/uL (0.0-1.0); MONOCYTES % (AUTO) 7 % (0-12); NEUTROPHILS # (AUTO) 1.1 10^3/uL (1.8-7.8); NEUTROPHILS % (AUTO) 30 % (42-75); PLATELET COUNT 191 10^3/uL (130-400); WHITE BLOOD COUNT 3.6 10^3/uL (4.3-11.0)
[2021-07-08 08:51] LABS: ALBUMIN 3.3 GM/DL (3.2-4.5); POTASSIUM 3.9 MMOL/L (3.6-5.0)
[2021-07-08 08:53] LABS: CALCIUM 8.4 MG/DL (8.5-10.1)
[2021-07-08 08:54] LABS: TOTAL PROTEIN 6.6 GM/DL (6.4-8.2)
[2021-07-08 08:55] LABS: BILIRUBIN,TOTAL 0.2 MG/DL (0.1-1.0)
[2021-07-08 08:57] LABS: CREATININE SERUM 0.71 MG/DL (0.60-1.30)
[2021-07-08 08:59] LABS: INR 0.9 (0.8-1.4); PROTHROMBIN TIME PATIENT 12.2 SEC (12.2-14.7)
--- NOTE | 2021-07-08 09:17 | Diagnostic Imaging Report ---
Portable erect AP chest at 9:09 AM INDICATION: Short of breath, COVID positive. FINDINGS: The heart size is within normal limits although the heart does seem somewhat more prominent than noted on the prior exam of 01/03/2020. In the interval since the prior study, a vague area of slightly increased density has developed in the right infrahilar region. This could be secondary to superimposition of the bronchovascular markings in this area. However, the possibility that there is an element of pneumonia/atelectasis in this region should also be considered. The lungs are otherwise clear. There is no pleural effusion identified. The mediastinum is not widened. The osseous structures are intact. IMPRESSION: 1. There is a question of a small focus of pneumonia/atelectasis in the medial aspect of the right lung base. Clinical follow-up is recommended. 2. There is no acute cardiopulmonary abnormality noted otherwise. Dictated by: Dictated on workstation # [id number]
[2021-07-08] MEDS ORDERED: diphenhydrAMINE 50 MG/ML INJ (BENADRYL) IV PRN (10:15)
[2021-07-08] MEDS ORDERED: SOTROVIMAB 500 MG/NS 100 ML IVPB IV ONE ×2 (10:15)
[2021-07-08] MEDS ORDERED: EPINEPHrine INJECTION 1 MG/ML AMP IM PRN (10:15)
[2021-07-08] MEDS ORDERED: ONDANSETRON 4 MG/2 ML (SDV) Z0FRAN IV PRN (10:15)
[2021-07-08] MEDS ORDERED: ACETAMINOPHEN 500 MG TAB (TYLENOL) PO PRN (10:15)
[2021-07-08] MEDS ORDERED: HYOSCYAMINE 0.125 MG (LEVSIN) TAB ONE (10:28)
[2021-07-08] MEDS ORDERED: HYOSCYAMINE 0.125 MG (LEVSIN) TAB PO ONE (10:30)
[2021-07-08] MEDS ORDERED: ONDA4TAB11 PO (12:00)
[2021-07-08 12:10] VITALS: BP 122/84
== END 2021-07-08 12:10 | disposition home or self-care (01) ==
LOC: EDUNIT# 08:06 → ER 08:09
DX: U07.1 COVID-19 (principal); G47.30 Sleep apnea, unspecified; I10 Essential (primary) hypertension; K21.9 Gastro-esophageal reflux disease without esophagitis; E11.9 Type 2 diabetes mellitus without complications; E66.9 Obesity, unspecified; Z68.37 Body mass index [BMI] 37.0-37.9, adult; Z79.899 Other long term (current) drug therapy
CPT/HCPCS: 36415; 71045; 80053; 83605; 85025; 85610; 85730; 87040